=== PATIENT | male | born 1955 | race Caucasian/White ===

== ENCOUNTER 2021-10-17 10:34 | Inpatient (IN) | payer OTHER ==
[2021-10-17 10:59] LABS: Absolute Lymphocytes (CBC) 1.2 K/uL (0.7-4.9); Lymphocytes % 6.7 % (15.3-44.8); MPV 6.9 fL (7.6-11.3); RBC Red Blood Cell Count 5.43 M/uL (4.33-5.43)
[2021-10-17 11:10] LABS: Urine Blood 2+ (Negative); Urine Glucose 2+ (Negative); Urine Protein Negative (Negative)
[2021-10-17] MEDS ORDERED: NA CHLORIDE 0.9% 1,000 ML ONE ×3 (11:11→20:23)
[2021-10-17 11:15] LABS: Albumin 3.5 g/dL (3.4-5.0); Bilirubin Total 0.7 mg/dL (0.2-1.0); Protein, Total 7.4 g/dL (6.4-8.2)
--- NOTE | 2021-10-17 11:58 | RAD REPORT ---
EXAM DESCRIPTION: CTAbdomen Pelvis W Contrast - 10/17/2021 11:51 am CLINICAL HISTORY: Abdominal pain. RLQ abdominal pain COMPARISON: No comparisons TECHNIQUE: Biphasic CT imaging of the abdomen and pelvis was performed with 100 ml non-ionic IV cont rast. All CT scans are performed using dose optimization technique as appropriate and may include automated exposure control or mA/KV adjustment according to patient size. FINDINGS: The lung bases are clear.Small hiatal hernia. The liver, spleen, pancreas, and kidneys are within normal limits. Areas of nodularity are present in both adrenal glands, nonspecific but statistically most likely benign adenomas. No bowel obstruction, free air, free fluid or abscess. The appendix is dilated to 20 mm with surroun ding inflammation compatible with acute appendicitis. Mild sigmoid diverticulosis without diverticuli tis. No evidence of significant lymphadenopathy. No suspicious bony findings. IMPRESSION: Acute appendicitis.
[2021-10-17] MEDS ORDERED: NA CHLORIDE 0.9% 100 ML ONE (13:08)
[2021-10-17] MEDS ORDERED: MORPHINE 4 MG/ML SYR ONE (13:08)
[2021-10-17] MEDS ORDERED: ONDANSETRON 4 MG/2 ML VIAL ONE ×2 (13:08→16:27)
[2021-10-17] MEDS ORDERED: METRONIDAZOLE 500mg IVPB 500 MG/100 ML BAG IV ONE (13:08)
[2021-10-17] MEDS ORDERED: CEFTRIAXONE 1000 MG/VIAL ONE (13:08)
[2021-10-17 13:24] LABS: Blood Morphology Comment NOT SEEN (NOT SEEN); Platelet Estimate ADEQ
--- NOTE | 2021-10-17 15:25 | EDPHYS ---
Physician Documentation [facility] Name: Nathanael Gilbert Age: 66 yrs Sex: Male : 1955 Arrival Date: 10/17/2021 Time: 10:39 Bed 5 Private MD: ED Physician Mayank Alonzo HPI: 10/17 12:56 This 66 yrs old Male presents to ER via Ambulatory with complaints of Abdominal Pain. kb 12:56 The patient presents with abdominal pain right lower quadrant. Onset: The kb symptoms/episode began/occurred 2 day(s) ago. The symptoms do not radiate. Associated signs and symptoms: none. The symptoms are described as constant. Modifying factors: The symptoms are alleviated by nothing, the symptoms are aggravated by pressure. Severity of pain: At its worst the pain was moderate in the emergency department the pain is unchanged. The patient has not experienced similar symptoms in the past. The patient has not recently seen a physician. Pt reports RLQ pain for 2 days. Denies other symptoms. . Historical: - Allergies: 10:40 No Known Allergies; bp - Home Meds: 10:40 Crestor oral [Active]; levothyroxine oral [Active]; bp - PMHx: 10:40 Hypertensive disorder; Hypothyroidism; Hypercholesterolemia; bp - Immunization history:: Adult Immunizations up to date. - Social history:: Smoking status: Patient denies any tobacco usage or history of. ROS: 12:53 Constitutional: Negative for fever, chills, and weight loss. kb 12:53 Abdomen/GI: Positive for abdominal pain, Negative for nausea, vomiting, and diarrhea. 12:53 All other systems are negative. Exam: 12:53 Constitutional: This is a well developed, well nourished patient who is awake, alert, kb and in no acute distress. Head/Face: Normocephalic, atraumatic. ENT: Moist Mucous membranes Cardiovascular: Regular rate and rhythm with a normal S1 and S2. No gallops, murmurs, or rubs. No pulse deficits. Respiratory: Respirations even and unlabored. No increased work of breathing. Talking in full sentences Skin: Warm, dry with normal turgor. Normal color. MS/ Extremity: Pulses equal, no cyanosis. Neurovascular intact. Full, normal range of motion. Neuro: Awake and alert, GCS 15, oriented to person, place, time, and situation. Moves all extremities. Normal gait. Psych: Awake, alert, with orientation to person, place and time. Behavior, mood, and affect are within normal limits. 12:53 Abdomen/GI: Inspection: abdomen appears normal, Bowel sounds: normal, Palpation: soft, in all quadrants, moderate abdominal tenderness, in the right lower quadrant. Vital Signs: 10:40 BP 168 / 90; Pulse 77; Resp 16; Temp 97.9; Pulse Ox 98% on R/A; Weight 108.86 kg; bp Height 5 ft. 11 in. (180.34 cm); 11:27 BP 162 / 97; Pulse 71; Resp 18; Pulse Ox 96% on R/A; ph 12:20 BP 161 / 91; Pulse 75; Resp 18; Pulse Ox 98% on R/A; ph 13:05 BP 148 / 68; Pulse 69; Resp 16; Pulse Ox 98% on R/A; ph 14:30 BP 179 / 92; Pulse 74; Resp 16; Pulse Ox 99% ; bp 15:30 BP 169 / 102; Pulse 80; Resp 17; Pulse Ox 98% ; bp 10:40 Body Mass Index 33.47 (108.86 kg, 180.34 cm) bp MDM: 10:39 Patient medically screened. 12:56 Data reviewed: vital signs, nurses notes. Data interpreted: Pulse oximetry: on room air kb is 98 %. Interpretation: normal. 12:59 Counseling: I had a detailed discussion with the patient and/or guardian regarding: the kb historical points, exam findings, and any diagnostic results supporting the discharge/admit diagnosis, lab results, radiology results, the need for further work-up and treatment in the hospital. ED course: Pt requests transfer to [facility] after discussing acute appendicitis. . 13:47 ED course: Awaiting response from [facility] regarding transfer. Pt now wishes to go to [facility]. Transfer has been initiated. . 14:43 ED course: Transfer denied by [facility]. Pt wants to call his insurance company before agreeing to stay here. . 15:06 ED course: Pt's insurance company told him to try [facility] transfer center informed medical secretary receptionist that all facilities are on transfer closure at this time. Pt agrees to stay here. Dr Trujillo called for consult. . 15:24 Physician consultation: José Miguel Trujillo MD was contacted at 15:24, regarding admission, kb to the medical/surgical unit. and will see patient in OR. 10/17 10:40 Order name: CBC with Diff; Complete Time: 13:28 kb 10/17 10:40 Order name: CMP; Complete Time: 11:17 kb 10/17 10:40 Order name: Lipase; Complete Time: 11:17 kb 10/17 11:10 Order name: Urine Dipstick-Ancillary; Complete Time: 11:10 EDMS 10/17 13:23 Order name: COVID-19 SARS RT PCR (Document "Date of Onset" if Symptomatic); Complete ss Time: 15:25 10/17 13:24 Order name: Manual Differential; Complete Time: 13:28 EDMS 10/17 10:40 Order name: CT Abd/Pelvis - IV Contrast Only; Complete Time: 11:59 kb 10/17 15:24 Order name: EKG; Complete Time: 15:24 kb 10/17 10:40 Order name: IV Saline Lock; Complete Time: 11:07 kb 10/17 10:40 Order name: Labs collected and sent; Complete Time: 11:07 kb 10/17 10:40 Order name: Urine Dipstick-Ancillary (obtain specimen); Complete Time: 11:07 kb 10/17 15:24 Order name: EKG - Nurse/Tech; Complete Time: 16:28 kb Administered Medications: 11:00 Drug: NS 0.9% 1000 ml Route: IV; Rate: 1 bolus; Site: right forearm; bp 13:00 Follow up: Response: No adverse reaction; IV Status: Completed infusion; IV Intake: ph 1000ml 13:15 Drug: Rocephin (cefTRIAXone) 1 grams Route: IV; Rate: calculated rate; Site: right bp antecubital; 13:45 Follow up: Response: No adverse reaction; IV Status: Completed infusion ph 13:15 Drug: morphine 4 mg Route: IVP; Infused Over: 4 mins; Site: right antecubital; bp 14:58 Follow up: Response: No adverse reaction; Pain is decreased; RASS: Alert and Calm (0) ph 13:15 Drug: Zofran (Ondansetron) 4 mg Route: IVP; Site: right forearm; bp 14:58 Follow up: Response: No adverse reaction ph 13:15 Drug: NS 0.9% 1000 ml Route: IV; Rate: 125 ml/hr; Site: right antecubital; bp 14:58 Follow up: Response: No adverse reaction; IV Status: Infusion continued upon admission ph 13:45 Drug: Flagyl (metroNIDAZOLE) 500 mg Volume: 100 ml; Route: IVPB; Rate: 200 ml/hr; bp Infused Over: 30 mins; Site: right forearm; 14:15 Follow up: Response: No adverse reaction; IV Status: Completed infusion ph Disposition: 22:28 Co-signature as Attending Physician, Mayank ALBERT was immediately available on-site ms3 in the Emergency Department for consultation in the care of the patient. . Disposition Summary: 10/17/21 15:24 Hospitalization Ordered Hospitalization Status: Observation kb Provider: José Miguel Trujillo Location: Telemetry/MedSurg (observation) kb Condition: Stable kb Problem: new kb Symptoms: are unchanged kb Bed/Room Type: Standard Room Assignment: 203(10/17/21 17:16) ja1 Diagnosis - Unspecified acute appendicitis kb Forms: - Medication Reconciliation Form kb - SBAR form kb Signatures: Dispatcher [employer] EDMS Danna Johnston, SERVICE TEAM LEADER-C SERVICE TEAM LEADER-Ckb Jannette Valera bd Francis Lepe RN RN ja1 Sujit Kruse RN RN Mayank Castellano DO DO ms3 Barbie Lyons RN ph Corrections: (The following items were deleted from the chart) 17:06 15:24 kb bd 17:16 17:06 214 bd jaAngelo
--- NOTE | 2021-10-17 15:25 | ER ---
Nurse's Notes [facility] Name: Nathanael Gilbert Age: 66 yrs Sex: Male : 1955 Arrival Date: 10/17/2021 Time: 10:39 Bed 5 Private MD: Diagnosis: Unspecified acute appendicitis Presentation: 10/17 10:40 Chief complaint: Patient states: RLQ pain that began two days ago. Is worse today. ss Radiates towards R groin. Pt believes it may be his appendix. Coronavirus screen: Client denies travel out of the [place] in the last 14 days. Ebola Screen: Patient denies exposure to infectious person. Patient denies travel to an Ebola-affected area in the 21 days before illness onset. Initial Sepsis Screen: Does the patient meet any 2 criteria? No. Patient's initial sepsis screen is negative. Does the patient have a suspected source of infection? No. Patient's initial sepsis screen is negative. Risk Assessment: Do you want to hurt yourself or someone else? Patient reports no desire to harm self or others. Onset of symptoms was October 15, 2021. 10:40 Method Of Arrival: Ambulatory ss 10:40 Acuity: ROSEANN 3 ss 10:40 Care prior to arrival: Medication(s) given: Toradol 15 mg IVP IV initiated. 20 GA, in ss the right forearm. Triage Assessment: 10:40 General: Appears in no apparent distress. uncomfortable, Behavior is calm, cooperative, bp appropriate for age. Pain: Complains of pain in abdomen. EENT: No deficits noted. Neuro: No deficits noted. Cardiovascular: No deficits noted. Respiratory: No deficits noted. GI: Abd is soft Abdomen is tender to palpation in right lower quadrant Reports lower abdominal pain. : No signs and/or symptoms were reported regarding the genitourinary system. Derm: No deficits noted. Musculoskeletal: No deficits noted. Historical: - Allergies: 10:40 No Known Allergies; bp - Home Meds: 10:40 Crestor oral [Active]; levothyroxine oral [Active]; bp - PMHx: 10:40 Hypertensive disorder; Hypothyroidism; Hypercholesterolemia; bp - Immunization history:: Adult Immunizations up to date. - Social history:: Smoking status: Patient denies any tobacco usage or history of. Screenin:40 Abuse screen: Denies threats or abuse. Denies injuries from another. Nutritional bp screening: No deficits noted. Tuberculosis screening: No symptoms or risk factors identified. Fall Risk None identified. Assessment: 10:40 General: SEE TRIAGE NOTE. bp 13:06 Reassessment: Patient appears in no apparent distress at this time. Patient and/or ph family updated on plan of care and expected duration. Pain level reassessed. Patient is alert, oriented x 3, equal unlabored respirations, skin warm/dry/pink. 14:00 Reassessment: PT REQUESTING TRANSFER RATHER THAN ADMIT 2/2 PRE-EXISTING RELATIONSHIP. bp 15:30 Reassessment: RECEIVING FACILITY ON SATURATION. ADMIT INITIATED. GI: Bowel sounds bp present X 4 quads. Reports lower abdominal pain. 16:29 Reassessment: PT TO OR. PT TO RETURN TO ER AFTER APPY. bp Vital Signs: 10:40 BP 168 / 90; Pulse 77; Resp 16; Temp 97.9; Pulse Ox 98% on R/A; Weight 108.86 kg; bp Height 5 ft. 11 in. (180.34 cm); 11:27 BP 162 / 97; Pulse 71; Resp 18; Pulse Ox 96% on R/A; ph 12:20 BP 161 / 91; Pulse 75; Resp 18; Pulse Ox 98% on R/A; ph 13:05 BP 148 / 68; Pulse 69; Resp 16; Pulse Ox 98% on R/A; ph 14:30 BP 179 / 92; Pulse 74; Resp 16; Pulse Ox 99% ; bp 15:30 BP 169 / 102; Pulse 80; Resp 17; Pulse Ox 98% ; bp 10:40 Body Mass Index 33.47 (108.86 kg, 180.34 cm) bp ED Course: 10:39 Patient arrived in ED. kb 10:39 Danna Johnston FNP-C [facility]. kb 10:39 Mayank Alonzo DO is Attending Physician. kb 10:40 Arm band placed on. bp 10:40 Patient has correct armband on for positive identification. Bed in low position. Call bp light in reach. Side rails up X2. 10:40 Maintain EMS IV. Dressing intact. Good blood return noted. Site clean \T\ dry. Gauge \T\ bp site: 20 G R FA. 10:42 Triage completed. ss 10:42 Lyons, Barbie, RN is Primary Nurse. ph 11:53 CT Abd/Pelvis - IV Contrast Only In Process Unspecified. EDMS 13:36 initiated transfer to [facility]. bd 14:11 pt denied at [facility],per Jessica. bd 14:41 initiated transfer to [facility]. bd 14:51 pt denied at [facility] due to all [facility] being on transfer closure. bd 15:24 José Miguel Trujillo MD is Hospitalizing Provider. kb 17:33 No provider procedures requiring assistance completed. Patient admitted, IV remains in ss place. Administered Medications: 11:00 Drug: NS 0.9% 1000 ml Route: IV; Rate: 1 bolus; Site: right forearm; bp 13:00 Follow up: Response: No adverse reaction; IV Status: Completed infusion; IV Intake: ph 1000ml 13:15 Drug: Rocephin (cefTRIAXone) 1 grams Route: IV; Rate: calculated rate; Site: right bp antecubital; 13:45 Follow up: Response: No adverse reaction; IV Status: Completed infusion ph 13:15 Drug: morphine 4 mg Route: IVP; Infused Over: 4 mins; Site: right antecubital; bp 14:58 Follow up: Response: No adverse reaction; Pain is decreased; RASS: Alert and Calm (0) ph 13:15 Drug: Zofran (Ondansetron) 4 mg Route: IVP; Site: right forearm; bp 14:58 Follow up: Response: No adverse reaction ph 13:15 Drug: NS 0.9% 1000 ml Route: IV; Rate: 125 ml/hr; Site: right antecubital; bp 14:58 Follow up: Response: No adverse reaction; IV Status: Infusion continued upon admission ph 13:45 Drug: Flagyl (metroNIDAZOLE) 500 mg Volume: 100 ml; Route: IVPB; Rate: 200 ml/hr; bp Infused Over: 30 mins; Site: right forearm; 14:15 Follow up: Response: No adverse reaction; IV Status: Completed infusion ph Medication: 10:40 VIS not applicable for this client. bp Intake: 13:00 IV: 1000ml; Total: 1000ml. ph Outcome: 15:24 Decision to Hospitalize by Provider. kb 17:33 Instructed on the need for admit. ss 17:33 Patient left the ED. ss 17:33 Admitted to OR accompanied by nurse, via stretcher. ph 17:33 Condition: stable Signatures: Dispatcher [employer] EDDanna Liang, AWS CONSULTANT-C AWS CONSULTANT-Ckb Jannette Valera [place], RN RN Barbie Lyons RN RN Aixa, Sujit, JOSE RN bp Corrections: (The following items were deleted from the chart) 12:33 10:40 BP 168 / 90; Pulse 77bpm; Resp 16bpm; Pulse Ox 98% RA; bp 12:57 10:40 BP 168 / 90; Pulse 77bpm; Resp 16bpm; Pulse Ox 98% RA; 108.86 kg; Height 5 ft. 11 bp in.; BMI: 33.4; bp
[2021-10-17] MEDS ORDERED: propofoL 200 MG/20 ML VIAL IV ONE (16:22)
[2021-10-17] MEDS ORDERED: LIDOCAINE 1% MPF 5 ML VIAL ONE (16:22)
[2021-10-17] MEDS ORDERED: ROCURONIUM 50 MG/5 ML VIAL IV ONE (16:23)
[2021-10-17] MEDS ORDERED: FENTANYL CITR 100 MCG/2 ML ONE ×2 (16:23→18:28)
[2021-10-17] MEDS ORDERED: KETOROLAC 30 MG/ML INJ ONE (16:26)
[2021-10-17] MEDS ORDERED: dexAMETHasone 10 MG/ML VIAL ONE (16:27)
[2021-10-17] MEDS ORDERED: ONDANSETRON 4 MG/2 ML VIAL IV PRN (16:54)
[2021-10-17] MEDS ORDERED: MORPHINE 4 MG/ML SYR IV PRN (16:54)
--- NOTE | 2021-10-17 17:34 | P.HP ---
Date of Service: 10/17/21 PC: This 66-year-old male presented to the emergency room with severe right lower quadrant abdominal pain for diagnosis and treatment. HPC: Patient has been experiencing abdominal pain since yesterday. Pain is intensified and is now located in the right lower quadrant. Started to have some nausea and vomiting along with it, also hurts when he walks at this time. PSHx: Negative PMHx: Hypercholesterolemia, hypertension, hypothyroid Social Hx: No known allergies Sys R: No cough, wheeze, shortness of breath. No chest pain or palpitations. Denies any urinary complaints. He just emptied his bladder a few minutes ago. O/E: Awake alert uncomfortable HEENT: Nonicteric Chest: Air entry equal bilaterally Abd: Tender with guarding and rebound in the right lower quadrant [place]: Intact Data: 18,000 white count with shift, CT scan demonstrates acute appendicitis supporting clinical diagnosis. Impression: Acute abdomen with appendicitis Plan: I will taken the operating room for laparoscopic possible open appendectomy. The risks of this procedure have been discussed. The possibility of bleeding, infection, injury to bowel blood vessels and surrounding structures were outlined. The possible need for open and/or further surgeries and procedures was described. Abscess and hernia formation was outlined. He unde rstands and wants us to proceed.
[2021-10-17] MEDS ORDERED: GLYCOPYRROLATE 0.2 MG/ML SYR ONE ×2 (18:09→18:16)
[2021-10-17] MEDS ORDERED: NEOSTIGMINE 1 MG/ML -10 ML VIAL ONE (18:16)
[2021-10-17] MEDS ORDERED: LABETALOL 20 MG/4ML SYRINGE IV ONE (18:28)
[2021-10-17] MEDS ORDERED: AMPICILLIN SODIUM 2 GM in NA CHLORIDE 0.9% 100 ML IVPB ONE (19:00)
--- NOTE | 2021-10-17 19:12 | P.OP ---
Preoperative diagnosis: Acute appendicitis Postoperative diagnosis: Ruptured appendix Primary procedure: Laparoscopy Secondary procedure: Converted to laparoscopic appendectomy Anesthesia: General Estimated blood loss: Less than 10 Specimen: 1 specimen a ruptured appendix and contents Operative Technique: The patient brought the operating room and placed supine on the table. After the induction of adequate general endotracheal anesthesia, there the abdomen was prepped with a DuraPrep solution, and draped in usual aseptic manner. A subumbilical incision was made. This was brought down through the skin and subcutaneous tissue. The fascia was identified. Careful using the Veress needle and a towel clip to apply traction on the fascia upward we were able to enter the peritoneal cavity. Having done a hanging drop, the abdomen was gently insufflated. We obtained a pressure approximately 12 mmHg. A 12 mm trocar was now placed in this area to allow access to the peritoneal cavity. Under direct vision a 5 mm trocar was placed in the lower midline, and another on the right lateral side of the abdomen. With the patient's placed in Trendelenburg and rolled to the left we could visualize the right lower quadrant. We could see that there was an inflammatory process in the area of the cecum. Just superior to this along the right lateral sidewall of the abdomen there was an inflammatory process that shows rashida stool sitting just at the edge there. This was gently dissected off of the lateral wall and brought inferiorly. Her. My intention was to mobilize the cecum lifted up and to complete the case laparoscopically. It became clear however the more we dissected there was a great potential to start to spread this contamination throughout the abdomen. Hence at this point I converted to an open procedure. Having marked exactly where the appendix was, a skin incision was made. This was brought down through the skin and subcutaneous tissue. The external oblique was now opened in direction of its fibers. The internal oblique was identified. Once again it was opened in direction of its fibers to allow us access to the peritoneum itself. The peritoneum was then sharply opened and we split to allow for full access through our incision. Immediately below isolate the cecum and this inflamed ruptured appendix. We were able to gently gently dissected out, and we could trace the base of the appendix to its junction with the cecum. We could see that there was clean viable tissue in this area. This was grasped and doing the linear stapler we were able to remove the appendiceal stump with a generous margin of cecum. This area having been closed we were now able to irrigated with a copious amount of a saline solution. We converted to a regular mix of ampicillin and irrigated the area thoroughly until the effluent was clear. A 10 mm drain was now placed into the right paracolic gutter, and brought and brought out inferiorly and medially to our incision. At this point the peritoneum was grasped between hemostats. It was closed with a running suture of chromic. Interrupted sutures were then used to approximate the internal oblique. The external fascia was treated in a similar manner. The subcutaneous tissue was approximated using 2 interrupted sutures of chromic, and angelo were loosely applied to the skin. We placed iodoform gauze between the angelo and this will be removed tomorrow. At this point we were able to now reestablish our insufflation as we had not remove the trochars. Inspection of the area showed we had adequate hemostasis. There was good closure of the anterior abdominal wall in this area. Now with a 5 mm trocar in the right lateral side we were able look back at the umbilicus and closed this area with 2 absorbable sutures placed using the Endo Close. The trochars were now removed, the sutures tied, and angelo were again applied to the skin. At the end of the procedure he was in a stable condition when sent to the recovery room. Needle sponge instrument count were correct. 1, 10 mm GABRIELA drain is in the right paracolic gutter. Drain(s): GABRIELA drain
[2021-10-17] MEDS ORDERED: NALOXONE HCL 2 MG/2 ML VIAL ONE (19:16)
[2021-10-17] MEDS: HYDROMORPHONE HCL 1 MG/ML INJ ONE ×8 (19:29→20:28)
[2021-10-17] MEDS ORDERED: Levofloxacin500mg IV 100 ML IV SCH (20:00)
[2021-10-17] MEDS: MORPHINE 4 MG/ML SYR IV SCH ×2 (20:00→22:00)
[2021-10-17 20:37] VITALS: O2SAT 96
[2021-10-17 21:59] VITALS: BMI 33.5
[2021-10-17] MEDS: Levofloxacin500mg IV 500 MG/100 ML BAG IV SCH (22:14)
[2021-10-17] MEDS: NA CHLORIDE 0.9% 1,000 ML IV SCH (22:28)
[2021-10-18] MEDS: METRONIDAZOLE 500mg IVPB 500 MG/100 ML BAG IV SCH ×3 (00:41→17:25)
[2021-10-18] MEDS: HYDROCODONE/APAP 10/325 TAB PO PRN ×3 (00:46→19:50)
[2021-10-18] MEDS: MORPHINE 4 MG/ML SYR IV PRN ×5 (02:44→22:16)
--- NOTE | 2021-10-18 06:28 | EKG ---
Test Date: 2021-10-17 Test Time: 16:07:11 Surgical Garment Assembly Supervisor: JOSIAS MEASUREMENT RESULTS: Intervals: Rate: 70 HI: 172 QRSD: 150 QT: 390 QTc: 421 [place]: P: 63 HI: 172 QRS: -81 T: 59 INTERPRETIVE STATEMENTS: Normal sinus rhythm Right bundle branch block Left anterior fascicular block Bifascicular block Abnormal ECG No previous ECG available for comparison Electronically Signed On 10-18-21 06:27:37 CDT by Dashawn Huertas
[2021-10-18] MEDS: NA CHLORIDE 0.9% 1,000 ML IV SCH ×3 (06:50→11:06)
[2021-10-18] MEDS ORDERED: SODIUM CHLORIDE 0.9% 20 ML VIAL IV PRN (10:26)
[2021-10-18] MEDS ORDERED: NA CHLORIDE 0.9% 500 ML IV ONE (10:45)
[2021-10-18] MEDS: PANTOPRAZOLE 40 MG INJ IVP SCH (11:06)
[2021-10-18] MEDS: Levofloxacin500mg IV 500 MG/100 ML BAG IV SCH (19:50)
[2021-10-19] MEDS: METRONIDAZOLE 500mg IVPB 500 MG/100 ML BAG IV SCH ×3 (00:09→16:20)
[2021-10-19] MEDS: MORPHINE 4 MG/ML SYR IV PRN ×3 (02:10→19:57)
[2021-10-19] MEDS: HYDROCODONE/APAP 10/325 TAB PO PRN ×4 (03:45→23:05)
[2021-10-19] MEDS: PANTOPRAZOLE 40 MG INJ IVP SCH (08:27)
--- NOTE | 2021-10-19 14:26 | P.PN ---
Date of Service: 10/19/21 S: Patient started to feel little bit better, still does not have much of an appetite. Pain he says is a little more under control today. Voiding on his own. O: Vital signs are stable, still has some drainage from the GABRIELA drain, consistent with some irrigating fluid that is still coming out. A: Improving status post appendectomy for ruptured appendix PE: Continue current therapy, will try and discharge patient tomorrow. In the meantime advance diet as tolerated.
[2021-10-19] MEDS: NA CHLORIDE 0.9% 1,000 ML IV SCH (19:55)
[2021-10-19] MEDS ORDERED: Levofloxacin 750mg IV 750 MG/150 ML BAG IV SCH (20:00)
[2021-10-20] MEDS: MORPHINE 4 MG/ML SYR IV PRN ×2 (01:28→06:08)
[2021-10-20] MEDS: METRONIDAZOLE 500mg IVPB 500 MG/100 ML BAG IV SCH ×2 (01:29→08:18)
[2021-10-20] MEDS: HYDROCODONE/APAP 10/325 TAB PO PRN ×2 (05:08→11:27)
[2021-10-20] MEDS: PANTOPRAZOLE 40 MG INJ IVP SCH (08:18)
[2021-10-20 13:20] VITALS: BP 147/67; TEMP 98.4
== END 2021-10-20 16:30 | disposition home or self-care (01) | DRG 340 ==
LOC: ER 10:34 → ERHOLD 15:26 → 2ND 17:34 → OBSVTOIN 19:54
PROVIDERS: ADMIT Surgery; ATTEND Surgery
PROC: 0WJG4ZZ Inspection of Peritoneal Cavity, Percutaneous Endoscopic Approach (ICD-10-PCS; 2021-10-17)
PROC: 0DTJ0ZZ Resection of Appendix, Open Approach (ICD-10-PCS; principal; 2021-10-17 16:00)
DX: K35.32 Acute appendicitis with perforation, localized peritonitis, and gangrene, without abscess (principal); E78.00 Pure hypercholesterolemia, unspecified; I10 Essential (primary) hypertension; E03.9 Hypothyroidism, unspecified; Z20.822 Contact with and (suspected) exposure to COVID-19
CPT/HCPCS: 36415; 74177; 80053; 81003; 82947; 83690; 85025; 88304; 93005; 94010; 97110; 97116; 97161; 97530; 99285; C9113; G0378; J0290; J1100; J1170; J2310; J2405; J2704; J2710; J3010; J3490; J7030; Q9967; U0003

== ENCOUNTER 2021-12-10 11:49 | Inpatient (IN) | payer OTHER ==
[2021-12-10 13:00] LABS: Absolute Lymphocytes (CBC) 0.9 K/uL (0.7-4.9); Hematocrit 43.3 % (39.6-49.0); Lymphocytes % 5.8 % (15.3-44.8); MCV 88.7 fL (80-100); MPV 8.4 fL (7.6-11.3); RBC Red Blood Cell Count 4.88 M/uL (4.33-5.43)
--- NOTE | 2021-12-10 13:01 | RAD REPORT ---
EXAM DESCRIPTION: RAD - Chest Single View - 12/10/2021 12:55 pm CLINICAL HISTORY: CHEST PAIN Chest pain. COMPARISON: No comparisons FINDINGS: Portable technique limits examination quality. The lungs are grossly clear. The heart is normal in size. No displaced fractures. IMPRESSION: No acute intrathoracic process suspected.
[2021-12-10] MEDS ORDERED: NA CHLORIDE 0.9% 1,000 ML ONE ×2 (13:16→15:53)
[2021-12-10] MEDS ORDERED: MORPHINE 4 MG/ML SYR ONE (13:16)
[2021-12-10] MEDS ORDERED: ONDANSETRON 4 MG/2 ML VIAL ONE ×2 (13:16→15:45)
[2021-12-10 13:19] LABS: Potassium 3.5 mmol/L (3.5-5.1); Protein, Total 7.5 g/dL (6.4-8.2); Troponin High Sensitivity 24.5 pg/mL (<58.9)
[2021-12-10 13:21] LABS: Bilirubin Total 9.7 mg/dL (0.2-1.0)
--- NOTE | 2021-12-10 13:51 | RAD REPORT ---
EXAM DESCRIPTION: CT - Chest Abd Pelvis Wo Con - 12/10/2021 1:38 pm CLINICAL HISTORY: Chest and abdomen pain. abd pain, chest pain COMPARISON: No comparisons TECHNIQUE: A limited noncontrast study was performed. All CT scans are performed using dose optimization technique as appropriate and may include automated exposure control or mA/KV adjustment according to patient size. FINDINGS: The lungs are clear.No pleural or pericardial effusion.No intrathoracic adenopathy. The spleen, pancreas both kidneys are within normal limits. Nodular enlargement of both adrenal gland s is present, unchanged. There is a large fluid collection containing air pockets extending from the right lower quadrant cecu m/appendectomy clips along the right flank extending into the right lobe of the liver. This collectio n measures 16 x 10 x 9 cm (CC x T x AP). This is most compatible with an abscess. No bowel obstructio n or free air. No worrisome osseous finding. IMPRESSION: Large 16 cm right-sided intra-abdominal abscess extending from the right lower quadrant cecum to involve the right lobe of the liver as detailed.
[2021-12-10] MEDS ORDERED: NA CHLORIDE 0.9% 100 ML ONE (14:33)
[2021-12-10] MEDS ORDERED: PIPERACIL/TAZO 3.375 GM VIAL IV ONE (14:34)
--- NOTE | 2021-12-10 15:20 | P.HP ---
Date of Service: 12/10/21 PC: This 66-year-old male presented to the emergency room with severe abdominal pain for diagnosis and treatment. HPC: This is a patient of mine, who about 5 to 6 weeks ago underwent an open appendectomy for ruptured appendix. He tolerated the seizure well. At the time he had a Preston-Thacker drain placed postoperatively. The drain has been removed, and the patient had was discharged from the hospital. He was on antibiotics as an outpatient. He presented to my office today for staple removal, 6 weeks after his surgery. At the time he said he was feeling unwell, was having abdominal pain, and had no appetite. States he has been afebrile at home. PSHx: Previous open appendectomy PMHx: Negative Social Hx: No known allergies Sys R: No cough, wheeze, shortness of breath. No chest pain or palpitations. Has just felt occasional fever, and has been slightly out of breath recently. O/E: Awake alert looks ill vital signs are stable afebrile HEENT: Patient appears to be clinically slightly jaundiced Chest: Chest movement equal bilaterally Abd: Area of fullness on the right side of his abdomen on clinical exam [place]: Intact Data: 14,000 white count, CT scan shows significant abscess on the right side of the abdomen. Extends up to the liver. Impression: Intra-abdominal abscess status post open appendectomy for ruptured appendix Plan: I have discussed the findings with the patient. I have told him this abscess needs to be drained. I plan to take him to the operating room to do this. The risks of the procedure have been discussed. The possibility of bleeding, infection, injury to bowel and surrounding structures were outlined. The possibility of hernia formation and/or needed for for further surgeries and procedures was discussed. He understands and wants us to proceed.
[2021-12-10] MEDS ORDERED: propofoL 200 MG/20 ML VIAL IV ONE (15:43)
[2021-12-10] MEDS ORDERED: MIDAZOLAM HCL 2 MG/2 ML INJ ONE (15:43)
[2021-12-10] MEDS ORDERED: GLYCOPYRROLATE 0.2 MG/ML SYR ONE (15:43)
[2021-12-10] MEDS ORDERED: LIDOCAINE 1% MPF 5 ML VIAL ONE (15:43)
[2021-12-10] MEDS ORDERED: FENTANYL CITR 100 MCG/2 ML ONE ×2 (15:43→16:43)
[2021-12-10] MEDS ORDERED: KETOROLAC 30 MG/ML INJ ONE (15:44)
[2021-12-10] MEDS ORDERED: ROCURONIUM 50 MG/5 ML VIAL IV ONE (15:45)
[2021-12-10] MEDS ORDERED: NEOSTIGMINE 1 MG/ML -10 ML VIAL ONE (15:45)
[2021-12-10] MEDS ORDERED: dexAMETHasone 4 MG/ML VIAL ONE (15:45)
[2021-12-10] MEDS ORDERED: NA CIT/CITRIC AC 30 ML ORAL UDC ONE (15:52)
[2021-12-10] MEDS ORDERED: BUPIVACAINE 0.5% PF 10 ML VIAL ONE (15:55)
[2021-12-10] MEDS ORDERED: ONDANSETRON 4 MG/2 ML VIAL IV PRN (17:11)
--- NOTE | 2021-12-10 17:17 | P.OP ---
Preoperative diagnosis: Intra-abdominal abscess Postoperative diagnosis: Extraperitoneal abscess Primary procedure: Laparoscopic drainage of abscess Anesthesia: General Estimated blood loss: Less than 20 cc Specimen: Cultures both aerobic and anaerobic were sent Findings: 340 cc collection of old blood and abscess Operative Technique: The patient brought the operating room and placed supine on the table. After the induction of adequate general anesthesia, a Rudolph catheter was inserted. The abdomen was then painted with a Betadine solution he was draped in the usual aseptic manner. The preoperative marking that had been made both in the ER under ultrasound and the recovery room with palpation was identified. Using a 16-gauge needle, we were able to enter the skin and into the area where the suspected abscess was. Having established the angle and location, a skin incision was made around the needle. The Visiport was now used to enter this area and following along the direction of the needle we encountered a large collection of old purulent bloody material. This was aspirated from the cannula. We got approximately 340 cc of old bloody fluid. Cultures both aerob ic and anaerobic were taken of this. With the catheter in place this area was irrigated with a copious amount of a saline solution for approximately 1 L. The fluid was aspirated from From the abscess cavity. It appears that this abscess may be extraperitoneal. On using the Visiport we lost our tract from our original abscess entry and we could see that the peritoneal cavity actually was not opened during our initial evacuation of this abscess cavity. At this point we tried to place a Davol drain but were unable to do this due to some technical difficulties. At this point because the abscess cavity had been drained irrigated thoroughly the wound was left open with 1 stitch across it of chromic to approximate the skin edges loosely. At this point a sterile dressing was applied. He was in a stable condition was sent to the recovery room needle sponge instrument count were correct, specimens were sent as described. Complications: None Transferred to: Recovery Room Condition: Good
[2021-12-10] MEDS ORDERED: HYDROMORPHONE HCL 1 MG/ML INJ ONE (17:49)
[2021-12-10] MEDS ORDERED: NA CHLORIDE 0.9% 2,000 ML ONE (18:05)
[2021-12-10] MEDS: NA CHLORIDE 0.9% 1,000 ML IV SCH (18:12)
[2021-12-10 18:31] VITALS: BMI 33.5
[2021-12-10] MEDS: MORPHINE 4 MG/ML SYR IV PRN (22:19)
[2021-12-11] MEDS: NA CHLORIDE 0.9% 1,000 ML IV SCH ×3 (02:43→21:15)
[2021-12-11] MEDS: MORPHINE 4 MG/ML SYR IV PRN ×5 (02:44→21:14)
[2021-12-11 03:58] LABS: Hematocrit 40.8 % (39.6-49.0); Lymphocytes % 7.4 % (15.3-44.8); MCV 89.6 fL (80-100); MPV 8.3 fL (7.6-11.3); RBC Red Blood Cell Count 4.55 M/uL (4.33-5.43)
[2021-12-11 04:09] LABS: Albumin 2.6 g/dL (3.4-5.0); Bilirubin Direct 8.2 mg/dL (0-0.2); Potassium 4.5 mmol/L (3.5-5.1); Protein, Total 6.7 g/dL (6.4-8.2)
[2021-12-11 04:16] LABS: Bilirubin Total 9.7 mg/dL (0.2-1.0)
--- NOTE | 2021-12-11 08:52 | EKG ---
Test Date: 2021-12-10 Test Time: 12:39:50 Junior Sales Representative: CLINT MEASUREMENT RESULTS: Intervals: Rate: 91 GA: 152 QRSD: 142 QT: 360 QTc: 442 [place]: P: 78 GA: 152 QRS: -80 T: 66 INTERPRETIVE STATEMENTS: Normal sinus rhythm Right bundle branch block Left anterior fascicular block Bifascicular block Minimal voltage criteria for LVH, may be normal variant Abnormal ECG Compared to ECG 10/17/2021 16:07:11 Left ventricular hypertrophy now present Bifascicular block still present Electronically Signed On 12-11-21 08:47:18 CDT by Dashawn Huertas
[2021-12-11] MEDS: PIPER TAZO 3.375 GM in NA CHLORIDE 0.9% 100 ML IV SCH (21:13)
[2021-12-12] MEDS: MORPHINE 4 MG/ML SYR IV PRN ×4 (01:27→14:34)
[2021-12-12] MEDS: PIPER TAZO 3.375 GM in NA CHLORIDE 0.9% 100 ML IV SCH ×3 (05:38→21:37)
--- NOTE | 2021-12-12 09:30 | ER ---
Nurse's Notes [facility] Name: Nathanael Gilbert Age: 66 yrs Sex: Male : 1955 Arrival Date: 12/10/2021 Time: 11:51 Bed 17 Private MD: Diagnosis: Severe sepsis without septic shock;Intraabdominal abscess;Abnormal results of liver function studies Presentation: 12/10 11:57 Chief complaint: Patient states: pt presented to ED reporting abdominal pain, diarrhea, noriega dizziness, chest pain x 1 week. Coronavirus screen: Vaccine status: Patient reports being unvaccinated. Ebola Screen: Patient denies travel to an Ebola-affected area in the 21 days before illness onset. Initial Sepsis Screen: Does the patient meet any 2 criteria? HR > 90 bpm. Does the patient have a suspected source of infection? No. Patient's initial sepsis screen is negative. Risk Assessment: Do you want to hurt yourself or someone else? Patient reports no desire to harm self or others. Onset of symptoms was December 02, 2021. 11:57 Method Of Arrival: Ambulatory noriega 11:57 Acuity: ROSEANN 3 noriega Triage Assessment: 11:59 General: Appears in no apparent distress. General: Behavior is calm, cooperative. Pain: noriega Complains of pain in abdomen. Historical: - Allergies: 11:59 No Known Allergies; noriega - Home Meds: 11:59 Crestor Oral [Active]; levothyroxine oral [Active]; noriega - PMHx: 11:59 Hypercholesterolemia; Hypertensive disorder; Hypothyroidism; noriega - Immunization history:: Adult Immunizations up to date. - Social history:: Smoking status: Patient denies any tobacco usage or history of. Screenin:53 Abuse screen: Denies threats or abuse. Nutritional screening: No deficits noted. bm7 Tuberculosis screening: No symptoms or risk factors identified. Fall Risk None identified. Assessment: 12:11 Reassessment: GLASSBLOWER at bedside to assess. bm7 13:53 Reassessment: Patient and/or family updated on plan of care and expected duration. Pain bm7 level reassessed. Patient is alert, oriented x 3, equal unlabored respirations, skin warm/dry/pink. General: Appears in no apparent distress. comfortable. Pain: Complains of pain in abdomen Pain does not radiate. Pain currently is 3 out of 10 on a pain scale. Pain began gradually. Neuro: No deficits noted. Cardiovascular: Denies chest pain, shortness of breath, Heart tones S1 S2 present Chest pain is denied. Respiratory: No deficits noted. GI: Abdomen is distended, non-distended, Bowel sounds present X 4 quads. Reports nausea. : No deficits noted. No signs and/or symptoms were reported regarding the genitourinary system. EENT: Eyes icteric. Derm: No deficits noted. No signs and/or symptoms reported regarding the dermatologic system. Musculoskeletal: No deficits noted. No signs and/or symptoms reported regarding the musculoskeletal system. 14:43 Reassessment: surgeon at [facility] to assess. bm7 Vital Signs: 11:57 BP 118 / 78; Pulse 105; Resp 19; Temp 97.6(T); Pulse Ox 96% on R/A; Weight 108.86 kg; noriega Height 5 ft. 11 in. (180.34 cm); 12:51 BP 122 / 77 Supine; Pulse 96; bm7 12:51 BP 139 / 76 Sitting; Pulse 84; bm7 12:52 BP 146 / 80 Standing; Pulse 80; bm7 11:57 Body Mass Index 33.47 (108.86 kg, 180.34 cm) ED Course: 11:51 Patient arrived in ED. am2 11:59 Triage completed. noriega 12:06 Danna Johnston FNP-C [facility]. kb 12:06 Juancarlos Valdez MD is Attending Physician. kb 12:06 Ruthy Hayden, JOSE is Primary Nurse. bm7 12:57 Chest Single View XRAY In Process Unspecified. EDMS 13:[address] bm7 13:27 Patient has correct armband on for positive identification. Placed in gown. Bed in low bm7 position. Call light in reach. Side rails up X 1. Client placed on continuous cardiac and pulse oximetry monitoring. NIBP monitoring applied. environmental monitoring specialist on. Warm blanket given. 13:27 Initial lab(s) drawn, by me, sent to lab. EKG done, COVID swab sent to lab. Inserted bm7 saline lock: 20 gauge in right antecubital area, using aseptic technique. Blood collected. Patient maintains SpO2 saturation greater than 95% on room air. 13:39 CT Chest Abdomen Pelvis W/O Contrast In Process Unspecified. EDMS 13:53 No provider procedures requiring assistance completed. bm7 14:28 José Miguel Trujillo MD is Hospitalizing Provider. kb 14:50 Missed attempt(s): 20 gauge in left forearm. Bleeding controlled, band aid applied, ph catheter tip intact. Missed attempt(s): 22 gauge in left hand. Bleeding controlled, band aid applied, catheter tip intact. 15:40 Report given to JOSE Dillon. bm7 15:40 Patient admitted, IV remains in place. bm7 Administered Medications: 13:27 Drug: NS 0.9% 1000 ml Route: IV; Rate: 1000 ml; Site: right antecubital; bm7 15:30 Follow up: IV Status: Completed infusion; IV Intake: 1000ml bm7 13:27 Drug: Zofran (Ondansetron) 4 mg Route: IVP; Site: right antecubital; bm7 13:53 Follow up: Response: No adverse reaction bm7 13:27 Drug: morphine 4 mg Route: IVP; Infused Over: 4 mins; Site: right antecubital; bm7 13:53 Follow up: Response: No adverse reaction bm7 15:13 Drug: Zosyn (piperacillin-tazobactam) 3.375 grams Route: IVPB; Infused Over: 60 mins; bm7 Site: right antecubital; 15:30 Follow up: IV Status: Completed infusion bm7 Medication: 13:53 VIS not applicable for this client. bm7 Intake: 15:30 IV: 1000ml; Total: 1000ml. bm7 Outcome: 14:29 Decision to Hospitalize by Provider. kb 15:40 Admitted to via stretcher, Report called to JOSE Dillon bm7 15:40 Condition: good 15:40 Discharge instructions given to patient, Wilma GARCIA Instructed on the need for admit, Demonstrated understanding of Prescriptions given X 15:42 Patient left the ED. bm7 Signatures: Dispatcher [employer] EDMS Danna Johnston, [facility] ROQUEP-Barbie Hudson, RN Bell Steven ph, Brittany, RN RN bm7 Au-StagerNaima RN RN
--- NOTE | 2021-12-12 09:31 | EDPHYS ---
Physician Documentation [facility] Name: Nathanael Gilbert Age: 66 yrs Sex: Male : 1955 Arrival Date: 12/10/2021 Time: 11:51 Bed 17 Private MD: ED Physician Juancarlos Valdez HPI: 12/10 12:38 This 66 yrs old Male presents to ER via Ambulatory with complaints of Chest Pain, kb Diarrhea. 12:38 The patient presents with abdominal pain in the lower abdomen. Onset: The kb symptoms/episode began/occurred 1 week(s) ago. The symptoms do not radiate. Associated signs and symptoms: Pertinent positives: diarrhea. The symptoms are described as constant. Modifying factors: The symptoms are alleviated by nothing, the symptoms are aggravated by nothing. Severity of pain: At its worst the pain was moderate in the emergency department the pain is unchanged. The patient has not experienced similar symptoms in the past. The patient has been recently seen by a physician:. Patient reports abdominal pain, chest pain, diarrhea, malaise for 1 week. States he had a perforated appendicitis 6 weeks ago, had surgery performed by Dr. Trujillo. Followed up with Dr. Perez this morning and was told to come to the ER for CT scan to rule out abscess.. Historical: - Allergies: 11:59 No Known Allergies; noriega - Home Meds: 11:59 Crestor Oral [Active]; levothyroxine oral [Active]; noriega - PMHx: 11:59 Hypercholesterolemia; Hypertensive disorder; Hypothyroidism; noriega - Immunization history:: Adult Immunizations up to date. - Social history:: Smoking status: Patient denies any tobacco usage or history of. ROS: 12:36 Constitutional: Negative for fever, chills, and weight loss. kb 12:36 Constitutional: Positive for malaise. 12:36 Cardiovascular: Positive for chest pain, Negative for edema, orthopnea, palpitations, paroxysmal nocturnal dyspnea. 12:36 Abdomen/GI: Positive for abdominal pain, diarrhea, Negative for nausea and vomiting. 12:36 All other systems are negative. Exam: 12:36 Constitutional: This is a well developed, well nourished patient who is awake, alert, kb and in no acute distress. Head/Face: Normocephalic, atraumatic. ENT: Moist Mucous membranes Cardiovascular: Regular rate and rhythm with a normal S1 and S2. No gallops, murmurs, or rubs. No pulse deficits. Respiratory: Respirations even and unlabored. No increased work of breathing. Talking in full sentences MS/ Extremity: Pulses equal, no cyanosis. Neurovascular intact. Full, normal range of motion. Neuro: Awake and alert, GCS 15, oriented to person, place, time, and situation. Moves all extremities. Normal gait. Psych: Awake, alert, with orientation to person, place and time. Behavior, mood, and affect are within normal limits. 12:36 Abdomen/GI: Inspection: recent surgical incision noted to RLQ, with small surgical incisions to right abd and umbilical area. All healing well without signs of infection, Bowel sounds: normal, Palpation: soft, in all quadrants, moderate abdominal tenderness, in the right lower quadrant and left lower quadrant. 13:02 ECG was reviewed by the Attending Physician. kb 13:46 Eyes: Sclera: icterus, is present. kb 13:46 Skin: Appearance: normal except for affected area, Color: jaundiced. Vital Signs: 11:57 BP 118 / 78; Pulse 105; Resp 19; Temp 97.6(T); Pulse Ox 96% on R/A; Weight 108.86 kg; noriega Height 5 ft. 11 in. (180.34 cm); 12:51 BP 122 / 77 Supine; Pulse 96; bm7 12:51 BP 139 / 76 Sitting; Pulse 84; bm7 12:52 BP 146 / 80 Standing; Pulse 80; bm7 11:57 Body Mass Index 33.47 (108.86 kg, 180.34 cm) noriega MDM: 12:06 Patient medically screened. kb 12:25 Data reviewed: vital signs, nurses notes. Data interpreted: Pulse oximetry: on room air kb is 96 %. Interpretation: normal. 14:12 Physician consultation: José Miguel Trujillo MD was called at 13:59, regarding admission, to the medical/surgical unit. patient's condition, and will see patient in ED, shortly. 14:15 ED course: Severe sepsis criteria met at 1321. Source (A): intraabdominal abscess, SIRS kb criteria (B): WBC, HR; End Organ Dysfunction (C): Elevated bilirubin. Sepsis reevaluation complete.. 14:17 Physician consultation: José Miguel Trujillo MD in the emergency department to see patient at kb 14:27. 14:28 Counseling: I had a detailed discussion with the patient and/or guardian regarding: the kb historical points, exam findings, and any diagnostic results supporting the discharge/admit diagnosis, lab results, radiology results, the need for further work-up and treatment in the hospital. 12/10 12:16 Order name: CBC with Diff; Complete Time: 13:03 kb 12/10 12:16 Order name: CMP; Complete Time: 13:21 kb 12/10 12:16 Order name: Lipase; Complete Time: 13:21 kb 12/10 12:16 Order name: Troponin HS; Complete Time: 13:21 kb 12/10 13:00 Order name: COVID-19 SARS RT PCR (Document "Date of Onset" if Symptomatic); Complete kb Time: 15:07 12/10 13:56 Order name: Blood Culture Adult (2) kb 12/10 12:16 Order name: Chest Single View XRAY; Complete Time: 13:02 kb 12/10 13:23 Order name: CT Chest Abdomen Pelvis W/O Contrast; Complete Time: 13:52 kb 12/10 13:56 Order name: Lactate; Complete Time: 15:21 kb 12/10 13:56 Order name: Procalcitonin; Complete Time: 15:40 kb 12/10 12:16 Order name: IV Saline Lock; Complete Time: 12:29 kb 12/10 12:16 Order name: Labs collected and sent; Complete Time: 12:29 kb 12/10 12:16 Order name: EKG; Complete Time: 12:17 kb 12/10 12:16 Order name: EKG - Nurse/Tech; Complete Time: 12:51 kb 12/10 12:16 Order name: Orthostatics; Complete Time: 12:51 kb EC:03 Rate is 91 beats/min. Rhythm is regular. Left axis deviation noted. DE interval is kb normal at 152 msec. QRS interval is normal at 142 msec. QT interval is normal at 442 msec. Administered Medications: 13:27 Drug: NS 0.9% 1000 ml Route: IV; Rate: 1000 ml; Site: right antecubital; bm7 15:30 Follow up: IV Status: Completed infusion; IV Intake: 1000ml bm7 13:27 Drug: Zofran (Ondansetron) 4 mg Route: IVP; Site: right antecubital; bm7 13:53 Follow up: Response: No adverse reaction bm7 13:27 Drug: morphine 4 mg Route: IVP; Infused Over: 4 mins; Site: right antecubital; bm7 13:53 Follow up: Response: No adverse reaction bm7 15:13 Drug: Zosyn (piperacillin-tazobactam) 3.375 grams Route: IVPB; Infused Over: 60 mins; bm7 Site: right antecubital; 15:30 Follow up: IV Status: Completed infusion bm7 Disposition: 16:14 Co-signature as Attending Physician, Juancarlos Valdez MD. rn 16:14 I agree with the assessment and plan of care. Attestation: The patient's history, exam rn findings, diagnostics, and a summary of any interventions or procedures was reviewed in detail with Danna REA. Disposition Summary: 12/10/21 14:29 Hospitalization Ordered Hospitalization Status: Inpatient Admission kb Provider: José Miguel Trujillo [facility] kb Condition: Stable kb Problem: new kb Symptoms: are unchanged kb Bed/Room Type: Standard kb Room Assignment: kb Diagnosis - Severe sepsis without septic shock kb - Intraabdominal abscess kb - Abnormal results of liver function studies kb Forms: - Medication Reconciliation Form kb - SBAR form kb Signatures: Dispatcher [employer] Danna Becerra FNP-C FNP-Jannette Modi Roman, MD MD rn McCarthy, Brittany, JOSE GARCIA 7 Mayte-BrigetterNaima RN JOSE Corrections: (The following items were deleted from the chart) 13:03 13:02 ECG was reviewed by the Attending Physician. kb kb 13:34 12:21 Abdomen Pelvis W Con+CT.RAD.BRZ ordered. EDMS EDMS 13:35 13:00 Chest For PE Angio+CT.RAD.BRZ ordered. EDHI EDMS 13:48 12:36 Constitutional: This is a well developed, well nourished patient who is awake, kb alert, and in no acute distress. Head/Face: Normocephalic, atraumatic. ENT: Moist Mucous membranes Cardiovascular: Regular rate and rhythm with a normal S1 and S2. No gallops, murmurs, or rubs. No pulse deficits. Respiratory: Respirations even and unlabored. No increased work of breathing. Talking in full sentences Skin: Warm, dry with normal turgor. Normal color. MS/ Extremity: Pulses equal, no cyanosis. Neurovascular intact. Full, normal range of motion. Neuro: Awake and alert, GCS 15, oriented to person, place, time, and situation. Moves all extremities. Normal gait. Psych: Awake, alert, with orientation to person, place and time. Behavior, mood, and affect are within normal limits. kb 14:27 14:15 ED course: Severe sepsis 1321. kb kb 15:31 15:06 Labs - recollect needed ordered. bd bm7
--- NOTE | 2021-12-12 15:39 | P.PN ---
Date of Service: 12/12/21 S: Patient has no specific complaints. Says he feels well. Has been up ambulating. Voiding well on his own. Pain appears to be controlled. O: Surgical wound is clean, no purulent dressing seen. A: Surgically stable status post drainage of abscess. P: We will change to p.o. medication tonight. Continue to ambulate patient. En courage p.o. intake. Anticipate discharge in the a.m. He is comfortable with this decision.
[2021-12-12] MEDS: HYDROCODONE/APAP 10/325 TAB PO PRN ×2 (17:49→21:44)
[2021-12-12 21:02] VITALS: O2SAT 93
[2021-12-12] MEDS: NA CHLORIDE 0.9% 1,000 ML IV SCH (21:36)
[2021-12-12] MEDS ORDERED: NA CHLORIDE 0.9% 250 ML ONE (22:38)
[2021-12-13] MEDS: HYDROCODONE/APAP 10/325 TAB PO PRN ×4 (02:06→14:19)
[2021-12-13] MEDS: PIPER TAZO 3.375 GM in NA CHLORIDE 0.9% 100 ML IV SCH ×2 (06:02→14:19)
[2021-12-13 12:48] VITALS: BP 154/75; TEMP 97.7
== END 2021-12-13 15:42 | disposition home or self-care (01) | DRG 858 ==
LOC: ER 11:49 → ERHOLD 17:06 → 2ND 17:31
PROVIDERS: ADMIT Surgery; ATTEND Surgery
PROC: 0W9G4ZX Drainage of Peritoneal Cavity, Percutaneous Endoscopic Approach, Diagnostic (ICD-10-PCS; principal; 2021-12-10 15:00)
DX: K68.11 Postprocedural retroperitoneal abscess (principal); E78.00 Pure hypercholesterolemia, unspecified; E03.9 Hypothyroidism, unspecified; I10 Essential (primary) hypertension; Z20.822 Contact with and (suspected) exposure to COVID-19
CPT/HCPCS: 36415; 71045; 71250; 74176; 80048; 80053; 80076; 83605; 83690; 84145; 84484; 85025; 87040; 87070; 87075; 87205; 93005; 94010; 96361; 96365; 96375; 99285; J1100; J1170; J2250; J2405; J2543; J2704; J2710; J3010; J7030; J7050; U0003

== ENCOUNTER 2021-12-25 11:12 | Emergency (ER) | payer OTHER ==
--- NOTE | 2021-12-25 12:03 | RAD REPORT ---
EXAM DESCRIPTION: CT - Abdomen Pelvis Wo Contrast - 12/25/2021 11:41 am CLINICAL HISTORY: Abdominal pain, history of ruptured appendix, history of liver abscess, discharged from hospital 2 weeks earlier COMPARISON: Abdomen Pelvis W Contrast dated 10/17/2021; Chest Abd Pelvis Wo Con dated 12/10/2021 TECHNIQUE: Axial [address] imaging of the abdomen and pelvis was performed without IV contrast. No IV contrast was given because of allergy, abnormal renal function, patient refusal or physician re quest. No oral contrast administered. All CT scans are performed using dose optimization technique as appropriate and may include automated exposure control or mA/KV adjustment according to patient size. FINDINGS: No suspicious findings in the lung bases. December 10 imaging showed a large abscess in the inferior aspect right lobe of the liver extending into the right pericolic gutter. Abscess is still present in both the liver and the pericolic gutter but has shown a reduction in size. Abscess is approximately 10 x 9 x 6 cm in size compared to the prior r eport of 16 x 10 x 9 cm. No abscess elsewhere on the examination. No abnormal free fluid collections seen. The pancreas and spleen show no new or suspicious findings. Gallbladder is distended. No biliary tree dilatation. No hydronephrosis or suspicious renal mass. No new adrenal finding. Isodense renal masses and pyelon ephritis cannot be excluded in the absence of IV contrast. Urinary bladder is contracted limiting ass essment. No dilated bowel loops or bowel wall thickening. No free air, pneumatosis or abnormal free fluid. No bulky lymphadenopathy or mass. Small fat only left inguinal hernia present. No suspicious bony findings. IMPRESSION: Previously detailed abscess in the inferior aspect right lobe liver and right pericolic gutter has reduced in size as detailed. No free air, additional abscess site or other acute finding. Full assessment is limited is the absence of IV contrast.
[2021-12-25 12:37] LABS: Hematocrit 40.5 % (39.6-49.0); MCV 88.6 fL (80-100); MPV 9.2 fL (7.6-11.3); RBC Red Blood Cell Count 4.57 M/uL (4.33-5.43)
--- NOTE | 2021-12-25 12:41 | RAD REPORT ---
EXAM DESCRIPTION: [place] Single View12/25/2021 11:48 am CLINICAL HISTORY: Chest pain COMPARISON: 2020 FINDINGS: Bilateral calcified granulomas. The lungs appear clear of acute infiltrate. The heart is normal size IMPRESSION: No acute abnormalities displayed
[2021-12-25 12:45] LABS: SARS-CoV-2 Antigen Rapid Res Negative (Negative)
--- NOTE | 2021-12-25 14:24 | ER ---
Nurse's Notes [facility] Name: Nathanael Gilbert Age: 66 yrs Sex: Male : 1955 Arrival Date: 12/25/2021 Time: 11:14 Bed 6 Private MD: Diagnosis: Unspecified jaundice Presentation: 12/25 11:17 Chief complaint: Patient states: had a ruptured appendix 8 weeks ago, came back and had iw an abscess on liver a few weeks later, he was admitted for sepsis, was d/c approx 2 weeks ago, has been jaundiced since then, was seen by Dr. Clifton today and told to come to ER. Coronavirus screen: At this time, the client does not indicate any symptoms associated with coronavirus-19. Ebola Screen: Patient negative for fever greater than or equal to 101.5 degrees Fahrenheit, and additional compatible Ebola Virus Disease symptoms Patient denies exposure to infectious person. Patient denies travel to an Ebola-affected area in the 21 days before illness onset. No symptoms or risks identified at this time. Initial Sepsis Screen: Does the patient meet any 2 criteria? No. Patient's initial sepsis screen is negative. Does the patient have a suspected source of infection? No. Patient's initial sepsis screen is negative. Risk Assessment: Do you want to hurt yourself or someone else? Patient reports no desire to harm self or others. Onset of symptoms. 11:17 Method Of Arrival: Wheelchair iw 11:17 Acuity: ROSEANN 3 iw Triage Assessment: 11:41 General: Appears in no apparent distress. Behavior is calm, cooperative, appropriate jh5 for age. Pain: Denies pain. Historical: - Allergies: 11:20 No Known Allergies; iw - Home Meds: 11:20 Crestor Oral [Active]; levothyroxine oral [Active]; iw - PMHx: 11:20 Hypercholesterolemia; Hypertensive disorder; Hypothyroidism; iw - PSHx: 11:20 Appendectomy; knee; iw - Immunization history:: Adult Immunizations up to date. - Social history:: Smoking status: Patient denies any tobacco usage or history of. Screenin:40 Abuse screen: Denies threats or abuse. Denies injuries from another. Nutritional jh5 screening: No deficits noted. Tuberculosis screening: No symptoms or risk factors identified. Fall Risk None identified. 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 this was 2 weeks ago from today. Pt states the jaundice stared 4 weeks ago and has progressively gotten worse. Pt presents today with severe jaundiced. Vital Signs: 11:17 BP 108 / 87; Pulse 86; Resp 16; Temp 98.1; Pulse Ox 100% on R/A; Weight 108.86 kg; iw Height 5 ft. 11 in. (180.34 cm); Pain 0/10; 12:47 BP 110 / 78; Pulse 82; Resp 16; Pulse Ox 98% ; jh5 15:56 Pulse 90; Resp 16; Temp 98.4; Pulse Ox 100% on R/A; jh5 11:17 Body Mass Index 33.47 (108.86 kg, 180.34 cm) ED Course: 11:14 Patient arrived in ED. mr 11:14 Mayank Alonzo DO is Attending Physician. ms3 11:14 Nathanael Almeida is PHCP. jl9 11:20 Triage completed. iw 11:21 Arm band placed on. iw 11:22 Juanis Lu, RN is Primary Nurse. vg1 11:40 Patient has correct armband on for positive identification. Bed in low position. Side 5 rails up X 1. 11:40 No provider procedures requiring assistance completed. jh5 11:42 CT Abd/Pelvis - Without Contrast In Process Unspecified. EDMS 11:49 XRAY Chest (1 view) In Process Unspecified. EDMS 12:25 Inserted saline lock: 22 gauge in right wrist, using aseptic technique. ,using aseptic tp1 technique. inserted by JUNE Blood collected. 12:27 SARS-COV-2 Antigen Rapid Sent. tp1 12:27 SARS RAPID Sent. tp1 14:33 initiated transfer to [facility]. bd 14:56 pt denied at [facility], no beds at this time,per Ricky. bd 15:01 initiated transfer to [facility]. bd 16:52 pt accepted in transfer to [facility] by dr Aneudy Marquez, admin approval given by fatimah Rothman. 18:10 Crystal Vanegas, RN is Primary Nurse. jh5 Administered Medications: No medications were administered Medication: 11:42 VIS not applicable for this client. jh5 Outcome: 14:24 ER care complete, transfer ordered by MD. matos 18:37 Patient left the ED. jh5 Signatures: Dispatcher [employer] EDMS Jannette Valera Salvatore, Lisa mr YonisJennifer, RN RN iw Aly, Juanis, RN RN vg1 Mayank Alonzo, DO ms3 Crystal Vanegas RN RN [id number] Joya Hernandez RN RN tp1 Nathanael Almeida Corrections: (The following items were deleted from the chart) 11:31 11:17 BP 108 / 87; Pulse 86bpm; Resp 16bpm; Pulse Ox 100% RA; 108.86 kg; Height 5 ft. iw 11 in.; BMI: 33.4; Pain 0/10; iw
--- NOTE | 2021-12-25 14:25 | EDPHYS ---
Physician Documentation [facility] Name: Nathanael Gilbert Age: 66 yrs Sex: Male : 1955 Arrival Date: 12/25/2021 Time: 11:14 Bed 6 Private MD: ED Physician Mayank Alonzo HPI: 12/25 11:20 This 66 yrs old Male presents to ER via Wheelchair with complaints of jl9 Jaundice. Patient reports that he was seen here 2 weeks ago for complication from his appendectomy. Patient went to follow up with his surgeon today and was sent to ED. . 11:20 Onset: The symptoms/episode began/occurred 1 week(s) ago. Associated signs and jl9 symptoms: The patient has no apparent associated signs or symptoms. Historical: - Allergies: 11:20 No Known Allergies; iw - Home Meds: 11:20 Crestor Oral [Active]; levothyroxine oral [Active]; iw - PMHx: 11:20 Hypercholesterolemia; Hypertensive disorder; Hypothyroidism; iw - PSHx: 11:20 Appendectomy; knee; iw - Immunization history:: Adult Immunizations up to date. - Social history:: Smoking status: Patient denies any tobacco usage or history of. ROS: 14:08 Constitutional: Negative for fever, chills, and weight loss, Eyes: Negative for injury, jl9 pain, redness, and discharge, ENT: Negative for injury, pain, and discharge, Neck: Negative for injury, pain, and swelling, Cardiovascular: Negative for chest pain, palpitations, and edema, Respiratory: Negative for shortness of breath, cough, wheezing, and pleuritic chest pain, Abdomen/GI: Negative for abdominal pain, nausea, vomiting, diarrhea, and constipation, Back: Negative for injury and pain, : Negative for injury, bleeding, discharge, and swelling, MS/Extremity: Negative for injury and deformity. 14:08 Neuro: Negative for headache, weakness, numbness, tingling, and seizure, Psych: Negative for depression, anxiety, suicide ideation, homicidal ideation, and hallucinations, Allergy/Immunology: Negative for hives, rash, and allergies, Endocrine: Negative for neck swelling, polydipsia, polyuria, polyphagia, and marked weight changes, Hematologic/Lymphatic: Negative for swollen nodes, abnormal bleeding, and unusual bruising. 14:08 Skin: Positive for jaundice. Exam: 14:09 Constitutional: This is a well developed, well nourished patient who is awake, alert, jl9 and in no acute distress. Head/Face: Normocephalic, atraumatic. Eyes: Pupils equal round and reactive to light, extra-ocular motions intact. Lids and lashes normal. Conjunctiva and sclera are non-icteric and not injected. Cornea within normal limits. Periorbital areas with no swelling, redness, or edema. ENT: Mucous membranes moist. Neck: Trachea midline, no thyromegaly or masses palpated, and no cervical lymphadenopathy. Supple, full range of motion without nuchal rigidity, or vertebral point tenderness. No Meningismus. Chest/axilla: Normal chest wall appearance and motion. Nontender with no deformity. No lesions are appreciated. Cardiovascular: Regular rate and rhythm with a normal S1 and S2. No gallops, murmurs, or rubs. Normal PMI, no JVD. No pulse deficits. Respiratory: Lungs have equal breath sounds bilaterally, clear to auscultation and percussion. No rales, rhonchi or wheezes noted. No increased work of breathing, no retractions or nasal flaring. 14:09 Back: No spinal tenderness. No costovertebral tenderness. Full range of motion. Male : Normal genitalia with no discharge or lesions. 14:09 MS/ Extremity: Pulses equal, no cyanosis. Neurovascular intact. Full, normal range of motion. Neuro: Awake and alert, GCS 15, oriented to person, place, time, and situation. Cranial nerves II-XII grossly intact. Motor strength 5/5 in all extremities. Sensory grossly intact. Cerebellar exam normal. Normal gait. Psych: Awake, alert, with orientation to person, place and time. Behavior, mood, and affect are within normal limits. 14:09 Abdomen/GI: Inspection: distension, obese Bowel sounds: normal, Palpation: abdomen is soft and non-tender, Rectal exam: Indicators: Liver: Hernia: 14:09 Skin: Appearance: Color: jaundiced. Vital Signs: 11:17 BP 108 / 87; Pulse 86; Resp 16; Temp 98.1; Pulse Ox 100% on R/A; Weight 108.86 kg; iw Height 5 ft. 11 in. (180.34 cm); Pain 0/10; 12:47 BP 110 / 78; Pulse 82; Resp 16; Pulse Ox 98% ; jh5 15:56 Pulse 90; Resp 16; Temp 98.4; Pulse Ox 100% on R/A; jh5 11:17 Body Mass Index 33.47 (108.86 kg, 180.34 cm) iw MDM: 11:26 Patient medically screened. ms3 14:10 Data reviewed: vital signs, nurses notes. [facility] 16:28 Physician consultation: was called at 16:28, was contacted at 16:28, regarding jl9 regarding transfer, and will see patient in inpatient room, after a discussion of the case, a recommendation for transfer for higher level of care is made, Dr. Marquez at [facility] accepts patient. . 16:28 Physician consultation: José Miguel Trujillo MD was called at 14:00, was contacted at 14:30, jl9 regarding patient's condition, after a discussion of the case, a recommendation for transfer for higher level of care is made, Patient to be transferred. . 12/25 11:20 Order name: SARS RAPID [facility] 12/25 11:50 Order name: Ammonia; Complete Time: 13:30 [facility] 12/25 11:20 Order name: XRAY Chest (1 view); Complete Time: 12:42 [facility] 12/25 11:23 Order name: CT Abd/Pelvis - Without Contrast; Complete Time: 12:16 [facility] 12/25 11:27 Order name: EKG; Complete Time: 11:33 [facility] 12/25 11:50 Order name: Basic Metabolic Panel; Complete Time: 16:19 [facility] 12/25 11:50 Order name: CBC with Automated Diff; Complete Time: 15:56 [facility] 12/25 11:50 Order name: Liver (Hepatic) Function; Complete Time: 16:19 [facility] 12/25 11:50 Order name: SARS-COV-2 Antigen Rapid; Complete Time: 13:30 [facility] 12/25 15:56 Order name: Manual Differential; Complete Time: 15:56 [facility] 12/25 11:27 Order name: IV Saline Lock; Complete Time: 11:45 [facility] 12/25 13:39 Order name: Labs - recollect needed: recollect green and lavender top; Complete Time: bd 15:36 Administered Medications: No medications were administered Disposition: 11:25 Co-signature as Attending Physician, Mayank Alonzo DO Usama was immediately available on-site ms3 in the Emergency Department for consultation in the care of the patient. . 21:42 Co-signature as Attending Physician, Mayank Alonzo DO Usama was immediately available on-site ms3 in the Emergency Department for consultation in the care of the patient.. Disposition Summary: 12/25/21 14:24 Transfer Ordered Transfer Location: [facility] jl9 Reason: Higher level of care jl9 Condition: Fair jl9 Problem: new jl9 Symptoms: have worsened jl9 Accepting Physician: TAHIR(12/25/21 18:37) jh5 Diagnosis - Unspecified jaundice jl9 Forms: - Medication Reconciliation Form jl9 - SBAR form jl9 Signatures: Dispatcher [employer] EDMS Jannette Valera Irene, RN RN Mayank Oden DO DO ms3 Crystal Vanegas RN RN jh5 Nathanael Almeida jl9 Corrections: (The following items were deleted from the chart) 12:43 12:11 HEPATIC FUNCTION+C.LAB.BRZ ordered. EDMS EDMS 12:43 12:11 BASIC METABOLIC PANEL+C.LAB.BRZ ordered. EDMS EDMS 12:44 12:11 CBC+H.LAB.BRZ ordered. EDMS EDMS 12:44 12:11 AMMONIA+C.LAB.BRZ ordered. EDMS EDMS 18:37 14:24 TBGilda jl9 jh5
[2021-12-25 15:55] LABS: Blood Morphology Comment NOT SEEN (NOT SEEN); Platelet Estimate INCR
[2021-12-25 16:12] LABS: Albumin 2.4 g/dL (3.4-5.0); Bilirubin Direct 15.4 mg/dL (0-0.2); Bilirubin Total 20.9 mg/dL (0.2-1.0); Protein, Total 7.2 g/dL (6.4-8.2)
[2021-12-25 20:21] VITALS: BP 110/78
[2021-12-25 20:23] VITALS: TEMP 98.4; O2SAT 100
== END 2021-12-25 18:37 | disposition short-term general hospital (02) ==
LOC: ER 11:12 → SUPCPDRO 11:12 → ER 18:37
DX: R17 Unspecified jaundice (principal); I10 Essential (primary) hypertension; E03.9 Hypothyroidism, unspecified; E78.00 Pure hypercholesterolemia, unspecified; Z20.822 Contact with and (suspected) exposure to COVID-19
CPT/HCPCS: 36415; 71045; 74176; 80048; 80076; 82140; 85025; 87811

== ENCOUNTER 2022-07-21 17:02 | Inpatient (IN) | payer OTHER ==
--- OUTSIDE RECORDS SUMMARY | 2022-07-21 17:21 | XMS REPORT | Continuity of Care Document ---
:1955 Author Organization [facility] t Address [address] [facility] [address] [place] [address] Care Team Providers Name Role Phone Mady Mota Gilda Primary Care Physician BILLIE SMITHHBetsy Attending Clinician Unavailable SYMONE TRIVEDI Attending Clinician Unavailable ALEKSANDAR BRAGA Attending Clinician Unavailable Doctor Unassigned, [place] Attending Clinician Unavailable Bela CLAUDIO, Rohini Brewer Attending Clinician Aleksandar Braga MD Attending Clinician [facility]-Lab Attending Clinician Unavailable Lab, Ang - Db Attending Clinician Unavailable Rocael Alvarenga MD, Rp Attending Clinician ROCAEL ALVARENGA RP Attending Clinician Unavailable 3, [facility] Infusion Chair Attending Clinician Unavailable FIDELIA CONNER Attending Clinician Unavailable Fidelia Conner MD Attending Clinician 10, [facility] Infusion Chair Attending Clinician Unavailable 2, [facility] Infusion Chair Attending Clinician Unavailable Symone Trivedi MD Attending Clinician 9, [facility] Infusion Chair Attending Clinician Unavailable 4, [facility] Infusion Chair Attending Clinician Unavailable Billie Smith MD K.HBesty Attending Clinician Unknown, Attending Attending Clinician Unavailable 7, [facility] Infusion Chair Attending Clinician Unavailable Ricky Vann MD Attending Clinician Chinyere Morton MD Attending Clinician [phone] Diane Buck MD Attending Clinician DIANE BUCK Attending Clinician Unavailable Tyler CLAUDIO, Sujit Worthington Attending Clinician MORGAN HERNANDES Attending Clinician Unavailable Morgan Franklin Attending Clinician Ese CLAUDIO, Ag Hayes Attending Clinician AG MULLIGAN Attending Clinician Unavailable ROSE HAND Attending Clinician Unavailable Rose Hand MD Attending Clinician Qasim Bergman MD Attending Clinician Beryl GARCIA, Kathleen Rai Attending Clinician Unavailable Alma CLAUDIO, Aneudy Magdaleno Attending Clinician Osmin CLAUDIO, Shola Oswald Attending Clinician Amanda CLAUDIO, Kathie Attending Clinician Windy CLAUDIO, [place] Attending Clinician Lisa Lopes MD, Leonard Attending Clinician ROSE HAND Admitting Clinician Unavailable KATHIE HERNANDEZ Admitting Clinician Unavailable Kathie Hernandez MD Admitting Clinician Payers Payer Name Policy Type Policy Number Effective Date Expiration Date Jud ham [facility] AptDeco [id number] 2021 00:00:00 [place] Problems Condition Condition Condition Status Onset Resolution Last Treating Co mments Source Name Details Category Date Date Treatment Clinician Date JOHANA (acute JOHANA (acute Disease Active 0 [facility] kidney kidney 1-31 ity of injury) injury) 00:00: [address] Immunocomp Immunocomp Disease Active 2021-0 U nivers romised romised 8-24 ity of state state 00:00: [address] Pancreatic Pancreatic Disease Active 2021-0 U nivers adenocarci adenocarci 8-23 it y of noma noma 00:00: [address] Liver Liver Disease Active 2021-0 Univers abscess abscess 8-16 ity of 00:00: [address] Allergies, Adverse Reactions, Alerts Allergy Allergy Status Severity Reaction(s) Onset Inactive Treating Comm ents Source Name Type Date Date Clinician FLUOROUR DRUG Active Med Other-Cmnt 2021-05 Univ ers ACIL INGREDI 2-19 ity of 00:00: [place] 00 Medical Branch Fluorour Drug Active Other - See 2021-05 Momentary Univers acil Allergy comments 06-30 sharp ity of 00:00: pain from [place] 00 front of Medical chest to Branch back NO KNOWN Drug Active Univers ALLERGIE Class ity of S [facility] Social History Social Habit Start Date Stop Date Quantity Comments Source History of tobacco Cigarette Smoker University of use [facility] History [facility] o f Alcohol Frequency [facility] edical History [facility] o f Alcohol Std Drinks [facility] History [facility] o f Alcohol Binge [facility] al Branch Exposure to 2022-06-22 2022-07-02 Not sure University SARS-CoV-2 (event) 00:00:00 13:02:00 [facility] Alcohol intake 2022-04-18 2022-04-18 Ex-drinker University of 00:00:00 00:00:00 (finding) [facility] Cigarettes smoked 2022-01-17 2022-01-17 Univers ity of current (pack per 00:00:00 00:00:00 [facility] ) - Reported Branch Cigarette 2022-01-17 2022-01-17 University of pack-years 00:00:00 00:00:00 [facility] Tobacco use and 2022-01-17 2022-01-17 Smokeless Universit y of exposure 00:00:00 00:00:00 tobacco non-user [facility] Alcohol Comment 2021-12-25 2021-12-25 quit at age 31 Unive rsity of 00:00:00 00:00:00 [facility] Sex [birth year] Universit y of 00:00:00 00:00:00 [facility] Smoking Status Start Date Stop Date Source Ex-smoker 2022-01-17 00:00:00 2022-01-17 00:00:00 Universi ty of [facility] Medications Ordered Filled Start Stop Current Ordering Indication Dosage Frequency Signature Comments Components Source Medication Medication Date Date Medication? Clinician (SIG) Name Name iopamidol 2022- No [id number] 80mL 80 mL, U nivers (ISOVUE 07-02 Intravenou ity o f 370-500 mL) 20:30: 20:28 s, ONCE, 1 [place] injection 00 :00 dose, On Medica l 80 mL Tue Branch 07/02/22 at 1430, Routine NaCl 0.9% 2022- No [id number] 1000mL at 999 Univers (NS) bolus 206-14 [id number] mL/hr, ity of infusion 17:00: 19:52 1,000 mL, Fr[place] as 1,000 mL 00 :00 IV Medical Piggyback, Branch ONCE, 1 dose, On Fri06/14/22 at 1100, STAT heparin 2022- Yes [id number] 500U 500 Units, Univers lock flush 06-14 [id number] IV Push, it y of (HEPARIN 16:47: 16:46 PRN, [place] LOCKFLUSH(P 54 :54 Starting Medi gil ORCINE)(PF) on Fri Branch ) 100 06/14/22 at unit/mL 1047, injection Until Sat 500 Units 06/15/22 at 1046, Routine NaCl 0.9% 2022- No [id number] 1000mL at 999 Univers (NS) bolus 206-12 [id number] mL/hr, ity of infusion 17:30: 20:35 1,000 mL, [place] as 1,000 mL 00 :00 IV Medical Piggyback, Branch ONCE, 1 dose, On Fri06/12/22 at 1130, STAT Insulin Yes [id number] Use as Univ ers [place], 06-11 directed ity of Disposable, 00:00: [place] 29 gauge x 00 Medical /2" Ndle Branch lancets Yes [id number] 3Check Univ ers (TECHLITE 06-11 blood ity of LANCETS) 25 00:00: glucose 3 [place] gauge Misc 00 times(s) a Med ical day. Branch blood sugar Yes [id number] Check U nivers diagnostic 06-11 blood ity of (GLUCOCARD 00:00: glucose 3 [place] SHINE TEST 00 time(s) a Medi gil STRIPS) day. Branch strip Lancing Yes [id number] Use as Univ ers Device with 1-31 directed ity of Lancets 00:00: [place] (MULTI-LANC 00 Medical ET DEVICE Branch 2) Kit Blood-Gluco Yes [id number] Use as Univers se Meter 1-31 directed ity of (GLUCOCARD 00:00: [place] SHINE 00 Medical METER) Misc Branch lancets Yes [id number] Check Unive rs (TECHLITE 1-31 blood ity of LANCETS) 25 00:00: glucose 3 [place] gauge Misc 00 time(s) a Medi gil day. Branch lancets Yes [id number] Check Unive rs (TECHLITE 1-31 blood ity of LANCETS) 28 00:00: glucose 3 [place] gauge Misc 00 time(s) a Medi gil day. Branch blood sugar Yes [id number] Check U nivers diagnostic 1-31 blood ity of (GLUCOCARD 00:00: glucose 3 [place] SHINE TEST 00 time(s) a Medi gil STRIPS) day. Branch strip Insulin Yes [id number] Use as Univ ers [place], - directed ity of Disposable, 00:00: [place] 29 gauge x 00 Medical 1/2" Ndle Branch lancets Yes [id number] 3Check Univ ers (TECHLITE 1-31 blood ity of LANCETS) 25 00:00: glucose 3 [place] gauge Misc 00 times(s) a Med ical day. Branch blood sugar Yes [id number] Check U nivers diagnostic 1-31 blood ity of (GLUCOCARD 00:00: glucose 3 [place] SHINE TEST 00 time(s) a Medi gil STRIPS) day. Branch strip Lancing Yes [id number] Use as Univ ers Device with 1- directed ity of Lancets 00:00: [place] (MULTI-LANC 00 Medical ET DEVICE Branch 2) Kit Blood-Gluco Yes [id number] Use as Univers se Meter 1-31 directed ity of (GLUCOCARD 00:00: [place] SHINE 00 Medical METER) Misc Branch lancets Yes [id number] Check Unive rs (TECH[place]ITE 1-31 blood ity of LANCETS) 25 00:00: glucose 3 [place] gauge Misc 00 time(s) a Medi gil day. Branch lancets 0 Yes [id number] Check Unive rs (TECH[place]ITE 1-31 blood ity of LANCETS) 28 00:00: glucose 3 [place] gauge Misc 00 time(s) a Medi gil day. Branch blood sugar 0 Yes [id number] Check U nivers diagnostic 1-31 blood ity of (GLUCOCARD 00:00: glucose 3 [place] SHINE TEST 00 time(s) a Medi gil STRIPS) day. Branch strip Insulin 0 Yes [id number] Use as Univ ers [place], 1-31 directed ity of Disposable, 00:00: [place] 29 gauge x 00 Medical 1/2" Ndle Branch lancets 0 Yes [id number] 3Check Univ ers (TECHLITE 1-31 blood ity of LANCETS) 25 00:00: glucose 3 [place] gauge Misc 00 times(s) a Med ical day. Branch blood sugar Yes [id number] Check U nivers diagnostic 1-31 blood ity of (GLUCOCARD 00:00: glucose 3 [place] SHINE TEST 00 time(s) a Medi gil STRIPS) day. Branch strip Lancing Yes [id number] Use as Univ ers Device with 1-31 directed ity of Lancets 00:00: [place] (MULTI-LANC 00 Medical ET DEVICE Branch 2) Kit Blood-Gluco 0 Yes [id number] Use as Univers se Meter 1-31 directed ity of (GLUCOCARD 00:00: [place] SHINE 00 Medical METER) Misc Branch lancets 0 Yes [id number] Check Unive rs (TECH[place]ITE 1-31 blood ity of LANCETS) 25 00:00: glucose 3 [place] gauge Misc 00 time(s) a Medi gil day. Branch lancets 0 Yes [id number] Check Unive rs (TECH[place]ITE 1-31 blood ity of LANCETS) 28 00:00: glucose 3 [place] gauge Misc 00 time(s) a Medi gil day. Branch blood sugar 0 Yes [id number] Check U nivers diagnostic 1-31 blood ity of (GLUCOCARD 00:00: glucose 3 [place] SHINE TEST 00 time(s) a Medi gil STRIPS) day. Branch strip lancets 0 Yes [id number] [facility] Univ ers (TECHLITE 1-31 blood ity of LANCETS) 25 00:00: glucose 3 [place] gauge Misc 00 times(s) a Med ical day. Branch blood sugar 0 Yes [id number] Check U nivers diagnostic 1-31 blood ity of (GLUCOCARD 00:00: glucose 3 [place] SHINE TEST 00 time(s) a Medi gil STRIPS) day. Branch strip Lancing 0 Yes [id number] Use as Univ ers Device with - directed ity of Lancets 00:00: [place] (MULTI-LANC 00 Medical ET DEVICE Branch 2) Kit Blood-Gluco 0 Yes [id number] Use as Univers se Meter 06-11 directed ity of (GLUCOCARD 00:00: [place] SHINE 00 Medical METER) Misc Branch lancets 0 Yes [id number] Check Unive rs (TECHLITE 1-31 blood ity of LANCETS) 25 00:00: glucose 3 [place] gauge Misc 00 time(s) a Medi gil day. Branch lancets 0 Yes [id number] Check Unive rs (TECH[place]ITE 1-31 blood ity of LANCETS) 28 00:00: glucose 3 [place] gauge Misc 00 time(s) a Medi gil day. Branch blood sugar 0 Yes [id number] Check U nivers diagnostic 1-31 blood ity of (GLUCOCARD 00:00: glucose 3 [place] SHINE TEST 00 time(s) a Medi gil STRIPS) day. Branch strip lancets 0 Yes [id number] [facility] Univ ers (TECHLITE 1-31 blood ity of LANCETS) 25 00:00: glucose 3 [place] gauge Misc 00 times(s) a Med ical day. Branch blood sugar 0 Yes [id number] Check U nivers diagnostic 1-31 blood ity of (GLUCOCARD 00:00: glucose 3 [place] SHINE TEST 00 time(s) a Medi gil STRIPS) day. Branch strip Lancing 0 Yes [id number] Use as Univ ers Device with - directed ity of Lancets 00:00: [place] (MULTI-LANC 00 Medical ET DEVICE Branch 2) Kit Blood-Gluco 0 Yes [id number] Use as Univers se Meter 1-31 directed ity of (GLUCOCARD 00:00: [place] SHINE 00 Medical METER) Mis Branch lancets 0 Yes [id number] Check Unive rs (TECH[place]ITE 1-31 blood ity of LANCETS) 25 00:00: glucose 3 [place] gauge Misc 00 time(s) a Medi gil day. Branch lancets 2022-0 Yes [id number] Check Unive rs (TECH[place]ITE 1-31 blood ity of LANCETS) 28 00:00: glucose 3 [place] gauge Misc 00 time(s) a Medi gil day. Branch blood sugar 0 Yes [id number] Check U nivers diagnostic 1-31 blood ity of (GLUCOCARD 00:00: glucose 3 [place] SHINE TEST 00 time(s) a Medi gil STRIPS) day. Branch strip lancets 0 Yes [id number] 3Check Univ ers (TECHLITE 1-31 blood ity of LANCETS) 25 00:00: glucose 3 [place] gauge Misc 00 times(s) a Med ical day. Branch blood sugar 0 Yes [id number] Check U nivers diagnostic 1-31 blood ity of (GLUCOCARD 00:00: glucose 3 [place] SHINE TEST 00 time(s) a Medi gil STRIPS) day. Branch strip Lancing 0 Yes [id number] Use as Univ ers Device with 1-31 directed ity of Lancets 00:00: [place] (MULTI-LANC 00 Medical ET DEVICE Branch 2) Kit Blood-Gluco 0 Yes [id number] Use as Univers se Meter 1-31 directed ity of (GLUCOCARD 00:00: [place] SHINE 00 Medical METER) [facility] [place] lancets 2022-0 Yes [id number] Check Unive rs (TECHLITE 1-31 blood ity of LANCETS) 25 00:00: glucose 3 [place] gauge Misc 00 time(s) a Medi gil day. Branch lancets 2022-0 Yes [id number] Check Unive rs (TECH[place]ITE 1-31 blood ity of LANCETS) 28 00:00: glucose 3 [place] gauge Misc 00 time(s) a Medi gil day. Branch blood sugar 0 Yes [id number] Check U nivers diagnostic 1-31 blood ity of (GLUCOCARD 00:00: glucose 3 [place] SHINE TEST 00 time(s) a Medi gil STRIPS) day. Branch strip lancets 0 Yes [id number] 3Check Univ ers (TECHLITE 1-31 blood ity of LANCETS) 25 00:00: glucose 3 [place] gauge Misc 00 times(s) a Med ical day. Branch blood sugar 0 Yes [id number] Check U nivers diagnostic 1-31 blood ity of (GLUCOCARD 00:00: glucose 3 [place] SHINE TEST 00 time(s) a Medi gil STRIPS) day. Branch strip Lancing 0 Yes [id number] Use as Univ ers Device with 1- directed ity of Lancets 00:00: [place] (MULTI-LANC 00 Medical ET DEVICE Branch 2) Kit Blood-Gluco 0 Yes [id number] Use as Univers se Meter 1-31 directed ity of (GLUCOCARD 00:00: [place] SHINE 00 Medical METER) Misc Branch lancets 0 Yes [id number] Check Unive rs (TECHLITE 1-31 blood ity of LANCETS) 25 00:00: glucose 3 [place] gauge Misc 00 time(s) a Medi gil day. Branch lancets 0 Yes [id number] Check Unive rs (TECHLITE 1-31 blood ity of LANCETS) 28 00:00: glucose 3 [place] gauge Misc 00 time(s) a Medi gil day. Branch blood sugar 0 Yes [id number] Check U nivers diagnostic 1-31 blood ity of (GLUCOCARD 00:00: glucose 3 [place] SHINE TEST 00 time(s) a Medi gil STRIPS) day. Branch strip lancets 0 Yes [id number] 3[facility]ck Univ ers (TECHLITE 1-31 blood ity of LANCETS) 25 00:00: glucose 3 [place] gauge Misc 00 times(s) a Med ical day. Branch blood sugar 0 Yes [id number] Check U nivers diagnostic 1-31 blood ity of (GLUCOCARD 00:00: glucose 3 [place] SHINE TEST 00 time(s) a Medi gil STRIPS) day. Branch strip Lancing 0 Yes [id number] Use as Univ ers Device with 1-31 directed ity of Lancets 00:00: [place] (MULTI-LANC 00 Medical ET DEVICE Branch 2) Kit Blood-Gluco 2022-0 Yes [id number] Use as Univers se Meter 1-31 directed ity of (GLUCOCARD 00:00: [place] SHINE 00 Medical METER) Mis Branch lancets 2022-0 Yes [id number] Check Unive rs (TECH[place]ITE 1-31 blood ity of LANCETS) 25 00:00: glucose 3 [place] gauge Misc 00 time(s) a Medi gil day. Branch lancets 2022-0 Yes [id number] Check Unive rs (TECH[place]ITE 1-31 blood ity of LANCETS) 28 00:00: glucose 3 [place] gauge Misc 00 time(s) a Medi gil day. Branch blood sugar 2022-0 Yes [id number] Check U nivers diagnostic 1-31 blood ity of (GLUCOCARD 00:00: glucose 3 [place] SHINE TEST 00 time(s) a Medi gil STRIPS) day. Branch strip lancets 2022-0 Yes [id number] 3Check Univ ers (TECHLITE 1-31 blood ity of LANCETS) 25 00:00: glucose 3 [place] gauge Misc 00 times(s) a Med ical day. Branch blood sugar 2022-0 Yes [id number] Check U nivers diagnostic 1-31 blood ity of (GLUCOCARD 00:00: glucose 3 [place] SHINE TEST 00 time(s) a Medi gil STRIPS) day. Branch strip Lancing 2022-0 Yes [id number] Use as Univ ers Device with 1 directed ity of Lancets 00:00: [place] (MULTI-LANC 00 Medical ET DEVICE Branch 2) Kit Blood-Gluco 2022-0 Yes [id number] Use as Univers se Meter 1-31 directed ity of (GLUCOCARD 00:00: [place] SHINE 00 Medical METER) [facility] [place] lancets 2022-0 Yes [id number] Check Unive rs (TECHLITE 1-31 blood ity of LANCETS) 25 00:00: glucose 3 [place] gauge Misc 00 time(s) a Medi gil day. Branch lancets 2022-0 Yes [id number] Check Unive rs (TECHLITE 1-31 blood ity of LANCETS) 28 00:00: glucose 3 [place] gauge Misc 00 time(s) a Medi gil day. Branch blood sugar 0 Yes [id number] Check U nivers diagnostic 1-31 blood ity of (GLUCOCARD 00:00: glucose 3 [place] SHINE TEST 00 time(s) a Medi gil STRIPS) day. Branch strip lancets 0 Yes [id number] 3Check Univ ers (TECHLITE 1-31 blood ity of LANCETS) 25 00:00: glucose 3 [place] gauge Misc 00 times(s) a Med ical day. Branch blood sugar Yes [id number] Check U nivers diagnostic 1-31 blood ity of (GLUCOCARD 00:00: glucose 3 [place] SHINE TEST 00 time(s) a Medi gil STRIPS) day. Branch strip Lancing Yes [id number] Use as Univ ers Device with 1 directed ity of Lancets 00:00: [place] (MULTI-LANC 00 Medical ET DEVICE Branch 2) Kit Blood-Gluco Yes [id number] Use as Univers se Meter - directed ity of (GLUCOCARD 00:00: [place] SHINE 00 Medical METER) Misc Branch lancets 0 Yes [id number] Check Unive rs (TECH[place]ITE 1-31 blood ity of LANCETS) 25 00:00: glucose 3 [place] gauge Misc 00 time(s) a Medi gil day. Branch lancets 0 Yes [id number] Check Unive rs (TECH[place]ITE 1-31 blood ity of LANCETS) 28 00:00: glucose 3 [place] gauge Misc 00 time(s) a Medi gil day. Branch blood sugar 0 Yes [id number] Check U nivers diagnostic 1-31 blood ity of (GLUCOCARD 00:00: glucose 3 [place] SHINE TEST 00 time(s) a Medi gil STRIPS) day. Branch strip lancets 0 Yes [id number] 3Check Univ ers (TECHLITE 1-31 blood ity of LANCETS) 25 00:00: glucose 3 [place] gauge Misc 00 times(s) a Med ical day. Branch blood sugar 0 Yes [id number] Check U nivers diagnostic 1-31 blood ity of (GLUCOCARD 00:00: glucose 3 [place] SHINE TEST 00 time(s) a Medi gil STRIPS) day. Branch strip Lancing Yes [id number] Use as Univ ers Device with 1-31 directed ity of Lancets 00:00: [place] (MULTI-LANC 00 Medical ET DEVICE Branch 2) Kit Blood-Gluco 0 Yes [id number] Use as Univers se Meter 1-31 directed ity of (GLUCOCARD 00:00: [place] SHINE 00 Medical METER) Misc Branch lancets 0 Yes [id number] Check Unive rs (TECH[place]ITE 1-31 blood ity of LANCETS) 25 00:00: glucose 3 [place] gauge Misc 00 time(s) a Medi gil day. Branch lancets 0 Yes [id number] Check Unive rs (TECH[place]ITE 1-31 blood ity of LANCETS) 28 00:00: glucose 3 [place] gauge Misc 00 time(s) a Medi gil day. Branch blood sugar Yes [id number] Check U nivers diagnostic 1-31 blood ity of (GLUCOCARD 00:00: glucose 3 [place] SHINE TEST 00 time(s) a Medi gil STRIPS) day. Branch strip lancets Yes [id number] 3Check Univ ers (TECHLITE 1-31 blood ity of LANCETS) 25 00:00: glucose 3 [place] gauge Misc 00 times(s) a Med ical day. Branch blood sugar Yes [id number] Check U nivers diagnostic 1-31 blood ity of (GLUCOCARD 00:00: glucose 3 [place] SHINE TEST 00 time(s) a Medi gil STRIPS) day. Branch strip Lancing Yes [id number] Use as Univ ers Device with 1-31 directed ity of Lancets 00:00: [place] (MULTI-LANC 00 Medical ET DEVICE Branch 2) Kit Blood-Gluco 0 Yes [id number] Use as Univers se Meter 1-31 directed ity of (GLUCOCARD 00:00: [place] SHINE 00 Medical METER) Misc Branch lancets 0 Yes [id number] Check Unive rs (TECHLITE 1-31 blood ity of LANCETS) 25 00:00: glucose 3 [place] gauge Misc 00 time(s) a Medi gil day. Branch lancets 0 Yes [id number] Check Unive rs (TECHLITE 1-31 blood ity of LANCETS) 28 00:00: glucose 3 [place] gauge Misc 00 time(s) a Medi gil day. Branch blood sugar 2022-0 Yes [id number] Check U nivers diagnostic 1-31 blood ity of (GLUCOCARD 00:00: glucose 3 [place] SHINE TEST 00 time(s) a Medi gil STRIPS) day. Branch strip lancets 2022-0 Yes [id number] 3Check Univ ers (TECHLITE 1-31 blood ity of LANCETS) 25 00:00: glucose 3 [place] gauge Misc 00 times(s) a Med ical day. Branch blood sugar 2022-0 Yes [id number] Check U nivers diagnostic 1-31 blood ity of (GLUCOCARD 00:00: glucose 3 [place] SHINE TEST 00 time(s) a Medi gil STRIPS) day. Branch strip Lancing 0 Yes [id number] Use as Univ ers Device with 1- directed ity of Lancets 00:00: [place] (MULTI-LANC 00 Medical ET DEVICE Branch 2) Kit Blood-Gluco 0 Yes [id number] Use as Univers se Meter 1-31 directed ity of (GLUCOCARD 00:00: [place] SHINE 00 Medical METER) Misc Branch lancets 2022-0 Yes [id number] Check Unive rs (TECH[place]ITE 1-31 blood ity of LANCETS) 25 00:00: glucose 3 [place] gauge Misc 00 time(s) a Medi gil day. Branch lancets 2022-0 Yes [id number] Check Unive rs (TECHLITE 1-31 blood ity of LANCETS) 28 00:00: glucose 3 [place] gauge Misc 00 time(s) a Medi gil day. Branch blood sugar 0 Yes [id number] Check U nivers diagnostic 1-31 blood ity of (GLUCOCARD 00:00: glucose 3 [place] SHINE TEST 00 time(s) a Medi gil STRIPS) day. Branch strip lancets 2022-0 Yes [id number] 3Check Univ ers (TECHLITE 1-31 blood ity of LANCETS) 25 00:00: glucose 3 [place] gauge Misc 00 times(s) a Med ical day. Branch blood sugar 2022-0 Yes [id number] Check U nivers diagnostic 1-31 blood ity of (GLUCOCARD 00:00: glucose 3 [place] SHINE TEST 00 time(s) a Medi gil STRIPS) day. Branch strip Lancing 0 Yes [id number] Use as Univ ers Device with 1-31 directed ity of Lancets 00:00: [place] (MULTI-LANC 00 Medical ET DEVICE Branch 2) Kit Blood-Gluco 0 Yes [id number] Use as Univers se Meter 1-31 directed ity of (GLUCOCARD 00:00: [place] SHINE 00 Medical METER) Misc Branch lancets 0 Yes [id number] Check Unive rs (TECH[place]ITE 1-31 blood ity of LANCETS) 25 00:00: glucose 3 [place] gauge Misc 00 time(s) a Medi gil day. Branch lancets 0 Yes [id number] Check Unive rs (TECH[place]ITE 1-31 blood ity of LANCETS) 28 00:00: glucose 3 [place] gauge Misc 00 time(s) a Medi gil day. Branch blood sugar Yes [id number] Check U nivers diagnostic 1-31 blood ity of (GLUCOCARD 00:00: glucose 3 [place] SHINE TEST 00 time(s) a Medi gil STRIPS) day. Branch strip lancets Yes [id number] 3Check Univ ers (TECHLITE 1-31 blood ity of LANCETS) 25 00:00: glucose 3 [place] gauge Misc 00 times(s) a Med ical day. Branch blood sugar 0 Yes [id number] Check U nivers diagnostic 1-31 blood ity of (GLUCOCARD 00:00: glucose 3 [place] SHINE TEST 00 time(s) a Medi gil STRIPS) day. Branch strip Lancing 0 Yes [id number] Use as Univ ers Device with 1-31 directed ity of Lancets 00:00: [place] (MULTI-LANC 00 Medical ET DEVICE Branch 2) Kit Blood-Gluco 0 Yes [id number] Use as Univers se Meter 1-31 directed ity of (GLUCOCARD 00:00: [place] SHINE 00 Medical METER) Misc Branch lancets 0 Yes [id number] Check Unive rs (TECHLITE 1-31 blood ity of LANCETS) 25 00:00: glucose 3 [place] gauge Misc 00 time(s) a Medi gil day. Branch lancets 2022-0 Yes [id number] Check Unive rs (TECHLITE 1-31 blood ity of LANCETS) 28 00:00: glucose 3 [place] gauge Misc 00 time(s) a Medi gil day. Branch blood sugar 2022-0 Yes [id number] Check U nivers diagnostic 1-31 blood ity of (GLUCOCARD 00:00: glucose 3 [place] SHINE TEST 00 time(s) a Medi gil STRIPS) day. Branch strip lancets 2022-0 Yes [id number] 3Check Univ ers (TECHLITE 1-31 blood ity of LANCETS) 25 00:00: glucose 3 [place] gauge Misc 00 times(s) a Med ical day. Branch blood sugar 2022-0 Yes [id number] Check U nivers diagnostic 1-31 blood ity of (GLUCOCARD 00:00: glucose 3 [place] SHINE TEST 00 time(s) a Medi gil STRIPS) day. Branch strip Lancing 2022-0 Yes [id number] Use as Univ ers Device with 1-31 directed ity of Lancets 00:00: [place] (MULTI-LANC 00 Medical ET DEVICE Branch 2) Kit Blood-Gluco 0 Yes [id number] Use as Univers se Meter 1-31 directed ity of (GLUCOCARD 00:00: [place] SHINE 00 Medical METER) Misc Branch lancets 2022-0 Yes [id number] Check Unive rs (TECHLITE 1-31 blood ity of LANCETS) 25 00:00: glucose 3 [place] gauge Misc 00 time(s) a Medi gil day. Branch lancets 2022-0 Yes [id number] Check Unive rs (TECHLITE 1-31 blood ity of LANCETS) 28 00:00: glucose 3 [place] gauge Misc 00 time(s) a Medi gil day. Branch blood sugar 2022-0 Yes [id number] Check U nivers diagnostic 1-31 blood ity of (GLUCOCARD 00:00: glucose 3 [place] SHINE TEST 00 time(s) a Medi gil STRIPS) day. Branch strip lancets 2022-0 Yes [id number] 3Check Univ ers (TECHLITE 1-31 blood ity of LANCETS) 25 00:00: glucose 3 [place] gauge Misc 00 times(s) a Med ical day. Branch blood sugar Yes [id number] Check U nivers diagnostic 1-31 blood ity of (GLUCOCARD 00:00: glucose 3 [place] SHINE TEST 00 time(s) a Medi gil STRIPS) day. Branch strip Lancing Yes [id number] Use as Univ ers Device with 1-31 directed ity of Lancets 00:00: [place] (MULTI-LANC 00 Medical ET DEVICE Branch 2) Kit Blood-Gluco 0 Yes [id number] Use as Univers se Meter 1-31 directed ity of (GLUCOCARD 00:00: [place] SHINE 00 Medical METER) Misc Branch lancets 0 Yes [id number] Check Unive rs (TECHLITE 1-31 blood ity of LANCETS) 25 00:00: glucose 3 [place] gauge Misc 00 time(s) a Medi gil day. Branch lancets Yes [id number] Check Unive rs (TECHLITE 1-31 blood ity of LANCETS) 28 00:00: glucose 3 [place] gauge Misc 00 time(s) a Medi gil day. Branch blood sugar Yes [id number] Check U nivers diagnostic 1-31 blood ity of (GLUCOCARD 00:00: glucose 3 [place] SHINE TEST 00 time(s) a Medi gil STRIPS) day. Branch strip lancets Yes [id number] 3Check Univ ers (TECHLITE 1-31 blood ity of LANCETS) 25 00:00: glucose 3 [place] gauge Misc 00 times(s) a Med ical day. Branch blood sugar Yes [id number] Check U nivers diagnostic 1-31 blood ity of (GLUCOCARD 00:00: glucose 3 [place] SHINE TEST 00 time(s) a Medi gil STRIPS) day. Branch strip Lancing 0 Yes [id number] Use as Univ ers Device with 1-31 directed ity of Lancets 00:00: [place] (MULTI-LANC 00 Medical ET DEVICE Branch 2) Kit Blood-Gluco 0 Yes [id number] Use as Univers se Meter 1-31 directed ity of (GLUCOCARD 00:00: [place] SHINE 00 Medical METER) Misc Branch lancets 0 Yes [id number] Check Unive rs (TECHLITE 1-31 blood ity of LANCETS) 25 00:00: glucose 3 [place] gauge Misc 00 time(s) a Medi gil day. Branch lancets 0 Yes [id number] Check Unive rs (TECHLITE 1-31 blood ity of LANCETS) 28 00:00: glucose 3 [place] gauge Misc 00 time(s) a Medi gil day. Branch blood sugar Yes [id number] Check U nivers diagnostic 1-31 blood ity of (GLUCOCARD 00:00: glucose 3 [place] SHINE TEST 00 time(s) a Medi gil STRIPS) day. Branch strip lancets Yes [id number] 3Check Univ ers (TECHLITE 1-31 blood ity of LANCETS) 25 00:00: glucose 3 [place] gauge Misc 00 times(s) a Med ical day. Branch blood sugar Yes [id number] Check U nivers diagnostic 1-31 blood ity of (GLUCOCARD 00:00: glucose 3 [place] SHINE TEST 00 time(s) a Medi igl STRIPS) day. Branch strip Lancing Yes [id number] Use as Univ ers Device with 1-31 directed ity of Lancets 00:00: [place] (MULTI-LANC 00 Medical ET DEVICE Branch 2) Kit Blood-Gluco Yes [id number] Use as Univers se Meter 1-31 directed ity of (GLUCOCARD 00:00: [place] SHINE 00 Medical METER) Misc Branch lancets 0 Yes [id number] Check Unive rs (TECHLITE 1-31 blood ity of LANCETS) 25 00:00: glucose 3 [place] gauge Misc 00 time(s) a Medi gil day. Branch lancets Yes [id number] Check Unive rs (TECHLITE 1-31 blood ity of LANCETS) 28 00:00: glucose 3 [place] gauge Misc 00 time(s) a Medi gil day. Branch blood sugar Yes [id number] Check U nivers diagnostic 1-31 blood ity of (GLUCOCARD 00:00: glucose 3 [place] SHINE TEST 00 time(s) a Medi gil STRIPS) day. Branch strip insulin 2022- No [id number] 10U inject 10 Univers glargine 1-31 01-31 Units ity of 100 unit/mL 00:00: 00:00 under the [place] injection 00 :00 skin at Medical bedtime. Branch insulin 2022- No [id number] 10U inject 10 Univers glargine 06-11 Units ity of 100 unit/mL 00:00: 00:00 under the [place] injection 00 :00 skin at Medical bedtime. Branch insulin 2022- No [id number] 10U inject 10 Univers glargine 06-11 Units ity of 100 unit/mL 00:00: 00:00 under the [place] injection 00 :00 skin at Medical bedtime. Branch Insulin 2022- No [id number] Use as Uni vers [place], 06-11 directed ity of Disposable, 00:00: 00:00 [place] 29 gauge x 00 :00 Medical 1/2" Ndle Branch insulin 2022- No [id number] 10U inject 10 Univers glargine 06-11 Units ity of 100 unit/mL 00:00: 00:00 under the [place] injection 00 :00 skin at Medical bedtime. Branch Insulin 2022- No [id number] Use as Uni vers [place], 06-11 directed ity of Disposable, 00:00: 00:00 [place] 29 gauge x 00 :00 Medical 1/2" Ndle Branch insulin 2022- No [id number] 10U inject 10 Univers glargine 06-11 Units ity of 100 unit/mL 00:00: 00:00 under the [place] injection 00 :00 skin at Medical bedtime. Branch Insulin 2022- No [id number] Use as Uni vers [place], 06-11 directed ity of Disposable, 00:00: 00:00 [place] 29 gauge x 00 :00 Medical 1/2" Ndle Branch pegfilgrast 2022- No [id number] 6mg 6 mg, Univers im-bmez 05-30 Subcutaneo ity o f (ZIEXTENZO) 19:15: 19:35 us, ONCE, [place] syringe 6 00 :00 1 dose, On Medi gil mg [place] Branch 05/30/22 at 1315, Routine
state farm agent team member approving Restricted medication : [facility] heparin 2022- No [id number] 500U 500 Units, Univers lock flush 05-30 IV Push, ity of (HEPARIN 19:00: 18:59 PRN, [place] LOCKFLUSH(P 03 :03 Starting Medi gil ORCINE)(PF) on [place] Branch ) 100 05/30/22 at unit/mL 1300, injection Until Fri 500 Units 05/31/22 at 1259, Routine fluorouraci 2022- Yes [id number] 2400mg/ 5,496 mg Univers L (ADRUCIL) 05-28 m2 (2,400 ity o f 5,496 mg in 20:00: 18:00 mg/m2 [place] NaCl 0.9% 00 :00 ?2.29 m2 Medica l (NS) 241 mL Treatment [facility] infusion Plan BSA pump (for from home use) Recorded weight), Continuous IV Infusion, OVER 46 HOURS, First dose on Fri05/28/22 at 1400, For 1 dose irinotecan 2022- No [id number] 150mg/m 343.6 mg Univers (CAMPTOSAR) 05-28 2 (rounded ity of 343.6 mg in 17:30: 19:52 from 343.5 [place] D5W 250 mL 00 :00 mg = 150 Medic al IV infusion mg/m2 Branch ?2.29 m2 Treatment Plan BSA from Recorded weight), IV Infusion, ONCE, Administer over 90 Minutes, On Fri05/28/22 at 1130, For 1 dose
Ad fulfillment mail clerk concurrent with the last 90 minutes of leucovorin infusion, in separate bags, using a Y-line connection .&nbsp ; Pro tect from light.
leucovorin 2022- No [id number] 400mg/m 916 mg Univers 916 mg in 05-28 2 (400 mg/m2 ity of D5W 250 mL 17:30: 19:52 ?2.29 m2 [place] infusion 00 :00 Treatment Medica l Plan BSA Branch from Recorded weight), IV Piggyback, ONCE, 1 dose, On Fri05/28/22 at 1130, Administer over 120 Minutes, 250 mL OXALIplatin 2022- No [id number] 85mg/m2 194.65 mg Univers (ELOXATIN) 05-28 (85 mg/m2 ity of 194.65 mg 15:30: 18:08 ?2.29 m2 [place] as in D5W 250 00 :00 Treatment Medi gil mL IV Plan BSA Branch infusion from Recorded weight), IV Infusion, ONCE, Administer over 120 Minutes, On Fri05/28/22 at 0930, For 1 dose
Ad fulfillment mail clerk OXALIplati n first. Extr avasation has been reported. Ensu re adequate IV access. Flus h infusion lines with D5W prior to administra tion of any concomitan t drug.&nbsp ;Do not use needles or IV sets containing aluminum parts that may come in contact with solution due to degradatio n of [place] compounds.
palonosetro 2022- No [id number] .25mg 0.25 mg, Univers n (ALOXI) 05-28 Intravenou ity of injection 15:00: 15:24 s, ONCE, 1 [place] 0.25 mg 00 :00 dose, On Medical Tue Branch 05/28/22 at 0900, Routine
state farm agent team member approving Restricted medication : [facility] fosaprepita 2022- No [id number] 150mg 150 mg, IV Univers nt (EMEND 05-28 Piggyback, ity of (FOSAPREPIT 15:00: 15:50 ONCE, 1 [place] ANT)) 150 00 :00 dose, On Medica l mg in NaCl e Branch 0.9% (NS) 05/28/22 at 150 mL IV 0900, piggyback Administer over 30 Minutes, 150 mL
F aculty member approving Restricted medication : [facility]
Use has been approved by a hematology /oncology service line provider: Yes
Res tricted use approved by: ALEKSANDAR BRAGA, HEM/ONC FACULTY dexamethaso 2022- No [id number] 10mg 10 mg, Univers ne sod phos 05-28 Slow IV ity of PF 15:00: 15:24 Push, [place] injection 00 :00 ONCE, 1 Medical 10 mg dose, On Branch Fri05/28/22 at 0900, 1 mL atropine 2022-0 2022- No [id number] .25mg 0.25 mg, Univers injection 05-28 IV Push, ity o f 0.25 mg 14:58: 18:14 PRN, 1 [place] 44 :00 dose, Medical Starting Branch on Fri05/28/22 at 0858, Until Discontinu ed, Routine, Stomach cramping, acute flushing. amoxicillin 2022-0 Yes [id number] TAKE ONE Univers -pot 1-17 TABLET BY ity of clavulanate 00:00: MOUTH [place] 500 mg 00 THREE Medical 500-125 mg TIMES A Branch tablet DAY (MORNING, NOON AND EVENING) amoxicillin 2022-0 Yes [id number] TAKE ONE Univers -pot 1-17 TABLET BY ity of clavulanate 00:00: MOUTH [place] 500 mg 00 THREE Medical 500-125 mg TIMES A Branch tablet DAY (MORNING, NOON AND EVENING) amoxicillin 2022-0 Yes [id number] TAKE ONE Univers -pot 1-17 TABLET BY ity of clavulanate 00:00: MOUTH [place] 500 mg 00 THREE Medical 500-125 mg TIMES A Branch tablet DAY (MORNING, NOON AND EVENING) amoxicillin 2022-0 Yes [id number] TAKE ONE Univers -pot 1-17 TABLET BY ity of clavulanate 00:00: MOUTH [place] 500 mg 00 THREE Medical 500-125 mg TIMES A Branch tablet DAY (MORNING, NOON AND EVENING) amoxicillin 2022-0 Yes [id number] TAKE ONE Univers -pot 1-17 TABLET BY ity of clavulanate 00:00: MOUTH [place] 500 mg 00 THREE Medical 500-125 mg TIMES A Branch tablet DAY (MORNING, NOON AND EVENING) amoxicillin 2022-0 Yes [id number] TAKE ONE Univers -pot 1-17 TABLET BY ity of clavulanate 00:00: MOUTH [place] 500 mg 00 THREE Medical 500-125 mg TIMES A Branch tablet DAY (MORNING, NOON AND EVENING) amoxicillin 2022-0 Yes [id number] TAKE ONE Univers -pot 1-17 TABLET BY ity of clavulanate 00:00: MOUTH [place] 500 mg 00 THREE Medical 500-125 mg TIMES A Branch tablet DAY (MORNING, NOON AND EVENING) amoxicillin 2023-0 Yes [id number] TAKE ONE Univers -pot 1-17 TABLET BY ity of clavulanate 00:00: MOUTH [place] 500 mg 00 THREE Medical 500-125 mg TIMES A Branch tablet DAY (MORNING, NOON AND EVENING) amoxicillin 2023-0 Yes [id number] TAKE ONE Univers -pot 1-17 TABLET BY ity of clavulanate 00:00: MOUTH [place] 500 mg 00 THREE Medical 500-125 mg TIMES A Branch tablet DAY (MORNING, NOON AND EVENING) amoxicillin 2023-0 Yes [id number] TAKE ONE Univers -pot 1-17 TABLET BY ity of clavulanate 00:00: MOUTH [place] 500 mg 00 THREE Medical 500-125 mg TIMES A Branch tablet DAY (MORNING, NOON AND EVENING) amoxicillin 3-0 Yes [id number] TAKE ONE Univers -pot 1-17 TABLET BY ity of clavulanate 00:00: MOUTH [place] 500 mg 00 THREE Medical 500-125 mg TIMES A Branch tablet DAY (MORNING, NOON AND EVENING) amoxicillin 2023-0 Yes [id number] TAKE ONE Univers -pot 1-17 TABLET BY ity of clavulanate 00:00: MOUTH [place] 500 mg 00 THREE Medical 500-125 mg TIMES A Branch tablet DAY (MORNING, NOON AND EVENING) amoxicillin 2023-0 Yes [id number] TAKE ONE Univers -pot 1-17 TABLET BY ity of clavulanate 00:00: MOUTH [place] 500 mg 00 THREE Medical 500-125 mg TIMES A Branch tablet DAY (MORNING, NOON AND EVENING) amoxicillin 2023-0 Yes [id number] TAKE ONE Univers -pot 1-17 TABLET BY ity of clavulanate 00:00: MOUTH [place] 500 mg 00 THREE Medical 500-125 mg TIMES A Branch tablet DAY (MORNING, NOON AND EVENING) amoxicillin 2023-0 Yes [id number] TAKE ONE Univers -pot 1-17 TABLET BY ity of clavulanate 00:00: MOUTH [place] 500 mg 00 THREE Medical 500-125 mg TIMES A Branch tablet DAY (MORNING, NOON AND EVENING) amoxicillin 2023-0 Yes [id number] TAKE ONE Univers -pot 1-17 TABLET BY ity of clavulanate 00:00: MOUTH [place] 500 mg 00 THREE Medical 500-125 mg TIMES A Branch tablet DAY (MORNING, NOON AND EVENING) amoxicillin 2022-0 Yes [id number] TAKE ONE Univers -pot 1-17 TABLET BY ity of clavulanate 00:00: MOUTH [place] 500 mg 00 THREE Medical 500-125 mg TIMES A Branch tablet DAY (MORNING, NOON AND EVENING) amoxicillin 2022-0 Yes [id number] TAKE ONE Univers -pot 1-17 TABLET BY ity of clavulanate 00:00: MOUTH [place] 500 mg 00 THREE Medical 500-125 mg TIMES A Branch tablet DAY (MORNING, NOON AND EVENING) amoxicillin 2022-0 Yes [id number] TAKE ONE Univers -pot 1-17 TABLET BY ity of clavulanate 00:00: MOUTH [place] 500 mg 00 THREE Medical 500-125 mg TIMES A Branch tablet DAY (MORNING, NOON AND EVENING) amoxicillin 2022-0 Yes [id number] TAKE ONE Univers -pot 1-17 TABLET BY ity of clavulanate 00:00: MOUTH [place] 500 mg 00 THREE Medical 500-125 mg TIMES A Branch tablet DAY (MORNING, NOON AND EVENING) amoxicillin 2022-0 Yes [id number] TAKE ONE Univers -pot 1-17 TABLET BY ity of clavulanate 00:00: MOUTH [place] 500 mg 00 THREE Medical 500-125 mg TIMES A Branch tablet DAY (MORNING, NOON AND EVENING) amoxicillin 2022-0 Yes [id number] TAKE ONE Univers -pot 1-17 TABLET BY ity of clavulanate 00:00: MOUTH [place] 500 mg 00 THREE Medical 500-125 mg TIMES A Branch tablet DAY (MORNING, NOON AND EVENING) amoxicillin 2022-0 Yes [id number] TAKE ONE Univers -pot 1-17 TABLET BY ity of clavulanate 00:00: MOUTH [place] 500 mg 00 THREE Medical 500-125 mg TIMES A Branch tablet DAY (MORNING, NOON AND EVENING) pegfilgrast 2022-0 2022- No [id number] 6mg 6 mg, Univers im-bmez 05-16 Subcutaneo ity o f (ZIEXTENZO) 18:30: 18:32 us, ONCE, [place] syringe 6 00 :00 1 dose, On Medi gil mg [place] 05/16/22 Branch at 1230, Routine
state farm agent team member approving Restricted medication : [facility] pegfilgrast 2022- No [id number] 6mg 6 mg, Univers im-bmez 05-16 Subcutaneo ity o f (ZIEXTENZO) 18:30: 18:32 us, ONCE, [place] syringe 6 00 :00 1 dose, On Medi gil mg [facility] 05/16/22 Branch at 1230, Routine
state farm agent team member approving Restricted medication : [facility] heparin 2022- Yes [id number] 500U 500 Units, Univers lock flush 05-16 IV Push, ity of (HEPARIN 18:28: 18:27 PRN, [place] LOCKFLUSH(P 31 :31 Starting Medi gil ORCINE)(PF) on [facility] Branch ) 100 05/16/22 at unit/mL 1228, injection Until Fri 500 Units 05/17/22 at 1227, Routine heparin 2022- Yes [id number] 500U 500 Units, Univers lock flush 05-16 IV Push, ity of (HEPARIN 18:28: 18:27 PRN, [place] LOCKFLUSH(P 31 :31 Starting Medi gil ORCINE)(PF) on [facility] Branch ) 100 05/16/22 at unit/mL 1228, injection Until Fri 500 Units 05/17/22 at 1227, Routine fluorouraci 2022- Yes [id number] 2400mg/ 5,496 mg Univers L (ADRUCIL) 05-14 m2 (2,400 ity o f 5,496 mg in 21:00: 18:59 mg/m2 [place] NaCl 0.9% 00 :00 ?2.29 m2 Medica l (NS) 241 mL Treatment [facility] infusion Plan BSA pump (for from home use) Recorded weight), Continuous IV Infusion, OVER 46 HOURS, First dose on Fri05/14/22 at 1500, For 1 dose irinotecan 2022- No [id number] 150mg/m 343.6 mg Univers (CAMPTOSAR) 05-14 2 (rounded ity of 343.6 mg in 18:30: 20:40 from 343.5 [place] D5W 250 mL 00 :00 mg = 150 Medic al IV infusion mg/m2 Branch ?2.29 m2 Treatment Plan BSA from Recorded weight), IV Infusion, ONCE, Administer over 90 Minutes, On Fri05/14/22 at 1230, For 1 dose
Ad fulfillment mail clerk concurrent with the last 90 minutes of leucovorin infusion, in separate bags, using a Y-line connection .&nbsp ; Pro tect from light.
leucovorin 2022- No [id number] 400mg/m 916 mg Univers 916 mg in 05-14 2 (400 mg/m2 ity of D5W 250 mL 18:30: 20:40 ?2.29 m2 [place] infusion 00 :00 Treatment Medica l Plan BSA Branch from Recorded weight), IV Piggyback, ONCE, 1 dose, On Fri05/14/22 at 1230, Administer over 120 Minutes, 250 mL OXALIplatin 2022- No [id number] 85mg/m2 194.65 mg Univers (ELOXATIN) 05-14 (85 mg/m2 ity of 194.65 mg 16:30: 18:55 ?2.29 m2 [place] as in D5W 250 00 :00 Treatment Medi gil mL IV Plan BSA Branch infusion from Recorded weight), IV Infusion, ONCE, Administer over 120 Minutes, On Fri05/14/22 at 1030, For 1 dose
Ad fulfillment mail clerk OXALIplati n first. Extr avasation has been reported. Ensu re adequate IV access. Flus h infusion lines with D5W prior to administra tion of any concomitan t drug.&nbsp ;Do not use needles or IV sets containing aluminum parts that may come in contact with solution due to degradatio n of [place] compounds.
palonosetro 2022- No [id number] .25mg 0.25 mg, Univers n (ALOXI) 05-14 Intravenou ity of injection 16:00: 16:00 s, ONCE, 1 [place] 0.25 mg 00 :00 dose, On Medical Fri05/14/22 Branch at 1000, Routine
state farm agent team member approving Restricted medication : [facility] fosaprepita 2022- No [id number] 150mg 150 mg, IV Univers nt (EMEND 1-03 01-03 Piggyback, ity of (FOSAPREPIT 16:00: 16:38 ONCE, 1 [place] ANT)) 150 00 :00 dose, On Medica l mg in NaCl Fri05/14/22 [place] n[place] 0.9% (NS) at 1000, 150 mL IV Administer piggyback over 30 Minutes, 150 mL
F aculty member approving Restricted medication : [facility]
Use has been approved by a hematology /oncology service line provider: Yes
Res tricted use approved by: ALEKSANDAR BRAGA, HEM/ONC FACULTY dexamethaso 2022- No [id number] 10mg 10 mg, Univers ne sod phos 05-14 Slow IV ity of PF 16:00: 16:01 Push, [place] injection 00 :00 ONCE, 1 Medical 10 mg dose, On Branch Fri05/14/22 at 1000, 1 mL atropine 2022- No [id number] .25mg 0.25 mg, Univers injection 05-14 IV Push, ity o f 0.25 mg 15:50: 18:57 PRN, 1 [place] 20 :00 dose, Medical Starting Branch on Fri05/14/22 at 0950, Until Discontinu ed, Routine, Stomach cramping, acute flushing. rosuvastati Yes 20mg Take 20 mg Univers n 20 mg 1-02 by mouth ity of tablet 12:53: at [place] [address] bedtime. Medical Branch rosuvastati Yes 20mg Take 20 mg Univers n 20 mg 1-02 by mouth ity of tablet 12:53: at [place] [address] bedtime. Medical Branch rosuvastati Yes 20mg Take 20 mg Univers n 20 mg 1-02 by mouth ity of tablet 12:53: at [place] [address] bedtime. Medical Branch rosuvastati Yes 20mg Take 20 mg Univers n 20 mg 1-02 by mouth ity of tablet 12:53: at [place] [address] bedtime. Medical Branch rosuvastati Yes 20mg Take 20 mg Univers n 20 mg 1-02 by mouth ity of tablet 12:53: at [place] [address] bedtime. Medical Branch rosuvastati 2022-0 Yes 20mg Take 20 mg Univers n 20 mg 1-02 by mouth ity of tablet 12:53: at [place] [address] bedtime. Medical Branch rosuvastati 2022-0 Yes 20mg Take 20 mg Univers n 20 mg 1-02 by mouth ity of tablet 12:53: at [place] [address] bedtime. Medical Branch rosuvastati 2022-0 Yes 20mg Take 20 mg Univers n 20 mg 1-02 by mouth ity of tablet 12:53: at [place] [address] bedtime. Medical Branch rosuvastati 2022-0 Yes 20mg Take 20 mg Univers n 20 mg 1-02 by mouth ity of tablet 12:53: at [place] [address] bedtime. Medical Branch rosuvastati 2022-0 Yes 20mg Take 20 mg Univers n 20 mg 1-02 by mouth ity of tablet 12:53: at [place] [address] bedtime. Medical Branch rosuvastati 2022-0 Yes 20mg Take 20 mg Univers n 20 mg 1-02 by mouth ity of tablet 12:53: at [place] [address] bedtime. Medical Branch rosuvastati 2022-0 Yes 20mg Take 20 mg Univers n 20 mg 1-02 by mouth ity of tablet 12:53: at [place] [address] bedtime. Medical Branch rosuvastati 0 Yes 20mg Take 20 mg Univers n 20 mg 1-02 by mouth ity of tablet 12:53: at [place] [address] bedtime. Medical Branch rosuvastati 2022-0 Yes 20mg Take 20 mg Univers n 20 mg 1-02 by mouth ity of tablet 12:53: at [place] [address] bedtime. Medical Branch rosuvastati 2022-0 Yes 20mg Take 20 mg Univers n 20 mg 1-02 by mouth ity of tablet 12:53: at [place] [address] bedtime. Medical Branch rosuvastati 2022-0 Yes 20mg Take 20 mg Univers n 20 mg 1-02 by mouth ity of tablet 12:53: at [place] [address] bedtime. Medical Branch rosuvastati 2022-0 Yes 20mg Take 20 mg Univers n 20 mg 1-02 by mouth ity of tablet 12:53: at [place] [address] bedtime. Medical Branch rosuvastati 2022-0 Yes 20mg Take 20 mg Univers n 20 mg 1-02 by mouth ity of tablet 12:53: at [place] [address] bedtime. Medical Branch rosuvastati 2023-0 Yes 20mg Take 20 mg Univers n 20 mg 1-02 by mouth ity of tablet 12:53: at [place] [address] bedtime. Medical Branch rosuvastati 3-0 Yes 20mg Take 20 mg Univers n 20 mg 1-02 by mouth ity of tablet 12:53: at [place] [address] bedtime. Medical Branch rosuvastati 2023-0 Yes 20mg Take 20 mg Univers n 20 mg 1-02 by mouth ity of tablet 12:53: at [place] [address] bedtime. Medical Branch rosuvastati 3-0 Yes 20mg Take 20 mg Univers n 20 mg 1-02 by mouth ity of tablet 12:53: at [place] [address] bedtime. Medical Branch rosuvastati 3-0 Yes 20mg Take 20 mg Univers n 20 mg 1-02 by mouth ity of tablet 12:53: at [place] [address] bedtime. Medical Branch rosuvastati 3-0 Yes 20mg Take 20 mg Univers n 20 mg 1-02 by mouth ity of tablet 12:53: at [place] [address] bedtime. Medical Branch rosuvastati 3-0 Yes 20mg Take 20 mg Univers n 20 mg 1-02 by mouth ity of tablet 12:53: at [place] [address] bedtime. Medical Branch rosuvastati 3-0 Yes 20mg Take 20 mg Univers n 20 mg 1-02 by mouth ity of tablet 12:53: at [place] [address] bedtime. Medical Branch rosuvastati 3-0 Yes 20mg Take 20 mg Univers n 20 mg 1-02 by mouth ity of tablet 12:53: at [place] [address] bedtime. Medical Branch rosuvastati 3-0 Yes 20mg Take 20 mg Univers n 20 mg 1-02 by mouth ity of tablet 12:53: at [place] [address] bedtime. Medical Branch rosuvastati 2023-0 Yes 20mg Take 20 mg Univers n 20 mg 1-02 by mouth ity of tablet 12:53: at [place] [address] bedtime. Medical Branch rosuvastati 2023-0 Yes 20mg Take 20 mg Univers n 20 mg 1-02 by mouth ity of tablet 12:53: at [place] [address] bedtime. Medical Branch rosuvastati 2023-0 Yes 20mg Take 20 mg Univers n 20 mg 1-02 by mouth ity of tablet 12:53: at [place] [address] bedtime. Medical Branch rosuvastati 2023-0 Yes 20mg Take 20 mg Univers n 20 mg 1-02 by mouth ity of tablet 12:53: at [place] [address] bedtime. Medical Branch rosuvastati 3-0 Yes 20mg Take 20 mg Univers n 20 mg 1-02 by mouth ity of tablet 12:53: at [place] [address] bedtime. Medical Branch rosuvastati 2023-0 Yes 20mg Take 20 mg Univers n 20 mg 1-02 by mouth ity of tablet 12:53: at [place] [address] bedtime. Medical Branch rosuvastati 3-0 Yes 20mg Take 20 mg Univers n 20 mg 1-02 by mouth ity of tablet 12:53: at [place] [address] bedtime. Medical Branch rosuvastati 3-0 Yes 20mg Take 20 mg Univers n 20 mg 1-02 by mouth ity of tablet 12:53: at [place] [address] bedtime. Medical Branch rosuvastati 3-0 Yes 20mg Take 20 mg Univers n 20 mg 1-02 by mouth ity of tablet 12:53: at [place] [address] bedtime. Medical Branch rosuvastati 3-0 Yes 20mg Take 20 mg Univers n 20 mg 1-02 by mouth ity of tablet 12:53: at [place] [address] bedtime. Medical Branch rosuvastati 3-0 Yes 20mg Take 20 mg Univers n 20 mg 1-02 by mouth ity of tablet 12:53: at [place] [address] bedtime. Medical Branch isosorbide 2023-0 Yes [id number] 30mg Take 1 U nivers mononitrate 1-02 tablet by ity of 30 mg 24 hr 00:00: mouth in [place] tablet 00 the Medical morning. Branch isosorbide 2023-0 Yes [id number] 30mg Take 1 U nivers mononitrate 1-02 tablet by ity of 30 mg 24 hr 00:00: mouth in [place] tablet 00 the Medical morning. Branch isosorbide 2023-0 Yes [id number] 30mg Take 1 U nivers mononitrate 1-02 tablet by ity of 30 mg 24 hr 00:00: mouth in [place] tablet 00 the Medical morning. Branch isosorbide 2023-0 Yes [id number] 30mg Take 1 U nivers mononitrate 1-02 tablet by ity of 30 mg 24 hr 00:00: mouth in [place] tablet 00 the Medical morning. Branch ciprofloxac 2023-0 Yes [id number] 500mg Take 1 Univers in HCl 500 1-02 tablet by ity of mg tablet 00:00: mouth [place] 00 every 12 Medical (twelve) Branch hours. isosorbide 2023-0 Yes [id number] 30mg Take 1 U nivers mononitrate 1-02 tablet by ity of 30 mg 24 hr 00:00: mouth in [place] tablet 00 the Medical morning. Branch ciprofloxac 2023-0 Yes [id number] 500mg Take 1 Univers in HCl 500 1-02 tablet by ity of mg tablet 00:00: mouth [place] 00 every 12 Medical (twelve) Branch hours. isosorbide 2023-0 Yes [id number] 30mg Take 1 U nivers mononitrate 1-02 tablet by ity of 30 mg 24 hr 00:00: mouth in [place] tablet 00 the Medical morning. Branch ciprofloxac 2023-0 Yes [id number] 500mg Take 1 Univers in HCl 500 1-02 tablet by ity of mg tablet 00:00: mouth [place] 00 every 12 Medical (twelve) Branch hours. isosorbide 2023-0 Yes [id number] 30mg Take 1 U nivers mononitrate 1-02 tablet by ity of 30 mg 24 hr 00:00: mouth in [place] tablet 00 the Medical morning. Branch ciprofloxac 2023-0 Yes [id number] 500mg Take 1 Univers in HCl 500 1-02 tablet by ity of mg tablet 00:00: mouth [place] 00 every 12 Medical (twelve) Branch hours. isosorbide 2023-0 Yes [id number] 30mg Take 1 U nivers mononitrate 1-02 tablet by ity of 30 mg 24 hr 00:00: mouth in [place] tablet 00 the Medical morning. Branch ciprofloxac 2023-0 Yes [id number] 500mg Take 1 Univers in HCl 500 1-02 tablet by ity of mg tablet 00:00: mouth [place] 00 every 12 Medical (twelve) Branch hours. isosorbide 2023-0 Yes [id number] 30mg Take 1 U nivers mononitrate 1-02 tablet by ity of 30 mg 24 hr 00:00: mouth in [place] tablet 00 the Medical morning. Branch ciprofloxac 2023-0 Yes [id number] 500mg Take 1 Univers in HCl 500 1-02 tablet by ity of mg tablet 00:00: mouth [place] 00 every 12 Medical (twelve) Branch hours. isosorbide 2023-0 Yes [id number] 30mg Take 1 U nivers mononitrate 1-02 tablet by ity of 30 mg 24 hr 00:00: mouth in [place] tablet 00 the Medical morning. Branch ciprofloxac 2023-0 Yes [id number] 500mg Take 1 [facility] in HCl 500 1-02 tablet by ity of mg tablet 00:00: mouth [place] 00 every 12 Medical (twelve) Branch hours. isosorbide 2023-0 Yes [id number] 30mg Take 1 U nivers mononitrate 1-02 tablet by ity of 30 mg 24 hr 00:00: mouth in [place] tablet 00 the Medical morning. Branch ciprofloxac 2023-0 Yes [id number] 500mg Take 1 [facility] in HCl 500 1-02 tablet by ity of mg tablet 00:00: mouth [place] 00 every 12 Medical (twelve) Branch hours. isosorbide 2023-0 Yes [id number] 30mg Take 1 U nivers mononitrate 1-02 tablet by ity of 30 mg 24 hr 00:00: mouth in [place] tablet 00 the Medical morning. Branch ciprofloxac 2023-0 Yes [id number] 500mg Take 1 [facility] in HCl 500 1-02 tablet by ity of mg tablet 00:00: mouth [place] 00 every 12 Medical (twelve) Branch hours. isosorbide 2023-0 Yes [id number] 30mg Take 1 U nivers mononitrate 1-02 tablet by ity of 30 mg 24 hr 00:00: mouth in [place] tablet 00 the Medical morning. Branch ciprofloxac 2023-0 Yes [id number] 500mg Take 1 [facility] in HCl 500 1-02 tablet by ity of mg tablet 00:00: mouth [place] 00 every 12 Medical (twelve) Branch hours. isosorbide 2023-0 Yes [id number] 30mg Take 1 U nivers mononitrate 1-02 tablet by ity of 30 mg 24 hr 00:00: mouth in [place] tablet 00 the Medical morning. Branch ciprofloxac 2023-0 Yes [id number] 500mg Take 1 [facility] in HCl 500 1-02 tablet by ity of mg tablet 00:00: mouth [place] 00 every 12 Medical (twelve) Branch hours. isosorbide 2023-0 Yes [id number] 30mg Take 1 U nivers mononitrate 1-02 tablet by ity of 30 mg 24 hr 00:00: mouth in [place] tablet 00 the Medical morning. Branch ciprofloxac 2023-0 Yes [id number] 500mg Take 1 [facility] in HCl 500 1-02 tablet by ity of mg tablet 00:00: mouth [place] 00 every 12 Medical (twelve) Branch hours. isosorbide 2023-0 Yes [id number] 30mg Take 1 U nivers mononitrate 1-02 tablet by ity of 30 mg 24 hr 00:00: mouth in [place] tablet 00 the Medical morning. Branch ciprofloxac 2023-0 Yes [id number] 500mg Take 1 [facility] in HCl 500 1-02 tablet by ity of mg tablet 00:00: mouth [place] 00 every 12 Medical (twelve) Branch hours. isosorbide 2023-0 Yes [id number] 30mg Take 1 U nivers mononitrate 1-02 tablet by ity of 30 mg 24 hr 00:00: mouth in [place] tablet 00 the Medical morning. Branch ciprofloxac 2023-0 Yes [id number] 500mg Take 1 [facility] in HCl 500 1-02 tablet by ity of mg tablet 00:00: mouth [place] 00 every 12 Medical (twelve) Branch hours. isosorbide 2023-0 Yes [id number] 30mg Take 1 U nivers mononitrate 1-02 tablet by ity of 30 mg 24 hr 00:00: mouth in [place] tablet 00 the Medical morning. Branch ciprofloxac 2023-0 Yes [id number] 500mg Take 1 [facility] in HCl 500 1-02 tablet by ity of mg tablet 00:00: mouth [place] 00 every 12 Medical (twelve) Branch hours. isosorbide 2023-0 Yes [id number] 30mg Take 1 U nivers mononitrate 1-02 tablet by ity of 30 mg 24 hr 00:00: mouth in [place] tablet 00 the Medical morning. Branch ciprofloxac 2023-0 Yes [id number] 500mg Take 1 [facility] in HCl 500 1-02 tablet by ity of mg tablet 00:00: mouth [place] 00 every 12 Medical (twelve) Branch hours. isosorbide 2023-0 Yes [id number] 30mg Take 1 U nivers mononitrate 1-02 tablet by ity of 30 mg 24 hr 00:00: mouth in [place] tablet 00 the Medical morning. Branch isosorbide 2023-0 Yes [id number] 30mg Take 1 U nivers mononitrate 1-02 tablet by ity of 30 mg 24 hr 00:00: mouth in [place] tablet 00 the Medical morning. Branch isosorbide 2023-0 Yes [id number] 30mg Take 1 U nivers mononitrate 1-02 tablet by ity of 30 mg 24 hr 00:00: mouth in [place] tablet 00 the Medical morning. Branch isosorbide 2023-0 Yes [id number] 30mg Take 1 U nivers mononitrate 1-02 tablet by ity of 30 mg 24 hr 00:00: mouth in [place] tablet 00 the Medical morning. Branch isosorbide 2023-0 Yes [id number] 30mg Take 1 U nivers mononitrate 1-02 tablet by ity of 30 mg 24 hr 00:00: mouth in [place] tablet 00 the Medical morning. Branch isosorbide 2023-0 Yes [id number] 30mg Take 1 U nivers mononitrate 1-02 tablet by ity of 30 mg 24 hr 00:00: mouth in [place] tablet 00 the Medical morning. Branch isosorbide 2023-0 Yes [id number] 30mg Take 1 U nivers mononitrate 1-02 tablet by ity of 30 mg 24 hr 00:00: mouth in [place] tablet 00 the Medical morning. Branch isosorbide 2023-0 Yes [id number] 30mg Take 1 U nivers mononitrate 1-02 tablet by ity of 30 mg 24 hr 00:00: mouth in [place] tablet 00 the Medical morning. Branch isosorbide 2023-0 Yes [id number] 30mg Take 1 U nivers mononitrate 1-02 tablet by ity of 30 mg 24 hr 00:00: mouth in [place] tablet 00 the Medical morning. Branch isosorbide 2023-0 Yes [id number] 30mg Take 1 U nivers mononitrate 1-02 tablet by ity of 30 mg 24 hr 00:00: mouth in [place] tablet 00 the Medical morning. Branch isosorbide 2023-0 Yes [id number] 30mg Take 1 U nivers mononitrate 1-02 tablet by ity of 30 mg 24 hr 00:00: mouth in [place] tablet 00 the Medical morning. Branch isosorbide 2023-0 Yes [id number] 30mg Take 1 U nivers mononitrate 1-02 tablet by ity of 30 mg 24 hr 00:00: mouth in [place] tablet 00 the Medical morning. Branch isosorbide 2023-0 Yes [id number] 30mg Take 1 U nivers mononitrate 1-02 tablet by ity of 30 mg 24 hr 00:00: mouth in [place] tablet 00 the Medical morning. Branch isosorbide 2023-0 Yes [id number] 30mg Take 1 U nivers mononitrate 1-02 tablet by ity of 30 mg 24 hr 00:00: mouth in [place] tablet 00 the Medical morning. Branch isosorbide 2023-0 Yes [id number] 30mg Take 1 U nivers mononitrate 1-02 tablet by ity of 30 mg 24 hr 00:00: mouth in [place] tablet 00 the Medical morning. Branch isosorbide 2023-0 Yes [id number] 30mg Take 1 U nivers mononitrate 1-02 tablet by ity of 30 mg 24 hr 00:00: mouth in [place] tablet 00 the Medical morning. Branch isosorbide 2023-0 Yes [id number] 30mg Take 1 U nivers mononitrate 1-02 tablet by ity of 30 mg 24 hr 00:00: mouth in [place] tablet 00 the Medical morning. Branch isosorbide 2023-0 Yes [id number] 30mg Take 1 U nivers mononitrate 1-02 tablet by ity of 30 mg 24 hr 00:00: mouth in [place] tablet 00 the Medical morning. Branch isosorbide 2023-0 Yes [id number] 30mg Take 1 U nivers mononitrate 1-02 tablet by ity of 30 mg 24 hr 00:00: mouth in [place] tablet 00 the Medical morning. Branch isosorbide 2023-0 Yes [id number] 30mg Take 1 U nivers mononitrate 1-02 tablet by ity of 30 mg 24 hr 00:00: mouth in [place] tablet 00 the Medical morning. Branch ciprofloxac 2022- No [id number] 500mg Take 1 [facility] in HCl 500 05-13 tablet by ity of mg tablet 00:00: 00:00 mouth [place] 00 :00 every 12 Medical (twelve) Branch hours. ciprofloxac 2022- No [id number] 500mg Take 1 [facility] in HCl 500 05-13 tablet by ity of mg tablet 00:00: 00:00 mouth [place] 00 :00 every 12 Medical (twelve) Branch hours. ciprofloxac 2022- No [id number] 500mg Take 1 [facility] in HCl 500 05-13 tablet by ity of mg tablet 00:00: 00:00 mouth [place] 00 :00 every 12 Medical (twelve) Branch hours. ciprofloxac 2022- No [id number] 500mg Take 1 [facility] in HCl 500 05-13 tablet by ity of mg tablet 00:00: 00:00 mouth [place] 00 :00 every 12 Medical (twelve) Branch hours. ciprofloxac 2022- No [id number] 500mg Take 1 [facility] in HCl 500 05-13 tablet by ity of mg tablet 00:00: 00:00 mouth [place] 00 :00 every 12 Medical (twelve) Branch hours. loperamide 2021-05 Yes [id number] Take 4 mg [facility] 2 mg 2-27 after 1st ity of capsule 00:00: loose [place] 00 stool, Medical then 2 mg Branch by mouth every 2 hr until 12 hr have passed with no loose stool. If diarrhea cont. after 12 hours, call loperamide 2021-05 Yes [id number] Take 4 mg [facility] 2 mg 2-27 after 1st ity of capsule 00:00: loose [place] 00 stool, Medical then 2 mg Branch by mouth every 2 hr until 12 hr have passed with no loose stool. If diarrhea cont. after 12 hours, call loperamide 2021-05 Yes [id number] Take 4 mg [facility] 2 mg 2-27 after 1st ity of capsule 00:00: loose [place] 00 stool, Medical then 2 mg Branch by mouth every 2 hr until 12 hr have passed with no loose stool. If diarrhea cont. after 12 hours, call MD. marshall 2021-05 Yes [id number] Take 4 mg [facility] 2 mg 2-27 after 1st ity of capsule 00:00: loose 00 stool, Medical then 2 mg Branch by mouth every 2 hr until 12 hr have passed with no loose stool. If diarrhea cont. after 12 hours, call MD. marshall 2021-05 Yes [id number] Take 4 mg [facility] 2 mg 2-27 after 1st ity of capsule 00:00: loose 00 stool, Medical then 2 mg Branch by mouth every 2 hr until 12 hr have passed with no loose stool. If diarrhea cont. after 12 hours, call MD. marshall 2021-05 Yes [id number] Take 4 mg [facility] 2 mg 2-27 after 1st ity of capsule 00:00: loose 00 stool, Medical then 2 mg Branch by mouth every 2 hr until 12 hr have passed with no loose stool. If diarrhea cont. after 12 hours, call MD. marshall 2021-05 Yes [id number] Take 4 mg [facility] 2 mg 2-27 after 1st ity of capsule 00:00: loose 00 stool, Medical then 2 mg Branch by mouth every 2 hr until 12 hr have passed with no loose stool. If diarrhea cont. after 12 hours, call MD. marshall 2021-05 Yes [id number] Take 4 mg [facility] 2 mg 2-27 after 1st ity of capsule 00:00: loose 00 stool, Medical then 2 mg Branch by mouth every 2 hr until 12 hr have passed with no loose stool. If diarrhea cont. after 12 hours, call MD. marshall 2021-05 Yes [id number] Take 4 mg [facility] 2 mg 2-27 after 1st ity of capsule 00:00: loose 00 stool, Medical then 2 mg Branch by mouth every 2 hr until 12 hr have passed with no loose stool. If diarrhea cont. after 12 hours, call MD. marshall 2021-05 Yes [id number] Take 4 mg [facility] 2 mg 2-27 after 1st ity of capsule 00:00: loose 00 stool, Medical then 2 mg Branch by mouth every 2 hr until 12 hr have passed with no loose stool. If diarrhea cont. after 12 hours, call loperamyeni 2021- Yes [id number] Take 4 mg [facility] 2 mg 2-27 after 1st ity of capsule 00:00: loose stool, Medical then 2 mg Branch by mouth every 2 hr until 12 hr have passed with no loose stool. If diarrhea cont. after 12 hours, call loperamide 2021- Yes [id number] Take 4 mg [facility] 2 mg 2-27 after 1st ity of capsule 00:00: loose stool, Medical then 2 mg Branch by mouth every 2 hr until 12 hr have passed with no loose stool. If diarrhea cont. after 12 hours, call loperamyeni 2021- Yes [id number] Take 4 mg [facility] 2 mg 2-27 after 1st ity of capsule 00:00: loose stool, Medical then 2 mg Branch by mouth every 2 hr until 12 hr have passed with no loose stool. If diarrhea cont. after 12 hours, call loperamyeni 2021- Yes [id number] Take 4 mg [facility] 2 mg 2-27 after 1st ity of capsule 00:00: loose stool, Medical then 2 mg Branch by mouth every 2 hr until 12 hr have passed with no loose stool. If diarrhea cont. after 12 hours, call MD. marshall 2021-05 Yes [id number] Take 4 mg [facility] 2 mg 2-27 after 1st ity of capsule 00:00: loose stool, Medical then 2 mg Branch by mouth every 2 hr until 12 hr have passed with no loose stool. If diarrhea cont. after 12 hours, call lopecale 2021- Yes [id number] Take 4 mg [facility] 2 mg 2-27 after 1st ity of capsule 00:00: loose stool, Medical then 2 mg Branch by mouth every 2 hr until 12 hr have passed with no loose stool. If diarrhea cont. after 12 hours, call loperamyeni 2021- Yes [id number] Take 4 mg [facility] 2 mg 2-27 after 1st ity of capsule 00:00: loose stool, Medical then 2 mg Branch by mouth every 2 hr until 12 hr have passed with no loose stool. If diarrhea cont. after 12 hours, call loperamyeni 2021- Yes [id number] Take 4 mg [facility] 2 mg 2-27 after 1st ity of capsule 00:00: loose [place] 00 stool, Medical then 2 mg Branch by mouth every 2 hr until 12 hr have passed with no loose stool. If diarrhea cont. after 12 hours, call loperamyeni 2021-05 Yes [id number] Take 4 mg [facility] 2 mg 2-27 after 1st ity of capsule 00:00: loose [place] 00 stool, Medical then 2 mg Branch by mouth every 2 hr until 12 hr have passed with no loose stool. If diarrhea cont. after 12 hours, call loperamyeni 2021-05 Yes [id number] Take 4 mg [facility] 2 mg 2-27 after 1st ity of capsule 00:00: loose [place] 00 stool, Medical then 2 mg Branch by mouth every 2 hr until 12 hr have passed with no loose stool. If diarrhea cont. after 12 hours, call MD. marshall 2021-05 Yes [id number] Take 4 mg [facility] 2 mg 2-27 after 1st ity of capsule 00:00: loose 00 stool, Medical then 2 mg Branch by mouth every 2 hr until 12 hr have passed with no loose stool. If diarrhea cont. after 12 hours, call MD. marshall 2021-05 Yes [id number] Take 4 mg [facility] 2 mg 2-27 after 1st ity of capsule 00:00: loose 00 stool, Medical then 2 mg Branch by mouth every 2 hr until 12 hr have passed with no loose stool. If diarrhea cont. after 12 hours, call lopecale 2021-05 Yes [id number] Take 4 mg [facility] 2 mg 2-27 after 1st ity of capsule 00:00: loose 00 stool, Medical then 2 mg Branch by mouth every 2 hr until 12 hr have passed with no loose stool. If diarrhea cont. after 12 hours, call loperamyeni 2021-05 Yes [id number] Take 4 mg [facility] 2 mg 2-27 after 1st ity of capsule 00:00: loose [place] 00 stool, Medical then 2 mg Branch by mouth every 2 hr until 12 hr have passed with no loose stool. If diarrhea cont. after 12 hours, call loperamyeni 2021-05 Yes [id number] Take 4 mg [facility] 2 mg 2-27 after 1st ity of capsule 00:00: loose [place] 00 stool, Medical then 2 mg Branch by mouth every 2 hr until 12 hr have passed with no loose stool. If diarrhea cont. after 12 hours, call loperamide 2021-05 Yes [id number] Take 4 mg [facility] 2 mg 2-27 after 1st ity of capsule 00:00: loose 00 stool, Medical then 2 mg Branch by mouth every 2 hr until 12 hr have passed with no loose stool. If diarrhea cont. after 12 hours, call loperamyeni 2021-05 Yes [id number] Take 4 mg [facility] 2 mg 2-27 after 1st ity of capsule 00:00: loose 00 stool, Medical then 2 mg Branch by mouth every 2 hr until 12 hr have passed with no loose stool. If diarrhea cont. after 12 hours, call loperamyeni 2021-05 Yes [id number] Take 4 mg [facility] 2 mg 2-27 after 1st ity of capsule 00:00: loose 00 stool, Medical then 2 mg Branch by mouth every 2 hr until 12 hr have passed with no loose stool. If diarrhea cont. after 12 hours, call MD. marshall 2021-05 Yes [id number] Take 4 mg [facility] 2 mg 2-27 after 1st ity of capsule 00:00: loose stool, Medical then 2 mg Branch by mouth every 2 hr until 12 hr have passed with no loose stool. If diarrhea cont. after 12 hours, call MD. marshall 2021-05 Yes [id number] Take 4 mg [facility] 2 mg 2-27 after 1st ity of capsule 00:00: loose stool, Medical then 2 mg Branch by mouth every 2 hr until 12 hr have passed with no loose stool. If diarrhea cont. after 12 hours, call MD. marshall 2021-05 Yes [id number] Take 4 mg [facility] 2 mg 2-27 after 1st ity of capsule 00:00: loose stool, Medical then 2 mg Branch by mouth every 2 hr until 12 hr have passed with no loose stool. If diarrhea cont. after 12 hours, call MD. marshall 2021-05 Yes [id number] Take 4 mg [facility] 2 mg 2-27 after 1st ity of capsule 00:00: loose stool, Medical then 2 mg Branch by mouth every 2 hr until 12 hr have passed with no loose stool. If diarrhea cont. after 12 hours, call MD. marshall 2021-05 Yes [id number] Take 4 mg [facility] 2 mg 2-27 after 1st ity of capsule 00:00: loose 00 stool, Medical then 2 mg Branch by mouth every 2 hr until 12 hr have passed with no loose stool. If diarrhea cont. after 12 hours, call loperamyeni 2021-05 Yes [id number] Take 4 mg [facility] 2 mg 2-27 after 1st ity of capsule 00:00: loose 00 stool, Medical then 2 mg Branch by mouth every 2 hr until 12 hr have passed with no loose stool. If diarrhea cont. after 12 hours, call lopecale 2021-05 Yes [id number] Take 4 mg [facility] 2 mg 2-27 after 1st ity of capsule 00:00: loose 00 stool, Medical then 2 mg Branch by mouth every 2 hr until 12 hr have passed with no loose stool. If diarrhea cont. after 12 hours, call lopecale 2021-05 Yes [id number] Take 4 mg [facility] 2 mg 2-27 after 1st ity of capsule 00:00: loose 00 stool, Medical then 2 mg Branch by mouth every 2 hr until 12 hr have passed with no loose stool. If diarrhea cont. after 12 hours, call lopecale 2021-05 Yes [id number] Take 4 mg [facility] 2 mg 2-27 after 1st ity of capsule 00:00: loose 00 stool, Medical then 2 mg Branch by mouth every 2 hr until 12 hr have passed with no loose stool. If diarrhea cont. after 12 hours, call loperamyeni 2021-05 Yes [id number] Take 4 mg [facility] 2 mg 2-27 after 1st ity of capsule 00:00: loose stool, Medical then 2 mg Branch by mouth every 2 hr until 12 hr have passed with no loose stool. If diarrhea cont. after 12 hours, call loperamyeni 2021-05 Yes [id number] Take 4 mg [facility] 2 mg 2-27 after 1st ity of capsule 00:00: loose 00 stool, Medical then 2 mg Branch by mouth every 2 hr until 12 hr have passed with no loose stool. If diarrhea cont. after 12 hours, call loperamyeni 2021-05 Yes [id number] Take 4 mg [facility] 2 mg 2-27 after 1st ity of capsule 00:00: loose 00 stool, Medical then 2 mg Branch by mouth every 2 hr until 12 hr have passed with no loose stool. If diarrhea cont. after 12 hours, call loperamide 2021-05 Yes [id number] Take 4 mg [facility] 2 mg 2-27 after 1st ity of capsule 00:00: loose [place] 00 stool, Medical then 2 mg Branch by mouth every 2 hr until 12 hr have passed with no loose stool. If diarrhea cont. after 12 hours, call loperamyeni 2021-05 Yes [id number] Take 4 mg [facility] 2 mg 2-27 after 1st ity of capsule 00:00: loose [place] 00 stool, Medical then 2 mg Branch by mouth every 2 hr until 12 hr have passed with no loose stool. If diarrhea cont. after 12 hours, call loperamyeni 2021-05 Yes [id number] Take 4 mg [facility] 2 mg 2-27 after 1st ity of capsule 00:00: loose 00 stool, Medical then 2 mg Branch by mouth every 2 hr until 12 hr have passed with no loose stool. If diarrhea cont. after 12 hours, call loperamyeni 2021-05 Yes [id number] Take 4 mg [facility] 2 mg 2-27 after 1st ity of capsule 00:00: loose 00 stool, Medical then 2 mg Branch by mouth every 2 hr until 12 hr have passed with no loose stool. If diarrhea cont. after 12 hours, call MD. marshall 2021-05 Yes [id number] Take 4 mg [facility] 2 mg 2-27 after 1st ity of capsule 00:00: loose 00 stool, Medical then 2 mg Branch by mouth every 2 hr until 12 hr have passed with no loose stool. If diarrhea cont. after 12 hours, call loperamyeni 2021-05 Yes [id number] Take 4 mg [facility] 2 mg 2-27 after 1st ity of capsule 00:00: loose [place] 00 stool, Medical then 2 mg Branch by mouth every 2 hr until 12 hr have passed with no loose stool. If diarrhea cont. after 12 hours, call loperamyeni 2021-05 Yes [id number] Take 4 mg [facility] 2 mg 2-27 after 1st ity of capsule 00:00: loose [place] 00 stool, Medical then 2 mg Branch by mouth every 2 hr until 12 hr have passed with no loose stool. If diarrhea cont. after 12 hours, call MD. morrow 2021-05 No [id number] 44.2mCi 44.2 Unive rs 99m-tetrofo 07-03 millicurie i ty of smin 17:45: 17:36 , [place] ([facility]) 00 :00 Intravenou Medi gil injection s, ONCE, 1 Bran ch 44.2 dose, On [facility] 05/02/22 at 1145, Routine regadenoson 2021-05- No [id number] .4mg 0.4 mg, IV Univers (LEXISCAN) 07-03 Push, ity of injection 17:45: 17:45 ONCE, 1 [place] 0.4 mg 00 :00 dose, On [facility] 05/02/22 at 1145, Routine
state farm agent team member approving Restricted medication : ANDREAS BLUNT tc 2021-05- No [id number] 16.4mCi 16.4 Unive rs 99m-tetrofo 07-03 millicurie i ty of smin 17:15: 17:06 , [place] ([facility]) 00 :00 Intravenou Medi gil injection s, ONCE, 1 Bran ch 16.4 dose, On [facility] 05/02/22 at 1115, Routine irinotecan 2021-05- No [id number] 180mg/m 412.2 mg [facility] (CAMPTOSAR) 06-30 2 (180 mg/m2 i ty of 412.2 mg in 17:45: 20:42 ?2.29 m2 [place] D5W 250 mL 00 :00 Treatment Medi gil IV infusion Plan BSA Bran ch from Recorded weight), IV Infusion, ONCE, Administer over 90 Minutes, On [facility] 04/29/22 at 1145, For 1 dose
Ad fulfillment mail clerk concurrent with the last 90 minutes of leucovorin infusion, in separate bags, using a Y-line connection . &nb sp;Protect from light.
leucovorin 2021-05- No [id number] 400mg/m 916 mg [facility] 916 mg in 06-30 2 (400 mg/m2 ity of D5W 250 mL 17:45: 20:42 ?2.29 m2 [place] infusion 00 :00 Treatment Medica l Plan BSA Branch from Recorded weight), IV Piggyback, ONCE, 1 dose, On Fri04/29/22 at 1145, Administer over 120 Minutes, 250 mL irinotecan 2021-05 No [id number] 180mg/m 412.2 mg Univers (CAMPTOSAR) 06-30 2 (180 mg/m2 i ty of 412.2 mg in 17:45: 20:42 ?2.29 m2 [place] D5W 250 mL 00 :00 Treatment [facility] IV infusion Plan BSA Bran ch from Recorded weight), IV Infusion, ONCE, Administer over 90 Minutes, On Fri04/29/22 at 1145, For 1 dose
Ad fulfillment mail clerk concurrent with the last 90 minutes of leucovorin infusion, in separate bags, using a Y-line connection . &nb sp;Protect from light.
leucovorin 2021-05- No [id number] 400mg/m 916 mg [facility] 916 mg in 06-30 2 (400 mg/m2 ity of D5W 250 mL 17:45: 20:42 ?2.29 m2 [place] infusion 00 :00 Treatment Medica l Plan BSA Branch from Recorded weight), IV Piggyback, ONCE, 1 dose, On Fri04/29/22 at 1145, Administer over 120 Minutes, 250 mL irinotecan 2021-05 No [id number] 180mg/m 412.2 mg [facility] (CAMPTOSAR) 06-30 2 (180 mg/m2 i ty of 412.2 mg in 17:45: 20:42 ?2.29 m2 [place] D5W 250 mL 00 :00 Treatment [facility] IV infusion Plan BSA Bran ch from Recorded weight), IV Infusion, ONCE, Administer over 90 Minutes, On Fri04/29/22 at 1145, For 1 dose
Ad fulfillment mail clerk concurrent with the last 90 minutes of leucovorin infusion, in separate bags, using a Y-line connection . &nb sp;Protect from light.
leucovorin 2021-05- No [id number] 400mg/m 916 mg [facility] 916 mg in 06-30 2 (400 mg/m2 ity of D5W 250 mL 17:45: 20:42 ?2.29 m2 [place] infusion 00 :00 Treatment Medica l Plan BSA Branch from Recorded weight), IV Piggyback, ONCE, 1 dose, On Fri04/29/22 at 1145, Administer over 120 Minutes, 250 mL OXALIplatin 2021-05- No [id number] 85mg/m2 194.65 mg [facility] (ELOXATIN) 06-30 (85 mg/m2 ity of 194.65 mg 15:45: 18:48 ?2.29 m2 [place] in D5W 250 00 :00 Treatment Medi gil mL IV Plan BSA Branch infusion from Recorded weight), IV Infusion, ONCE, Administer over 120 Minutes, On Fri04/29/22 at 0945, For 1 dose
Ad fulfillment mail clerk OXALIplati n first. Extr avasation has been reported. Ensu re adequate IV access. Flus h infusion lines with D5W prior to administra tion of any concomitan t drug.&nbsp ;Do not use needles or IV sets containing aluminum parts that may come in contact with solution due to degradatio n of buckland compounds.
OXALIplatin 2021-05- No [id number] 85mg/m2 194.65 mg [facility] (ELOXATIN) 06-30 (85 mg/m2 ity of 194.65 mg 15:45: 18:48 ?2.29 m2 [place] in D5W 250 00 :00 Treatment Medi gil mL IV Plan BSA Branch infusion from Recorded weight), IV Infusion, ONCE, Administer over 120 Minutes, On Fri04/29/22 at 0945, For 1 dose
Ad fulfillment mail clerk OXALIplati n first. Extr avasation has been reported. Ensu re adequate IV access. Flus h infusion lines with D5W prior to administra tion of any concomitan t drug.&nbsp ;Do not use needles or IV sets containing aluminum parts that may come in contact with solution due to degradatio n of buck[place] compounds.
OXALIplatin 2021-05- No [id number] 85mg/m2 194.65 mg [facility] (ELOXATIN) 06-30 (85 mg/m2 ity of 194.65 mg 15:45: 18:48 ?2.29 m2 [place] in D5W 250 00 :00 Treatment Medi gil mL IV Plan BSA Branch infusion from Recorded weight), IV Infusion, ONCE, Administer over 120 Minutes, On Fri04/29/22 at 0945, For 1 dose
Ad fulfillment mail clerk OXALIplati n first. Extr avasation has been reported. Ensu re adequate IV access. Flus h infusion lines with D5W prior to administra tion of any concomitan t drug.&nbsp ;Do not use needles or IV sets containing aluminum parts that may come in contact with solution due to degradatio n of buck[place] compounds.
palonosetro 2021-05- No [id number] .25mg 0.25 mg, Univers n (ALOXI) 06-30 Intravenou ity of injection 15:15: 15:32 s, ONCE, 1 [place] 0.25 mg 00 :00 dose, On Medical Mon Branch 04/29/22 at 0915, Routine
state farm agent team member approving Restricted medication : [facility] fosaprepita 2021-05- No [id number] 150mg 150 mg, IV Univers nt (EMEND 06-30 Piggyback, ity of (FOSAPREPIT 15:15: 16:18 ONCE, 1 [place] 150 00 :00 dose, On Medica l mg in NaCl [facility] 0.9% (NS) 04/29/22 150 mL IV at 0915, piggyback Administer over 30 Minutes, 150 mL
Facu lty member approving Restricted medication : [facility]
Use has been approved by a hematology /oncology service line provider: Yes
Res tricted use approved by: ALEKSANDAR BRAGA, HEM/ONC FACULTY dexamethaso 2021-05- No [id number] 10mg 10 mg, Univers ne sod phos 06-30 Slow IV ity of PF 15:15: 15:33 Push, [place] injection 00 :00 ONCE, 1 Medical 10 mg dose, On Branch 04/29/22 at 0915, 1 mL palonosetro 2021-05- No [id number] .25mg 0.25 mg, Univers n (ALOXI) 06-30 Intravenou ity of injection 15:15: 15:32 s, ONCE, 1 [place] 0.25 mg 00 :00 dose, On [facility] 04/29/22 at 0915, Routine
state farm agent team member approving Restricted medication : [facility] fosaprepita 2021-05- No [id number] 150mg 150 mg, IV Univers nt (EMEND 06-30 Piggyback, ity of (FOSAPREPIT 15:15: 16:18 ONCE, 1 [place] ANT[place] 150 00 :00 dose, On Medica l mg in NaCl [facility] 0.9% (NS) 04/29/22 150 mL IV at 0915, piggyback Administer over 30 Minutes, 150 mL
Facu lty member approving Restricted medication : [facility]
Use has been approved by a hematology /oncology service line provider: Yes
Res tricted use approved by: ALEKSANDAR BRAGA, HEM/ONC FACULTY dexamethaso 2021-05- No [id number] 10mg 10 mg, Univers ne sod phos 06-30 Slow IV ity of PF 15:15: 15:33 Push, [place] injection 00 :00 ONCE, 1 Medical 10 mg dose, On Branch [facility] 04/29/22 at 0915, 1 mL palonosetro 2021-05- No [id number] .25mg 0.25 mg, Univers n (ALOXI) 06-30 Intravenou ity of injection 15:15: 15:32 s, ONCE, 1 [place] 0.25 mg 00 :00 dose, On [facility] 04/29/22 at 0915, Routine
state farm agent team member approving Restricted medication : [facility] fosaprepita 2021-05- No [id number] 150mg 150 mg, IV Univers nt (EMEND 06-30 Piggyback, ity of (FOSAPREPIT 15:15: 16:18 ONCE, 1 [place] ANT)) 150 00 :00 dose, On Medica l mg in NaCl [facility] 0.9% (NS) 04/29/22 150 mL IV at 0915, piggyback Administer over 30 Minutes, 150 mL
Facu lty member approving Restricted medication : [facility]
Use has been approved by a hematology /oncology service line provider: Yes
Res tricted use approved by: ALEKSANDAR BRAGA, HEM/ONC FACULTY dexamethaso 2021-05- No [id number] 10mg 10 mg, Univers ne sod phos 06-30 Slow IV ity of PF 15:15: 15:33 Push, [place] injection 00 :00 ONCE, 1 Medical 10 mg dose, On Branch Fri04/29/22 at 0915, 1 mL atropine 2021-05- No [id number] .25mg 0.25 mg, Univers injection 06-30 IV Push, ity o f 0.25 mg 15:11: 18:50 PRN, 1 [place] 15 :00 dose, Medical Starting Branch on Fri04/29/22 at 0911, Until Discontinu ed, Routine, Stomach cramping, acute flushing. atropine 2021-05- No [id number] .25mg 0.25 mg, Univers injection 06-30 IV Push, ity o f 0.25 mg 15:11: 18:50 PRN, 1 [place] 15 :00 dose, Medical Starting Branch on Fri04/29/22 at 0911, Until Discontinu ed, Routine, Stomach cramping, acute flushing. atropine 2021-05- No [id number] .25mg 0.25 mg, Univers injection 06-30 IV Push, ity o f 0.25 mg 15:11: 18:50 PRN, 1 [place] 15 :00 dose, Medical Starting Branch on Fri04/29/22 at 0911, Until Discontinu ed, Routine, Stomach cramping, acute flushing. heparin 2021-05- Yes [id number] 500U 500 Units, Univers lock flush 06-30 IV Push, ity of (HEPARIN 15:11: 15:10 PRN, [place] LOCKFLUSH(P 14 :14 Starting Medi gil ORCINE)(PF) on Mon Branch ) 100 04/29/22 unit/mL at 0911, injection Until Tue 500 Units 04/30/22 at 0910, Routine heparin 2021-05- Yes [id number] 500U 500 Units, Univers lock flush 06-30 IV Push, ity of (HEPARIN 15:11: 15:10 PRN, [place] LOCKFLUSH(P 14 :14 Starting Medi gil ORCINE)(PF) on Mon Branch ) 100 //22 unit/mL at 0911, injection Until Tue 500 Units 04/30/22 at 0910, Routine heparin 2021-05- No [id number] 500U 500 Units, Univers lock flush 06-30 IV Push, ity of (HEPARIN 15:11: 22:56 PRN, [place] LOCKFLUSH(P 14 :22 Starting Medi gil ORCINE)(PF) on Mon Branch ) 100 22 unit/mL at 0911, injection Until Mon 500 Units 04/29/22 at 1656, Routine rosuvastati 2021-05 Yes 20mg Take 20 mg Univers n 20 mg 2-08 by mouth ity of tablet 15:21: at [place] 20 bedtime. Medical Branch rosuvastati 2021-05 Yes 20mg Take 20 mg Univers n 20 mg 2-08 by mouth ity of tablet 15:21: at [place] 20 bedtime. Medical Branch rosuvastati 2021-05 Yes 20mg Take 20 mg Univers n 20 mg 2-08 by mouth ity of tablet 15:21: at [place] 20 bedtime. Medical Branch rosuvastati 2021-05 Yes 20mg Take 20 mg Univers n 20 mg 2-08 by mouth ity of tablet 15:21: at [place] 20 bedtime. Medical Branch rosuvastati 2021-05 Yes 20mg Take 20 mg Univers n 20 mg 2-08 by mouth ity of tablet 15:21: at [place] 20 bedtime. Medical Branch rosuvastati 2021-05 Yes 20mg Take 20 mg Univers n 20 mg 2-08 by mouth ity of tablet 15:21: at [place] 20 bedtime. Medical Branch rosuvastati 2021-05 Yes 20mg Take 20 mg Univers n 20 mg 2-08 by mouth ity of tablet 15:21: at [place] 20 bedtime. Medical Branch rosuvastati 2021-05 Yes 20mg Take 20 mg Univers n 20 mg 2-08 by mouth ity of tablet 15:21: at [place] 20 bedtime. Medical Branch rosuvastati 2021- Yes 20mg Take 20 mg Univers n 20 mg 2-08 by mouth ity of tablet 15:21: at [place] 20 bedtime. Medical Branch rosuvastati 2021- Yes 20mg Take 20 mg Univers n 20 mg 2-08 by mouth ity of tablet 15:21: at [place] 20 bedtime. Medical Branch rosuvastati 2021- Yes 20mg Take 20 mg Univers n 20 mg 2-08 by mouth ity of tablet 15:21: at [place] 20 bedtime. Medical Branch rosuvastati 2021- Yes 20mg Take 20 mg Univers n 20 mg 2-08 by mouth ity of tablet 15:21: at [place] 20 bedtime. Medical Branch rosuvastati 2021- Yes 20mg Take 20 mg Univers n 20 mg 2-08 by mouth ity of tablet 15:21: at [place] 20 bedtime. Medical Branch rosuvastati 2021- Yes 20mg Take 20 mg Univers n 20 mg 2-08 by mouth ity of tablet 15:21: at [place] 20 bedtime. Medical Branch rosuvastati 2021- Yes 20mg Take 20 mg Univers n 20 mg 2-08 by mouth ity of tablet 15:21: at [place] 20 bedtime. Medical Branch rosuvastati 2021- Yes 20mg Take 20 mg Univers n 20 mg 2-08 by mouth ity of tablet 15:21: at [place] 20 bedtime. Medical Branch rosuvastati 2021- Yes 20mg Take 20 mg Univers n 20 mg 2-08 by mouth ity of tablet 15:21: at [place] 20 bedtime. Medical Branch rosuvastati 2021- Yes 20mg Take 20 mg Univers n 20 mg 2-08 by mouth ity of tablet 15:21: at [place] 20 bedtime. Medical Branch rosuvastati 2021- Yes 20mg Take 20 mg Univers n 20 mg 2-08 by mouth ity of tablet 15:21: at [place] 20 bedtime. Medical Branch rosuvastati 2021- Yes 20mg Take 20 mg Univers n 20 mg 2-08 by mouth ity of tablet 15:21: at [place] 20 bedtime. Medical Branch rosuvastati 2021- Yes 20mg Take 20 mg Univers n 20 mg 2-08 by mouth ity of tablet 15:21: at [place] 20 bedtime. Medical Branch rosuvastati 2021- Yes 20mg Take 20 mg Univers n 20 mg 2-08 by mouth ity of tablet 15:21: at [place] 20 bedtime. Medical Branch rosuvastati 2021- Yes 20mg Take 20 mg Univers n 20 mg 2-08 by mouth ity of tablet 15:21: at [place] 20 bedtime. Medical Branch rosuvastati 2021- Yes 20mg Take 20 mg Univers n 20 mg 2-08 by mouth ity of tablet 15:21: at [place] 20 bedtime. Medical Branch rosuvastati 2021- Yes 20mg Take 20 mg Univers n 20 mg 2-08 by mouth ity of tablet 15:21: at [place] 20 bedtime. Medical Branch isosorbide 2021- Yes [id number] 30mg Take 1 U nivers mononitrate 2-08 tablet by ity of 30 mg 24 hr 00:00: mouth in [place] tablet 00 the Medical morning. Branch isosorbide 2021- Yes [id number] 30mg Take 1 U nivers mononitrate 2-08 tablet by ity of 30 mg 24 hr 00:00: mouth in [place] tablet 00 the Medical morning. Branch isosorbide 2021- Yes [id number] 30mg Take 1 U nivers mononitrate 2-08 tablet by ity of 30 mg 24 hr 00:00: mouth in [place] tablet 00 the Medical morning. Branch isosorbide 2021- Yes [id number] 30mg Take 1 U nivers mononitrate 2-08 tablet by ity of 30 mg 24 hr 00:00: mouth in [place] tablet 00 the Medical morning. Branch isosorbide 2021-1 Yes [id number] 30mg Take 1 U nivers mononitrate 2-08 tablet by ity of 30 mg 24 hr 00:00: mouth in [place] tablet 00 the Medical morning. Branch isosorbide 2021-1 Yes [id number] 30mg Take 1 U nivers mononitrate 2-08 tablet by ity of 30 mg 24 hr 00:00: mouth in [place] tablet 00 the Medical morning. Branch isosorbide 2021-1 Yes [id number] 30mg Take 1 U nivers mononitrate 2-08 tablet by ity of 30 mg 24 hr 00:00: mouth in [place] tablet 00 the Medical morning. Branch isosorbide 2-1 Yes [id number] 30mg Take 1 U nivers mononitrate 2-08 tablet by ity of 30 mg 24 hr 00:00: mouth in [place] tablet 00 the Medical morning. Branch isosorbide 2022-1 Yes [id number] 30mg Take 1 U nivers mononitrate 2-08 tablet by ity of 30 mg 24 hr 00:00: mouth in [place] tablet 00 the Medical morning. Branch isosorbide 2-1 Yes [id number] 30mg Take 1 U nivers mononitrate 2-08 tablet by ity of 30 mg 24 hr 00:00: mouth in [place] tablet 00 the Medical morning. Branch isosorbide 2-1 Yes [id number] 30mg Take 1 U nivers mononitrate 2-08 tablet by ity of 30 mg 24 hr 00:00: mouth in [place] tablet 00 the Medical morning. Branch isosorbide 2-1 Yes [id number] 30mg Take 1 U nivers mononitrate 2-08 tablet by ity of 30 mg 24 hr 00:00: mouth in [place] tablet 00 the Medical morning. Branch isosorbide 2-1 Yes [id number] 30mg Take 1 U nivers mononitrate 2-08 tablet by ity of 30 mg 24 hr 00:00: mouth in [place] tablet 00 the Medical morning. Branch isosorbide 2-1 Yes [id number] 30mg Take 1 U nivers mononitrate 2-08 tablet by ity of 30 mg 24 hr 00:00: mouth in [place] tablet 00 the Medical morning. Branch isosorbide 2-1 Yes [id number] 30mg Take 1 U nivers mononitrate 2-08 tablet by ity of 30 mg 24 hr 00:00: mouth in [place] tablet 00 the Medical morning. Branch isosorbide 2022-1 Yes [id number] 30mg Take 1 U nivers mononitrate 2-08 tablet by ity of 30 mg 24 hr 00:00: mouth in [place] tablet 00 the Medical morning. Branch isosorbide 2022-1 Yes [id number] 30mg Take 1 U nivers mononitrate 2-08 tablet by ity of 30 mg 24 hr 00:00: mouth in [place] tablet 00 the Medical morning. [place] isosorbide 2021-05 Yes [id number] 30mg Take 1 U nivers mononitrate 2-08 tablet by ity of 30 mg 24 hr 00:00: mouth in [place] tablet 00 the Medical morning. [place] isosorbide 2021-05 Yes [id number] 30mg Take 1 U nivers mononitrate 2-08 tablet by ity of 30 mg 24 hr 00:00: mouth in [place] tablet 00 the Medical morning. [place] isosorbide 2021-05 Yes [id number] 30mg Take 1 U nivers mononitrate 2-08 tablet by ity of 30 mg 24 hr 00:00: mouth in [place] tablet 00 the Medical morning. [place] isosorbide 2021-05- No [id number] 30mg Take 1 Univers mononitrate 2-08 - tablet by it y of 30 mg 24 hr 00:00: 00:00 mouth in [place] tablet 00 :00 the Medical morning. [place] isosorbide 2021-05- No [id number] 30mg Take 1 Univers mononitrate 2-05-13 tablet by it y of 30 mg 24 hr 00:00: 00:00 mouth in [place] tablet 00 :00 the Medical morning. [place] isosorbide 2021-05- No [id number] 30mg Take 1 Univers mononitrate 2-05-13 tablet by it y of 30 mg 24 hr 00:00: 00:00 mouth in [place] tablet 00 :00 the Medical morning. Branch fluorouraci 2021-05- No [id number] 400mg/m 916 mg Univers L (ADRUCIL) 06-16 2 (400 mg/m2 i ty of 916 mg in 20:00: 21:15 ?2.29 m2 [place] D5W 250 mL 00 :00 Treatment Medi gil infusion Plan BSA Branch from Recorded weight), IV Infusion, ONCE, Administer over 15 Minutes, On Fri04/15/22 at 1400, For 1 dose
Do not refrigerat e.
fluorouraci 2021-05- No [id number] 400mg/m 916 mg Univers L (ADRUCIL) 06-16 2 (400 mg/m2 i ty of 916 mg in 20:00: 21:15 ?2.29 m2 [place] D5W 250 mL 00 :00 Treatment [facility] infusion Plan BSA Branch from Recorded weight), IV Infusion, ONCE, Administer over 15 Minutes, On Fri04/15/22 at 1400, For 1 dose
Do not refrigerat e.
fluorouraci 2021-05- No [id number] 400mg/m 916 mg Univers L (ADRUCIL) 06-16 2 (400 mg/m2 i ty of 916 mg in 20:00: 21:15 ?2.29 m2 [place] D5W 250 mL 00 :00 Treatment [facility] infusion Plan BSA Branch from Recorded weight), IV Infusion, ONCE, Administer over 15 Minutes, On Fri04/15/22 at 1400, For 1 dose
Do not refrigerat e.
fluorouraci 2021-05- No [id number] 400mg/m 916 mg Univers L (ADRUCIL) 06-16 2 (400 mg/m2 i ty of 916 mg in 20:00: 21:15 ?2.29 m2 [place] D5W 250 mL 00 :00 Treatment [facility] infusion Plan BSA Branch from Recorded weight), IV Infusion, ONCE, Administer over 15 Minutes, On Fri04/15/22 at 1400, For 1 dose
Do not refrigerat e.
fluorouraci 2021-05- No [id number] 400mg/m 916 mg Univers L (ADRUCIL) 06-16 2 (400 mg/m2 i ty of 916 mg in 20:00: 21:15 ?2.29 m2 [place] D5W 250 mL 00 :00 Treatment [facility] infusion Plan BSA Branch from Recorded weight), IV Infusion, ONCE, Administer over 15 Minutes, On Fri04/15/22 at 1400, For 1 dose
Do not refrigerat e.
irinotecan 2021-05- No [id number] 180mg/m 412.2 mg Univers (CAMPTOSAR) 06-16 2 (180 mg/m2 i ty of 412.2 mg in 18:00: 20:38 ?2.29 m2 [place] D5W 250 mL 00 :00 Treatment [facility] IV infusion Plan BSA Bran ch from Recorded weight), IV Infusion, ONCE, Administer over 90 Minutes, On Fri04/15/22 at 1200, For 1 dose
Ad fulfillment mail clerk concurrent with the last 90 minutes of leucovorin infusion, in separate bags, using a Y-line connection . &nb sp;Protect from light.
leucovorin 2021-05 No [id number] 400mg/m 916 mg Univers 916 mg in 06-16 2 (400 mg/m2 ity of D5W 250 mL 18:00: 18:35 ?2.29 m2 [place] infusion 00 :00 Treatment Medica l Plan [facility] Branch from Recorded weight), IV Piggyback, ONCE, 1 dose, On Fri04/15/22 at 1200, Administer over 120 Minutes, 250 mL irinotecan 2021-05 No [id number] 180mg/m 412.2 mg Univers (CAMPTOSAR) 06-16 2 (180 mg/m2 i ty of 412.2 mg in 18:00: 20:38 ?2.29 m2 [place] D5W 250 mL 00 :00 Treatment [facility] gil IV infusion Plan BSA Bran ch from Recorded weight), IV Infusion, ONCE, Administer over 90 Minutes, On Fri04/15/22 at 1200, For 1 dose
Ad fulfillment mail clerk concurrent with the last 90 minutes of leucovorin infusion, in separate bags, using a Y-line connection . &nb sp;Protect from light.
leucovorin 2021-05 No [id number] 400mg/m 916 mg Univers 916 mg in 06-16 2 (400 mg/m2 ity of D5W 250 mL 18:00: 18:35 ?2.29 m2 [place] infusion 00 :00 Treatment Medica l Plan [facility] Branch from Recorded weight), IV Piggyback, ONCE, 1 dose, On Fri04/15/22 at 1200, Administer over 120 Minutes, 250 mL irinotecan 2021-05 No [id number] 180mg/m 412.2 mg Univers (CAMPTOSAR) 06-16 2 (180 mg/m2 i ty of 412.2 mg in 18:00: 20:38 ?2.29 m2 [place] D5W 250 mL 00 :00 Treatment [facility] IV infusion Plan BSA Bran ch from Recorded weight), IV Infusion, ONCE, Administer over 90 Minutes, On Fri04/15/22 at 1200, For 1 dose
Ad fulfillment mail clerk concurrent with the last 90 minutes of leucovorin infusion, in separate bags, using a Y-line connection . &nb sp;Protect from light.
leucovorin 2021-05- No [id number] 400mg/m 916 mg Univers 916 mg in 06-16 2 (400 mg/m2 ity of D5W 250 mL 18:00: 18:35 ?2.29 m2 [place] infusion 00 :00 Treatment Medica l Plan BSA Branch from Recorded weight), IV Piggyback, ONCE, 1 dose, On Fri04/15/22 at 1200, Administer over 120 Minutes, 250 mL irinotecan 2021-05- No [id number] 180mg/m 412.2 mg Univers (CAMPTOSAR) 06-16 2 (180 mg/m2 i ty of 412.2 mg in 18:00: 20:38 ?2.29 m2 [place] D5W 250 mL 00 :00 Treatment [facility] IV infusion Plan BSA Bran ch from Recorded weight), IV Infusion, ONCE, Administer over 90 Minutes, On Fri04/15/22 at 1200, For 1 dose
Ad fulfillment mail clerk concurrent with the last 90 minutes of leucovorin infusion, in separate bags, using a Y-line connection . &nb sp;Protect from light.
leucovorin 2021-05- No [id number] 400mg/m 916 mg Univers 916 mg in 06-16 2 (400 mg/m2 ity of D5W 250 mL 18:00: 18:35 ?2.29 m2 [place] infusion 00 :00 Treatment Medica l Plan [facility] Branch from Recorded weight), IV Piggyback, ONCE, 1 dose, On Fri04/15/22 at 1200, Administer over 120 Minutes, 250 mL irinotecan 2021-05- No [id number] 180mg/m 412.2 mg Univers (CAMPTOSAR) 06-16 2 (180 mg/m2 i ty of 412.2 mg in 18:00: 20:38 ?2.29 m2 [place] D5W 250 mL 00 :00 Treatment Medi gil IV infusion Plan [facility] Bran ch from Recorded weight), IV Infusion, ONCE, Administer over 90 Minutes, On Fri04/15/22 at 1200, For 1 dose
Ad fulfillment mail clerk concurrent with the last 90 minutes of leucovorin infusion, in separate bags, using a Y-line connection . &nb sp;Protect from light.
leucovorin 2021-05 No [id number] 400mg/m 916 mg Univers 916 mg in 06-16 2 (400 mg/m2 ity of D5W 250 mL 18:00: 18:35 ?2.29 m2 [place] infusion 00 :00 Treatment Medica l Plan [facility] Branch from Recorded weight), IV Piggyback, ONCE, 1 dose, On Fri04/15/22 at 1200, Administer over 120 Minutes, 250 mL OXALIplatin 2021-05- No [id number] 85mg/m2 194.65 mg Univers (ELOXATIN) 06-16 (85 mg/m2 ity of 194.65 mg 16:00: 18:35 ?2.29 m2 [place] in D5W 250 00 :00 Treatment Medi gil mL IV Plan [facility] Branch infusion from Recorded weight), IV Infusion, ONCE, Administer over 120 Minutes, On Fri04/15/22 at 1000, For 1 dose
Ad fulfillment mail clerk OXALIplati n first. Extr avasation has been reported. Ensu re adequate IV access. Flus h infusion lines with D5W prior to administra tion of any concomitan t drug.&nbsp ;Do not use needles or IV sets containing aluminum parts that may come in contact with solution due to degradatio n of buck[place] compounds.
OXALIplatin 2021-05- No [id number] 85mg/m2 194.65 mg Univers (ELOXATIN) 06-16 (85 mg/m2 ity of 194.65 mg 16:00: 18:35 ?2.29 m2 [place] in D5W 250 00 :00 Treatment Medi gil mL IV Plan [facility] Branch infusion from Recorded weight), IV Infusion, ONCE, Administer over 120 Minutes, On Fri04/15/22 at 1000, For 1 dose
Ad fulfillment mail clerk OXALIplati n first. Extr avasation has been reported. Ensu re adequate IV access. Flus h infusion lines with D5W prior to administra tion of any concomitan t drug.&nbsp ;Do not use needles or IV sets containing aluminum parts that may come in contact with solution due to degradatio n of buck[place] compounds.
OXALIplatin 2021-05- No [id number] 85mg/m2 194.65 mg Univers (ELOXATIN) 06-16 (85 mg/m2 ity of 194.65 mg 16:00: 18:35 ?2.29 m2 [place] in D5W 250 00 :00 Treatment Medi gil mL IV Plan [facility] Branch infusion from Recorded weight), IV Infusion, ONCE, Administer over 120 Minutes, On Fri04/15/22 at 1000, For 1 dose
Ad fulfillment mail clerk OXALIplati n first. Extr avasation has been reported. Ensu re adequate IV access. Flus h infusion lines with D5W prior to administra tion of any concomitan t drug.&nbsp ;Do not use needles or IV sets containing aluminum parts that may come in contact with solution due to degradatio n of buck[place] compounds.
OXALIplatin 2021-05- No [id number] 85mg/m2 194.65 mg Univers (ELOXATIN) 06-16 (85 mg/m2 ity of 194.65 mg 16:00: 18:35 ?2.29 m2 [place] in D5W 250 00 :00 Treatment Medi gil mL IV Plan [facility] Branch infusion from Recorded weight), IV Infusion, ONCE, Administer over 120 Minutes, On Fri04/15/22 at 1000, For 1 dose
Ad fulfillment mail clerk OXALIplati n first. Extr avasation has been reported. Ensu re adequate IV access. Flus h infusion lines with D5W prior to administra tion of any concomitan t drug.&nbsp ;Do not use needles or IV sets containing aluminum parts that may come in contact with solution due to degradatio n of buck[place] compounds.
OXALIplatin 2021-05- No [id number] 85mg/m2 194.65 mg Univers (ELOXATIN) 06-16 (85 mg/m2 ity of 194.65 mg 16:00: 18:35 ?2.29 m2 [place] in D5W 250 00 :00 Treatment Medi gil mL IV Plan [facility] Branch infusion from Recorded weight), IV Infusion, ONCE, Administer over 120 Minutes, On 04/15/22 at 1000, For 1 dose
Ad fulfillment mail clerk OXALIplati n first. Extr avasation has been reported. Ensu re adequate IV access. Flus h infusion lines with D5W prior to administra tion of any concomitan t drug.&nbsp ;Do not use needles or IV sets containing aluminum parts that may come in contact with solution due to degradatio n of buck[place] compounds.
palonosetro 2021-05- No [id number] .25mg 0.25 mg, Univers n (ALOXI) 06-16 Intravenou ity of injection 15:30: 15:56 s, ONCE, 1 [place] 0.25 mg 00 :00 dose, On Medical Mon Branch 04/15/22 at 0930, Routine
state farm agent team member approving Restricted medication : [facility] fosaprepita 2021-05- No [id number] 150mg 150 mg, IV Univers nt (EMEND 06-16 Piggyback, ity of (FOSAPREPIT 15:30: 16:20 ONCE, 1 [place] ANT)) 150 00 :00 dose, On Medica l mg in NaCl Mon Branch 0.9% (NS) 04/15/22 at 150 mL IV 0930, piggyback Administer over 30 Minutes, 150 mL
F aculty member approving Restricted medication : [facility]
Use has been approved by a hematology /oncology service line provider: Yes
Res tricted use approved by: ALEKSANDAR BRAGA, HEM/ONC FACULTY dexamethaso 2021-05- No [id number] 10mg 10 mg, Univers ne sod phos 06-16 Slow IV ity of PF 15:30: 15:54 Push, [place] injection 00 :00 ONCE, 1 Medical 10 mg dose, On Branch [facility] 04/15/22 at 0930, 1 mL palonosetro 2021-05 No [id number] .25mg 0.25 mg, Univers n (ALOXI) 06-16 Intravenou ity of injection 15:30: 15:56 s, ONCE, 1 [place] 0.25 mg 00 :00 dose, On [facility] Branch 04/15/22 at 0930, Routine
state farm agent team member approving Restricted medication : [facility] fosaprepita 2021-05- No [id number] 150mg 150 mg, IV Univers nt (EMEND 06-16 Piggyback, ity of (FOSAPREPIT 15:30: 16:20 ONCE, 1 [place] ANT)) 150 00 :00 dose, On Medica l mg in NaCl [facility] 0.9% (NS) 04/15/22 at 150 mL IV 0930, piggyback Administer over 30 Minutes, 150 mL
F aculty member approving Restricted medication : [facility]
Use has been approved by a hematology /oncology service line provider: Yes
Res tricted use approved by: ALEKSANDAR BRAGA, HEM/ONC FACULTY dexamethaso 2021-05 No [id number] 10mg 10 mg, Univers ne sod phos 06-16 Slow IV ity of PF 15:30: 15:54 Push, [place] injection 00 :00 ONCE, 1 Medical 10 mg dose, On Branch [facility] 04/15/22 at 0930, 1 mL palonosetro 2021-05 No [id number] .25mg 0.25 mg, Univers n (ALOXI) 06-16 Intravenou ity of injection 15:30: 15:56 s, ONCE, 1 [place] 0.25 mg 00 :00 dose, On [facility] Branch 04/15/22 at 0930, Routine
state farm agent team member approving Restricted medication : [facility] fosaprepita 2021-05- No [id number] 150mg 150 mg, IV Univers nt (EMEND 06-16 Piggyback, ity of (FOSAPREPIT 15:30: 16:20 ONCE, 1 [place] ANT)) 150 00 :00 dose, On Medica l mg in NaCl Mon Branch 0.9% (NS) 04/15/22 at 150 mL IV 0930, piggyback Administer over 30 Minutes, 150 mL
F aculty member approving Restricted medication : [facility]
Use has been approved by a hematology /oncology service line provider: Yes
Res tricted use approved by: ALEKSANDAR BRAGA, HEM/ONC FACULTY dexamethaso 2021-05- No [id number] 10mg 10 mg, Univers ne sod phos 06-16 Slow IV ity of PF 15:30: 15:54 Push, [place] injection 00 :00 ONCE, 1 Medical 10 mg dose, On Branch [facility] 04/15/22 at 0930, 1 mL palonosetro 2021-05- No [id number] .25mg 0.25 mg, Univers n (ALOXI) 06-16 Intravenou ity of injection 15:30: 15:56 s, ONCE, 1 [place] 0.25 mg 00 :00 dose, On Medical Mon Branch 04/15/22 at 0930, Routine
state farm agent team member approving Restricted medication : [facility] fosaprepita 2021-05- No [id number] 150mg 150 mg, IV Univers nt (EMEND 06-16 Piggyback, ity of (FOSAPREPIT 15:30: 16:20 ONCE, 1 [place] ANT)) 150 00 :00 dose, On Medica l mg in NaCl [facility] 0.9% (NS) 04/15/22 at 150 mL IV 0930, piggyback Administer over 30 Minutes, 150 mL
F aculty member approving Restricted medication : [facility]
Use has been approved by a hematology /oncology service line provider: Yes
Res tricted use approved by: ALEKSANDAR BRAGA, HEM/ONC FACULTY dexamethaso 2021-05- No [id number] 10mg 10 mg, Univers ne sod phos 06-16 Slow IV ity of PF 15:30: 15:54 Push, [place] injection 00 :00 ONCE, 1 Medical 10 mg dose, On Branch 04/15/22 at 0930, 1 mL palonosetro 2021-05 No [id number] .25mg 0.25 mg, Univers n (ALOXI) 06-16 Intravenou ity of injection 15:30: 15:56 s, ONCE, 1 [place] 0.25 mg 00 :00 dose, On Medical Mon Branch 04/15/22 at 0930, Routine
state farm agent team member approving Restricted medication : [facility] fosaprepita 2021-05- No [id number] 150mg 150 mg, IV Univers nt (EMEND 06-16 Piggyback, ity of (FOSAPREPIT 15:30: 16:20 [place]CE, 1 [place] 150 00 :00 dose, On Medica l mg in NaCl [facility] 0.9% (NS) 04/15/22 at 150 mL IV 0930, piggyback Administer over 30 Minutes, 150 mL
F aculty member approving Restricted medication : [facility]
Use has been approved by a hematology /oncology service line provider: Yes
Res tricted use approved by: ALEKSANDAR BRAGA, HEM/ONC FACULTY dexamethaso 2021-05 No [id number] 10mg 10 mg, [facility] ne sod phos 06-16 Slow IV ity of PF 15:30: 15:54 Push, [place] injection 00 :00 ONCE, 1 Medical 10 mg dose, On Branch 04/15/22 at 0930, 1 mL diphenoxyla 2021-05 No [id number] 1{tbl} 1 tablet, Univers te-atropine 06-16 Oral, ity of (LOMOTIL) 15:27: 15:26 Q6HPRN, [place] 2.5-0.025 28 :28 Starting Medica l mg tablet 1 on Mon Branch tablet 04/15/22 at 0927, Until 04/16/22 at 0926, Routine, Diarrhea heparin 2021-05- No [id number] 500U 500 Units, Univers lock flush 06-16 IV Push, ity of (HEPARIN 15:27: 15:26 PRN, [place] LOCKFLUSH(P 28 :28 Starting Medi gil ORCINE)(PF) on Fri Branch ) 100 04/15/22 at unit/mL 0927, injection Until Tue 500 Units 04/16/22 at 0926, Routine atropine 2021-05- No [id number] .25mg 0.25 mg, [facility] injection 2- 12-05 IV Push, ity o f 0.25 mg 15:27: 19:10 PRN, 1 [place] 28 :00 dose, Medical Starting Branch on Fri04/15/22 at 0927, Until Discontinu ed, Routine, Stomach cramping, acute flushing. atropine 2021-05- No [id number] .25mg 0.25 mg, [facility] injection 2- 12-05 IV Push, ity o f 0.25 mg 15:27: 19:10 PRN, 1 [place] 28 :00 dose, Medical Starting Branch on Fri04/15/22 at 0927, Until Discontinu ed, Routine, Stomach cramping, acute flushing. atropine 2021-05- No [id number] .25mg 0.25 mg, [facility] injection 2-09 20-05 IV Push, ity o f 0.25 mg 15:27: 19:10 PRN, 1 [place] 28 :00 dose, Medical Starting Branch on Fri04/15/22 at 0927, Until Discontinu ed, Routine, Stomach cramping, acute flushing. atropine 2021-05- No [id number] .25mg 0.25 mg, [facility] injection 2-09 20-05 IV Push, ity o f 0.25 mg 15:27: 19:10 PRN, 1 [place] 28 :00 dose, Medical Starting Branch on Fri04/15/22 at 0927, Until Discontinu ed, Routine, Stomach cramping, acute flushing. atropine 2021-05- No [id number] .25mg 0.25 mg, [facility] injection 2- 12-05 IV Push, ity o f 0.25 mg 15:27: 19:10 PRN, 1 [place] 28 :00 dose, Medical Starting Branch on Fri04/15/22 at 0927, Until Discontinu ed, Routine, Stomach cramping, acute flushing. loperamide 2021-05 Yes [id number] Take 4 mg [facility] 2 mg 2-02 after 1st ity of capsule 00:00: loose [place] 00 stool, Medical then 2 mg Branch by mouth every 2 hr until 12 hr have passed with no loose stool. If diarrhea cont. after 12 hours, call MD. Vasquez 2021-05 Yes [id number] 10mg Take 1 [facility] azine 10 mg 2-02 tablet by ity of tablet 00:00: mouth [place] 00 every 6 Medical (six) Branch hours as needed for Nausea and Vomiting (N/V). ondansetron 2021-05 Yes [id number] 4mg Take 1 [facility] 4 mg 2-02 tablet by ity of disintegrat 00:00: mouth [place] ing tablet 00 every 8 Medica l (eight) Branch hours as needed for Nausea and Vomiting (N/V). loperamide 2021-05 Yes [id number] Take 4 mg [facility] 2 mg 2-02 after 1st ity of capsule 00:00: loose [place] 00 stool, Medical then 2 mg Branch by mouth every 2 hr until 12 hr have passed with no loose stool. If diarrhea cont. after 12 hours, call MD. Vasquez 2021-05 Yes [id number] 10mg Take 1 [facility] azine 10 mg 2-02 tablet by ity of tablet 00:00: mouth [place] 00 every 6 Medical (six) Branch hours as needed for Nausea and Vomiting (N/V). ondansetron 2021-05 Yes [id number] 4mg Take 1 [facility] 4 mg 2-02 tablet by ity of disintegrat 00:00: mouth [place] ing tablet 00 every 8 Medica l (eight) Branch hours as needed for Nausea and Vomiting (N/V). loperamide 2021-05 Yes [id number] Take 4 mg [facility] 2 mg 2-02 after 1st ity of capsule 00:00: loose [place] 00 stool, Medical then 2 mg Branch by mouth every 2 hr until 12 hr have passed with no loose stool. If diarrhea cont. after 12 hours, call MD. Vasquez 2021-05 Yes [id number] 10mg Take 1 [facility] azine 10 mg 2-02 tablet by ity of tablet 00:00: mouth [place] 00 every 6 Medical (six) Branch hours as needed for Nausea and Vomiting (N/V). ondansetron 2021-05 Yes [id number] 4mg Take 1 [facility] 4 mg 2-02 tablet by ity of disintegrat 00:00: mouth [place] ing tablet 00 every 8 Medica l (eight) Branch hours as needed for Nausea and Vomiting (N/V). loperamide 2021-05 Yes [id number] Take 4 mg [facility] 2 mg 2-02 after 1st ity of capsule 00:00: loose [place] 00 stool, Medical then 2 mg Branch by mouth every 2 hr until 12 hr have passed with no loose stool. If diarrhea cont. after 12 hours, call MD. Vasquez 2021-05 Yes [id number] 10mg Take 1 [facility] azine 10 mg 2-02 tablet by ity of tablet 00:00: mouth [place] 00 every 6 Medical (six) Branch hours as needed for Nausea and Vomiting (N/V). ondansetron 2021-05 Yes [id number] 4mg Take 1 [facility] 4 mg 2-02 tablet by ity of disintegrat 00:00: mouth [place] ing tablet 00 every 8 Medica l (eight) Branch hours as needed for Nausea and Vomiting (N/V). loperamide 2021-05 Yes [id number] Take 4 mg [facility] 2 mg 2-02 after 1st ity of capsule 00:00: loose [place] 00 stool, Medical then 2 mg Branch by mouth every 2 hr until 12 hr have passed with no loose stool. If diarrhea cont. after 12 hours, call MD. Vasquez 2021-05 Yes [id number] 10mg Take 1 [facility] azine 10 mg 2-02 tablet by ity of tablet 00:00: mouth [place] 00 every 6 Medical (six) Branch hours as needed for Nausea and Vomiting (N/V). ondansetron 2021-05 Yes [id number] 4mg Take 1 [facility] 4 mg 2-02 tablet by ity of disintegrat 00:00: mouth [place] ing tablet 00 every 8 Medica l (eight) Branch hours as needed for Nausea and Vomiting (N/V). loperamide 2021-05 Yes [id number] Take 4 mg [facility] 2 mg 2-02 after 1st ity of capsule 00:00: loose [place] 00 stool, Medical then 2 mg Branch by mouth every 2 hr until 12 hr have passed with no loose stool. If diarrhea cont. after 12 hours, call MD. Vasquez 2021-05 Yes [id number] 10mg Take 1 [facility] azine 10 mg 2-02 tablet by ity of tablet 00:00: mouth [place] 00 every 6 Medical (six) Branch hours as needed for Nausea and Vomiting (N/V). ondansetron 2021-05 Yes [id number] 4mg Take 1 [facility] 4 mg 2-02 tablet by ity of disintegrat 00:00: mouth [place] ing tablet 00 every 8 Medica l (eight) Branch hours as needed for Nausea and Vomiting (N/V). loperamide 2021-05 Yes [id number] Take 4 mg [facility] 2 mg 2-02 after 1st ity of capsule 00:00: loose [place] 00 stool, Medical then 2 mg Branch by mouth every 2 hr until 12 hr have passed with no loose stool. If diarrhea cont. after 12 hours, call MD. Vasquez 2021-05 Yes [id number] 10mg Take 1 [facility] azine 10 mg 2-02 tablet by ity of tablet 00:00: mouth [place] 00 every 6 Medical (six) Branch hours as needed for Nausea and Vomiting (N/V). ondansetron 2021-05 Yes [id number] 4mg Take 1 [facility] 4 mg 2-02 tablet by ity of disintegrat 00:00: mouth [place] ing tablet 00 every 8 Medica l (eight) Branch hours as needed for Nausea and Vomiting (N/V). loperamide 2021-05 Yes [id number] Take 4 mg [facility] 2 mg 2-02 after 1st ity of capsule 00:00: loose [place] 00 stool, Medical then 2 mg Branch by mouth every 2 hr until 12 hr have passed with no loose stool. If diarrhea cont. after 12 hours, call MD. Vasquez 2021-05 Yes [id number] 10mg Take 1 [facility] azine 10 mg 2-02 tablet by ity of tablet 00:00: mouth [place] 00 every 6 Medical (six) Branch hours as needed for Nausea and Vomiting (N/V). ondansetron 2021-05 Yes [id number] 4mg Take 1 [facility] 4 mg 2-02 tablet by ity of disintegrat 00:00: mouth [place] ing tablet 00 every 8 Medica l (eight) Branch hours as needed for Nausea and Vomiting (N/V). loperamide 2021-05 Yes [id number] Take 4 mg [facility] 2 mg 2-02 after 1st ity of capsule 00:00: loose [place] 00 stool, Medical then 2 mg Branch by mouth every 2 hr until 12 hr have passed with no loose stool. If diarrhea cont. after 12 hours, call MD. Vasquez 2021-05 Yes [id number] 10mg Take 1 [facility] azine 10 mg 2-02 tablet by ity of tablet 00:00: mouth [place] 00 every 6 Medical (six) Branch hours as needed for Nausea and Vomiting (N/V). ondansetron 2021-05 Yes [id number] 4mg Take 1 [facility] 4 mg 2-02 tablet by ity of disintegrat 00:00: mouth [place] ing tablet 00 every 8 Medica l (eight) Branch hours as needed for Nausea and Vomiting (N/V). loperamide 2021-05 Yes [id number] Take 4 mg [facility] 2 mg 2-02 after 1st ity of capsule 00:00: loose [place] 00 stool, Medical then 2 mg Branch by mouth every 2 hr until 12 hr have passed with no loose stool. If diarrhea cont. after 12 hours, call MD. Vasquez 2021-05 Yes [id number] 10mg Take 1 [facility] azine 10 mg 2-02 tablet by ity of tablet 00:00: mouth [place] 00 every 6 Medical (six) Branch hours as needed for Nausea and Vomiting (N/V). ondansetron 2021-05 Yes [id number] 4mg Take 1 [facility] 4 mg 2-02 tablet by ity of disintegrat 00:00: mouth [place] ing tablet 00 every 8 Medica l (eight) Branch hours as needed for Nausea and Vomiting (N/V). loperamide 2021-05 Yes [id number] Take 4 mg [facility] 2 mg 2-02 after 1st ity of capsule 00:00: loose [place] 00 stool, Medical then 2 mg Branch by mouth every 2 hr until 12 hr have passed with no loose stool. If diarrhea cont. after 12 hours, call MD. Vasquez 2021-05 Yes [id number] 10mg Take 1 [facility] azine 10 mg 2-02 tablet by ity of tablet 00:00: mouth [place] 00 every 6 Medical (six) Branch hours as needed for Nausea and Vomiting (N/V). ondansetron 2021-05 Yes [id number] 4mg Take 1 [facility] 4 mg 2-02 tablet by ity of disintegrat 00:00: mouth [place] ing tablet 00 every 8 Medica l (eight) Branch hours as needed for Nausea and Vomiting (N/V). loperamide 2021-05 Yes [id number] Take 4 mg [facility] 2 mg 2-02 after 1st ity of capsule 00:00: loose [place] 00 stool, Medical then 2 mg Branch by mouth every 2 hr until 12 hr have passed with no loose stool. If diarrhea cont. after 12 hours, call MD. Vasquez 2021-05 Yes [id number] 10mg Take 1 [facility] azine 10 mg 2-02 tablet by ity of tablet 00:00: mouth [place] 00 every 6 Medical (six) Branch hours as needed for Nausea and Vomiting (N/V). ondansetron 2021-05 Yes [id number] 4mg Take 1 [facility] 4 mg 2-02 tablet by ity of disintegrat 00:00: mouth [place] ing tablet 00 every 8 Medica l (eight) Branch hours as needed for Nausea and Vomiting (N/V). loperamide 2021-05 Yes [id number] Take 4 mg [facility] 2 mg 2-02 after 1st ity of capsule 00:00: loose [place] 00 stool, Medical then 2 mg Branch by mouth every 2 hr until 12 hr have passed with no loose stool. If diarrhea cont. after 12 hours, call MD. Vasquez 2021-05 Yes [id number] 10mg Take 1 [facility] azine 10 mg 2-02 tablet by ity of tablet 00:00: mouth [place] 00 every 6 Medical (six) Branch hours as needed for Nausea and Vomiting (N/V). ondansetron 2021-05 Yes [id number] 4mg Take 1 [facility] 4 mg 2-02 tablet by ity of disintegrat 00:00: mouth [place] ing tablet 00 every 8 Medica l (eight) Branch hours as needed for Nausea and Vomiting (N/V). loperamide 2021-05 Yes [id number] Take 4 mg [facility] 2 mg 2-02 after 1st ity of capsule 00:00: loose [place] 00 stool, Medical then 2 mg Branch by mouth every 2 hr until 12 hr have passed with no loose stool. If diarrhea cont. after 12 hours, call MD. Vasquez 2021-05 Yes [id number] 10mg Take 1 [facility] azine 10 mg 2-02 tablet by ity of tablet 00:00: mouth [place] 00 every 6 Medical (six) Branch hours as needed for Nausea and Vomiting (N/V). ondansetron 2021-05 Yes [id number] 4mg Take 1 [facility] 4 mg 2-02 tablet by ity of disintegrat 00:00: mouth [place] ing tablet 00 every 8 Medica l (eight) Branch hours as needed for Nausea and Vomiting (N/V). loperamide 2021-05 Yes [id number] Take 4 mg [facility] 2 mg 2-02 after 1st ity of capsule 00:00: loose [place] 00 stool, Medical then 2 mg Branch by mouth every 2 hr until 12 hr have passed with no loose stool. If diarrhea cont. after 12 hours, call MD. Vasquez 2021-05 Yes [id number] 10mg Take 1 [facility] azine 10 mg 2-02 tablet by ity of tablet 00:00: mouth [place] 00 every 6 Medical (six) Branch hours as needed for Nausea and Vomiting (N/V). ondansetron 2021-05 Yes [id number] 4mg Take 1 [facility] 4 mg 2-02 tablet by ity of disintegrat 00:00: mouth [place] ing tablet 00 every 8 Medica l (eight) Branch hours as needed for Nausea and Vomiting (N/V). loperamide 2021-05 Yes [id number] Take 4 mg [facility] 2 mg 2-02 after 1st ity of capsule 00:00: loose [place] 00 stool, Medical then 2 mg Branch by mouth every 2 hr until 12 hr have passed with no loose stool. If diarrhea cont. after 12 hours, call MD. Vasquez 2021-05 Yes [id number] 10mg Take 1 [facility] azine 10 mg 2-02 tablet by ity of tablet 00:00: mouth [place] 00 every 6 Medical (six) Branch hours as needed for Nausea and Vomiting (N/V). ondansetron 2021-05 Yes [id number] 4mg Take 1 [facility] 4 mg 2-02 tablet by ity of disintegrat 00:00: mouth [place] ing tablet 00 every 8 Medica l (eight) Branch hours as needed for Nausea and Vomiting (N/V). loperamide 2021-05 Yes [id number] Take 4 mg [facility] 2 mg 2-02 after 1st ity of capsule 00:00: loose [place] 00 stool, Medical then 2 mg Branch by mouth every 2 hr until 12 hr have passed with no loose stool. If diarrhea cont. after 12 hours, call MD. Vasquez 2021-05 Yes [id number] 10mg Take 1 [facility] azine 10 mg 2-02 tablet by ity of tablet 00:00: mouth [place] 00 every 6 Medical (six) Branch hours as needed for Nausea and Vomiting (N/V). ondansetron 2021-05 Yes [id number] 4mg Take 1 [facility] 4 mg 2-02 tablet by ity of disintegrat 00:00: mouth [place] ing tablet 00 every 8 Medica l (eight) Branch hours as needed for Nausea and Vomiting (N/V). loperamide 2021-05 Yes [id number] Take 4 mg [facility] 2 mg 2-02 after 1st ity of capsule 00:00: loose [place] 00 stool, Medical then 2 mg Branch by mouth every 2 hr until 12 hr have passed with no loose stool. If diarrhea cont. after 12 hours, call MD. Vasquez 2021-05 Yes [id number] 10mg Take 1 [facility] azine 10 mg 2-02 tablet by ity of tablet 00:00: mouth [place] 00 every 6 Medical (six) Branch hours as needed for Nausea and Vomiting (N/V). ondansetron 2021-05 Yes [id number] 4mg Take 1 [facility] 4 mg 2-02 tablet by ity of disintegrat 00:00: mouth [place] ing tablet 00 every 8 Medica l (eight) Branch hours as needed for Nausea and Vomiting (N/V). loperamide 2021-05 Yes [id number] Take 4 mg [facility] 2 mg 2-02 after 1st ity of capsule 00:00: loose [place] 00 stool, Medical then 2 mg Branch by mouth every 2 hr until 12 hr have passed with no loose stool. If diarrhea cont. after 12 hours, call MD. Vasquez 2021-05 Yes [id number] 10mg Take 1 [facility] azine 10 mg 2-02 tablet by ity of tablet 00:00: mouth [place] 00 every 6 Medical (six) Branch hours as needed for Nausea and Vomiting (N/V). ondansetron 2021-05 Yes [id number] 4mg Take 1 [facility] 4 mg 2-02 tablet by ity of disintegrat 00:00: mouth [place] ing tablet 00 every 8 Medica l (eight) Branch hours as needed for Nausea and Vomiting (N/V). loperamide 2021-05 Yes [id number] Take 4 mg [facility] 2 mg 2-02 after 1st ity of capsule 00:00: loose [place] 00 stool, Medical then 2 mg Branch by mouth every 2 hr until 12 hr have passed with no loose stool. If diarrhea cont. after 12 hours, call MD. Vasquez 2021-05 Yes [id number] 10mg Take 1 [facility] azine 10 mg 2-02 tablet by ity of tablet 00:00: mouth [place] 00 every 6 Medical (six) Branch hours as needed for Nausea and Vomiting (N/V). ondansetron 2021-05 Yes [id number] 4mg Take 1 [facility] 4 mg 2-02 tablet by ity of disintegrat 00:00: mouth [place] ing tablet 00 every 8 Medica l (eight) Branch hours as needed for Nausea and Vomiting (N/V). loperamide 2021-05 Yes [id number] Take 4 mg [facility] 2 mg 2-02 after 1st ity of capsule 00:00: loose [place] 00 stool, Medical then 2 mg Branch by mouth every 2 hr until 12 hr have passed with no loose stool. If diarrhea cont. after 12 hours, call MD. Vasquez 2021-05 Yes [id number] 10mg Take 1 [facility] azine 10 mg 2-02 tablet by ity of tablet 00:00: mouth [place] 00 every 6 Medical (six) Branch hours as needed for Nausea and Vomiting (N/V). ondansetron 2021-05 Yes [id number] 4mg Take 1 [facility] 4 mg 2-02 tablet by ity of disintegrat 00:00: mouth [place] ing tablet 00 every 8 Medica l (eight) Branch hours as needed for Nausea and Vomiting (N/V). loperamide 2021-05 Yes [id number] Take 4 mg [facility] 2 mg 2-02 after 1st ity of capsule 00:00: loose [place] 00 stool, Medical then 2 mg Branch by mouth every 2 hr until 12 hr have passed with no loose stool. If diarrhea cont. after 12 hours, call MD. Vasquez 2021-05 Yes [id number] 10mg Take 1 [facility] azine 10 mg 2-02 tablet by ity of tablet 00:00: mouth [place] 00 every 6 Medical (six) Branch hours as needed for Nausea and Vomiting (N/V). ondansetron 2021-05 Yes [id number] 4mg Take 1 [facility] 4 mg 2-02 tablet by ity of disintegrat 00:00: mouth [place] ing tablet 00 every 8 Medica l (eight) Branch hours as needed for Nausea and Vomiting (N/V). loperamide 2021-05 Yes [id number] Take 4 mg [facility] 2 mg 2-02 after 1st ity of capsule 00:00: loose [place] 00 stool, Medical then 2 mg Branch by mouth every 2 hr until 12 hr have passed with no loose stool. If diarrhea cont. after 12 hours, call MD. Vasquez 2021-05 Yes [id number] 10mg Take 1 [facility] azine 10 mg 2-02 tablet by ity of tablet 00:00: mouth [place] 00 every 6 Medical (six) Branch hours as needed for Nausea and Vomiting (N/V). ondansetron 2021-05 Yes [id number] 4mg Take 1 [facility] 4 mg 2-02 tablet by ity of disintegrat 00:00: mouth [place] ing tablet 00 every 8 Medica l (eight) Branch hours as needed for Nausea and Vomiting (N/V). loperamide 2021-05 Yes [id number] Take 4 mg [facility] 2 mg 2-02 after 1st ity of capsule 00:00: loose [place] 00 stool, Medical then 2 mg Branch by mouth every 2 hr until 12 hr have passed with no loose stool. If diarrhea cont. after 12 hours, call MD. Vasquez 2021-05 Yes [id number] 10mg Take 1 [facility] azine 10 mg 2-02 tablet by ity of tablet 00:00: mouth [place] 00 every 6 Medical (six) Branch hours as needed for Nausea and Vomiting (N/V). ondansetron 2021-05 Yes [id number] 4mg Take 1 [facility] 4 mg 2-02 tablet by ity of disintegrat 00:00: mouth [place] ing tablet 00 every 8 Medica l (eight) Branch hours as needed for Nausea and Vomiting (N/V). loperamide 2021-05 Yes [id number] Take 4 mg [facility] 2 mg 2-02 after 1st ity of capsule 00:00: loose [place] 00 stool, Medical then 2 mg Branch by mouth every 2 hr until 12 hr have passed with no loose stool. If diarrhea cont. after 12 hours, call MD. AlcantaraORpbronson 2021-05 Yes [id number] 10mg Take 1 [facility] azine 10 mg 2-02 tablet by ity of tablet 00:00: mouth [place] 00 every 6 Medical (six) Branch hours as needed for Nausea and Vomiting (N/V). ondansetron 2021-05 Yes [id number] 4mg Take 1 [facility] 4 mg 2-02 tablet by ity of disintegrat 00:00: mouth [place] ing tablet 00 every 8 Medica l (eight) Branch hours as needed for Nausea and Vomiting (N/V). loperamide 2021-05 Yes [id number] Take 4 mg [facility] 2 mg 2-02 after 1st ity of capsule 00:00: loose [place] 00 stool, Medical then 2 mg Branch by mouth every 2 hr until 12 hr have passed with no loose stool. If diarrhea cont. after 12 hours, call MD. AlcantaraORpbronson 2021-05 Yes [id number] 10mg Take 1 [facility] azine 10 mg 2-02 tablet by ity of tablet 00:00: mouth [place] 00 every 6 Medical (six) Branch hours as needed for Nausea and Vomiting (N/V). ondansetron 2021-05 Yes [id number] 4mg Take 1 [facility] 4 mg 2-02 tablet by ity of disintegrat 00:00: mouth [place] ing tablet 00 every 8 Medica l (eight) Branch hours as needed for Nausea and Vomiting (N/V). proCHLORper 2021-05 Yes [id number] 10mg Take 1 [facility] azine 10 mg 2-02 tablet by ity of tablet 00:00: mouth [place] 00 every 6 Medical (six) Branch hours as needed for Nausea and Vomiting (N/V). ondansetron 2021-05 Yes [id number] 4mg Take 1 [facility] 4 mg 2-02 tablet by ity of disintegrat 00:00: mouth [place] ing tablet 00 every 8 Medica l (eight) Branch hours as needed for Nausea and Vomiting (N/V). proCHLORper 2021-05 Yes [id number] 10mg Take 1 [facility] azine 10 mg 2-02 tablet by ity of tablet 00:00: mouth [place] 00 every 6 Medical (six) Branch hours as needed for Nausea and Vomiting (N/V). ondansetron 2021-05 Yes [id number] 4mg Take 1 [facility] 4 mg 2-02 tablet by ity of disintegrat 00:00: mouth [place] ing tablet 00 every 8 Medica l (eight) Branch hours as needed for Nausea and Vomiting (N/V). proCHLORper 2021-05 Yes [id number] 10mg Take 1 [facility] azine 10 mg 2-02 tablet by ity of tablet 00:00: mouth [place] 00 every 6 Medical (six) Branch hours as needed for Nausea and Vomiting (N/V). ondansetron 2021-05 Yes [id number] 4mg Take 1 [facility] 4 mg 2-02 tablet by ity of disintegrat 00:00: mouth [place] ing tablet 00 every 8 Medica l (eight) Branch hours as needed for Nausea and Vomiting (N/V). proCHLORper 2021-05 Yes [id number] 10mg Take 1 [facility] azine 10 mg 2-02 tablet by ity of tablet 00:00: mouth [place] 00 every 6 Medical (six) Branch hours as needed for Nausea and Vomiting (N/V). ondansetron 2021-05 Yes [id number] 4mg Take 1 [facility] 4 mg 2-02 tablet by ity of disintegrat 00:00: mouth [place] ing tablet 00 every 8 Medica l (eight) Branch hours as needed for Nausea and Vomiting (N/V). proCHLORper 2021-05 Yes [id number] 10mg Take 1 [facility] azine 10 mg 2-02 tablet by ity of tablet 00:00: mouth [place] 00 every 6 Medical (six) Branch hours as needed for Nausea and Vomiting (N/V). ondansetron 2021-05 Yes [id number] 4mg Take 1 [facility] 4 mg 2-02 tablet by ity of disintegrat 00:00: mouth [place] ing tablet 00 every 8 Medica l (eight) Branch hours as needed for Nausea and Vomiting (N/V). proCHLORper 2021-05 Yes [id number] 10mg Take 1 [facility] azine 10 mg 2-02 tablet by ity of tablet 00:00: mouth [place] 00 every 6 Medical (six) Branch hours as needed for Nausea and Vomiting (N/V). ondansetron 2021-05 Yes [id number] 4mg Take 1 [facility] 4 mg 2-02 tablet by ity of disintegrat 00:00: mouth [place] ing tablet 00 every 8 Medica l (eight) Branch hours as needed for Nausea and Vomiting (N/V). proCHLORper 2021-05 Yes [id number] 10mg Take 1 [facility] azine 10 mg 2-02 tablet by ity of tablet 00:00: mouth [place] 00 every 6 Medical (six) Branch hours as needed for Nausea and Vomiting (N/V). ondansetron 2021-05 Yes [id number] 4mg Take 1 [facility] 4 mg 2-02 tablet by ity of disintegrat 00:00: mouth [place] ing tablet 00 every 8 Medica l (eight) Branch hours as needed for Nausea and Vomiting (N/V). proCHLORper 2021-05 Yes [id number] 10mg Take 1 [facility] azine 10 mg 2-02 tablet by ity of tablet 00:00: mouth [place] 00 every 6 Medical (six) Branch hours as needed for Nausea and Vomiting (N/V). ondansetron 2021-05 Yes [id number] 4mg Take 1 [facility] 4 mg 2-02 tablet by ity of disintegrat 00:00: mouth [place] ing tablet 00 every 8 Medica l (eight) Branch hours as needed for Nausea and Vomiting (N/V). proCHLORper 2021-05 Yes [id number] 10mg Take 1 [facility] azine 10 mg 2-02 tablet by ity of tablet 00:00: mouth [place] 00 every 6 Medical (six) Branch hours as needed for Nausea and Vomiting (N/V). ondansetron 2021-05 Yes [id number] 4mg Take 1 [facility] 4 mg 2-02 tablet by ity of disintegrat 00:00: mouth [place] ing tablet 00 every 8 Medica l (eight) Branch hours as needed for Nausea and Vomiting (N/V). proCHLORper 2021-05 Yes [id number] 10mg Take 1 [facility] azine 10 mg 2-02 tablet by ity of tablet 00:00: mouth [place] 00 every 6 Medical (six) Branch hours as needed for Nausea and Vomiting (N/V). ondansetron 2021-05 Yes [id number] 4mg Take 1 [facility] 4 mg 2-02 tablet by ity of disintegrat 00:00: mouth [place] ing tablet 00 every 8 Medica l (eight) Branch hours as needed for Nausea and Vomiting (N/V). proCHLORper 2021-05 Yes [id number] 10mg Take 1 [facility] azine 10 mg 2-02 tablet by ity of tablet 00:00: mouth [place] 00 every 6 Medical (six) Branch hours as needed for Nausea and Vomiting (N/V). ondansetron 2021-05 Yes [id number] 4mg Take 1 [facility] 4 mg 2-02 tablet by ity of disintegrat 00:00: mouth [place] ing tablet 00 every 8 Medica l (eight) Branch hours as needed for Nausea and Vomiting (N/V). proCHLORper 2021-05 Yes [id number] 10mg Take 1 [facility] azine 10 mg 2-02 tablet by [facility] tablet 00:00: mouth [place] 00 every 6 Medical (six) Branch hours as needed for Nausea and Vomiting (N/V). ondansetron 2021-05 Yes [id number] 4mg Take 1 [facility] 4 mg 2-02 tablet by [facility] of disintegrat 00:00: mouth [place] ing tablet 00 every 8 Medica l (eight) Branch hours as needed for Nausea and Vomiting (N/V). proCHLORper 2021-05 Yes [id number] 10mg Take 1 [facility] azine 10 mg 2-02 tablet by [facility] of tablet 00:00: mouth [place] 00 every 6 Medical (six) Branch hours as needed for Nausea and Vomiting (N/V). ondansetron 2021-05 Yes [id number] 4mg Take 1 [facility] 4 mg 2-02 tablet by [facility] of disintegrat 00:00: mouth [place] ing tablet 00 every 8 Medica l (eight) Branch hours as needed for Nausea and Vomiting (N/V). proCHLORper 2021-05 Yes [id number] 10mg Take 1 [facility] azine 10 mg 2-02 tablet by [facility] of tablet 00:00: mouth [place] 00 every 6 Medical (six) Branch hours as needed for Nausea and Vomiting (N/V). ondansetron 2021-05 Yes [id number] 4mg Take 1 [facility] 4 mg 2-02 tablet by [facility] of disintegrat 00:00: mouth [place] ing tablet 00 every 8 Medica l (eight) Branch hours as needed for Nausea and Vomiting (N/V). proCHLORper 2021-05 Yes [id number] 10mg Take 1 [facility] azine 10 mg 2-02 tablet by [facility] of tablet 00:00: mouth [place] 00 every 6 Medical (six) Branch hours as needed for Nausea and Vomiting (N/V). ondansetron 2021-05 Yes [id number] 4mg Take 1 [facility] 4 mg 2-02 tablet by [facility] of disintegrat 00:00: mouth [place] ing tablet 00 every 8 Medica l (eight) Branch hours as needed for Nausea and Vomiting (N/V). proCHLORper 2021-05 Yes [id number] 10mg Take 1 [facility] azine 10 mg 2-02 tablet by [facility] of tablet 00:00: mouth [place] 00 every 6 Medical (six) Branch hours as needed for Nausea and Vomiting (N/V). ondansetron 2021-05 Yes [id number] 4mg Take 1 [facility] 4 mg 2-02 tablet by [facility] of disintegrat 00:00: mouth [place] ing tablet 00 every 8 Medica l (eight) Branch hours as needed for Nausea and Vomiting (N/V). proCHLORper 2021-05 Yes [id number] 10mg Take 1 [facility] azine 10 mg 2-02 tablet by [facility] of tablet 00:00: mouth [place] 00 every 6 Medical (six) Branch hours as needed for Nausea and Vomiting (N/V). ondansetron 2021-05 Yes [id number] 4mg Take 1 [facility] 4 mg 2-02 tablet by [facility] of disintegrat 00:00: mouth [place] ing tablet 00 every 8 Medica l (eight) Branch hours as needed for Nausea and Vomiting (N/V). proCHLORper 2021-05 Yes [id number] 10mg Take 1 [facility] azine 10 mg 2-02 tablet by [facility] of tablet 00:00: mouth [place] 00 every 6 Medical (six) Branch hours as needed for Nausea and Vomiting (N/V). ondansetron 2021-05 Yes [id number] 4mg Take 1 [facility] 4 mg 2-02 tablet by [facility] of disintegrat 00:00: mouth [place] ing tablet 00 every 8 Medica l (eight) Branch hours as needed for Nausea and Vomiting (N/V). proCHLORper 2021-05 Yes [id number] 10mg Take 1 [facility] azine 10 mg 2-02 tablet by [facility] of tablet 00:00: mouth [place] 00 every 6 Medical (six) Branch hours as needed for Nausea and Vomiting (N/V). ondansetron 2021-05 Yes [id number] 4mg Take 1 [facility] 4 mg 2-02 tablet by [facility] of disintegrat 00:00: mouth [place] ing tablet 00 every 8 Medica l (eight) Branch hours as needed for Nausea and Vomiting (N/V). proCHLORper 2021-05 Yes [id number] 10mg Take 1 [facility] azine 10 mg 2-02 tablet by [facility] of tablet 00:00: mouth [place] 00 every 6 Medical (six) Branch hours as needed for Nausea and Vomiting (N/V). ondansetron 2021-05 Yes [id number] 4mg Take 1 [facility] 4 mg 2-02 tablet by [facility] of disintegrat 00:00: mouth [place] ing tablet 00 every 8 Medica l (eight) Branch hours as needed for Nausea and Vomiting (N/V). proCHLORper 2021-05 Yes [id number] 10mg Take 1 [facility] azine 10 mg 2-02 tablet by [facility] of tablet 00:00: mouth [place] 00 every 6 Medical (six) Branch hours as needed for Nausea and Vomiting (N/V). ondansetron 2021-05 Yes [id number] 4mg Take 1 [facility] 4 mg 2-02 tablet by [facility] of disintegrat 00:00: mouth [place] ing tablet 00 every 8 Medica l (eight) Branch hours as needed for Nausea and Vomiting (N/V). proCHLORper 2021-05 Yes [id number] 10mg Take 1 [facility] azine 10 mg 2-02 tablet by [facility] of tablet 00:00: mouth [place] 00 every 6 Medical (six) Branch hours as needed for Nausea and Vomiting (N/V). ondansetron 2021-05 Yes [id number] 4mg Take 1 [facility] 4 mg 2-02 tablet by [facility] of disintegrat 00:00: mouth [place] ing tablet 00 every 8 Medica l (eight) Branch hours as needed for Nausea and Vomiting (N/V). proCHLORper 2021-05 Yes [id number] 10mg Take 1 [facility] azine 10 mg 2-02 tablet by [facility] of tablet 00:00: mouth [place] 00 every 6 Medical (six) Branch hours as needed for Nausea and Vomiting (N/V). ondansetron 2021-05 Yes [id number] 4mg Take 1 [facility] 4 mg 2-02 tablet by [facility] of disintegrat 00:00: mouth [place] ing tablet 00 every 8 Medica l (eight) Branch hours as needed for Nausea and Vomiting (N/V). proCHLORper 2021-05 Yes [id number] 10mg Take 1 [facility] azine 10 mg 2-02 tablet by [facility] of tablet 00:00: mouth [place] 00 every 6 Medical (six) Branch hours as needed for Nausea and Vomiting (N/V). ondansetron 2021-05 Yes [id number] 4mg Take 1 [facility] 4 mg 2-02 tablet by [facility] of disintegrat 00:00: mouth [place] ing tablet 00 every 8 Medica l (eight) Branch hours as needed for Nausea and Vomiting (N/V). proCHLORper 2021-05 Yes [id number] 10mg Take 1 [facility] azine 10 mg 2-02 tablet by [facility] tablet 00:00: mouth [place] 00 every 6 Medical (six) Branch hours as needed for Nausea and Vomiting (N/V). ondansetron 2021-05 Yes [id number] 4mg Take 1 [facility] 4 mg 2-02 tablet by [facility] of disintegrat 00:00: mouth [place] ing tablet 00 every 8 Medica l (eight) Branch hours as needed for Nausea and Vomiting (N/V). proCHLORper 2021-05 Yes [id number] 10mg Take 1 [facility] azine 10 mg 2-02 tablet by [facility] of tablet 00:00: mouth [place] 00 every 6 Medical (six) Branch hours as needed for Nausea and Vomiting (N/V). ondansetron 2021-05 Yes [id number] 4mg Take 1 [facility] 4 mg 2-02 tablet by [facility] of disintegrat 00:00: mouth [place] ing tablet 00 every 8 Medica l (eight) Branch hours as needed for Nausea and Vomiting (N/V). proCHLORper 2021-05 Yes [id number] 10mg Take 1 [facility] azine 10 mg 2-02 tablet by [facility] of tablet 00:00: mouth [place] 00 every 6 Medical (six) Branch hours as needed for Nausea and Vomiting (N/V). ondansetron 2021-05 Yes [id number] 4mg Take 1 [facility] 4 mg 2-02 tablet by [facility] of disintegrat 00:00: mouth [place] ing tablet 00 every 8 Medica l (eight) Branch hours as needed for Nausea and Vomiting (N/V). proCHLORper 2021-05 Yes [id number] 10mg Take 1 [facility] azine 10 mg 2-02 tablet by [facility] of tablet 00:00: mouth [place] 00 every 6 Medical (six) Branch hours as needed for Nausea and Vomiting (N/V). ondansetron 2021-05 Yes [id number] 4mg Take 1 [facility] 4 mg 2-02 tablet by [facility] of disintegrat 00:00: mouth [place] ing tablet 00 every 8 Medica l (eight) Branch hours as needed for Nausea and Vomiting (N/V). proCHLORper 2021-05 Yes [id number] 10mg Take 1 [facility] azine 10 mg 2-02 tablet by [facility] of tablet 00:00: mouth [place] 00 every 6 Medical (six) Branch hours as needed for Nausea and Vomiting (N/V). ondansetron 2021-05 Yes [id number] 4mg Take 1 [facility] 4 mg 2-02 tablet by [facility] of disintegrat 00:00: mouth [place] ing tablet 00 every 8 Medica l (eight) Branch hours as needed for Nausea and Vomiting (N/V). proCHLORper 2021-05 Yes [id number] 10mg Take 1 [facility] azine 10 mg 2-02 tablet by [facility] of tablet 00:00: mouth [place] 00 every 6 Medical (six) Branch hours as needed for Nausea and Vomiting (N/V). ondansetron 2021-05 Yes [id number] 4mg Take 1 [facility] 4 mg 2-02 tablet by [facility] of disintegrat 00:00: mouth [place] ing tablet 00 every 8 Medica l (eight) Branch hours as needed for Nausea and Vomiting (N/V). proCHLORper 2021-05 Yes [id number] 10mg Take 1 [facility] azine 10 mg 2-02 tablet by [facility] of tablet 00:00: mouth [place] 00 every 6 Medical (six) Branch hours as needed for Nausea and Vomiting (N/V). ondansetron 2021-05 Yes [id number] 4mg Take 1 [facility] 4 mg 2-02 tablet by [facility] of disintegrat 00:00: mouth [place] ing tablet 00 every 8 Medica l (eight) Branch hours as needed for Nausea and Vomiting (N/V). proCHLORper 2021-05 Yes [id number] 10mg Take 1 [facility] azine 10 mg 2-02 tablet by [facility] of tablet 00:00: mouth [place] 00 every 6 Medical (six) Branch hours as needed for Nausea and Vomiting (N/V). ondansetron 2021-05 Yes [id number] 4mg Take 1 [facility] 4 mg 2-02 tablet by [facility] of disintegrat 00:00: mouth [place] ing tablet 00 every 8 Medica l (eight) Branch hours as needed for Nausea and Vomiting (N/V). proCHLORper 2021-05 Yes [id number] 10mg Take 1 [facility] azine 10 mg 2-02 tablet by [facility] of tablet 00:00: mouth [place] 00 every 6 Medical (six) Branch hours as needed for Nausea and Vomiting (N/V). ondansetron 2021-05 Yes [id number] 4mg Take 1 [facility] 4 mg 2-02 tablet by [facility] of disintegrat 00:00: mouth [place] ing tablet 00 every 8 Medica l (eight) Branch hours as needed for Nausea and Vomiting (N/V). proCHLORper 2021-05 Yes [id number] 10mg Take 1 [facility] azine 10 mg 2-02 tablet by [facility] of tablet 00:00: mouth [place] 00 every 6 Medical (six) Branch hours as needed for Nausea and Vomiting (N/V). ondansetron 2021-05 Yes [id number] 4mg Take 1 [facility] 4 mg 2-02 tablet by [facility] of disintegrat 00:00: mouth [place] ing tablet 00 every 8 Medica l (eight) Branch hours as needed for Nausea and Vomiting (N/V). proCHLORper 2021-05 Yes [id number] 10mg Take 1 [facility] azine 10 mg 2-02 tablet by [facility] of tablet 00:00: mouth [place] 00 every 6 Medical (six) Branch hours as needed for Nausea and Vomiting (N/V). ondansetron 2021-05 Yes [id number] 4mg Take 1 [facility] 4 mg 2-02 tablet by [facility] of disintegrat 00:00: mouth [place] ing tablet 00 every 8 Medica l (eight) Branch hours as needed for Nausea and Vomiting (N/V). proCHLORper 2021-05 Yes [id number] 10mg Take 1 [facility] azine 10 mg 2-02 tablet by [facility] of tablet 00:00: mouth [place] 00 every 6 Medical (six) Branch hours as needed for Nausea and Vomiting (N/V). ondansetron 2021-05 Yes [id number] 4mg Take 1 [facility] 4 mg 2-02 tablet by [facility] of disintegrat 00:00: mouth [place] ing tablet 00 every 8 Medica l (eight) Branch hours as needed for Nausea and Vomiting (N/V). proCHLORper 2021-05 Yes [id number] 10mg Take 1 [facility] azine 10 mg 2-02 tablet by [facility] of tablet 00:00: mouth [place] 00 every 6 Medical (six) Branch hours as needed for Nausea and Vomiting (N/V). ondansetron 2021-05 Yes [id number] 4mg Take 1 [facility] 4 mg 2-02 tablet by [facility] of disintegrat 00:00: mouth [place] ing tablet 00 every 8 Medica l (eight) Branch hours as needed for Nausea and Vomiting (N/V). proCHLORper 2021-05 Yes [id number] 10mg Take 1 [facility] azine 10 mg 2-02 tablet by [facility] of tablet 00:00: mouth [place] 00 every 6 Medical (six) Branch hours as needed for Nausea and Vomiting (N/V). ondansetron 2021-05 Yes [id number] 4mg Take 1 [facility] 4 mg 2-02 tablet by [facility] of disintegrat 00:00: mouth [place] ing tablet 00 every 8 Medica l (eight) Branch hours as needed for Nausea and Vomiting (N/V). proCHLORper 2021-05 Yes [id number] 10mg Take 1 [facility] azine 10 mg 2-02 tablet by [facility] of tablet 00:00: mouth [place] 00 every 6 Medical (six) Branch hours as needed for Nausea and Vomiting (N/V). ondansetron 2021-05 Yes [id number] 4mg Take 1 [facility] 4 mg 2-02 tablet by [facility] of disintegrat 00:00: mouth [place] ing tablet 00 every 8 Medica l (eight) Branch hours as needed for Nausea and Vomiting (N/V). proCHLORper 2021-05 Yes [id number] 10mg Take 1 [facility] azine 10 mg 2-02 tablet by [facility] of tablet 00:00: mouth [place] 00 every 6 Medical (six) Branch hours as needed for Nausea and Vomiting (N/V). ondansetron 2021-05 Yes [id number] 4mg Take 1 [facility] 4 mg 2-02 tablet by ity of disintegrat 00:00: mouth [place] ing tablet 00 every 8 Medica l (eight) Branch hours as needed for Nausea and Vomiting (N/V). proCHLORper 2021-05 Yes [id number] 10mg Take 1 [facility] azine 10 mg 2-02 tablet by [facility] of tablet 00:00: mouth [place] 00 every 6 Medical (six) Branch hours as needed for Nausea and Vomiting (N/V). ondansetron 2021-05 Yes [id number] 4mg Take 1 [facility] 4 mg 2-02 tablet by [facility] of disintegrat 00:00: mouth [place] ing tablet 00 every 8 Medica l (eight) Branch hours as needed for Nausea and Vomiting (N/V). proCHLORper 2021-05 Yes [id number] 10mg Take 1 [facility] azine 10 mg 2-02 tablet by [facility] of tablet 00:00: mouth [place] 00 every 6 Medical (six) Branch hours as needed for Nausea and Vomiting (N/V). ondansetron 2021-05 Yes [id number] 4mg Take 1 [facility] 4 mg 2-02 tablet by [facility] of disintegrat 00:00: mouth [place] ing tablet 00 every 8 Medica l (eight) Branch hours as needed for Nausea and Vomiting (N/V). proCHLORper 2021-05 Yes [id number] 10mg Take 1 [facility] azine 10 mg 2-02 tablet by [facility] of tablet 00:00: mouth [place] 00 every 6 Medical (six) Branch hours as needed for Nausea and Vomiting (N/V). ondansetron 2021-05 Yes [id number] 4mg Take 1 [facility] 4 mg 2-02 tablet by [facility] of disintegrat 00:00: mouth [place] ing tablet 00 every 8 Medica l (eight) Branch hours as needed for Nausea and Vomiting (N/V). proCHLORper 2021-05 Yes [id number] 10mg Take 1 [facility] azine 10 mg 2-02 tablet by [facility] of tablet 00:00: mouth [place] 00 every 6 Medical (six) Branch hours as needed for Nausea and Vomiting (N/V). ondansetron 2021-05 Yes [id number] 4mg Take 1 [facility] 4 mg 2-02 tablet by it[facility] of disintegrat 00:00: mouth [place] ing tablet 00 every 8 Medica l (eight) Branch hours as needed for Nausea and Vomiting (N/V). proCHLORper 2021-05 Yes [id number] 10mg Take 1 [facility] azine 10 mg 2-02 tablet by [facility] of tablet 00:00: mouth [place] 00 every 6 Medical (six) Branch hours as needed for Nausea and Vomiting (N/V). ondansetron 2021-05 Yes [id number] 4mg Take 1 [facility] 4 mg 2-02 tablet by [facility] of disintegrat 00:00: mouth [place] ing tablet 00 every 8 Medica l (eight) Branch hours as needed for Nausea and Vomiting (N/V). proCHLORper 2021-05 Yes [id number] 10mg Take 1 [facility] azine 10 mg 2-02 tablet by [facility] of tablet 00:00: mouth [place] 00 every 6 Medical (six) Branch hours as needed for Nausea and Vomiting (N/V). ondansetron 2021-05 Yes [id number] 4mg Take 1 [facility] 4 mg 2-02 tablet by it[facility] of disintegrat 00:00: mouth [place] ing tablet 00 every 8 Medica l (eight) Branch hours as needed for Nausea and Vomiting (N/V). proCHLORper 2021-05 Yes [id number] 10mg Take 1 [facility] azine 10 mg 2-02 tablet by ity of tablet 00:00: mouth [place] 00 every 6 Medical (six) Branch hours as needed for Nausea and Vomiting (N/V). ondansetron 2021-05 Yes [id number] 4mg Take 1 [facility] 4 mg 2-02 tablet by ity of disintegrat 00:00: mouth [place] ing tablet 00 every 8 Medica l (eight) Branch hours as needed for Nausea and Vomiting (N/V). loperamide 2021-05 Yes [id number] Take 4 mg [facility] 2 mg 2-02 after 1st ity of capsule 00:00: loose [place] 00 stool, Medical then 2 mg Branch by mouth every 2 hr until 12 hr have passed with no loose stool. If diarrhea cont. after 12 hours, call . proCHLORper 2021-05 Yes [id number] 10mg Take 1 [facility] azine 10 mg 2-02 tablet by it[facility] of tablet 00:00: mouth [place] 00 every 6 Medical (six) Branch hours as needed for Nausea and Vomiting (N/V). ondansetron 2021-05 Yes [id number] 4mg Take 1 [facility] 4 mg 2-02 tablet by ity of disintegrat 00:00: mouth [place] ing tablet 00 every 8 Medica l (eight) Branch hours as needed for Nausea and Vomiting (N/V). loperamide 2021-05 Yes [id number] Take 4 mg [facility] 2 mg 2-02 after 1st ity of capsule 00:00: loose [place] 00 stool, Medical then 2 mg Branch by mouth every 2 hr until 12 hr have passed with no loose stool. If diarrhea cont. after 12 hours, call MD. Vasquez 2021-05 Yes [id number] 10mg Take 1 [facility] azine 10 mg 2-02 tablet by ity of tablet 00:00: mouth [place] 00 every 6 Medical (six) Branch hours as needed for Nausea and Vomiting (N/V). ondansetron 2021-05 Yes [id number] 4mg Take 1 [facility] 4 mg 2-02 tablet by ity of disintegrat 00:00: mouth [place] ing tablet 00 every 8 Medica l (eight) Branch hours as needed for Nausea and Vomiting (N/V). loperamide 2021-05- No [id number] Take 4 mg [facility] 2 mg 2-02 12-27 after 1st ity of capsule 00:00: 00:00 loose [place] 00 :00 stool, Medical then 2 mg Branch by mouth every 2 hr until 12 hr have passed with no loose stool. If diarrhea cont. after 12 hours, call loperamide 2021-05- No [id number] Take 4 mg [facility] 2 mg 2-02 12-27 after 1st ity of capsule 00:00: 00:00 loose [place] 00 :00 stool, Medical then 2 mg Branch by mouth every 2 hr until 12 hr have passed with no loose stool. If diarrhea cont. after 12 hours, call loperamide 2021-05- No [id number] Take 4 mg [facility] 2 mg 2-02 12-27 after 1st ity of capsule 00:00: 00:00 loose [place] 00 :00 stool, Medical then 2 mg Branch by mouth every 2 hr until 12 hr have passed with no loose stool. If diarrhea cont. after 12 hours, call loperamide 2021-05- No [id number] Take 4 mg [facility] 2 mg 06-13 after 1st ity of capsule 00:00: 00:00 loose [place] 00 :00 stool, Medical then 2 mg Branch by mouth every 2 hr until 12 hr have passed with no loose stool. If diarrhea cont. after 12 hours, call valsartan-h 2021-05 Yes 1{tbl} Take 1 [facility] ydrochlorot 1-21 tablet by ity of hiazide 00:00: mouth in [place] 320-12.5 mg 00 the Medical per tablet morning. [facility] valsartan-h 2021-05 Yes 1{tbl} Take 1 [facility] [place] ydrochlorot 1-21 tablet by ity of hiazide 00:00: mouth in [place] 320-12.5 mg 00 the Medical per tablet morning. [facility] valsartan-h 2021-05 Yes 1{tbl} Take 1 [facility] [place] ydrochlorot 1-21 tablet by ity of hiazide 00:00: mouth in [place] 320-12.5 mg 00 the Medical per tablet morning. [facility] valsartan-h 2021-05 Yes 1{tbl} Take 1 [facility] [place] ydrochlorot 1-21 tablet by ity of hiazide 00:00: mouth in [place] 320-12.5 mg 00 the Medical per tablet morning. [facility] valsartan-h 2021-05 Yes 1{tbl} Take 1 [facility] [place] ydrochlorot 1-21 tablet by ity of hiazide 00:00: mouth in [place] 320-12.5 mg 00 the Medical per tablet morning. [facility] valsartan-h 2021-05 Yes 1{tbl} Take 1 [facility] [place] ydrochlorot 1-21 tablet by ity of hiazide 00:00: mouth in [place] 320-12.5 mg 00 the Medical per tablet morning. [facility] valsartan-h 2021-05 Yes 1{tbl} Take 1 [facility] [place] ydrochlorot 1-21 tablet by ity of hiazide 00:00: mouth in [place] 320-12.5 mg 00 the Medical per tablet morning. [facility] valsartan-h 2021-05 Yes 1{tbl} Take 1 [facility] [place] ydrochlorot 1-21 tablet by ity of hiazide 00:00: mouth in [place] 320-12.5 mg 00 the Medical per tablet morning. [facility] valsartan-h 2021-05 Yes 1{tbl} Take 1 [facility] [place] ydrochlorot 1-21 tablet by ity of hiazide 00:00: mouth in [place] 320-12.5 mg 00 the Medical per tablet morning. [facility] valsartan-h 2021-05 Yes 1{tbl} Take 1 [facility] [place] ydrochlorot 1-21 tablet by ity of hiazide 00:00: mouth in [place] 320-12.5 mg 00 the Medical per tablet morning. [facility] h valsartan-h 2021-05 Yes 1{tbl} Take 1 Un [place] ydrochlorot 1-21 tablet by ity of hiazide 00:00: mouth in [place] 320-12.5 mg 00 the Medical per tablet morning. [facility] h valsartan-h 2021-05 Yes 1{tbl} Take 1 [facility] [place] ydrochlorot 1-21 tablet by ity of hiazide 00:00: mouth in [place] 320-12.5 mg 00 the Medical per tablet morning. [facility] h valsartan-h 2021-05 Yes 1{tbl} Take 1 [facility] [place] ydrochlorot 1-21 tablet by ity of hiazide 00:00: mouth in [place] 320-12.5 mg 00 the Medical per tablet morning. [facility] h valsartan-h 2021-05 Yes 1{tbl} Take 1 [facility] [place] ydrochlorot 1-21 tablet by ity of hiazide 00:00: mouth in [place] 320-12.5 mg 00 the Medical per tablet morning. [facility] valsartan-h 2021-05 Yes 1{tbl} Take 1 [facility] [place] ydrochlorot 1-21 tablet by ity of hiazide 00:00: mouth in [place] 320-12.5 mg 00 the Medical per tablet morning. [facility] valsartan-h 2021-05 Yes 1{tbl} Take 1 [facility] [place] ydrochlorot 1-21 tablet by ity of hiazide 00:00: mouth in [place] 320-12.5 mg 00 the Medical per tablet morning. [facility] valsartan-h 2021-05 Yes 1{tbl} Take 1 [facility] [place] ydrochlorot 1-21 tablet by ity of hiazide 00:00: mouth in [place] 320-12.5 mg 00 the Medical per tablet morning. [facility] valsartan-h 2021-05 Yes 1{tbl} Take 1 [facility] [place] ydrochlorot 1-21 tablet by ity of hiazide 00:00: mouth in [place] 320-12.5 mg 00 the Medical per tablet morning. [facility] valsartan-h 2021-05 Yes 1{tbl} Take 1 [facility] [place] ydrochlorot 1-21 tablet by ity of hiazide 00:00: mouth in [place] 320-12.5 mg 00 the Medical per tablet morning. [facility] valsartan-h 2021-05 Yes 1{tbl} Take 1 [facility] [place] ydrochlorot 1-21 tablet by ity of hiazide 00:00: mouth in [place] 320-12.5 mg 00 the Medical per tablet morning. [facility] valsartan-h 2021-05 Yes 1{tbl} Take 1 [facility] [place] ydrochlorot 1-21 tablet by ity of hiazide 00:00: mouth in [place] 320-12.5 mg 00 the Medical per tablet morning. [facility] valsartan-h 2021-05 Yes 1{tbl} Take 1 [facility] [place] ydrochlorot 1-21 tablet by ity of hiazide 00:00: mouth in [place] 320-12.5 mg 00 the Medical per tablet morning. [facility] valsartan-h 2021-05 Yes 1{tbl} Take 1 [facility] [place] ydrochlorot 1-21 tablet by ity of hiazide 00:00: mouth in [place] 320-12.5 mg 00 the Medical per tablet morning. [facility] valsartan-h 2021-05 Yes 1{tbl} Take 1 Un [place] ydrochlorot 1-21 tablet by ity of hiazide 00:00: mouth in [place] 320-12.5 mg 00 the Medical per tablet morning. [facility] valsartan-h 2021-05 Yes 1{tbl} Take 1 Un [place] ydrochlorot 1-21 tablet by ity of hiazide 00:00: mouth in [place] 320-12.5 mg 00 the Medical per tablet morning. [facility] valsartan-h 2021-05 Yes 1{tbl} Take 1 [facility] [place] ydrochlorot 1-21 tablet by ity of hiazide 00:00: mouth in [place] 320-12.5 mg 00 the Medical per tablet morning. [facility] valsartan-h 2021-05 Yes 1{tbl} Take 1 Un [place] ydrochlorot 1-21 tablet by ity of hiazide 00:00: mouth in [place] 320-12.5 mg 00 the Medical per tablet morning. [facility] valsartan-h 2021-05 Yes 1{tbl} Take 1 Un [place] ydrochlorot 1-21 tablet by ity of hiazide 00:00: mouth in [place] 320-12.5 mg 00 the Medical per tablet morning. [facility] valsartan-h 2021-05 Yes 1{tbl} Take 1 Un [place] ydrochlorot 1-21 tablet by ity of hiazide 00:00: mouth in [place] 320-12.5 mg 00 the Medical per tablet morning. [facility] valsartan-h 2021-05 Yes 1{tbl} Take 1 Un [place] ydrochlorot 1-21 tablet by ity of hiazide 00:00: mouth in [place] 320-12.5 mg 00 the Medical per tablet morning. [facility] valsartan-h 2021-05 Yes 1{tbl} Take 1 Un [place] ydrochlorot 1-21 tablet by ity of hiazide 00:00: mouth in [place] 320-12.5 mg 00 the Medical per tablet morning. [facility] h valsartan-h 2021-05 Yes 1{tbl} Take 1 Un [place] ydrochlorot 1-21 tablet by ity of hiazide 00:00: mouth in [place] 320-12.5 mg 00 the Medical per tablet morning. [facility] h valsartan-h 2021-05 Yes 1{tbl} Take 1 [facility] [place] ydrochlorot 1-21 tablet by ity of hiazide 00:00: mouth in [place] 320-12.5 mg 00 the Medical per tablet morning. [facility] valsartan-h 2021-05 Yes 1{tbl} Take 1 [facility] [place] ydrochlorot 1-21 tablet by ity of hiazide 00:00: mouth in [place] 320-12.5 mg 00 the Medical per tablet morning. [facility] valsartan-h 2021-05 Yes 1{tbl} Take 1 [facility] [place] ydrochlorot 1-21 tablet by ity of hiazide 00:00: mouth in [place] 320-12.5 mg 00 the Medical per tablet morning. [facility] valsartan-h 2021-05 Yes 1{tbl} Take 1 [facility] [place] ydrochlorot 1-21 tablet by ity of hiazide 00:00: mouth in [place] 320-12.5 mg 00 the Medical per tablet morning. [facility] valsartan-h 2021-05 Yes 1{tbl} Take 1 [facility] [place] ydrochlorot 1-21 tablet by ity of hiazide 00:00: mouth in [place] 320-12.5 mg 00 the Medical per tablet morning. [facility] valsartan-h 2021-05 Yes 1{tbl} Take 1 [facility] [place] ydrochlorot 1-21 tablet by ity of hiazide 00:00: mouth in [place] 320-12.5 mg 00 the Medical per tablet morning. [facility] valsartan-h 2021-05 Yes 1{tbl} Take 1 [facility] [place] ydrochlorot 1-21 tablet by ity of hiazide 00:00: mouth in [place] 320-12.5 mg 00 the Medical per tablet morning. [facility] valsartan-h 2021-05 Yes 1{tbl} Take 1 [facility] [place] ydrochlorot 1-21 tablet by ity of hiazide 00:00: mouth in [place] 320-12.5 mg 00 the Medical per tablet morning. [facility] valsartan-h 2021-05 Yes 1{tbl} Take 1 [facility] [place] ydrochlorot 1-21 tablet by ity of hiazide 00:00: mouth in [place] 320-12.5 mg 00 the Medical per tablet morning. [facility] valsartan-h 2021-05 Yes 1{tbl} Take 1 [facility] [place] ydrochlorot 1-21 tablet by ity of hiazide 00:00: mouth in [place] 320-12.5 mg 00 the Medical per tablet morning. Bran h valsartan-h 2021-05 Yes 1{tbl} Take 1 Un [place] ydrochlorot 1-21 tablet by ity of hiazide 00:00: mouth in [place] 320-12.5 mg 00 the Medical per tablet morning. Bran h valsartan-h 2021-05 Yes 1{tbl} Take 1 Un [place] ydrochlorot 1-21 tablet by ity of hiazide 00:00: mouth in [place] 320-12.5 mg 00 the Medical per tablet morning. Bran h valsartan-h 2021-05 Yes 1{tbl} Take 1 Un [place] ydrochlorot 1-21 tablet by ity of hiazide 00:00: mouth in [place] 320-12.5 mg 00 the Medical per tablet morning. Bran h valsartan-h 2021-05 Yes 1{tbl} Take 1 Un [place] ydrochlorot 1-21 tablet by ity of hiazide 00:00: mouth in [place] 320-12.5 mg 00 the Medical per tablet morning. Bran h valsartan-h 2021-05 Yes 1{tbl} Take 1 Un [place] ydrochlorot 1-21 tablet by ity of hiazide 00:00: mouth in [place] 320-12.5 mg 00 the Medical per tablet morning. Bran h valsartan-h 2021-05 Yes 1{tbl} Take 1 Un [place] ydrochlorot 1-21 tablet by ity of hiazide 00:00: mouth in [place] 320-12.5 mg 00 the Medical per tablet morning. Bran h valsartan-h 2021-05 Yes 1{tbl} Take 1 Un [place] ydrochlorot 1-21 tablet by ity of hiazide 00:00: mouth in [place] 320-12.5 mg 00 the Medical per tablet morning. Bran h valsartan-h 2021-05 Yes 1{tbl} Take 1 Un [place] ydrochlorot 1-21 tablet by ity of hiazide 00:00: mouth in [place] 320-12.5 mg 00 the Medical per tablet morning. Bran h valsartan-h 2021-05 Yes 1{tbl} Take 1 Un [place] ydrochlorot 1-21 tablet by ity of hiazide 00:00: mouth in [place] 320-12.5 mg 00 the Medical per tablet morning. Bran h valsartan-h 2021-05 Yes 1{tbl} Take 1 Un [place] ydrochlorot 1-21 tablet by ity of hiazide 00:00: mouth in [place] 320-12.5 mg 00 the Medical per tablet morning. [facility] h valsartan-h 2021-05 Yes 1{tbl} Take 1 Un [place] ydrochlorot 1-21 tablet by ity of hiazide 00:00: mouth in [place] 320-12.5 mg 00 the Medical per tablet morning. [facility] h valsartan-h 2021-05 Yes 1{tbl} Take 1 Un [place] ydrochlorot 1-21 tablet by ity of hiazide 00:00: mouth in [place] 320-12.5 mg 00 the Medical per tablet morning. [facility] h valsartan-h 2021-05 Yes 1{tbl} Take 1 Un [place] ydrochlorot 1-21 tablet by ity of hiazide 00:00: mouth in [place] 320-12.5 mg 00 the Medical per tablet morning. [facility] h valsartan-h 2021-05 Yes 1{tbl} Take 1 Un [place] ydrochlorot 1-21 tablet by ity of hiazide 00:00: mouth in [place] 320-12.5 mg 00 the Medical per tablet morning. [facility] h valsartan-h 2021-05 Yes 1{tbl} Take 1 Un [place] ydrochlorot 1-21 tablet by ity of hiazide 00:00: mouth in [place] 320-12.5 mg 00 the Medical per tablet morning. Bran h valsartan-h 2021-05 Yes 1{tbl} Take 1 Un [place] ydrochlorot 1-21 tablet by ity of hiazide 00:00: mouth in [place] 320-12.5 mg 00 the Medical per tablet morning. [facility] h valsartan-h 2021-05 Yes 1{tbl} Take 1 Un [place] ydrochlorot 1-21 tablet by ity of hiazide 00:00: mouth in [place] 320-12.5 mg 00 the Medical per tablet morning. Branc h FENTanyl PF 2021-05 Yes Slow IV Uni vers (SUBLIMAZE 17 Push, PRN, ity of (PF)) 16:15: Starting [place] injection 13 on [facility] 03/28/22 Branch at 1015, Until Discontinu ed, Routine FENTanyl PF 2021-05- No Slow IV Un [place] (SUBLIMAZE 05-28 Push, PRN, it y of (PF)) 16:15: 10:10 Starting [place] injection 13 :36 on [facility] 03/28/22 Branch at 1015, Until Fri03/29/22 at 0410, Routine midazolam 2021-05 Yes IV Push, Univ ers (VERSED) 05-28 PRN, ity of injection 16:15: [place] 02 [place] [facility] 03/28/22 Branch at 1015, Until Discontinu ed, Routine midazolam 2021-05- No IV Push, Uni vers (VERSED) 05-28 PRN, ity of injection 16:15: 10:10 Starting [place] 02 :36 on [facility] 03/28/22 Branch at 1015, Until Fri03/29/22 at 0410, Routine ceFAZolin 2021-05 Yes Slow IV Unive rs (ANCEF) 17 Push, PRN, ity of injection 15:42: [place] [facility] 03/28/22 Branch at 0942, Until Discontinu ed, ALISON ceFAZolin 2021-05- No Slow IV Univ ers (ANCEF) 05-28 Push, PRN, ity o f injection 15:42: 10:10 Starting [place] 54 :36 on [facility] 03/28/22 Branch at 0942, Until Fri03/29/22 at 0410, ALISON iopamidol 2021-05- No [id number] 100mL 100 mL, Univers (ISOVUE 05-28 Intravenou ity o f 300-500 mL) 15:24: 15:24 s, TITRATE [place] injection 01 :00 - FOR Medical 100 mL PROCEDURE Branch USE, 1 dose, Starting on [facility] 03/28/22 at 0924, Until [place] 03/28/22 at 0924, Routine, Surgery/Pr ocedure iopamidol 2021-05- No [id number] 100mL 100 mL, Univers (ISOVUE 1-03-28 Intravenou ity o f 300-500 mL) 15:24: 15:24 s, TITRATE [place] injection 01 :00 - FOR Medical 100 mL PROCEDURE Branch USE, 1 dose, Starting on [facility] 03/28/22 at 0924, Until [place] 03/28/22 at 0924, Routine, Surgery/Pr ocedure FENTanyl PF 2021-05 Yes Slow IV Uni vers (SUBLIMAZE 17 Push, PRN, ity of (PF)) 15:16: Starting [place] injection 07 on [facility] 03/28/22 Branch at 0916, Until Discontinu ed, Routine FENTanyl PF 2021-05- No Slow IV Un [place] (SUBLIMAZE 05-28 Push, PRN, it y of (PF)) 15:16: 10:15 Starting [place] injection 07 :36 on [facility] 03/28/22 Branch at 0916, Until Fri03/29/22 at 0415, Routine midazolam 2021-05 Yes IV Push, Univ ers (VERSED) 1-17 PRN, ity of injection 15:15: [place] [facility] 03/28/22 Branch at 0915, Until Discontinu ed, Routine midazolam 2021-05- No IV Push, Uni vers (VERSED) 05-28 11 PRN, ity of injection 15:15: 10:15 Starting [place] 50 :36 on [facility] 03/28/22 Branch at 0915, Until Fri03/29/22 at 0415, Routine iopamidol 2021-05- No [id number] 50mL 50 mL, Univers (ISOVUE 0-21 - Intravenou ity o f 300-100 mL) 19:26: 19:27 s, TITRATE [place] injection 43 :00 - FOR Medical 50 mL PROCEDURE Branch USE, 1 dose, Starting on Fri03/01/22 at 1426, Until Fri03/01/22 at 1427, Routine, Surgery/Pr ocedure iopamidol 2021-05- No [id number] 50mL 50 mL, Univers (ISOVUE 0- 10- Intravenou ity o f 300-100 mL) 19:26: 19:27 s, TITRATE [place] injection 43 :00 - FOR Medical 50 mL PROCEDURE Branch USE, 1 dose, Starting on Fri03/01/22 at 1426, Until Fri03/01/22 at 1427, Routine, Surgery/Pr ocedure FENTanyl PF 2021-05- No Slow IV Un [place] (SUBLIMAZE 0-01 03- Push, PRN, it y of (PF)) 18:33: 18:44 Starting [place] injection 56 :40 on Fri [facility] 03/01/22 Branch at 1333, Until Discontinu ed, Routine FENTanyl PF 2021-05- No Slow IV Un [place] (SUBLIMAZE 0- 10- Push, PRN, it y of (PF)) 18:33: 18:44 Starting [place] injection 56 :40 on [facility] 03/01/22 Branch at 1333, Until Discontinu ed, Routine midazolam 2021-05- No IV Push, Uni vers (VERSED) 0-01 03- PRN, ity of injection 18:33: 18:44 Starting [place] 46 :36 on [facility] 03/01/22 Branch at 1333, Until Discontinu ed, Routine midazolam 2021-05- No IV Push, Uni vers (VERSED) 0-01 03- PRN, ity of injection 18:33: 18:44 Starting [place] 46 :36 on [facility] 03/01/22 Branch at 1333, Until Discontinu ed, Routine gadoteridol 2021-05- No [id number] .2mL/kg 20.96 mL Univers (PROHANCE-1 0-17 10-17 (0.2 mL/kg i ty of 5 mL) 16:00: 15:54 ?104.8 [place] injection 00 :00 kg), Medical 20.96 mL Intravenou Branc h s, ONCE, 1 dose, On Fri02/25/22 at 1100, Routine gadoteridoL 2021-05- No [id number] .2mL/kg 20.96 mL Univers (PROHANCE-5 0-17 10-17 (0.2 mL/kg i ty of mL) 16:00: 15:56 ?104.8 [place] injection 00 :00 kg), Medical 20.96 mL Intravenou Branc h s, ONCE, 1 dose, On Fri02/25/22 at 1100, Routine rosuvastati 2021-05 Yes 20mg Take 20 mg Univers n 20 mg 0-13 by mouth ity of tablet 09:53: at [place] 24 bedtime. Medical Branch levothyroxi 2021-05 Yes 25ug Take 25 Uni vers ne 25 mcg 0-13 mcg by ity of tablet 09:53: mouth [place] 24 every Medical morning. Branch rosuvastati 2021-05 Yes 20mg Take 20 mg Univers n 20 mg 0-13 by mouth ity of tablet 09:53: at [place] 24 bedtime. Medical Branch levothyroxi 2021-05 Yes 25ug Take 25 Uni vers ne 25 mcg 0-13 mcg by ity of tablet 09:53: mouth [place] 24 every Medical morning. Branch rosuvastati 2021-05 Yes 20mg Take 20 mg Univers n 20 mg 0-13 by mouth ity of tablet 09:53: at [place] 24 bedtime. Medical Branch levothyroxi 2021-05 Yes 25ug Take 25 Uni vers ne 25 mcg 0-13 mcg by ity of tablet 09:53: mouth [place] 24 every Medical morning. Branch rosuvastati 2021-05 Yes 20mg Take 20 mg Univers n 20 mg 0-13 by mouth ity of tablet 09:53: at [place] 24 bedtime. Medical Branch levothyroxi 2021-05 Yes 25ug Take 25 Uni vers ne 25 mcg 0-13 mcg by ity of tablet 09:53: mouth [place] 24 every Medical morning. Branch rosuvastati 2021-05 Yes 20mg Take 20 mg Univers n 20 mg 0-13 by mouth ity of tablet 09:53: at [place] 24 bedtime. Medical Branch levothyroxi 2021-05 Yes 25ug Take 25 Uni vers ne 25 mcg 0-13 mcg by ity of tablet 09:53: mouth [place] 24 every Medical morning. Branch rosuvastati 2021-05 Yes 20mg Take 20 mg Univers n 20 mg 0-13 by mouth ity of tablet 09:53: at [place] 24 bedtime. Medical Branch levothyroxi 2021-05 Yes 25ug Take 25 Uni vers ne 25 mcg 0-13 mcg by ity of tablet 09:53: mouth [place] 24 every Medical morning. Branch rosuvastati 2021-05 Yes 20mg Take 20 mg Univers n 20 mg 0-13 by mouth ity of tablet 09:53: at [place] 24 bedtime. Medical Branch levothyroxi 2021-05 Yes 25ug Take 25 Uni vers ne 25 mcg 0-13 mcg by ity of tablet 09:53: mouth [place] 24 every Medical morning. Branch rosuvastati 2021-05 Yes 20mg Take 20 mg Univers n 20 mg 0-13 by mouth ity of tablet 09:53: at [place] 24 bedtime. Medical Branch levothyroxi 2021-05 Yes 25ug Take 25 Uni vers ne 25 mcg 0-13 mcg by ity of tablet 09:53: mouth [place] 24 every Medical morning. Branch rosuvastati 2021-05 Yes 20mg Take 20 mg Univers n 20 mg 0-13 by mouth ity of tablet 09:53: at [place] 24 bedtime. Medical Branch levothyroxi 2021-05 Yes 25ug Take 25 Uni vers ne 25 mcg 0-13 mcg by ity of tablet 09:53: mouth [place] 24 every Medical morning. Branch rosuvastati 2021-05 Yes 20mg Take 20 mg Univers n 20 mg 0-13 by mouth ity of tablet 09:53: at [place] 24 bedtime. Medical Branch levothyroxi 2021-05 Yes 25ug Take 25 Uni vers ne 25 mcg 0-13 mcg by ity of tablet 09:53: mouth [place] 24 every Medical morning. Branch rosuvastati 2021-05 Yes 20mg Take 20 mg Univers n 20 mg 0-13 by mouth ity of tablet 09:53: at [place] 24 bedtime. Medical Branch levothyroxi 2021-05 Yes 25ug Take 25 Uni vers ne 25 mcg 0-13 mcg by ity of tablet 09:53: mouth [place] 24 every Medical morning. Branch rosuvastati 2021-05 Yes 20mg Take 20 mg Univers n 20 mg 0-13 by mouth ity of tablet 09:53: at [place] 24 bedtime. Medical Branch levothyroxi 2021-05 Yes 25ug Take 25 Uni vers ne 25 mcg 0-13 mcg by ity of tablet 09:53: mouth [place] 24 every Medical morning. Branch rosuvastati 2021-05 Yes 20mg Take 20 mg Univers n 20 mg 0-13 by mouth ity of tablet 09:53: at [place] 24 bedtime. Medical Branch levothyroxi 2021-05 Yes 25ug Take 25 Uni vers ne 25 mcg 0-13 mcg by ity of tablet 09:53: mouth [place] 24 every Medical morning. Branch rosuvastati 2021-05 Yes 20mg Take 20 mg Univers n 20 mg 0-13 by mouth ity of tablet 09:53: at [place] 24 bedtime. Medical Branch levothyroxi 2021-05 Yes 25ug Take 25 Uni vers ne 25 mcg 0-13 mcg by ity of tablet 09:53: mouth [place] 24 every Medical morning. Branch rosuvastati 2021-05 Yes 20mg Take 20 mg Univers n 20 mg 0-13 by mouth ity of tablet 09:53: at [place] 24 bedtime. Medical Branch levothyroxi 2021-05 Yes 25ug Take 25 Uni vers ne 25 mcg 0-13 mcg by ity of tablet 09:53: mouth [place] 24 every Medical morning. Branch rosuvastati 2021-05 Yes 20mg Take 20 mg Univers n 20 mg 0-13 by mouth ity of tablet 09:53: at [place] 24 bedtime. Medical Branch levothyroxi 2021-05 Yes 25ug Take 25 Uni vers ne 25 mcg 0-13 mcg by ity of tablet 09:53: mouth [place] 24 every Medical morning. Branch rosuvastati 2021-05 Yes 20mg Take 20 mg Univers n 20 mg 0-13 by mouth ity of tablet 09:53: at [place] 24 bedtime. Medical Branch levothyroxi 2021-05 Yes 25ug Take 25 Uni vers ne 25 mcg 0-13 mcg by ity of tablet 09:53: mouth [place] 24 every Medical morning. Branch rosuvastati 2021-05 Yes 20mg Take 20 mg Univers n 20 mg 0-13 by mouth ity of tablet 09:53: at [place] 24 bedtime. Medical Branch levothyroxi 2021-05 Yes 25ug Take 25 Uni vers ne 25 mcg 0-13 mcg by ity of tablet 09:53: mouth [place] 24 every Medical morning. Branch rosuvastati 2021-05 Yes 20mg Take 20 mg Univers n 20 mg 0-13 by mouth ity of tablet 09:53: at [place] 24 bedtime. Medical Branch levothyroxi 2021-05 Yes 25ug Take 25 Uni vers ne 25 mcg 0-13 mcg by ity of tablet 09:53: mouth [place] 24 every Medical morning. Branch rosuvastati 2021-05 Yes 20mg Take 20 mg Univers n 20 mg 0-13 by mouth ity of tablet 09:53: at [place] 24 bedtime. Medical Branch levothyroxi 2021-05 Yes 25ug Take 25 Uni vers ne 25 mcg 0-13 mcg by ity of tablet 09:53: mouth [place] 24 every Medical morning. Branch rosuvastati 2021-05 Yes 20mg Take 20 mg Univers n 20 mg 0-13 by mouth ity of tablet 09:53: at [place] 24 bedtime. Medical Branch levothyroxi 2021-05 Yes 25ug Take 25 Uni vers ne 25 mcg 0-13 mcg by ity of tablet 09:53: mouth [place] 24 every Medical morning. Branch rosuvastati 2021-05 Yes 20mg Take 20 mg Univers n 20 mg 0-13 by mouth ity of tablet 09:53: at [place] 24 bedtime. Medical Branch levothyroxi 2021-05 Yes 25ug Take 25 Uni vers ne 25 mcg 0-13 mcg by ity of tablet 09:53: mouth [place] 24 every Medical morning. Branch rosuvastati 2021-05 Yes 20mg Take 20 mg Univers n 20 mg 0-13 by mouth ity of tablet 09:53: at [place] 24 bedtime. Medical Branch levothyroxi 2021-05 Yes 25ug Take 25 Uni vers ne 25 mcg 0-13 mcg by ity of tablet 09:53: mouth [place] 24 every Medical morning. Branch levothyroxi 2021-05 Yes 25ug Take 25 Uni vers ne 25 mcg 0-13 mcg by ity of tablet 09:53: mouth [place] 24 every Medical morning. Branch levothyroxi 2021-05 Yes 25ug Take 25 Uni vers ne 25 mcg 0-13 mcg by ity of tablet 09:53: mouth [place] 24 every Medical morning. Branch levothyroxi 2021-05 Yes 25ug Take 25 Uni vers ne 25 mcg 0-13 mcg by ity of tablet 09:53: mouth [place] 24 every Medical morning. Branch levothyroxi 2021-05 Yes 25ug Take 25 Uni vers ne 25 mcg 0-13 mcg by ity of tablet 09:53: mouth [place] 24 every Medical morning. Branch levothyroxi 2021-05 Yes 25ug Take 25 Uni vers ne 25 mcg 0-13 mcg by ity of tablet 09:53: mouth [place] 24 every Medical morning. Branch levothyroxi 2021-05 Yes 25ug Take 25 Uni vers ne 25 mcg 0-13 mcg by ity of tablet 09:53: mouth [place] 24 every Medical morning. Branch levothyroxi 2021-05 Yes 25ug Take 25 Uni vers ne 25 mcg 0-13 mcg by ity of tablet 09:53: mouth [place] 24 every Medical morning. Branch levothyroxi 2021-05 Yes 25ug Take 25 Uni vers ne 25 mcg 0-13 mcg by ity of tablet 09:53: mouth [place] 24 every Medical morning. Branch levothyroxi 2021-05 Yes 25ug Take 25 Uni vers ne 25 mcg 0-13 mcg by ity of tablet 09:53: mouth [place] 24 every Medical morning. Branch levothyroxi 2021-05 Yes 25ug Take 25 Uni vers ne 25 mcg 0-13 mcg by ity of tablet 09:53: mouth [place] 24 every Medical morning. Branch levothyroxi 2021-05 Yes 25ug Take 25 Uni vers ne 25 mcg 0-13 mcg by ity of tablet 09:53: mouth [place] 24 every Medical morning. Branch levothyroxi 2021-05 Yes 25ug Take 25 Uni vers ne 25 mcg 0-13 mcg by ity of tablet 09:53: mouth [place] 24 every Medical morning. Branch levothyroxi 2021-05 Yes 25ug Take 25 Uni vers ne 25 mcg 0-13 mcg by ity of tablet 09:53: mouth [place] 24 every Medical morning. Branch levothyroxi 2021-05 Yes 25ug Take 25 Uni vers ne 25 mcg 0-13 mcg by ity of tablet 09:53: mouth [place] 24 every Medical morning. Branch levothyroxi 2021-05 Yes 25ug Take 25 Uni vers ne 25 mcg 0-13 mcg by ity of tablet 09:53: mouth [place] 24 every Medical morning. Branch levothyroxi 2021-05 Yes 25ug Take 25 Uni vers ne 25 mcg 0-13 mcg by ity of tablet 09:53: mouth [place] 24 every Medical morning. Branch levothyroxi 2021-05 Yes 25ug Take 25 Uni vers ne 25 mcg 0-13 mcg by ity of tablet 09:53: mouth [place] 24 every Medical morning. Branch levothyroxi 2021-05 Yes 25ug Take 25 Uni vers ne 25 mcg 0-13 mcg by ity of tablet 09:53: mouth [place] 24 every Medical morning. Branch levothyroxi 2021-05 Yes 25ug Take 25 Uni vers ne 25 mcg 0-13 mcg by ity of tablet 09:53: mouth [place] 24 every Medical morning. Branch levothyroxi 2021-05 Yes 25ug Take 25 Uni vers ne 25 mcg 0-13 mcg by ity of tablet 09:53: mouth [place] 24 every Medical morning. Branch levothyroxi 2021-05 Yes 25ug Take 25 Uni vers ne 25 mcg 0-13 mcg by ity of tablet 09:53: mouth [place] 24 every Medical morning. Branch levothyroxi 2021-05 Yes 25ug Take 25 Uni vers ne 25 mcg 0-13 mcg by ity of tablet 09:53: mouth [place] 24 every Medical morning. Branch levothyroxi 2021-05 Yes 25ug Take 25 Uni vers ne 25 mcg 0-13 mcg by ity of tablet 09:53: mouth [place] 24 every Medical morning. Branch levothyroxi 2021-05 Yes 25ug Take 25 Uni vers ne 25 mcg 0-13 mcg by ity of tablet 09:53: mouth [place] 24 every Medical morning. Branch levothyroxi 2021-05 Yes 25ug Take 25 Uni vers ne 25 mcg 0-13 mcg by ity of tablet 09:53: mouth [place] 24 every Medical morning. Branch levothyroxi 2021-05 Yes 25ug Take 25 Uni vers ne 25 mcg 0-13 mcg by ity of tablet 09:53: mouth [place] 24 every Medical morning. Branch levothyroxi 2021-05 Yes 25ug Take 25 Uni vers ne 25 mcg 0-13 mcg by ity of tablet 09:53: mouth [place] 24 every Medical morning. Branch levothyroxi 2021-05 Yes 25ug Take 25 Uni vers ne 25 mcg 0-13 mcg by ity of tablet 09:53: mouth [place] 24 every Medical morning. Branch levothyroxi 2021-05 Yes 25ug Take 25 Uni vers ne 25 mcg 0-13 mcg by ity of tablet 09:53: mouth [place] 24 every Medical morning. Branch levothyroxi 2021-05 Yes 25ug Take 25 Uni vers ne 25 mcg 0-13 mcg by ity of tablet 09:53: mouth [place] 24 every Medical morning. Branch levothyroxi 2021-05 Yes 25ug Take 25 Uni vers ne 25 mcg 0-13 mcg by ity of tablet 09:53: mouth [place] 24 every Medical morning. Branch levothyroxi 2021-05 Yes 25ug Take 25 Uni vers ne 25 mcg 0-13 mcg by ity of tablet 09:53: mouth [place] 24 every Medical morning. Branch levothyroxi 2021- Yes 25ug Take 25 Uni vers ne 25 mcg 0-13 mcg by ity of tablet 09:53: mouth [place] 24 every Medical morning. Branch levothyroxi 2021-05 Yes 25ug Take 25 Uni vers ne 25 mcg 0-13 mcg by ity of tablet 09:53: mouth [place] 24 every Medical morning. Branch levothyroxi 2021-05 Yes 25ug Take 25 Uni vers ne 25 mcg 0-13 mcg by ity of tablet 09:53: mouth [place] 24 every Medical morning. Branch levothyroxi 2021-05 Yes 25ug Take 25 Uni vers ne 25 mcg 0-13 mcg by ity of tablet 09:53: mouth [place] 24 every Medical morning. Branch levothyroxi 2021-05 Yes 25ug Take 25 Uni vers ne 25 mcg 0-13 mcg by ity of tablet 09:53: mouth [place] 24 every Medical morning. Branch levothyroxi 2021-05 Yes 25ug Take 25 Uni vers ne 25 mcg 0-13 mcg by ity of tablet 09:53: mouth [place] 24 every Medical morning. Branch levothyroxi 2021-05 Yes 25ug Take 25 Uni vers ne 25 mcg 0-13 mcg by ity of tablet 09:53: mouth [place] 24 every Medical morning. Branch levothyroxi 2021-05 Yes 25ug Take 25 Uni vers ne 25 mcg 0-13 mcg by ity of tablet 09:53: mouth [place] 24 every Medical morning. Branch levothyroxi 2021-05 Yes 25ug Take 25 Uni vers ne 25 mcg 0-13 mcg by ity of tablet 09:53: mouth [place] 24 every Medical morning. Branch levothyroxi 2021-05 Yes 25ug Take 25 Uni vers ne 25 mcg 0-13 mcg by ity of tablet 09:53: mouth [place] 24 every Medical morning. Branch levothyroxi 2021-05 Yes 25ug Take 25 Uni vers ne 25 mcg 0-13 mcg by ity of tablet 09:53: mouth [place] 24 every Medical morning. Branch levothyroxi 2021-05 Yes 25ug Take 25 Uni vers ne 25 mcg 0-13 mcg by ity of tablet 09:53: mouth [place] 24 every Medical morning. Branch levothyroxi 2021-05 Yes 25ug Take 25 Uni vers ne 25 mcg 0-13 mcg by ity of tablet 09:53: mouth [place] 24 every Medical morning. Branch levothyroxi 2021-05 Yes 25ug Take 25 Uni vers ne 25 mcg 0-13 mcg by ity of tablet 09:53: mouth [place] 24 every Medical morning. Branch levothyroxi 2021-05 Yes 25ug Take 25 Uni vers ne 25 mcg 0-13 mcg by ity of tablet 09:53: mouth [place] 24 every Medical morning. Branch levothyroxi 2021-05 Yes 25ug Take 25 Uni vers ne 25 mcg 0-13 mcg by ity of tablet 09:53: mouth [place] 24 every Medical morning. Branch levothyroxi 2021-05 Yes 25ug Take 25 Uni vers ne 25 mcg 0-13 mcg by ity of tablet 09:53: mouth [place] 24 every Medical morning. Branch levothyroxi 2021-05 Yes 25ug Take 25 Uni vers ne 25 mcg 0-13 mcg by ity of tablet 09:53: mouth [place] 24 every Medical morning. Branch levothyroxi 2021-05 Yes 25ug Take 25 Uni vers ne 25 mcg 0-13 mcg by ity of tablet 09:53: mouth [place] 24 every Medical morning. Branch levothyroxi 2021-05 Yes 25ug Take 25 Uni vers ne 25 mcg 0-13 mcg by ity of tablet 09:53: mouth [place] 24 every Medical morning. Branch levothyroxi 2021-05 Yes 25ug Take 25 Uni vers ne 25 mcg 0-13 mcg by ity of tablet 09:53: mouth [place] 24 every Medical morning. Branch levothyroxi 2021-05 Yes 25ug Take 25 Uni vers ne 25 mcg 0-13 mcg by ity of tablet 09:53: mouth [place] 24 every Medical morning. Branch levothyroxi 2021-05 Yes 25ug Take 25 Uni vers ne 25 mcg 0-13 mcg by ity of tablet 09:53: mouth [place] 24 every Medical morning. Branch levothyroxi 2021-05 Yes 25ug Take 25 Uni vers ne 25 mcg 0-13 mcg by ity of tablet 09:53: mouth [place] 24 every Medical morning. Branch levothyroxi 2021-05 Yes 25ug Take 25 Uni vers ne 25 mcg 0-13 mcg by ity of tablet 09:53: mouth [place] 24 every Medical morning. Branch levothyroxi 2021-05 Yes 25ug Take 25 Uni vers ne 25 mcg 0-13 mcg by ity of tablet 09:53: mouth [place] 24 every Medical morning. Branch levothyroxi 2021-05 Yes 25ug Take 25 Uni vers ne 25 mcg 0-13 mcg by ity of tablet 09:53: mouth [place] 24 every Medical morning. Branch levothyroxi 2021-05 Yes 25ug Take 25 Uni vers ne 25 mcg 0-13 mcg by ity of tablet 09:53: mouth [place] 24 every Medical morning. Branch levothyroxi 2021-05 Yes 25ug Take 25 Uni vers ne 25 mcg 0-13 mcg by ity of tablet 09:53: mouth [place] 24 every Medical morning. Branch levothyroxi 2021-05 Yes 25ug Take 25 Uni vers ne 25 mcg 0-13 mcg by ity of tablet 09:53: mouth [place] 24 every Medical morning. Branch levothyroxi 2021-05 Yes 25ug Take 25 Uni vers ne 25 mcg 0-13 mcg by ity of tablet 09:53: mouth [place] 24 every Medical morning. Branch levothyroxi 2021-05 Yes 25ug Take 25 Uni vers ne 25 mcg 0-13 mcg by ity of tablet 09:53: mouth [place] 24 every Medical morning. Branch rosuvastati 2021- Yes 20mg Take 20 mg Univers n 20 mg 0-13 by mouth ity of tablet 09:53: at [place] 24 bedtime. Medical Branch levothyroxi 2021-05 Yes 25ug Take 25 Uni vers ne 25 mcg 0-13 mcg by ity of tablet 09:53: mouth [place] 24 every Medical morning. Branch rosuvastati 2021-05 Yes 20mg Take 20 mg Univers n 20 mg 0-13 by mouth ity of tablet 09:53: at [place] 24 bedtime. Medical Branch levothyroxi 2021-05 Yes 25ug Take 25 Uni vers ne 25 mcg 0-13 mcg by ity of tablet 09:53: mouth [place] 24 every Medical morning. Branch rosuvastati 2021-05 Yes 20mg Take 20 mg Univers n 20 mg 0-13 by mouth ity of tablet 09:53: at [place] 24 bedtime. Medical Branch levothyroxi 2021-05 Yes 25ug Take 25 Uni vers ne 25 mcg 0-13 mcg by ity of tablet 09:53: mouth [place] 24 every Medical morning. Branch rosuvastati 2021-05 Yes 20mg Take 20 mg Univers n 20 mg 0-13 by mouth ity of tablet 09:53: at [place] 24 bedtime. Medical Branch levothyroxi 2021-05 Yes 25ug Take 25 Uni vers ne 25 mcg 0-13 mcg by ity of tablet 09:53: mouth [place] 24 every Medical morning. Branch rosuvastati 2021-05 Yes 20mg Take 20 mg Univers n 20 mg 0-13 by mouth ity of tablet 09:53: at [place] 24 bedtime. Medical Branch levothyroxi 2021-05 Yes 25ug Take 25 Uni vers ne 25 mcg 0-13 mcg by ity of tablet 09:53: mouth [place] 24 every Medical morning. Branch rosuvastati 2021-05 Yes 20mg Take 20 mg Univers n 20 mg 0-13 by mouth ity of tablet 09:53: at [place] 24 bedtime. Medical Branch levothyroxi 2021-05 Yes 25ug Take 25 Uni vers ne 25 mcg 0-13 mcg by ity of tablet 09:53: mouth [place] 24 every Medical morning. Branch rosuvastati 2021-05 Yes 20mg Take 20 mg [facility] 20 mg 0-13 by mouth [facility] of tablet 09:53: at [place] 24 bedtime. [facility] levothyroxi 2021-05 Yes 25ug Take 25 [facility] vers ne 25 mcg 0-13 mcg by [facility] of tablet 09:53: mouth [place] 24 every Medical morning. Branch rosuvastati 2021-05 Yes 20mg Take 20 mg [facility] n 20 mg 0-13 by mouth [facility] of tablet 09:53: at [place] 24 bedtime. [facility] levothyroxi 2021-05 Yes 25ug Take 25 [facility] vers ne 25 mcg 0-13 mcg by [facility] of tablet 09:53: mouth [place] 24 every Medical morning. Branch rosuvastati 2021-05 Yes 20mg Take 20 mg [facility] n 20 mg 0-13 by mouth [facility] of tablet 09:53: at [place] 24 bedtime. [facility] levothyroxi 2021-05 Yes 25ug Take 25 [facility] vers ne 25 mcg 0-13 mcg by [facility] of tablet 09:53: mouth [place] 24 every Medical morning. Branch rosuvastati 2021-05 Yes 20mg Take 20 mg [facility] n 20 mg 0-13 by mouth [facility] of tablet 09:53: at [place] 24 bedtime. [facility] levothyroxi 2021-05 Yes 25ug Take 25 [facility] vers ne 25 mcg 0-13 mcg by [facility] of tablet 09:53: mouth [place] 24 every Medical morning. Branch rosuvastati 2021-05 Yes 20mg Take 20 mg [facility] n 20 mg 0-13 by mouth [facility] of tablet 09:53: at [place] 24 bedtime. [facility] levothyroxi 2021-05 Yes 25ug Take 25 [facility] vers ne 25 mcg 0-13 mcg by [facility]y of tablet 09:53: mouth [place] 24 every Medical morning. Branch rosuvastati 2021-05 Yes 20mg Take 20 mg [facility] n 20 mg 0-13 by mouth [facility]y of tablet 09:53: at [place] 24 bedtime. [facility] levothyroxi 2021-05 Yes 25ug Take 25 [facility] vers ne 25 mcg 0-13 mcg by [facility] of tablet 09:53: mouth [place] 24 every Medical morning. Branch rosuvastati 2021-05 Yes 20mg Take 20 mg [facility] n 20 mg 0-13 by mouth it[facility] of tablet 09:53: at [place] 24 bedtime. [facility] levothyroxi 2021-05 Yes 25ug Take 25 [facility] vers ne 25 mcg 0-13 mcg by [facility] of tablet 09:53: mouth [place] 24 every Medical morning. Branch rosuvastati 2021-05 Yes 20mg Take 20 mg [facility] n 20 mg 0-13 by mouth it[facility] of tablet 09:53: at [place] 24 bedtime. [facility] levothyroxi 2021-05 Yes 25ug Take 25 [facility] vers ne 25 mcg 0-13 mcg by [facility] of tablet 09:53: mouth [place] 24 every Medical morning. Branch rosuvastati 2021-05 Yes 20mg Take 20 mg [facility] n 20 mg 0-13 by mouth [facility] of tablet 09:53: at [place] 24 bedtime. [facility] levothyroxi 2021-05 Yes 25ug Take 25 [facility] vers ne 25 mcg 0-13 mcg by [facility] of tablet 09:53: mouth [place] 24 every Medical morning. Branch rosuvastati 2021-05 Yes 20mg Take 20 mg [facility] n 20 mg 0-13 by mouth it[facility] of tablet 09:53: at [place] 24 bedtime. [facility] levothyroxi 2021-05 Yes 25ug Take 25 [facility] vers ne 25 mcg 0-13 mcg by [facility] of tablet 09:53: mouth [place] 24 every Medical morning. Branch rosuvastati 2021-05 Yes 20mg Take 20 mg [facility] n 20 mg 0-13 by mouth [facility] of tablet 09:53: at [place] 24 bedtime. [facility] levothyroxi 2021-05 Yes 25ug Take 25 [facility] vers ne 25 mcg 0-13 mcg by [facility] of tablet 09:53: mouth [place] 24 every Medical morning. Branch rosuvastati 2021-05 Yes 20mg Take 20 mg [facility] n 20 mg 0-13 by mouth [facility] of tablet 09:53: at [place] 24 bedtime. [facility] levothyroxi 2021-05 Yes 25ug Take 25 [facility] vers ne 25 mcg 0-13 mcg by [facility] of tablet 09:53: mouth [place] 24 every Medical morning. Branch rosuvastati 2021-05 Yes 20mg Take 20 mg [facility] n 20 mg 0-13 by mouth it[facility] of tablet 09:53: at [place] 24 bedtime. [facility] Branch levothyroxi 2021-05 Yes 25ug Take 25 [facility] vers ne 25 mcg 0-13 mcg by [facility] of tablet 09:53: mouth [place] 24 every Medical morning. Branch amoxicillin 2021-05 Yes [id number] 500mg Take 1 [facility] -pot 0-13 tablet by [facility] of clavulanate 00:00: mouth in [place] 500 mg 00 the Medical (AUGMENTIN) morning Br[facility] h 500-125 mg and 1 tablet tablet at noon and 1 tablet in the evening. amoxicillin 2021-05 Yes [id number] 500mg Take 1 [facility] -pot 0-13 tablet by [facility] of clavulanate 00:00: mouth in [place] 500 mg 00 the Medical (AUGMENTIN) morning [facility] 500-125 mg and 1 tablet tablet at noon and 1 tablet in the evening. amoxicillin 2021-05 Yes [id number] 500mg Take 1 [facility] -pot 0-13 tablet by [facility] of clavulanate 00:00: mouth in [place] 500 mg 00 the Medical (AUGMENTIN) morning [facility] 500-125 mg and 1 tablet tablet at noon and 1 tablet in the evening. amoxicillin 2021-05 Yes [id number] 500mg Take 1 [facility] -pot 0-13 tablet by [facility]y of clavulanate 00:00: mouth in [place] 500 mg 00 the Medical (AUGMENTIN) morning [facility] 500-125 mg and 1 tablet tablet at noon and 1 tablet in the evening. amoxicillin 2021-05 Yes [id number] 500mg Take 1 [facility] -pot 0-13 tablet by [facility] of clavulanate 00:00: mouth in [place] 500 mg 00 the Medical (AUGMENTIN) morning [facility] 500-125 mg and 1 tablet tablet at noon and 1 tablet in the evening. amoxicillin 2021-05 Yes [id number] 500mg Take 1 [facility] -pot 0-13 tablet by [facility] of clavulanate 00:00: mouth in [place] 500 mg 00 the Medical (AUGMENTIN) morning [facility] 500-125 mg and 1 tablet tablet at noon and 1 tablet in the evening. amoxicillin 2021-05 Yes [id number] 500mg Take 1 [facility] -pot 0-13 tablet by [facility] of clavulanate 00:00: mouth in [place] 500 mg 00 the Medical (AUGMENTIN) morning Br[facility] 500-125 mg and 1 tablet tablet at noon and 1 tablet in the evening. amoxicillin 2021-05 Yes [id number] 500mg Take 1 [facility] -pot 0-13 tablet by [facility] of clavulanate 00:00: mouth in [place] 500 mg 00 the Medical (AUGMENTIN) morning Br[facility] 500-125 mg and 1 tablet tablet at noon and 1 tablet in the evening. amoxicillin 2021-05 Yes [id number] 500mg Take 1 [facility] -pot 0-13 tablet by [facility] of clavulanate 00:00: mouth in [place] 500 mg 00 the Medical (AUGMENTIN) morning [facility] 500-125 mg and 1 tablet tablet at noon and 1 tablet in the evening. amoxicillin 2021-05 Yes [id number] 500mg Take 1 [facility] -pot 0-13 tablet by [facility] of clavulanate 00:00: mouth in [place] 500 mg 00 the Medical (AUGMENTIN) morning [facility] 500-125 mg and 1 tablet tablet at noon and 1 tablet in the evening. amoxicillin 2021-05 Yes [id number] 500mg Take 1 [facility] -pot 0-13 tablet by [facility] of clavulanate 00:00: mouth in [place] 500 mg 00 the Medical (AUGMENTIN) morning [facility] 500-125 mg and 1 tablet tablet at noon and 1 tablet in the evening. amoxicillin 2021-05 Yes [id number] 500mg Take 1 [facility] -pot 0-13 tablet by [facility] of clavulanate 00:00: mouth in [place] 500 mg 00 the Medical (AUGMENTIN) morning [facility] 500-125 mg and 1 tablet tablet at noon and 1 tablet in the evening. amoxicillin 2021-05 Yes [id number] 500mg Take 1 [facility] -pot 0-13 tablet by [facility] of clavulanate 00:00: mouth in [place] 500 mg 00 the Medical (AUGMENTIN) morning Br[facility] 500-125 mg and 1 tablet tablet at noon and 1 tablet in the evening. amoxicillin 2021-05 Yes [id number] 500mg Take 1 [facility] -pot 0-13 tablet by [facility] of clavulanate 00:00: mouth in [place] 500 mg 00 the Medical (AUGMENTIN) morning [facility] 500-125 mg and 1 tablet tablet at noon and 1 tablet in the evening. amoxicillin 2021-05 Yes [id number] 500mg Take 1 [facility] -pot 0-13 tablet by [facility] of clavulanate 00:00: mouth in [place] 500 mg 00 the Medical (AUGMENTIN) morning [facility] 500-125 mg and 1 tablet tablet at noon and 1 tablet in the evening. amoxicillin 2021-05 Yes [id number] 500mg Take 1 [facility] -pot 0-13 tablet by [facility] of clavulanate 00:00: mouth in [place] 500 mg 00 the Medical (AUGMENTIN) morning [facility] 500-125 mg and 1 tablet tablet at noon and 1 tablet in the evening. amoxicillin 2021-05 Yes [id number] 500mg Take 1 [facility] -pot 0-13 tablet by [facility] of clavulanate 00:00: mouth in [place] 500 mg 00 the Medical (AUGMENTIN) morning [facility] 500-125 mg and 1 tablet tablet at noon and 1 tablet in the evening. amoxicillin 2021-05 Yes [id number] 500mg Take 1 [facility] -pot 0-13 tablet by [facility] of clavulanate 00:00: mouth in [place] 500 mg 00 the Medical (AUGMENTIN) morning [facility] 500-125 mg and 1 tablet tablet at noon and 1 tablet in the evening. amoxicillin 2021-05 Yes [id number] 500mg Take 1 [facility] -pot 0-13 tablet by [facility] of clavulanate 00:00: mouth in [place] 500 mg 00 the Medical (AUGMENTIN) morning [facility] 500-125 mg and 1 tablet tablet at noon and 1 tablet in the evening. amoxicillin 2021-05 Yes [id number] 500mg Take 1 [facility] -pot 0-13 tablet by [facility] of clavulanate 00:00: mouth in [place] 500 mg 00 the Medical (AUGMENTIN) morning [facility] 500-125 mg and 1 tablet tablet at noon and 1 tablet in the evening. amoxicillin 2021-05 Yes [id number] 500mg Take 1 [facility] -pot 0-13 tablet by [facility] of clavulanate 00:00: mouth in [place] 500 mg 00 the Medical (AUGMENTIN) morning [facility] 500-125 mg and 1 tablet tablet at noon and 1 tablet in the evening. amoxicillin 2021-05 Yes [id number] 500mg Take 1 [facility] -pot 0-13 tablet by [facility] of clavulanate 00:00: mouth in [place] 500 mg 00 the Medical (AUGMENTIN) morning [facility] 500-125 mg and 1 tablet tablet at noon and 1 tablet in the evening. amoxicillin 2021-05 Yes [id number] 500mg Take 1 [facility] -pot 0-13 tablet by [facility] of clavulanate 00:00: mouth in [place] 500 mg 00 the Medical (AUGMENTIN) morning [facility] 500-125 mg and 1 tablet tablet at noon and 1 tablet in the evening. amoxicillin 2021-05 Yes [id number] 500mg Take 1 [facility] -pot 0-13 tablet by [facility] of clavulanate 00:00: mouth in [place] 500 mg 00 the Medical (AUGMENTIN) morning [facility] 500-125 mg and 1 tablet tablet at noon and 1 tablet in the evening. amoxicillin 2021-05 Yes [id number] 500mg Take 1 [facility] -pot 0-13 tablet by [facility] of clavulanate 00:00: mouth in [place] 500 mg 00 the Medical (AUGMENTIN) morning Br[facility] 500-125 mg and 1 tablet tablet at noon and 1 tablet in the evening. amoxicillin 2021-05 Yes [id number] 500mg Take 1 [facility] -pot 0-13 tablet by [facility] of clavulanate 00:00: mouth in [place] 500 mg 00 the Medical (AUGMENTIN) morning [facility] 500-125 mg and 1 tablet tablet at noon and 1 tablet in the evening. amoxicillin 2021-05 Yes [id number] 500mg Take 1 [facility] -pot 0-13 tablet by [facility] of clavulanate 00:00: mouth in [place] 500 mg 00 the Medical (AUGMENTIN) morning [facility] 500-125 mg and 1 tablet tablet at noon and 1 tablet in the evening. amoxicillin 2021-05 Yes [id number] 500mg Take 1 [facility] -pot 0-13 tablet by [facility] of clavulanate 00:00: mouth in [place] 500 mg 00 the Medical (AUGMENTIN) morning [facility] 500-125 mg and 1 tablet tablet at noon and 1 tablet in the evening. amoxicillin 2021-05 Yes [id number] 500mg Take 1 [facility] -pot 0-13 tablet by [facility] of clavulanate 00:00: mouth in [place] 500 mg 00 the Medical (AUGMENTIN) morning Br[facility] 500-125 mg and 1 tablet tablet at noon and 1 tablet in the evening. amoxicillin 2021-05 Yes [id number] 500mg Take 1 [facility] -pot 0-13 tablet by [facility] of clavulanate 00:00: mouth in [place] 500 mg 00 the Medical (AUGMENTIN) morning [facility] 500-125 mg and 1 tablet tablet at noon and 1 tablet in the evening. amoxicillin 2021-05 Yes [id number] 500mg Take 1 [facility] -pot 0-13 tablet by [facility] of clavulanate 00:00: mouth in [place] 500 mg 00 the Medical (AUGMENTIN) morning [facility] 500-125 mg and 1 tablet tablet at noon and 1 tablet in the evening. amoxicillin 2021-05 Yes [id number] 500mg Take 1 [facility] -pot 0-13 tablet by it[facility] of clavulanate 00:00: mouth in [place] 500 mg 00 the Medical (AUGMENTIN) morning [facility] 500-125 mg and 1 tablet tablet at noon and 1 tablet in the evening. amoxicillin 2021-05 Yes [id number] 500mg Take 1 [facility] -pot 0-13 tablet by [facility] of clavulanate 00:00: mouth in [place] 500 mg 00 the Medical (AUGMENTIN) morning [facility] 500-125 mg and 1 tablet tablet at noon and 1 tablet in the evening. amoxicillin 2021-05 Yes [id number] 500mg Take 1 [facility] -pot 0-13 tablet by ity of clavulanate 00:00: mouth in [place] 500 mg 00 the Medical (AUGMENTIN) morning [facility] 500-125 mg and 1 tablet tablet at noon and 1 tablet in the evening. amoxicillin 2021-05 Yes [id number] 500mg Take 1 [facility] -pot 0-13 tablet by it[facility] of clavulanate 00:00: mouth in [place] 500 mg 00 the Medical (AUGMENTIN) morning [facility] 500-125 mg and 1 tablet tablet at noon and 1 tablet in the evening. amoxicillin 2021-05 Yes [id number] 500mg Take 1 [facility] -pot 0-13 tablet by [facility] of clavulanate 00:00: mouth in [place] 500 mg 00 the Medical (AUGMENTIN) morning Br[facility] 500-125 mg and 1 tablet tablet at noon and 1 tablet in the evening. amoxicillin 2021-05 Yes [id number] 500mg Take 1 [facility] -pot 0-13 tablet by it[facility] of clavulanate 00:00: mouth in [place] 500 mg 00 the Medical (AUGMENTIN) morning [facility] 500-125 mg and 1 tablet tablet at noon and 1 tablet in the evening. amoxicillin 2021-05 Yes [id number] 500mg Take 1 [facility] -pot 0-13 tablet by it[facility] of clavulanate 00:00: mouth in [place] 500 mg 00 the Medical (AUGMENTIN) morning [facility] 500-125 mg and 1 tablet tablet at noon and 1 tablet in the evening. amoxicillin 2021-05 Yes [id number] 500mg Take 1 [facility] -pot 0-13 tablet by it[facility] of clavulanate 00:00: mouth in [place] 500 mg 00 the Medical (AUGMENTIN) morning Br[facility] 500-125 mg and 1 tablet tablet at noon and 1 tablet in the evening. amoxicillin 2021-05 Yes [id number] 500mg Take 1 [facility] -pot 0-13 tablet by it[facility] of clavulanate 00:00: mouth in [place] 500 mg 00 the Medical (AUGMENTIN) morning Br[facility] 500-125 mg and 1 tablet tablet at noon and 1 tablet in the evening. amoxicillin 2021-05 Yes [id number] 500mg Take 1 [facility] -pot 0-13 tablet by it[facility] of clavulanate 00:00: mouth in [place] 500 mg 00 the Medical (AUGMENTIN) morning [facility] 500-125 mg and 1 tablet tablet at noon and 1 tablet in the evening. amoxicillin 2021-05 Yes [id number] 500mg Take 1 [facility] -pot 0-13 tablet by [facility] of clavulanate 00:00: mouth in [place] 500 mg 00 the Medical (AUGMENTIN) morning [facility] 500-125 mg and 1 tablet tablet at noon and 1 tablet in the evening. amoxicillin 2021-05 Yes [id number] 500mg Take 1 [facility] -pot 0-13 tablet by it[facility] of clavulanate 00:00: mouth in [place] 500 mg 00 the Medical (AUGMENTIN) morning [facility] 500-125 mg and 1 tablet tablet at noon and 1 tablet in the evening. amoxicillin 2021-05 Yes [id number] 500mg Take 1 [facility] -pot 0-13 tablet by [facility] of clavulanate 00:00: mouth in [place] 500 mg 00 the Medical (AUGMENTIN) morning [facility] 500-125 mg and 1 tablet tablet at noon and 1 tablet in the evening. amoxicillin 2021-05 Yes [id number] 500mg Take 1 [facility] -pot 0-13 tablet by it[facility] of clavulanate 00:00: mouth in [place] 500 mg 00 the Medical (AUGMENTIN) morning Br[facility] 500-125 mg and 1 tablet tablet at noon and 1 tablet in the evening. amoxicillin 2021-05 Yes [id number] 500mg Take 1 [facility] -pot 0-13 tablet by [facility] of clavulanate 00:00: mouth in [place] 500 mg 00 the Medical (AUGMENTIN) morning Br[facility] 500-125 mg and 1 tablet tablet at noon and 1 tablet in the evening. amoxicillin 2021-05 Yes [id number] 500mg Take 1 [facility] -pot 0-13 tablet by [facility] of clavulanate 00:00: mouth in [place] 500 mg 00 the Medical (AUGMENTIN) morning [facility] 500-125 mg and 1 tablet tablet at noon and 1 tablet in the evening. amoxicillin 2021-05 Yes [id number] 500mg Take 1 [facility] -pot 0-13 tablet by ity of clavulanate 00:00: mouth in [place] 500 mg 00 the Medical (AUGMENTIN) morning [facility] 500-125 mg and 1 tablet tablet at noon and 1 tablet in the evening. amoxicillin 2021-05 Yes [id number] 500mg Take 1 [facility] -pot 0-13 tablet by [facility] of clavulanate 00:00: mouth in [place] 500 mg 00 the Medical (AUGMENTIN) morning Br[facility] 500-125 mg and 1 tablet tablet at noon and 1 tablet in the evening. amoxicillin 2021-05 Yes [id number] 500mg Take 1 [facility] -pot 0-13 tablet by ity of clavulanate 00:00: mouth in [place] 500 mg 00 the Medical (AUGMENTIN) morning Br[facility] 500-125 mg and 1 tablet tablet at noon and 1 tablet in the evening. amoxicillin 2021-05 Yes [id number] 500mg Take 1 [facility] -pot 0-13 tablet by [facility] of clavulanate 00:00: mouth in [place] 500 mg 00 the Medical (AUGMENTIN) morning Br[facility] 500-125 mg and 1 tablet tablet at noon and 1 tablet in the evening. amoxicillin 2021-05 Yes [id number] 500mg Take 1 [facility] -pot 0-13 tablet by it[facility] of clavulanate 00:00: mouth in [place] 500 mg 00 the Medical (AUGMENTIN) morning Br[facility] 500-125 mg and 1 tablet tablet at noon and 1 tablet in the evening. amoxicillin 2021-05 Yes [id number] 500mg Take 1 [facility] -pot 0-13 tablet by [facility] of clavulanate 00:00: mouth in [place] 500 mg 00 the Medical (AUGMENTIN) morning [facility] 500-125 mg and 1 tablet tablet at noon and 1 tablet in the evening. amoxicillin 2021-05 Yes [id number] 500mg Take 1 [facility] -pot 0-13 tablet by [facility] of clavulanate 00:00: mouth in [place] 500 mg 00 the Medical (AUGMENTIN) morning [facility] 500-125 mg and 1 tablet tablet at noon and 1 tablet in the evening. amoxicillin 2021-05 Yes [id number] 500mg Take 1 [facility] -pot 0-13 tablet by ity of clavulanate 00:00: mouth in [place] 500 mg 00 the Medical (AUGMENTIN) morning [facility] 500-125 mg and 1 tablet tablet at noon and 1 tablet in the evening. amoxicillin 2021-05 Yes [id number] 500mg Take 1 [facility] -pot 0-13 tablet by [facility] of clavulanate 00:00: mouth in [place] 500 mg 00 the Medical (AUGMENTIN) morning Br[facility] 500-125 mg and 1 tablet tablet at noon and 1 tablet in the evening. amoxicillin 2021-05 Yes [id number] 500mg Take 1 [facility] -pot 0-13 tablet by [facility]y of clavulanate 00:00: mouth in [place] 500 mg 00 the Medical (AUGMENTIN) morning Br[facility] 500-125 mg and 1 tablet tablet at noon and 1 tablet in the evening. amoxicillin 2021-05 Yes [id number] 500mg Take 1 [facility] -pot 0-13 tablet by [facility]y of clavulanate 00:00: mouth in [place] 500 mg 00 the Medical (AUGMENTIN) morning Br[facility] 500-125 mg and 1 tablet tablet at noon and 1 tablet in the evening. amoxicillin 2021-05 Yes [id number] 500mg Take 1 [facility] -pot 0-13 tablet by [facility] of clavulanate 00:00: mouth in [place] 500 mg 00 the Medical (AUGMENTIN) morning [facility] 500-125 mg and 1 tablet tablet at noon and 1 tablet in the evening. amoxicillin 2021-05 Yes [id number] 500mg Take 1 [facility] -pot 0-13 tablet by [facility] of clavulanate 00:00: mouth in [place] 500 mg 00 the Medical (AUGMENTIN) morning Br[facility] 500-125 mg and 1 tablet tablet at noon and 1 tablet in the evening. amoxicillin 2021-05 Yes [id number] 500mg Take 1 [facility] -pot 0-13 tablet by [facility] of clavulanate 00:00: mouth in [place] 500 mg 00 the Medical (AUGMENTIN) morning Br[facility] 500-125 mg and 1 tablet tablet at noon and 1 tablet in the evening. amoxicillin 2021-05 Yes [id number] 500mg Take 1 [facility] -pot 0-13 tablet by [facility] of clavulanate 00:00: mouth in [place] 500 mg 00 the Medical (AUGMENTIN) morning Br[facility] 500-125 mg and 1 tablet tablet at noon and 1 tablet in the evening. amoxicillin 2021-05 Yes [id number] 500mg Take 1 [facility] -pot 0-13 tablet by [facility] of clavulanate 00:00: mouth in [place] 500 mg 00 the Medical (AUGMENTIN) morning Br[facility] 500-125 mg and 1 tablet tablet at noon and 1 tablet in the evening. amoxicillin 2021-05 Yes [id number] 500mg Take 1 [facility] -pot 0-13 tablet by [facility] of clavulanate 00:00: mouth in [place] 500 mg 00 the Medical (AUGMENTIN) morning [facility] 500-125 mg and 1 tablet tablet at noon and 1 tablet in the evening. amoxicillin 2021-05 Yes [id number] 500mg Take 1 [facility] -pot 0-13 tablet by [facility] of clavulanate 00:00: mouth in [place] 500 mg 00 the Medical (AUGMENTIN) morning Br[facility] 500-125 mg and 1 tablet tablet at noon and 1 tablet in the evening. amoxicillin 2021-05 Yes [id number] 500mg Take 1 [facility] -pot 0-13 tablet by [facility] of clavulanate 00:00: mouth in [place] 500 mg 00 the Medical (AUGMENTIN) morning [facility] 500-125 mg and 1 tablet tablet at noon and 1 tablet in the evening. amoxicillin 2021-05 Yes [id number] 500mg Take 1 [facility] -pot 0-13 tablet by [facility] of clavulanate 00:00: mouth in [place] 500 mg 00 the Medical (AUGMENTIN) morning [facility] 500-125 mg and 1 tablet tablet at noon and 1 tablet in the evening. amoxicillin 2021-05 Yes [id number] 500mg Take 1 [facility] -pot 0-13 tablet by [facility] of clavulanate 00:00: mouth in [place] 500 mg 00 the Medical (AUGMENTIN) morning [facility] 500-125 mg and 1 tablet tablet at noon and 1 tablet in the evening. amoxicillin 2021-05 Yes [id number] 500mg Take 1 [facility] -pot 0-13 tablet by [facility] of clavulanate 00:00: mouth in [place] 500 mg 00 the Medical (AUGMENTIN) morning Br[facility] 500-125 mg and 1 tablet tablet at noon and 1 tablet in the evening. amoxicillin 2021-05 Yes [id number] 500mg Take 1 [facility] -pot 0-13 tablet by [facility] of clavulanate 00:00: mouth in [place] 500 mg 00 the Medical (AUGMENTIN) morning Br[facility] 500-125 mg and 1 tablet tablet at noon and 1 tablet in the evening. amoxicillin 2021-05 Yes [id number] 500mg Take 1 [facility] -pot 0-13 tablet by [facility] of clavulanate 00:00: mouth in [place] 500 mg 00 the Medical (AUGMENTIN) morning Br[facility] 500-125 mg and 1 tablet tablet at noon and 1 tablet in the evening. amoxicillin 2021-05 Yes [id number] 500mg Take 1 [facility] -pot 0-13 tablet by [facility] of clavulanate 00:00: mouth in [place] 500 mg 00 the Medical (AUGMENTIN) morning Br[facility] 500-125 mg and 1 tablet tablet at noon and 1 tablet in the evening. amoxicillin 2021-05 Yes [id number] 500mg Take 1 [facility] -pot 0-13 tablet by [facility] of clavulanate 00:00: mouth in [place] 500 mg 00 the Medical (AUGMENTIN) morning Br[facility] 500-125 mg and 1 tablet tablet at noon and 1 tablet in the evening. amoxicillin 2021-05 Yes [id number] 500mg Take 1 [facility] -pot 0-13 tablet by [facility] of clavulanate 00:00: mouth in [place] 500 mg 00 the Medical (AUGMENTIN) morning Br[facility] 500-125 mg and 1 tablet tablet at noon and 1 tablet in the evening. amoxicillin 2021-05 Yes [id number] 500mg Take 1 [facility] -pot 0-13 tablet by [facility] of clavulanate 00:00: mouth in [place] 500 mg 00 the Medical (AUGMENTIN) morning Br[facility] 500-125 mg and 1 tablet tablet at noon and 1 tablet in the evening. amoxicillin 2021-05 Yes [id number] 500mg Take 1 [facility] -pot 0-13 tablet by [facility] of clavulanate 00:00: mouth in [place] 500 mg 00 the Medical (AUGMENTIN) morning Br[facility] h 500-125 mg and 1 tablet tablet at noon and 1 tablet in the evening. amoxicillin 2021-05 Yes [id number] 500mg Take 1 [facility] -pot 0-13 tablet by [facility] of clavulanate 00:00: mouth in [place] 500 mg 00 the Medical (AUGMENTIN) morning Br[facility] 500-125 mg and 1 tablet tablet at noon and 1 tablet in the evening. amoxicillin 2021-05 Yes [id number] 500mg Take 1 [facility] -pot 0-13 tablet by [facility] of clavulanate 00:00: mouth in [place] 500 mg 00 the Medical (AUGMENTIN) morning Br[facility] h 500-125 mg and 1 tablet tablet at noon and 1 tablet in the evening. amoxicillin 2021-05- No [id number] 500mg Take 1 [facility] -pot 0-13 01-17 tablet by [facility] of clavulanate 00:00: 00:00 mouth in [place] 500 mg 00 :00 the Medical (AUGMENTIN) morning Branc h 500-125 mg and 1 tablet tablet at noon and 1 tablet in the evening. amoxicillin 2021-05- No [id number] 500mg Take 1 [facility] -pot 0-13 01-17 tablet by [facility] of clavulanate 00:00: 00:00 mouth in [place] 500 mg 00 :00 the Medical (AUGMENTIN) morning Br[facility] 500-125 mg and 1 tablet tablet at noon and 1 tablet in the evening. Blood-Gluco 2021-05 Yes [id number] Use BID [facility] se Meter 0-06 [facility] of (BLOOD 00:00: [place] GLUCOSE 00 Medical MONITORING) Branch Kit Blood-Gluco 2021-05 Yes [id number] Use BID [facility] se Meter 0-06 ity of (BLOOD 00:00: [place] GLUCOSE 00 Medical MONITORING) Branch Kit Blood-Gluco 2021-05 Yes [id number] Use BID [facility] se Meter 0-06 ity of (BLOOD 00:00: [place] GLUCOSE 00 Medical MONITORING) Branch Kit Blood-Gluco 2021-05 Yes [id number] Use BID [facility] se Meter 0-06 ity of (BLOOD 00:00: [place] GLUCOSE 00 Medical MONITORING) Branch Kit Blood-Gluco 2021-05 Yes [id number] Use BID [facility] se Meter 0-06 ity of (BLOOD 00:00: [place] GLUCOSE 00 Medical MONITORING) Branch Kit Blood-Gluco 2021-05 Yes [id number] Use BID [facility] se Meter 0-06 ity of (BLOOD 00:00: [place] GLUCOSE 00 Medical MONITORING) Branch Kit Blood-Gluco 2021-05 Yes [id number] Use BID [facility] se Meter 0-06 ity of (BLOOD 00:00: [place] GLUCOSE 00 Medical MONITORING) Branch Kit Blood-Gluco 2021-05 Yes [id number] Use BID [facility] se Meter 0-06 ity of (BLOOD 00:00: [place] GLUCOSE 00 Medical MONITORING) Branch Kit Blood-Gluco 2021-05 Yes [id number] Use BID [facility] se Meter 0-06 ity of (BLOOD 00:00: [place] GLUCOSE 00 Medical MONITORING) Branch Kit Blood-Gluco 2021-05 Yes [id number] Use BID [facility] se Meter 0-06 ity of (BLOOD 00:00: [place] GLUCOSE 00 Medical MONITORING) Branch Kit Blood-Gluco 2021-05 Yes [id number] Use BID [facility] se Meter 0-06 ity of (BLOOD 00:00: [place] GLUCOSE 00 Medical MONITORING) Branch Kit Blood-Gluco 2021-05 Yes [id number] Use BID [facility] se Meter 0-06 ity of (BLOOD 00:00: [place] GLUCOSE 00 Medical MONITORING) Branch Kit Blood-Gluco 2021-05 Yes [id number] Use BID [facility] se Meter 0-06 ity of (BLOOD 00:00: [place] GLUCOSE 00 Medical MONITORING) Branch Kit Blood-Gluco 2021-05 Yes [id number] Use BID [facility] se Meter 0-06 ity of (BLOOD 00:00: [place] GLUCOSE 00 Medical MONITORING) Branch Kit Blood-Gluco 2021-05 Yes [id number] [facility] (BLOOD 00:00: [place] [facility] 00 [facility] MONITORING) [facility] Kit Blood-Gluco 2021-05 Yes [id number] [facility] (BLOOD 00:00: [place] [facility] 00 Medical MONITORING) [facility] Blood-Gluco 2021-05 Yes [id number] Use [facility] (BLOOD 00:00: [place] [facility] 00 Medical MONITORING) [facility] Kit Blood-Gluco 2021-05 Yes [id number] Use [facility] of (BLOOD 00:00: [place] [facility] 00 Medical MONITORING) [facility] Kit Blood-Gluco 2021-05 Yes [id number] Use [facility] of (BLOOD 00:00: [place] [facility] 00 Medical MONITORING) [facility] Kit Blood-Gluco 2021-05 Yes [id number] Use [facility] of (BLOOD 00:00: [place] [facility] 00 Medical MONITORING) [facility] Kit Blood-Gluco 2021-05 Yes [id number] Use [facility] (BLOOD 00:00: [place] [facility] 00 Medical MONITORING) [facility] Kit Blood-Gluco 2021-05 Yes [id number] Use [facility] of (BLOOD 00:00: [place] [facility] 00 Medical MONITORING) [facility] Kit Blood-Gluco 2021-05 Yes [id number] Use [facility] of (BLOOD 00:00: [place] [facility] 00 Medical MONITORING) [facility] Kit Blood-Gluco 2021-05 Yes [id number] Use [facility] of (BLOOD 00:00: [place] [facility] 00 Medical MONITORING) [facility] Kit Blood-Gluco 2021-05 Yes [id number] Use [facility] of (BLOOD 00:00: [place] [facility] 00 Medical MONITORING) [facility] Kit Blood-Gluco 2021-05 Yes [id number] Use [facility] of (BLOOD 00:00: [place] [facility] 00 Medical MONITORING) [facility] Kit Blood-Gluco 2021-05 Yes [id number] Use [facility] of (BLOOD 00:00: [place] [facility] 00 Medical MONITORING) [facility] Kit Blood-Gluco 2021-05 Yes [id number] Use [facility] of (BLOOD 00:00: [place] [facility] 00 Medical MONITORING) [facility] Kit Blood-Gluco 2021-05 Yes [id number] Use [facility] of (BLOOD 00:00: [place] [facility] 00 Medical MONITORING) [facility] Kit Blood-Gluco 2021- Yes [id number] Use [facility] of (BLOOD 00:00: [place] [facility] 00 Medical MONITORING) [facility] Kit Blood-Gluco 2021- Yes [id number] Use [facility] of (BLOOD 00:00: [place] [facility] 00 Medical MONITORING) [facility] Kit Blood-Gluco 2021-05 Yes [id number] Use [facility] of (BLOOD 00:00: [place] [facility]UCO[facility] 00 Medical MONITORING) [facility] Kit Blood-Gluco 2021-05 Yes [id number] Use [facility] of (BLOOD 00:00: [place] [facility]UCOSE 00 Medical MONITORING) [facility] Kit Blood-Gluco 2021-05 Yes [id number] Use [facility] of (BLOOD 00:00: [place] [facility]UCOSE 00 Medical MONITORING) [facility] Kit Blood-Gluco 2021-05 Yes [id number] Use [facility] of (BLOOD 00:00: [place] [facility]UCOSE 00 Medical MONITORING) [facility] Kit Blood-Gluco 2021-05 Yes [id number] Use [facility] of (BLOOD 00:00: [place] [facility]UCOSE 00 Medical MONITORING) [facility] Kit Blood-Gluco 2021-05 Yes [id number] Use [facility] of (BLOOD 00:00: [place] [facility]UCO[facility] 00 Medical MONITORING) [facility] Kit Blood-Gluco 2021-05 Yes [id number] Use [facility] of (BLOOD 00:00: [place] [facility]UCO[facility] 00 Medical MONITORING) [facility] Kit Blood-Gluco 2021-05 Yes [id number] Use [facility] of (BLOOD 00:00: [place] [facility]UCO[facility] 00 Medical MONITORING) [facility] Kit Blood-Gluco 2021-05 Yes [id number] Use [facility] of (BLOOD 00:00: [place] [facility]UCO[facility] 00 Medical MONITORING) [facility] Kit Blood-Gluco 2021-05 Yes [id number] Use [facility] of (BLOOD 00:00: [place] [facility]UCOSE 00 Medical MONITORING) [facility] Kit Blood-Gluco 2021-05 Yes [id number] Use [facility] of (BLOOD 00:00: [place] [facility]UCO[facility] 00 Medical MONITORING) [facility] Kit Blood-Gluco 2021-05 Yes [id number] Use [facility] of (BLOOD 00:00: [place] [facility]UCO[facility] 00 Medical MONITORING) [facility] Kit Blood-Gluco 2021-05 Yes [id number] Use [facility] of (BLOOD 00:00: [place] [facility]UCO[facility] 00 Medical MONITORING) [facility] Kit Blood-Gluco 2021-05 Yes [id number] Use [facility] of (BLOOD 00:00: [place] [facility]UCOSE 00 Medical MONITORING) [facility] Kit Blood-Gluco 2021-05 Yes [id number] Use [facility] of (BLOOD 00:00: [place] [facility]UCOSE 00 Medical MONITORING) [facility] Kit Blood-Gluco 2021-05 Yes [id number] Use [facility] of (BLOOD 00:00: [place] [facility]UCO[facility] 00 Medical MONITORING) [facility] Kit Blood-Gluco 2021-05 Yes [id number] Use [facility] of (BLOOD 00:00: [place] [facility] 00 Medical MONITORING) [facility] Kit Blood-Gluco 2021-05 Yes [id number] Use [facility] of (BLOOD 00:00: [place] [facility] 00 Medical MONITORING) [facility] Kit Blood-Gluco 2021-05 Yes [id number] Use [facility] of (BLOOD 00:00: [place] [facility] 00 Medical MONITORING) [facility] Kit Blood-Gluco 2021-05 Yes [id number] Use [facility] of (BLOOD 00:00: [place] [facility]UCO[facility] 00 Medical MONITORING) [facility] Kit Blood-Gluco 2021-05 Yes [id number] Use [facility] of (BLOOD 00:00: [place] [facility]UCO[facility] 00 Medical MONITORING) [facility] Kit Blood-Gluco 2021-05 Yes [id number] Use [facility] of (BLOOD 00:00: [place] [facility]UCO[facility] 00 Medical MONITORING) [facility] Kit Blood-Gluco 2021-05 Yes [id number] Use [facility] of (BLOOD 00:00: [place] [facility] 00 Medical MONITORING) [facility] Kit Blood-Gluco 2021-05 Yes [id number] Use [facility] of (BLOOD 00:00: [place] [facility] 00 Medical MONITORING) [facility] Kit Blood-Gluco 2021-05 Yes [id number] Use [facility] of (BLOOD 00:00: [place] [facility]UCO[facility] 00 Medical MONITORING) [facility] Kit Blood-Gluco 2021-05 Yes [id number] Use [facility] of (BLOOD 00:00: [place] [facility]UCO[facility] 00 Medical MONITORING) [facility] Kit Blood-Gluco 2021-05 Yes [id number] Use [facility] of (BLOOD 00:00: [place] [facility]UCO[facility] 00 Medical MONITORING) [facility] Kit Blood-Gluco 2021-05 Yes [id number] Use [facility] of (BLOOD 00:00: [place] [facility]UCO[facility] 00 Medical MONITORING) [facility] Kit Blood-Gluco 2021-05 Yes [id number] Use [facility] of (BLOOD 00:00: [place] [facility]UCO[facility] 00 Medical MONITORING) [facility] Kit Blood-Gluco 2021-05 Yes [id number] Use [facility] of (BLOOD 00:00: [place] [facility] 00 Medical MONITORING) [facility] Kit Blood-Gluco 2021-05 Yes [id number] Use [facility] of (BLOOD 00:00: [place] [facility]UCO[facility] 00 Medical MONITORING) [facility] Kit Blood-Gluco 2021-05 Yes [id number] Use [facility] of (BLOOD 00:00: [place] [facility]UCO[facility] 00 Medical MONITORING) [facility] Kit Blood-Gluco 2021-05 Yes [id number] Use [facility] of (BLOOD 00:00: [place] [facility]UCO[facility] 00 Medical MONITORING) [facility] Kit Blood-Gluco 2021-05 Yes [id number] Use [facility] of (BLOOD 00:00: [place] [facility] 00 Medical MONITORING) [facility] Kit Blood-Gluco 2021-05 Yes [id number] Use [facility] of (BLOOD 00:00: [place] [facility] 00 Medical MONITORING) [facility] Kit Blood-Gluco 2021-05 Yes [id number] Use [facility] of (BLOOD 00:00: [place] [facility]UCO[facility] 00 Medical MONITORING) [facility] Kit Blood-Gluco 2021-05 Yes [id number] Use [facility] of (BLOOD 00:00: [place] [facility]UCO[facility] 00 Medical MONITORING) [facility] Kit Blood-Gluco 2021-05 Yes [id number] Use [facility] of (BLOOD 00:00: [place] [facility]UCO[facility] 00 Medical MONITORING) [facility] Kit Blood-Gluco 2021-05 Yes [id number] Use [facility] of (BLOOD 00:00: [place] [facility] 00 Medical MONITORING) [facility] Kit Blood-Gluco 2021-05 Yes [id number] Use [facility] of (BLOOD 00:00: [place] [facility] 00 Medical MONITORING) [facility] Kit Blood-Gluco 2021-05 Yes [id number] Use [facility] of (BLOOD 00:00: [place] [facility]UCO[facility] 00 Medical MONITORING) [facility] Kit Blood-Gluco 2021-05 Yes [id number] Use [facility] of (BLOOD 00:00: [place] [facility]UCO[facility] 00 Medical MONITORING) [facility] Kit Blood-Gluco 2021-05 Yes [id number] Use [facility] of (BLOOD 00:00: [place] [facility]UCOSE 00 Medical MONITORING) [facility] Kit Blood-Gluco 2021-05 Yes [id number] Use [facility] of (BLOOD 00:00: [place] [facility]UCOSE 00 Medical MONITORING) [facility] Kit Blood-Gluco 2021-05 Yes [id number] Use [facility] of (BLOOD 00:00: [place] GLUCOSE 00 Medical MONITORING) [facility] Kit Blood-Gluco 2021-05 Yes [id number] Use [facility] of (BLOOD 00:00: [place] [facility]UCOSE 00 Medical MONITORING) [facility] Kit Blood-Gluco 2021-05 Yes [id number] Use [facility] of (BLOOD 00:00: [place] GLUCOSE 00 Medical MONITORING) [facility] Kit Blood-Gluco 2021-05 Yes [id number] Use [facility] of (BLOOD 00:00: [place] GLUCOSE 00 Medical MONITORING) [facility] Kit Blood-Gluco 2021-05 Yes [id number] Use [facility] of (BLOOD 00:00: [place] GLUCOSE 00 Medical MONITORING) [facility] Kit Blood-Gluco 2021-05 Yes [id number] Use [facility]06 [facility] of (BLOOD 00:00: [place] GLUCOSE 00 Medical MONITORING) [facility] Kit Blood-Gluco 2021-05 Yes [id number] Use [facility] 0[facility]06 [facility] of (BLOOD 00:00: [place] GLUCOSE 00 Medical MONITORING) [facility] Kit Blood-Gluco 2021-05 Yes [id number] Use [facility] of (BLOOD 00:00: [place] GLUCOSE 00 Medical MONITORING) [facility] Kit Blood-Gluco 2021-05 Yes [id number] Use [facility] 0[facility]06 [facility] of (BLOOD 00:00: [place] GLUCOSE 00 Medical MONITORING) [facility] Kit Blood-Gluco 2021-05 Yes [id number] Use [facility] 0[facility]06 [facility] of (BLOOD 00:00: [place] GLUCOSE 00 Medical MONITORING) [facility] Kit Blood-Gluco 2021-05 Yes [id number] Use [facility] 0[facility]06 [facility] of (BLOOD 00:00: [place] GLUCOSE 00 Medical MONITORING) [facility] Kit Blood-Gluco 2021-05 Yes [id number] Use [facility]06 [facility] of (BLOOD 00:00: [place] GLUCOSE 00 Medical MONITORING) [facility] Kit Blood-Gluco 2021-05 Yes [id number] Use [facility] 0[facility]06 [facility] of (BLOOD 00:00: [place] [facility]UCOSE 00 Medical MONITORING) [facility] Kit Blood-Gluco 2021-05 Yes [id number] Use [facility] 0[facility]06 [facility] of (BLOOD 00:00: [place] [facility]UCOSE 00 Medical MONITORING) [facility] Kit Blood-Gluco 2021-05 Yes [id number] Use [facility]06 [facility] of (BLOOD 00:00: [place] GLUCOSE 00 Medical MONITORING) [facility] Kit Blood-Gluco 2021-05 Yes [id number] Use [facility] 0[facility]06 [facility] of (BLOOD 00:00: [place] GLUCOSE 00 Medical MONITORING) [facility] Kit Blood-Gluco 2021-05 Yes [id number] Use [facility] 0[facility]06 [facility] of (BLOOD 00:00: [place] GLUCOSE 00 Medical MONITORING) [facility] Kit Blood-Gluco 2021-05 Yes [id number] Use [facility] of (BLOOD 00:00: [place] GLUCOSE 00 Medical MONITORING) [facility] Kit Blood-Gluco 2021-05 Yes [id number] Use [facility]06 [facility] of (BLOOD 00:00: [place] GLUCOSE 00 Medical MONITORING) [facility] Kit Blood-Gluco 2021-05 Yes [id number] Use [facility] of (BLOOD 00:00: [place] GLUCOSE 00 Medical MONITORING) [facility] Kit Blood-Gluco 2021-05 Yes [id number] Use [facility]06 [facility] of (BLOOD 00:00: [place] GLUCOSE 00 Medical MONITORING) [facility] Kit Blood-Gluco 2021-05 Yes [id number] Use [facility] 0[facility]06 [facility] of (BLOOD 00:00: [place] GLUCOSE 00 Medical MONITORING) [facility] Kit Blood-Gluco 2021-05 Yes [id number] Use B[facility] 0[facility]06 [facility] of (BLOOD 00:00: [place] GLUCOSE 00 Medical MONITORING) [facility] Kit Blood-Gluco 2021-05 Yes [id number] Use B[facility] 0[facility]06 [facility] of (BLOOD 00:00: [place] GLUCOSE 00 Medical MONITORING) [facility] Kit Blood-Gluco 2021-05 Yes [id number] Use B[facility] 0[facility]06 [facility] of (BLOOD 00:00: [place] GLUCOSE 00 Medical MONITORING) [facility] Kit Blood-Gluco 2021-05 Yes [id number] Use B[facility] 0[facility]06 [facility] of (BLOOD 00:00: [place] GLUCOSE 00 Medical MONITORING) [facility] Kit Blood-Gluco 2021-05 Yes [id number] Use [facility]06 [facility] of (BLOOD 00:00: [place] GLUCOSE 00 Medical MONITORING) [facility] Kit Blood-Gluco 2021-05 Yes [id number] Use BID [facility] 0[facility]06 [facility] of (BLOOD 00:00: [place] GLUCOSE 00 Medical MONITORING) [facility] Kit Blood-Gluco 2021-05 Yes [id number] Use B[facility] 0[facility]06 [facility] of (BLOOD 00:00: [place] GLUCOSE 00 Medical MONITORING) [facility] Kit Blood-Gluco 2021-05 Yes [id number] Use BID [facility] 0[facility]06 [facility] of (BLOOD 00:00: [place] GLUCOSE 00 Medical MONITORING) Branch Kit Blood-Gluco 2021-05 Yes [id number] Use [facility] 0[facility]06 [facility] of (BLOOD 00:00: [place] GLUCOSE 00 Medical MONITORING) [facility] Kit Blood-Gluco 2021-05 Yes [id number] Use B[facility] 0[facility]06 [facility] of (BLOOD 00:00: [place] GLUCOSE 00 Medical MONITORING) [facility] Kit Blood-Gluco 2021-05 Yes [id number] Use BID [facility] 0[facility]06 [facility]y of (BLOOD 00:00: [place] GLUCOSE 00 Medical MONITORING) [facility] Kit Blood-Gluco 2021-05 Yes [id number] Use BID [facility] 0[facility]06 [facility] of (BLOOD 00:00: [place] GLUCOSE 00 Medical MONITORING) [facility] Kit Blood-Gluco 2021-05 Yes [id number] Use B[facility] of (BLOOD 00:00: [place] GLUCOSE 00 Medical MONITORING) Branch Kit metformin 2021-05 Yes [id number] 500mg Take 1 U nivers ER 500 mg 0-03 tablet by ity o f 24 hr 00:00: mouth [place] tablet 00 daily with Medical breakfast. Branch metformin 2021-05 Yes [id number] 500mg Take 1 U nivers ER 500 mg 0-03 tablet by ity o f 24 hr 00:00: mouth [place] tablet 00 daily with Medical breakfast. Branch metformin 2021-05 Yes [id number] 500mg Take 1 U nivers ER 500 mg 0-03 tablet by ity o f 24 hr 00:00: mouth [place] tablet 00 daily with Medical breakfast. Branch metformin 2021-05 Yes [id number] 500mg Take 1 U nivers ER 500 mg 0-03 tablet by ity o f 24 hr 00:00: mouth [place] tablet 00 daily with Medical breakfast. Branch metformin 2021-05 Yes [id number] 500mg Take 1 U nivers ER 500 mg 0-03 tablet by ity o f 24 hr 00:00: mouth [place] tablet 00 daily with Medical breakfast. Branch metformin 2021-05 Yes [id number] 500mg Take 1 U nivers ER 500 mg 0-03 tablet by ity o f 24 hr 00:00: mouth [place] tablet 00 daily with Medical breakfast. Branch metformin 2021-05 Yes [id number] 500mg Take 1 U nivers ER 500 mg 0-03 tablet by ity o f 24 hr 00:00: mouth [place] tablet 00 daily with Medical breakfast. Branch metformin 2021-05 Yes [id number] 500mg Take 1 U nivers ER 500 mg 0-03 tablet by ity o f 24 hr 00:00: mouth [place] tablet 00 daily with Medical breakfast. Branch metformin 2021-05 Yes [id number] 500mg Take 1 U nivers ER 500 mg 0-03 tablet by ity o f 24 hr 00:00: mouth [place] tablet 00 daily with Medical breakfast. Branch metformin 2021-05 Yes [id number] 500mg Take 1 U nivers ER 500 mg 0-03 tablet by ity o f 24 hr 00:00: mouth [place] tablet 00 daily with Medical breakfast. Branch metformin 2021-05 Yes [id number] 500mg Take 1 U nivers ER 500 mg 0-03 tablet by ity o f 24 hr 00:00: mouth [place] tablet 00 daily with Medical breakfast. Branch metformin 2021-05 Yes [id number] 500mg Take 1 U nivers ER 500 mg 0-03 tablet by ity o f 24 hr 00:00: mouth [place] tablet 00 daily with Medical breakfast. Branch metformin 2021-05 Yes [id number] 500mg Take 1 U nivers ER 500 mg 0-03 tablet by ity o f 24 hr 00:00: mouth [place] tablet 00 daily with Medical breakfast. Branch metformin 2021-05 Yes [id number] 500mg Take 1 [facility] nivers ER 500 mg 0-03 tablet by ity o f 24 hr 00:00: mouth [place] tablet 00 daily with Medical breakfast. Branch metformin 2021-05 Yes [id number] 500mg Take 1 U nivers ER 500 mg 0-03 tablet by ity o f 24 hr 00:00: mouth [place] tablet 00 daily with Medical breakfast. Branch metformin 2021-05 Yes [id number] 500mg Take 1 [facility] nivers ER 500 mg 0-03 tablet by ity o f 24 hr 00:00: mouth [place] tablet 00 daily with Medical breakfast. Branch metformin 2021-05 Yes [id number] 500mg Take 1 [facility] n[facility] ER 500 mg 0-03 tablet by ity o f 24 hr 00:00: mouth [place] tablet 00 daily with Medical breakfast. Branch metformin 2021-05 Yes [id number] 500mg Take 1 U nivers ER 500 mg 0-03 tablet by ity o f 24 hr 00:00: mouth [place] tablet 00 daily with Medical breakfast. Branch metformin 2021-05 Yes [id number] 500mg Take 1 [facility] nivers ER 500 mg 0-03 tablet by ity o f 24 hr 00:00: mouth [place] tablet 00 daily with Medical breakfast. Branch metformin 2021-05 Yes [id number] 500mg Take 1 [facility] n[facility] ER 500 mg 0-03 tablet by ity o f 24 hr 00:00: mouth [place] tablet 00 daily with Medical breakfast. [place] metformin 2021-05 Yes [id number] 500mg Take 1 U nivers ER 500 mg 0-03 tablet by ity o f 24 hr 00:00: mouth [place] tablet 00 daily with Medical breakfast. Branch metformin 2021-05 Yes [id number] 500mg Take 1 [facility] n[facility] ER 500 mg 0-03 tablet by ity o f 24 hr 00:00: mouth [place] tablet 00 daily with Medical breakfast. Branch metformin 2021-05 Yes [id number] 500mg Take 1 [facility] n[facility] ER 500 mg 0-03 tablet by ity o f 24 hr 00:00: mouth [place] tablet 00 daily with Medical breakfast. Branch metformin 2021-05 Yes [id number] 500mg Take 1 [facility] n[facility] ER 500 mg 0-03 tablet by ity o f 24 hr 00:00: mouth [place] tablet 00 daily with Medical breakfast. [place] metformin 2021-05 Yes [id number] 500mg Take 1 U nivers ER 500 mg 0-03 tablet by ity o f 24 hr 00:00: mouth [place] tablet 00 daily with Medical breakfast. Branch metformin 2021-05 Yes [id number] 500mg Take 1 [facility] n[facility] ER 500 mg 0-03 tablet by ity o f 24 hr 00:00: mouth [place] tablet 00 daily with Medical breakfast. Branch metformin 2021-05 Yes [id number] 500mg Take 1 [facility] n[facility] ER 500 mg 0-03 tablet by ity o f 24 hr 00:00: mouth [place] tablet 00 daily with Medical breakfast. Branch metformin 2021-05 Yes [id number] 500mg Take 1 [facility] n[facility] ER 500 mg 0-03 tablet by ity o f 24 hr 00:00: mouth [place] tablet 00 daily with Medical breakfast. Branch metformin 2021-05 Yes [id number] 500mg Take 1 [facility] n[facility] ER 500 mg 0-03 tablet by ity o f 24 hr 00:00: mouth [place] tablet 00 daily with Medical breakfast. Branch metformin 2021-05 Yes [id number] 500mg Take 1 [facility] n[facility] ER 500 mg 0-03 tablet by ity o f 24 hr 00:00: mouth [place] tablet 00 daily with Medical breakfast. Branch metformin 2021-05 Yes [id number] 500mg Take 1 [facility] n[facility] ER 500 mg 0-03 tablet by ity o f 24 hr 00:00: mouth [place] tablet 00 daily with Medical breakfast. Branch metformin 2021-05 Yes [id number] 500mg Take 1 [facility] n[facility] ER 500 mg 0-03 tablet by ity o f 24 hr 00:00: mouth [place] tablet 00 daily with Medical breakfast. Branch metformin 2021-05 Yes [id number] 500mg Take 1 [facility] n[facility] ER 500 mg 0-03 tablet by ity o f 24 hr 00:00: mouth [place] tablet 00 daily with Medical breakfast. Branch metformin 2021-05 Yes [id number] 500mg Take 1 [facility] n[facility] ER 500 mg 0-03 tablet by ity o f 24 hr 00:00: mouth [place] tablet 00 daily with Medical breakfast. Branch metformin 2021-05 Yes [id number] 500mg Take 1 [facility] n[facility] ER 500 mg 0-03 tablet by ity o f 24 hr 00:00: mouth [place] tablet 00 daily with Medical breakfast. Branch metformin 2021-05 Yes [id number] 500mg Take 1 [facility] n[facility] ER 500 mg 0-03 tablet by ity o f 24 hr 00:00: mouth [place] tablet 00 daily with Medical breakfast. Branch metformin 2021-05 Yes [id number] 500mg Take 1 [facility] n[facility] ER 500 mg 0-03 tablet by ity o f 24 hr 00:00: mouth [place] tablet 00 daily with Medical breakfast. Branch metformin 2021-05 Yes [id number] 500mg Take 1 [facility] n[facility] ER 500 mg 0-03 tablet by ity o f 24 hr 00:00: mouth [place] tablet 00 daily with Medical breakfast. Branch metformin 2021-05 Yes [id number] 500mg Take 1 [facility] n[facility] ER 500 mg 0-03 tablet by ity o f 24 hr 00:00: mouth [place] tablet 00 daily with Medical breakfast. Branch metformin 2021-05 Yes [id number] 500mg Take 1 [facility] n[facility] ER 500 mg 0-03 tablet by ity o f 24 hr 00:00: mouth [place] tablet 00 daily with Medical breakfast. Branch metformin 2021-05 Yes [id number] 500mg Take 1 [facility] n[facility] ER 500 mg 0-03 tablet by ity o f 24 hr 00:00: mouth [place] tablet 00 daily with Medical breakfast. Branch metformin 2021-05 Yes [id number] 500mg Take 1 [facility] n[facility] ER 500 mg 0-03 tablet by ity o f 24 hr 00:00: mouth [place] tablet 00 daily with Medical breakfast. Branch metformin 2021-05 Yes [id number] 500mg Take 1 [facility] n[facility] ER 500 mg 0-03 tablet by ity o f 24 hr 00:00: mouth [place] tablet 00 daily with Medical breakfast. Branch metformin 2021-05 Yes [id number] 500mg Take 1 [facility] n[facility] ER 500 mg 0-03 tablet by ity o f 24 hr 00:00: mouth [place] tablet 00 daily with Medical breakfast. Branch metformin 2021-05 Yes [id number] 500mg Take 1 [facility] n[facility] ER 500 mg 0-03 tablet by ity o f 24 hr 00:00: mouth [place] tablet 00 daily with Medical breakfast. Branch metformin 2021-05 Yes [id number] 500mg Take 1 [facility] n[facility] ER 500 mg 0-03 tablet by ity o f 24 hr 00:00: mouth [place] tablet 00 daily with Medical breakfast. Branch metformin 2021-05 Yes [id number] 500mg Take 1 [facility] n[facility] ER 500 mg 0-03 tablet by ity o f 24 hr 00:00: mouth [place] tablet 00 daily with Medical breakfast. Branch metformin 2021-05 Yes [id number] 500mg Take 1 [facility] n[facility] ER 500 mg 0-03 tablet by ity o f 24 hr 00:00: mouth [place] tablet 00 daily with Medical breakfast. Branch metformin 2021-05 Yes [id number] 500mg Take 1 [facility] n[facility] ER 500 mg 0-03 tablet by ity o f 24 hr 00:00: mouth [place] tablet 00 daily with Medical breakfast. Branch metformin 2021-05 Yes [id number] 500mg Take 1 [facility] n[facility] ER 500 mg 0-03 tablet by ity o f 24 hr 00:00: mouth [place] tablet 00 daily with Medical breakfast. Branch metformin 2021-05 Yes [id number] 500mg Take 1 [facility] n[facility] ER 500 mg 0-03 tablet by ity o f 24 hr 00:00: mouth [place] tablet 00 daily with Medical breakfast. Branch metformin 2021-05 Yes [id number] 500mg Take 1 [facility] nivers ER 500 mg 0-03 tablet by ity o f 24 hr 00:00: mouth [place] tablet 00 daily with Medical breakfast. Branch metformin 2021-05 Yes [id number] 500mg Take 1 [facility] nivers ER 500 mg 0-03 tablet by ity o f 24 hr 00:00: mouth [place] tablet 00 daily with Medical breakfast. Branch metformin 2021-05 Yes [id number] 500mg Take 1 [facility] nivers ER 500 mg 0-03 tablet by ity o f 24 hr 00:00: mouth [place] tablet 00 daily with Medical breakfast. Branch metformin 2021-05 Yes [id number] 500mg Take 1 [facility] nivers ER 500 mg 0-03 tablet by ity o f 24 hr 00:00: mouth [place] tablet 00 daily with Medical breakfast. Branch metformin 2021-05 Yes [id number] 500mg Take 1 [facility] nivers ER 500 mg 0-03 tablet by ity o f 24 hr 00:00: mouth [place] tablet 00 daily with Medical breakfast. Branch metformin 2021-05 Yes [id number] 500mg Take 1 [facility] nivers ER 500 mg 0-03 tablet by ity o f 24 hr 00:00: mouth [place] tablet 00 daily with Medical breakfast. Branch metformin 2021-05 Yes [id number] 500mg Take 1 [facility] n[facility] ER 500 mg 0-03 tablet by ity o f 24 hr 00:00: mouth [place] tablet 00 daily with Medical breakfast. Branch metformin 2021-05 Yes [id number] 500mg Take 1 [facility] n[facility] ER 500 mg 0-03 tablet by ity o f 24 hr 00:00: mouth [place] tablet 00 daily with Medical breakfast. Branch metformin 2021-05 Yes [id number] 500mg Take 1 [facility] n[facility] ER 500 mg 0-03 tablet by ity o f 24 hr 00:00: mouth [place] tablet 00 daily with Medical breakfast. Branch metformin 2021-05 Yes [id number] 500mg Take 1 [facility] nivers ER 500 mg 0-03 tablet by ity o f 24 hr 00:00: mouth [place] tablet 00 daily with Medical breakfast. Branch metformin 2021-05 Yes [id number] 500mg Take 1 [facility] n[facility] ER 500 mg 0-03 tablet by ity o f 24 hr 00:00: mouth [place] tablet 00 daily with Medical breakfast. Branch metformin 2021-05 Yes [id number] 500mg Take 1 [facility] n[facility] ER 500 mg 0-03 tablet by ity o f 24 hr 00:00: mouth [place] tablet 00 daily with Medical breakfast. Branch metformin 2021-05 Yes [id number] 500mg Take 1 [facility] nivers ER 500 mg 0-03 tablet by ity o f 24 hr 00:00: mouth [place] tablet 00 daily with Medical breakfast. Branch metformin 2021-05 Yes [id number] 500mg Take 1 [facility] n[facility] ER 500 mg 0-03 tablet by ity o f 24 hr 00:00: mouth [place] tablet 00 daily with Medical breakfast. Branch metformin 2021-05 Yes [id number] 500mg Take 1 [facility] n[facility] ER 500 mg 0-03 tablet by ity o f 24 hr 00:00: mouth [place] tablet 00 daily with Medical breakfast. [place] metformin 2021-05 Yes [id number] 500mg Take 1 U nivers ER 500 mg 0-03 tablet by ity o f 24 hr 00:00: mouth [place] tablet 00 daily with Medical breakfast. [place] metformin 2021-05 Yes [id number] 500mg Take 1 U nivers ER 500 mg 0-03 tablet by ity o f 24 hr 00:00: mouth [place] tablet 00 daily with Medical breakfast. Branch metformin 2021-05 Yes [id number] 500mg Take 1 [facility] n[facility] ER 500 mg 0-03 tablet by ity o f 24 hr 00:00: mouth [place] tablet 00 daily with Medical breakfast. [place] metformin 2021-05 Yes [id number] 500mg Take 1 U nivers ER 500 mg 0-03 tablet by ity o f 24 hr 00:00: mouth [place] tablet 00 daily with Medical breakfast. Branch metformin 2021-05 Yes [id number] 500mg Take 1 [facility] n[facility] ER 500 mg 0-03 tablet by ity o f 24 hr 00:00: mouth [place] tablet 00 daily with Medical breakfast. Branch metformin 2021-05 Yes [id number] 500mg Take 1 U nivers ER 500 mg 0-03 tablet by ity o f 24 hr 00:00: mouth [place] tablet 00 daily with Medical breakfast. Branch metformin 2021-05 Yes [id number] 500mg Take 1 [facility] 500 mg 0-03 tablet by ity o f 24 hr 00:00: mouth [place] tablet 00 daily with Medical breakfast. Branch metformin 2021-05 Yes [id number] 500mg Take 1 [facility] 500 mg 0-03 tablet by ity o f 24 hr 00:00: mouth [place] tablet 00 daily with Medical breakfast. Branch metformin 2021-05 Yes [id number] 500mg Take 1 [facility] 500 mg 0-03 tablet by ity o f 24 hr 00:00: mouth [place] tablet 00 daily with Medical breakfast. Branch metformin 2021-05 Yes [id number] 500mg Take 1 [facility] 500 mg 0-03 tablet by ity o f 24 hr 00:00: mouth [place] tablet 00 daily with Medical breakfast. Branch metformin 2021-05 Yes [id number] 500mg Take 1 [facility] 500 mg 0-03 tablet by ity o f 24 hr 00:00: mouth [place] tablet 00 daily with Medical breakfast. Branch metformin 2021-05 Yes [id number] 500mg Take 1 [facility] 500 mg 0-03 tablet by ity o f 24 hr 00:00: mouth [place] tablet 00 daily with Medical breakfast. Branch metformin 2021-05 Yes [id number] 500mg Take 1 [facility] 500 mg 0-03 tablet by ity o f 24 hr 00:00: mouth [place] tablet 00 daily with Medical breakfast. Branch metformin 2021-05 Yes [id number] 500mg Take 1 [facility] 500 mg 0-03 tablet by ity o f 24 hr 00:00: mouth [place] tablet 00 daily with Medical breakfast. Branch metformin 2021-05 Yes [id number] 500mg Take 1 [facility] 500 mg 0-03 tablet by ity o f 24 hr 00:00: mouth [place] tablet 00 daily with Medical breakfast. Branch metformin 2022-1 Yes [id number] 500mg Take 1 [facility] 500 mg 0-03 tablet by ity o f 24 hr 00:00: mouth [place] tablet 00 daily with Medical breakfast. [place] metformin 2021-05 Yes [id number] 500mg Take 1 [facility] ER 500 mg 0-03 tablet by ity o f 24 hr 00:00: mouth [place] tablet 00 daily with Medical breakfast. [place] metformin 2021-05 Yes [id number] 500mg Take 1 [facility] 500 mg 0-03 tablet by ity o f 24 hr 00:00: mouth [place] tablet 00 daily with Medical breakfast. [place] metformin 2021-05 Yes [id number] 500mg Take 1 [facility] 500 mg 0-03 tablet by ity o f 24 hr 00:00: mouth [place] tablet 00 daily with Medical breakfast. [place] metformin 2021-05 Yes [id number] 500mg Take 1 [facility] ER 500 mg 0-03 tablet by ity o f 24 hr 00:00: mouth [place] tablet 00 daily with Medical breakfast. [place] metformin 2021-05 Yes [id number] 500mg Take 1 [facility] ER 500 mg 0-03 tablet by ity o f 24 hr 00:00: mouth [place] tablet 00 daily with Medical breakfast. [place] Blood-Gluco 2021-05 Yes [id number] Use as [facility] se Meter 0-03 directed ity of (BLOOD 00:00: [place] GLUCOSE 00 Medical MONITORING) [facility] Kit metformin 2021-05 Yes [id number] 500mg Take 1 U n[facility] ER 500 mg 0-03 tablet by ity o f 24 hr 00:00: mouth [place] tablet 00 daily with Medical breakfast. [place] Blood-Gluco 2021-05 Yes [id number] Use as [facility] se Meter 0-03 directed ity of (BLOOD 00:00: [place] GLUCOSE 00 Medical MONITORING) [facility] Kit metformin 2021-05 Yes [id number] 500mg Take 1 U n[facility] ER 500 mg 0-03 tablet by ity o f 24 hr 00:00: mouth [place] tablet 00 daily with Medical breakfast. [place] metformin 2021-05 Yes [id number] 500mg Take 1 [facility] ER 500 mg 0-03 tablet by ity o f 24 hr 00:00: mouth [place] tablet 00 daily with Medical breakfast. [place] metformin 2021-05 Yes [id number] 500mg Take 1 [facility] n[facility] ER 500 mg 0-03 tablet by ity o f 24 hr 00:00: mouth [place] tablet 00 daily with Medical breakfast. Branch metformin 2021-05 Yes [id number] 500mg Take 1 [facility] ER 500 mg 0-03 tablet by ity o f 24 hr 00:00: mouth [place] tablet 00 daily with Medical breakfast. Branch metformin 2021-05 Yes [id number] 500mg Take 1 [facility] 500 mg 0-03 tablet by ity o f 24 hr 00:00: mouth [place] tablet 00 daily with Medical breakfast. Branch metformin 2021-05 Yes [id number] 500mg Take 1 [facility] ER 500 mg 0-03 tablet by ity o f 24 hr 00:00: mouth [place] tablet 00 daily with Medical breakfast. Branch metformin 2021-05 Yes [id number] 500mg Take 1 [facility] ER 500 mg 0-03 tablet by ity o f 24 hr 00:00: mouth [place] tablet 00 daily with Medical breakfast. Branch metformin 2021-05 Yes [id number] 500mg Take 1 [facility] ER 500 mg 0-03 tablet by ity o f 24 hr 00:00: mouth [place] tablet 00 daily with Medical breakfast. Branch metformin 2021-05 Yes [id number] 500mg Take 1 [facility] ER 500 mg 0-03 tablet by ity o f 24 hr 00:00: mouth [place] tablet 00 daily with Medical breakfast. Branch metformin 2021-05 Yes [id number] 500mg Take 1 [facility] ER 500 mg 0-03 tablet by ity o f 24 hr 00:00: mouth [place] tablet 00 daily with Medical breakfast. Branch metformin 2021-05 Yes [id number] 500mg Take 1 [facility] ER 500 mg 0-03 tablet by ity o f 24 hr 00:00: mouth [place] tablet 00 daily with Medical breakfast. Branch metformin 2021-05 Yes [id number] 500mg Take 1 [facility] ER 500 mg 0-03 tablet by ity o f 24 hr 00:00: mouth [place] tablet 00 daily with Medical breakfast. Branch metformin 2021-05 Yes [id number] 500mg Take 1 [facility] ER 500 mg 0-03 tablet by ity o f 24 hr 00:00: mouth [place] tablet 00 daily with Medical breakfast. Branch metformin 2021-05 Yes [id number] 500mg Take 1 [facility] ER 500 mg 0-03 tablet by ity o f 24 hr 00:00: mouth [place] tablet 00 daily with Medical breakfast. Branch metformin 2022-1 Yes [id number] 500mg Take 1 [facility] ER 500 mg 0-03 tablet by ity o f 24 hr 00:00: mouth [place] tablet 00 daily with Medical breakfast. Branch metformin 2021-05 Yes [id number] 500mg Take 1 [facility] ER 500 mg 0-03 tablet by ity o f 24 hr 00:00: mouth [place] tablet 00 daily with Medical breakfast. Branch metformin 2021-05 Yes [id number] 500mg Take 1 [facility] ER 500 mg 0-03 tablet by ity o f 24 hr 00:00: mouth [place] tablet 00 daily with Medical breakfast. Branch metformin 2021-05 Yes [id number] 500mg Take 1 [facility] ER 500 mg 0-03 tablet by ity o f 24 hr 00:00: mouth [place] tablet 00 daily with Medical breakfast. Branch metformin 2021-05 Yes [id number] 500mg Take 1 [facility] n[facility] ER 500 mg 0-03 tablet by ity o f 24 hr 00:00: mouth [place] tablet 00 daily with Medical breakfast. [place] metformin 2021-05 Yes [id number] 500mg Take 1 U n[facility] ER 500 mg 0-03 tablet by ity o f 24 hr 00:00: mouth [place] tablet 00 daily with Medical breakfast. [place] metformin 2021-05 Yes [id number] 500mg Take 1 [facility] ER 500 mg 0-03 tablet by ity o f 24 hr 00:00: mouth [place] tablet 00 daily with Medical breakfast. [place] metformin 2021-05 Yes [id number] 500mg Take 1 U n[facility] ER 500 mg 0-03 tablet by ity o f 24 hr 00:00: mouth [place] tablet 00 daily with Medical breakfast. [place] metformin 2021-05 Yes [id number] 500mg Take 1 U n[facility] ER 500 mg 0-03 tablet by ity o f 24 hr 00:00: mouth [place] tablet 00 daily with Medical breakfast. [place] metformin 2021-05 Yes [id number] 500mg Take 1 U n[facility] ER 500 mg 0-03 tablet by ity o f 24 hr 00:00: mouth [place] tablet 00 daily with Medical breakfast. [place] Blood-Gluco 2021-05- No [id number] Use as [facility] se Meter 0-02-14 directed ity of (BLOOD 00:00: 00:00 [place] GLUCOSE 00 :00 Medical MONITORING) [facility] Kit Insulin 2021-05- No [id number] 10U inject 10 [facility] Glargine 0-03 10-03 Units ity of (LANTUS 00:00: 00:00 under the [place] [facility] SOLOSTAR 00 :00 skin at [facility] U-100 bedtime. Branch INSULIN) 100 unit/mL (3 mL) injection Insulin 2021-05- No [id number] Use as Uni vers [place], 0- 10-03 directed ity of Disposable, 00:00: 00:00 [place] 31 gauge x 00 :00 [facility] /16[facility] Branch Insulin 2021-05- No [id number] 10U inject 10 [facility] Glargine 0- 10-03 Units ity of (LANTUS 00:00: 00:00 under the [place] 00 :00 skin at [facility] U-100 bedtime. Branch INSULIN) 100 unit/mL (3 mL) injection Insulin 2021-05 No [id number] Use as Uni vers [place], 0-07 19- directed ity of Disposable, 00:00: 00:00 [place] 31 gauge x 00 :00 [facility] 16"[facility] iopamidol 2021- No [id number] 80mL 80 mL, Univers (ISOVUE 02-07 Intravenou ity o f 370-500 mL) 19:08: 19:08 s, ONCE, 1 [place] injection 00 :00 dose, On Medica l 80 mL [facility] 02/07/22 at 1415, Routine iopamidol 2021- No [id number] 100mL 100 mL, Univers (ISOVUE 01-24 Intravenou ity o f 300-500 mL) 17:45: 16:56 s, ONCE, 1 [place] injection 00 :00 dose, On Medica l 100 mL [facility] 01/24/22 at 1245, Routine FENTanyl PF 2021- No Slow IV [facility] [place] (SUBLIMAZE 01-24 Push, PRN, it y of (PF)) 16:41: 09:11 Starting [place] injection 00 :25 on [facility] 01/24/22 at Branch 1141, Until 01/25/22 at 0411, Routine midazolam 2021- No IV Push, Uni vers (VERSED) 01-24 PRN, ity of injection 16:41: 09:11 Starting [place] as 00 :25 on [facility] Medical 01/24/22 at Branch 1141, Until 01/25/22 at 0411, Routine lidocaine 2021- No PRN, Univers 1% (PF) 01-24 Starting ity of (XYLOCAINE) 16:33: 09:11 on [facility] [place] injection 41 :25 01/24/22 at [facility] 1133, Branch Until Fri01/25/22 at 0411, Routine rosuvastati Yes 20mg Take 20 mg Univers n 20 mg 9-08 by mouth ity of tablet 10:55: at [place] 14 bedtime. Medical Branch levothyroxi Yes 25ug Take 25 Uni vers ne 25 mcg 9-08 mcg by ity of tablet 10:55: mouth [place] 14 every Medical morning. Branch rosuvastati Yes 20mg Take 20 mg Univers n 20 mg 9-08 by mouth ity of tablet 10:55: at [place] 14 bedtime. Medical Branch levothyroxi Yes 25ug Take 25 Uni vers ne 25 mcg 9-08 mcg by ity of tablet 10:55: mouth [place] 14 every Medical morning. Branch rosuvastati 0 Yes 20mg Take 20 mg [facility] n 20 mg 9-08 by mouth ity of tablet 10:55: at [place] 14 bedtime. Medical Branch levothyroxi Yes 25ug Take 25 Uni vers ne 25 mcg 9-08 mcg by ity of tablet 10:55: mouth [place] 14 every Medical morning. Branch rosuvastati Yes 20mg Take 20 mg Univers n 20 mg 9-08 by mouth ity of tablet 10:55: at [place] 14 bedtime. Medical Branch levothyroxi 0 Yes 25ug Take 25 Uni vers ne 25 mcg 9-08 mcg by ity of tablet 10:55: mouth [place] 14 every Medical morning. Branch rosuvastati Yes 20mg Take 20 mg Univers n 20 mg 9-08 by mouth ity of tablet 10:55: at [place] 14 bedtime. Medical Branch levothyroxi Yes 25ug Take 25 Uni vers ne 25 mcg 9-08 mcg by ity of tablet 10:55: mouth [place] 14 every Medical morning. Branch rosuvastati 2021-0 Yes 20mg Take 20 mg Univers n 20 mg 9-08 by mouth ity of tablet 10:55: at [place] 14 bedtime. Medical Branch levothyroxi 2021-0 Yes 25ug Take 25 Uni vers ne 25 mcg 9-08 mcg by ity of tablet 10:55: mouth [place] 14 every Medical morning. Branch rosuvastati 2021-0 Yes 20mg Take 20 mg Univers n 20 mg 9-08 by mouth ity of tablet 10:55: at [place] 14 bedtime. Medical Branch levothyroxi 2021-0 Yes 25ug Take 25 Uni vers ne 25 mcg 9-08 mcg by ity of tablet 10:55: mouth [place] 14 every Medical morning. Branch rosuvastati 2021-0 Yes 20mg Take 20 mg Univers n 20 mg 9-08 by mouth ity of tablet 10:55: at [place] 14 bedtime. Medical Branch levothyroxi 2021-0 Yes 25ug Take 25 Uni vers ne 25 mcg 9-08 mcg by ity of tablet 10:55: mouth [place] 14 every Medical morning. Branch rosuvastati 2021-0 Yes 20mg Take 20 mg Univers n 20 mg 9-08 by mouth ity of tablet 10:55: at [place] 14 bedtime. Medical Branch levothyroxi 2021-0 Yes 25ug Take 25 Uni vers ne 25 mcg 9-08 mcg by ity of tablet 10:55: mouth [place] 14 every Medical morning. Branch rosuvastati 2021-0 Yes 20mg Take 20 mg Univers n 20 mg 9-08 by mouth ity of tablet 10:55: at [place] 14 bedtime. Medical Branch levothyroxi 2021-0 Yes 25ug Take 25 Uni vers ne 25 mcg 9-08 mcg by ity of tablet 10:55: mouth [place] 14 every Medical morning. Branch rosuvastati 2021-0 Yes 20mg Take 20 mg Univers n 20 mg 9-08 by mouth ity of tablet 10:55: at [place] 14 bedtime. Medical Branch levothyroxi 2021-0 Yes 25ug Take 25 Uni vers ne 25 mcg 9-08 mcg by ity of tablet 10:55: mouth [place] 14 every Medical morning. Branch rosuvastati 2021-0 Yes 20mg Take 20 mg Univers n 20 mg 9-08 by mouth ity of tablet 10:55: at [place] 14 bedtime. Medical Branch levothyroxi Yes 25ug Take 25 Uni vers ne 25 mcg 9-08 mcg by ity of tablet 10:55: mouth [place] 14 every Medical morning. Branch zolpidem 10 Yes 1{tbl} Take 1 [facility] [place] mg tablet 8-29 tablet by ity o f 00:00: mouth at [place] 00 bedtime. Medical Branch zolpidem 10 Yes 1{tbl} Take 1 [facility] [place] mg tablet 8-29 tablet by ity o f 00:00: mouth at [place] 00 bedtime. Medical Branch zolpidem 10 Yes 1{tbl} Take 1 [facility] [place] mg tablet 8-29 tablet by ity o f 00:00: mouth at [place] 00 bedtime. Medical Branch zolpidem 10 Yes 1{tbl} Take 1 [facility] [place] mg tablet 8-29 tablet by ity o f 00:00: mouth at [place] 00 bedtime. Medical Branch zolpidem 10 Yes 1{tbl} Take 1 [facility] [place] mg tablet 8-29 tablet by ity o f 00:00: mouth at [place] 00 bedtime. Medical Branch zolpidem 10 Yes 1{tbl} Take 1 [facility] [place] mg tablet 8-29 tablet by ity o f 00:00: mouth at [place] 00 bedtime. Medical Branch zolpidem 10 Yes 1{tbl} Take 1 [facility] [place] mg tablet 8-29 tablet by ity o f 00:00: mouth at [place] 00 bedtime. Medical Branch zolpidem 10 Yes 1{tbl} Take 1 [facility] [place] mg tablet 8-29 tablet by ity o f 00:00: mouth at [place] 00 bedtime. Medical Branch zolpidem 10 Yes 1{tbl} Take 1 [facility] [place] mg tablet 8-29 tablet by ity o f 00:00: mouth at [place] 00 bedtime. Medical Branch zolpidem 10 Yes 1{tbl} Take 1 [facility] [place] mg tablet 8-29 tablet by ity o f 00:00: mouth at [place] 00 bedtime. Medical Branch zolpidem 10 2022-0 Yes 1{tbl} Take 1 [place] mg tablet 8-29 tablet by ity o f 00:00: mouth at [place] bedtime. Medical Branch zolpidem 10 Yes 1{tbl} Take 1 [place] mg tablet 8-29 tablet by ity o f 00:00: mouth at [place] bedtime. Medical Branch zolpidem 10 Yes 1{tbl} Take 1 [facility] [place] mg tablet 8-29 tablet by ity o f 00:00: mouth at [place] bedtime. Medical Branch zolpidem 10 Yes 1{tbl} Take 1 [facility] [place] mg tablet 8-29 tablet by ity o f 00:00: mouth at [place] bedtime. Medical Branch zolpidem 10 Yes 1{tbl} Take 1 [facility] [place] mg tablet 8-29 tablet by ity o f 00:00: mouth at [place] bedtime. Medical Branch zolpidem 10 Yes 1{tbl} Take 1 [facility] [place] mg tablet 8-29 tablet by ity o f 00:00: mouth at [place] bedtime. Medical Branch zolpidem 10 Yes 1{tbl} Take 1 [facility] [place] mg tablet 8-29 tablet by ity o f 00:00: mouth at [place] bedtime. Medical Branch zolpidem 10 Yes 1{tbl} Take 1 [facility] [place] mg tablet 8-29 tablet by ity o f 00:00: mouth at [place] bedtime. Medical Branch zolpidem 10 Yes 1{tbl} Take 1 [facility] [place] mg tablet 8-29 tablet by ity o f 00:00: mouth at [place] bedtime. Medical Branch zolpidem 10 Yes 1{tbl} Take 1 [place] mg tablet 8-29 tablet by ity o f 00:00: mouth at [place] bedtime. Medical Branch zolpidem 10 Yes 1{tbl} Take 1 [place] mg tablet 8-29 tablet by ity o f 00:00: mouth at [place] bedtime. Medical Branch zolpidem 10 Yes 1{tbl} Take 1 [place] mg tablet 8-29 tablet by ity o f 00:00: mouth at [place] bedtime. Medical Branch zolpidem 10 Yes 1{tbl} Take 1 [place] mg tablet 8-29 tablet by ity o f 00:00: mouth at [place] bedtime. Medical Branch zolpidem 10 Yes 1{tbl} Take 1 [place] mg tablet 8-29 tablet by ity o f 00:00: mouth at [place] bedtime. Medical Branch zolpidem 10 Yes 1{tbl} Take 1 [place] mg tablet 8-29 tablet by ity o f 00:00: mouth at [place] bedtime. Medical Branch zolpidem 10 Yes 1{tbl} Take 1 [place] mg tablet 8-29 tablet by ity o f 00:00: mouth at [place] bedtime. Medical Branch zolpidem 10 Yes 1{tbl} Take 1 [place] mg tablet 8-29 tablet by ity o f 00:00: mouth at [place] bedtime. Medical Branch zolpidem 10 Yes 1{tbl} Take 1 [facility] [place] mg tablet 8-29 tablet by ity o f 00:00: mouth at [place] bedtime. Medical Branch zolpidem 10 Yes 1{tbl} Take 1 [facility] [place] mg tablet 8-29 tablet by ity o f 00:00: mouth at [place] bedtime. Medical Branch zolpidem 10 Yes 1{tbl} Take 1 [facility] [place] mg tablet 8-29 tablet by ity o f 00:00: mouth at [place] bedtime. Medical Branch zolpidem 10 Yes 1{tbl} Take 1 [place] mg tablet 8-29 tablet by ity o f 00:00: mouth at [place] bedtime. Medical Branch zolpidem 10 Yes 1{tbl} Take 1 [facility] [place] mg tablet 8-29 tablet by ity o f 00:00: mouth at [place] bedtime. Medical Branch zolpidem 10 Yes 1{tbl} Take 1 [facility] [place] mg tablet 8-29 tablet by ity o f 00:00: mouth at [place] bedtime. Medical Branch zolpidem 10 Yes 1{tbl} Take 1 [place] mg tablet 8-29 tablet by ity o f 00:00: mouth at [place] bedtime. Medical Branch zolpidem 10 Yes 1{tbl} Take 1 [place] mg tablet 8-29 tablet by ity o f 00:00: mouth at [place] bedtime. Medical Branch zolpidem 10 Yes 1{tbl} Take 1 [place] mg tablet 8-29 tablet by ity o f 00:00: mouth at [place] bedtime. Medical Branch zolpidem 10 Yes 1{tbl} Take 1 [place] mg tablet 8-29 tablet by ity o f 00:00: mouth at [place] bedtime. Medical Branch zolpidem 10 Yes 1{tbl} Take 1 [place] mg tablet 8-29 tablet by ity o f 00:00: mouth at [place] bedtime. Medical Branch zolpidem 10 Yes 1{tbl} Take 1 [place] mg tablet 8-29 tablet by ity o f 00:00: mouth at [place] bedtime. Medical Branch zolpidem 10 Yes 1{tbl} Take 1 [place] mg tablet 8-29 tablet by ity o f 00:00: mouth at [place] bedtime. Medical Branch zolpidem 10 Yes 1{tbl} Take 1 [place] mg tablet 8-29 tablet by ity o f 00:00: mouth at [place] bedtime. Medical Branch zolpidem 10 Yes 1{tbl} Take 1 [place] mg tablet 8-29 tablet by ity o f 00:00: mouth at [place] bedtime. Medical Branch zolpidem 10 Yes 1{tbl} Take 1 [place] mg tablet 8-29 tablet by ity o f 00:00: mouth at [place] bedtime. Medical Branch zolpidem 10 Yes 1{tbl} Take 1 [place] mg tablet 8-29 tablet by ity o f 00:00: mouth at [place] 00 bedtime. Medical Branch zolpidem 10 Yes 1{tbl} Take 1 [place] mg tablet 8-29 tablet by ity o f 00:00: mouth at [place] 00 bedtime. Medical Branch zolpidem 10 Yes 1{tbl} Take 1 [facility] [place] mg tablet 8-29 tablet by ity o f 00:00: mouth at [place] bedtime. Medical Branch zolpidem 10 Yes 1{tbl} Take 1 [place] mg tablet 8-29 tablet by ity o f 00:00: mouth at [place] bedtime. Medical Branch zolpidem 10 Yes 1{tbl} Take 1 [place] mg tablet 8-29 tablet by ity o f 00:00: mouth at [place] bedtime. Medical Branch zolpidem 10 Yes 1{tbl} Take 1 [place] mg tablet 8-29 tablet by ity o f 00:00: mouth at [place] bedtime. Medical Branch zolpidem 10 Yes 1{tbl} Take 1 [place] mg tablet 8-29 tablet by ity o f 00:00: mouth at [place] bedtime. Medical Branch zolpidem 10 Yes 1{tbl} Take 1 [place] mg tablet 8-29 tablet by ity o f 00:00: mouth at [place] bedtime. Medical Branch zolpidem 10 Yes 1{tbl} Take 1 [place] mg tablet 8-29 tablet by ity o f 00:00: mouth at [place] bedtime. Medical Branch zolpidem 10 Yes 1{tbl} Take 1 [place] mg tablet 8-29 tablet by ity o f 00:00: mouth at [place] bedtime. Medical Branch zolpidem 10 Yes 1{tbl} Take 1 [place] mg tablet 8-29 tablet by ity o f 00:00: mouth at [place] 00 bedtime. Medical Branch zolpidem 10 Yes 1{tbl} Take 1 [place] mg tablet 8-29 tablet by ity o f 00:00: mouth at [place] 00 bedtime. Medical Branch zolpidem 10 Yes 1{tbl} Take 1 [place] mg tablet 8-29 tablet by ity o f 00:00: mouth at [place] bedtime. Medical Branch zolpidem 10 Yes 1{tbl} Take 1 [place] mg tablet 8-29 tablet by ity o f 00:00: mouth at [place] bedtime. Medical Branch zolpidem 10 Yes 1{tbl} Take 1 [place] mg tablet 8-29 tablet by ity o f 00:00: mouth at [place] bedtime. Medical Branch zolpidem 10 Yes 1{tbl} Take 1 [place] mg tablet 8-29 tablet by ity o f 00:00: mouth at [place] 00 bedtime. Medical Branch zolpidem 10 Yes 1{tbl} Take 1 [place] mg tablet 8-29 tablet by ity o f 00:00: mouth at [place] bedtime. Medical Branch zolpidem 10 Yes 1{tbl} Take 1 [place] mg tablet 8-29 tablet by ity o f 00:00: mouth at [place] bedtime. Medical Branch zolpidem 10 Yes 1{tbl} Take 1 [place] mg tablet 8-29 tablet by ity o f 00:00: mouth at [place] bedtime. Medical Branch zolpidem 10 Yes 1{tbl} Take 1 [place] mg tablet 8-29 tablet by ity o f 00:00: mouth at [place] bedtime. Medical Branch zolpidem 10 Yes 1{tbl} Take 1 [place] mg tablet 8-29 tablet by ity o f 00:00: mouth at [place] bedtime. Medical Branch zolpidem 10 Yes 1{tbl} Take 1 [place] mg tablet 8-29 tablet by ity o f 00:00: mouth at [place] 00 bedtime. Medical Branch zolpidem 10 Yes 1{tbl} Take 1 [place] mg tablet 8-29 tablet by ity o f 00:00: mouth at [place] 00 bedtime. Medical Branch zolpidem 10 Yes 1{tbl} Take 1 [place] mg tablet 8-29 tablet by ity o f 00:00: mouth at [place] 00 bedtime. Medical Branch zolpidem 10 Yes 1{tbl} Take 1 [place] mg tablet 8-29 tablet by ity o f 00:00: mouth at [place] bedtime. Medical Branch zolpidem 10 Yes 1{tbl} Take 1 [place] mg tablet 8-29 tablet by ity o f 00:00: mouth at [place] bedtime. Medical Branch zolpidem 10 Yes 1{tbl} Take 1 [place] mg tablet 8-29 tablet by ity o f 00:00: mouth at [place] bedtime. Medical Branch zolpidem 10 Yes 1{tbl} Take 1 [place] mg tablet 8-29 tablet by ity o f 00:00: mouth at [place] bedtime. Medical Branch zolpidem 10 Yes 1{tbl} Take 1 [place] mg tablet 8-29 tablet by ity o f 00:00: mouth at [place] bedtime. Medical Branch zolpidem 10 Yes 1{tbl} Take 1 [place] mg tablet 8-29 tablet by ity o f 00:00: mouth at [place] bedtime. Medical Branch zolpidem 10 Yes 1{tbl} Take 1 [place] mg tablet 8-29 tablet by ity o f 00:00: mouth at [place] bedtime. Medical Branch zolpidem 10 Yes 1{tbl} Take 1 [place] mg tablet 8-29 tablet by ity o f 00:00: mouth at [place] bedtime. Medical Branch zolpidem 10 Yes 1{tbl} Take 1 [place] mg tablet 8-29 tablet by ity o f 00:00: mouth at [place] bedtime. Medical Branch zolpidem 10 Yes 1{tbl} Take 1 [place] mg tablet 8-29 tablet by ity o f 00:00: mouth at [place] bedtime. Medical Branch zolpidem 10 Yes 1{tbl} Take 1 [place] mg tablet 8-29 tablet by ity o f 00:00: mouth at [place] bedtime. Medical Branch zolpidem 10 Yes 1{tbl} Take 1 [place] mg tablet 8-29 tablet by ity o f 00:00: mouth at [place] bedtime. Medical Branch zolpidem 10 Yes 1{tbl} Take 1 [place] mg tablet 8-29 tablet by ity o f 00:00: mouth at [place] bedtime. Medical Branch zolpidem 10 Yes 1{tbl} Take 1 [place] mg tablet 8-29 tablet by ity o f 00:00: mouth at [place] bedtime. Medical Branch zolpidem 10 Yes 1{tbl} Take 1 [place] mg tablet 8-29 tablet by ity o f 00:00: mouth at [place] bedtime. Medical Branch zolpidem 10 Yes 1{tbl} Take 1 [place] mg tablet 8-29 tablet by ity o f 00:00: mouth at [place] bedtime. Medical Branch zolpidem 10 Yes 1{tbl} Take 1 [place] mg tablet 8-29 tablet by ity o f 00:00: mouth at [place] bedtime. Medical Branch zolpidem 10 Yes 1{tbl} Take 1 [place] mg tablet 8-29 tablet by ity o f 00:00: mouth at [place] bedtime. Medical Branch zolpidem 10 Yes 1{tbl} Take 1 [place] mg tablet 8-29 tablet by ity o f 00:00: mouth at [place] bedtime. Medical Branch zolpidem 10 Yes 1{tbl} Take 1 [place] mg tablet 8-29 tablet by ity o f 00:00: mouth at [place] bedtime. Medical Branch zolpidem 10 Yes 1{tbl} Take 1 [place] mg tablet 8-29 tablet by ity o f 00:00: mouth at [place] bedtime. Medical Branch zolpidem 10 Yes 1{tbl} Take 1 [place] mg tablet 8-29 tablet by ity o f 00:00: mouth at [place] bedtime. Medical Branch zolpidem 10 Yes 1{tbl} Take 1 [place] mg tablet 8-29 tablet by ity o f 00:00: mouth at [place] bedtime. Medical Branch zolpidem 10 Yes 1{tbl} Take 1 [place] mg tablet 8-29 tablet by ity o f 00:00: mouth at [place] bedtime. Medical Branch zolpidem 10 Yes 1{tbl} Take 1 [place] mg tablet 8-29 tablet by ity o f 00:00: mouth at [place] bedtime. Medical Branch zolpidem 10 Yes 1{tbl} Take 1 [place] mg tablet 8-29 tablet by ity o f 00:00: mouth at [place] bedtime. Medical Branch zolpidem 10 Yes 1{tbl} Take 1 [place] mg tablet 8-29 tablet by ity o f 00:00: mouth at [place] bedtime. Medical Branch zolpidem 10 Yes 1{tbl} Take 1 [place] mg tablet 8-29 tablet by ity o f 00:00: mouth at [place] bedtime. Medical Branch zolpidem 10 Yes 1{tbl} Take 1 [place] mg tablet 8-29 tablet by ity o f 00:00: mouth at [place] bedtime. Medical Branch zolpidem 10 Yes 1{tbl} Take 1 [place] mg tablet 8-29 tablet by ity o f 00:00: mouth at [place] bedtime. Medical Branch zolpidem 10 Yes 1{tbl} Take 1 Un tianna mg tablet 8-29 tablet by ity o f 00:00: mouth at [place] bedtime. Medical Branch zolpidem 10 Yes 1{tbl} Take 1 Un [facility] mg tablet 8-29 tablet by ity o f 00:00: mouth at [place] bedtime. [facility] Branch zolpidem 10 Yes 1{tbl} Take 1 Un [place] mg tablet 8-29 tablet by ity o f 00:00: mouth at [place] bedtime. [facility] Branch zolpidem 10 Yes 1{tbl} Take 1 Un [place] mg tablet 8-29 tablet by ity o f 00:00: mouth at [place] bedtime. [facility] Branch zolpidem 10 Yes 1{tbl} Take 1 Un [place] mg tablet 8-29 tablet by ity o f 00:00: mouth at [place] 00 bedtime. Medical Branch zolpidem 10 Yes 1{tbl} Take 1 Un [place] mg tablet 8-29 tablet by ity o f 00:00: mouth at [place] bedtime. [facility] Branch zolpidem 10 Yes 1{tbl} Take 1 Un [place] mg tablet 8-29 tablet by ity o f 00:00: mouth at [place] bedtime. [facility] Branch zolpidem 10 Yes 1{tbl} Take 1 Un [place] mg tablet 8-29 tablet by ity o f 00:00: mouth at [place] 00 bedtime. Medical Branch zolpidem 10 Yes 1{tbl} Take 1 Un [place] mg tablet 8-29 tablet by ity o f 00:00: mouth at [place] bedtime. Medical Branch zolpidem 10 Yes 1{tbl} Take 1 Un [place] mg tablet 8-29 tablet by ity o f 00:00: mouth at [place] bedtime. [facility] Branch zolpidem 10 Yes 1{tbl} Take 1 Un [place] mg tablet 8-29 tablet by ity o f 00:00: mouth at [place] bedtime. Medical Branch zolpidem 10 Yes 1{tbl} Take 1 Un [place] mg tablet 8-29 tablet by ity o f 00:00: mouth at [place] bedtime. Medical Branch zolpidem 10 Yes 1{tbl} Take 1 Un [place] mg tablet 8-29 tablet by ity o f 00:00: mouth at [place] 00 bedtime. Medical Branch zolpidem 10 Yes 1{tbl} Take 1 Un [place] mg tablet 8-29 tablet by ity o f 00:00: mouth at [place] 00 bedtime. Medical Branch zolpidem 10 Yes 1{tbl} Take 1 Un [place] mg tablet 8-29 tablet by ity o f 00:00: mouth at [place] 00 bedtime. Medical Branch zolpidem 10 Yes 1{tbl} Take 1 Un [place] mg tablet 8-29 tablet by ity o f 00:00: mouth at [place] [address] bedtime. Medical Branch zolpidem 10 0 Yes 1{tbl} Take 1 Un [place] mg tablet 8-29 tablet by ity o f 00:00: mouth at [place] 00 bedtime. Medical Branch zolpidem 10 0 Yes 1{tbl} Take 1 Un [place] mg tablet 8-29 tablet by ity o f 00:00: mouth at [place] 00 bedtime. Medical Branch zolpidem 10 2021-0 Yes 1{tbl} Take 1 Un [place] mg tablet 8-29 tablet by ity o f 00:00: mouth at [place] 00 bedtime. Medical Branch zolpidem 10 0 Yes 1{tbl} Take 1 Un [facility] mg tablet 8-29 tablet by ity o f 00:00: mouth at [place] [address] bedtime. Medical Branch zolpidem 10 0 Yes 1{tbl} Take 1 Un [place] mg tablet 8-29 tablet by ity o f 00:00: mouth at [place] [address] bedtime. Medical Branch metFORMIN 2021-0 Yes [id number] 500mg Take 1 [facility] 500 mg 8-25 tablet by ity of tablet 00:00: mouth in [place] [address] the [facility] morning [place] and 1 tablet in the evening. Take with meals. metFORMIN 2021-0 Yes [id number] 500mg Take 1 [facility] 500 mg 8-25 tablet by ity of tablet 00:00: mouth in [place] [address] the [facility] morning [place] and 1 tablet in the evening. Take with meals. metFORMIN 2021-0 Yes [id number] 500mg Take 1 [facility] 500 mg 8-25 tablet by ity of tablet 00:00: mouth in [place] [address] the [facility] morning [place] and 1 tablet in the evening. Take with meals. metFORMIN 2021-0 Yes [id number] 500mg Take 1 [facility] 500 mg 8-25 tablet by ity of tablet 00:00: mouth in [place] [address] the [facility] morning [place] and 1 tablet in the evening. Take with meals. metFORMIN 2021-0 Yes [id number] 500mg Take 1 [facility] 500 mg 8-25 tablet by ity of tablet 00:00: mouth in [place] [address] the [facility] morning [place] and 1 tablet in the evening. Take with meals. metFORMIN 2021-0 2022- No [id number] 500mg Take 1 [facility] 500 mg 8-25 10-03 tablet by ity of tablet 00:00: 00:00 mouth in [place] 00 :00 the Medical morning Branch and 1 tablet in the evening. Take with meals. metFORMIN 2021- No [id number] 500mg Take 1 [facility] 500 mg 8-25 10-03 tablet by ity of tablet 00:00: 00:00 mouth in [place] 00 :00 the Medical morning Branch and 1 tablet in the evening. Take with meals. amoxicillin No [id number] 1{tbl} Take 1 Univers -clavulanat 01-03 tablet by it y of e 875-125 00:00: 04:59 mouth in [place] as mg per 00 :00 the Medical tablet morning Branch and 1 tablet in the evening. Do all this for 28 days. HYDROcodone 2021- No [id number] 1{tbl} Take 1 U nivers -acetaminop 01-03 tablet by it y of hen 5-325 00:00: 04:59 mouth [place] mg tablet 00 :00 every 6 Medical (six) Branch hours as needed for Pain (scale 1-3) or Pain (scale 4-6) for up to 21 days. Indication s: chronic pain Vital Signs Vital Name Observation Time Observation Value Comments Source Systolic blood 2022-07-09 131 mm[Hg] [facility] pressure 19:33:00 [facility] Diastolic blood 2022-07-09 74 mm[Hg] [place] o f pressure 19:33:00 [facility] Heart rate 2022-07-09 76 /min [facility] ::00 [facility] Body temperature 2022-07-09 35.72 Cathy University of 19::00 [facility] Respiratory rate 2022-07-09 18 /min [facility] ::00 [facility] Body height 2022-07-09 177.8 cm [facility] ::00 [facility] Body weight 2022-07-09 100.653 kg [facility] ::00 [facility] BMI 2022-07-09 31.84 kg/m2 [facility] 19::00 [facility] Oxygen saturation 2022-07-09 96 /min [facility] in Arterial blood 19:26:00 [facility] by Pulse oximetry Branch Systolic blood 2022-06-14 125 mm[Hg] University of pressure 16:32:00 [facility] Diastolic blood 2022-06-14 73 mm[Hg] University o f pressure 16:32:00 [facility] Heart rate 2022-06-14 67 /min University of 16:31:00 [facility] Body temperature 2022-06-14 36.44 Cathy University of 16:31:00 [facility] Respiratory rate 2022-06-14 18 /min University of 16:31:00 [facility] Body weight 2022-06-14 102.8 kg University of 16:31:00 [facility] BMI 2022-06-14 32.52 kg/m2 University of 16:31:00 [facility] Oxygen saturation 2022-06-14 98 /min University of in Arterial blood 16:31:00 [facility] gil by Pulse oximetry Branch Systolic blood 2022-06-12 124 mm[Hg] University of pressure 17:23:00 [facility] Diastolic blood 2022-06-12 66 mm[Hg] University o f pressure 17:23:00 [facility] Heart rate 2022-06-12 64 /min University of 17:23:00 [facility] Body temperature 2022-06-12 36.28 Cathy University of 17:23:00 [facility] Respiratory rate 2022-06-12 16 /min University of 17:23:00 [facility] Body weight 2022-06-12 101.3 kg University of 17:23:00 [facility] BMI 2022-06-12 32.04 kg/m2 University of 17:23:00 [facility] Oxygen saturation 2022-06-12 96 /min University of in Arterial blood 17:23:00 [facility] gil by Pulse oximetry Branch Systolic blood 2022-06-11 129 mm[Hg] University of pressure 19:15:00 [facility] Diastolic blood 2022-06-11 67 mm[Hg] University o f pressure 19:15:00 [facility] Heart rate 2022-06-11 67 /min University of 19:15:00 [facility] Body temperature 2022-06-11 36.11 Cathy University of 19:15:00 [facility] Respiratory rate 2022-06-11 18 /min University of 19:15:00 [facility] Body height 2022-06-11 177.8 cm University of 19:15:00 [facility] Body weight 2022-06-11 97.977 kg University of 19:15:00 [facility] BMI 2022-06-11 30.99 kg/m2 University of 19:15:00 [facility] Oxygen saturation 2022-06-11 98 /min University of in Arterial blood 19:15:00 [place] [facility] by Pulse oximetry Branch Systolic blood 2022-05-30 125 mm[Hg] University of pressure 19:59:00 [facility] Diastolic blood 2022-05-30 76 mm[Hg] University o f pressure 19:59:00 [facility] Heart rate 2022-05-30 80 /min University of 19:59:00 [facility] Body temperature 2022-05-30 36.06 Cathy University of 19:59:00 [facility] Respiratory rate 2022-05-30 16 /min University of 19:59:00 [facility] Body weight 2022-05-30 101.2 kg University of 19:59:00 [facility] BMI 2022-05-30 32.01 kg/m2 University of 19:59:00 [facility] Oxygen saturation 2022-05-30 97 /min University of in Arterial blood 19:59:00 [facility] gil by Pulse oximetry Branch Systolic blood 2022-05-28 120 mm[Hg] University of pressure 14:57:00 [facility] Diastolic blood 2022-05-28 84 mm[Hg] University o f pressure 14:57:00 [facility] Heart rate 2022-05-28 81 /min University of 14:55:00 [facility] Body temperature 2022-05-28 36.06 Cathy University of 14:55:00 [facility] Respiratory rate 2022-05-28 18 /min University of 14:55:00 [facility] Body weight 2022-05-28 101.9 kg University of 14:55:00 [facility] BMI 2022-05-28 32.23 kg/m2 University of 14:55:00 [facility] Oxygen saturation 2022-05-28 96 /min University of in Arterial blood 14:55:00 [place] Medi gil by Pulse oximetry Branch Systolic blood 2022-05-16 106 mm[Hg] University of pressure 18:33:00 [facility] Diastolic blood 2022-05-16 65 mm[Hg] University o f pressure 18:33:00 [facility] Heart rate 2022-05-16 74 /min University of 18:33:00 [facility] Body temperature 2022-05-16 35.94 Cathy University of 18:33:00 [facility] Respiratory rate 2022-05-16 18 /min University of 18:33:00 [facility] Body weight 2022-05-16 103.5 kg University of 18:33:00 [facility] BMI 2022-05-16 32.74 kg/m2 University of 18:33:00 [facility] Oxygen saturation 2022-05-16 97 /min University of in Arterial blood 18:33:00 [facility] by Pulse oximetry Branch Systolic blood 2022-05-14 149 mm[Hg] University of pressure 15:26:00 [facility] Diastolic blood 2022-05-14 65 mm[Hg] University o f pressure 15:26:00 [facility] Heart rate 2022-05-14 76 /min University of 15:26:00 [facility] Body temperature 2022-05-14 35.83 Cathy University of 15:26:00 [facility] Respiratory rate 2022-05-14 20 /min University of 15:26:00 [facility] Body weight 2022-05-14 102.1 kg University of 15:26:00 [facility] BMI 2022-05-14 32.30 kg/m2 University of 15:26:00 [facility] Oxygen saturation 2022-05-14 98 /min University of in Arterial blood 15:26:00 [facility] by Pulse oximetry Branch Systolic blood 2022-05-13 98 mm[Hg] University of pressure 18:56:00 [facility] Diastolic blood 2022-05-13 63 mm[Hg] University o f pressure 18:56:00 [facility] Heart rate 2022-05-13 75 /min University of 18:56:00 [facility] Body temperature 2022-05-13 36.44 Cathy University of 18:56:00 [facility] Respiratory rate 2022-05-13 17 /min University of 18:56:00 [facility] Body height 2022-05-13 177.8 cm University of 18:56:00 [facility] Body weight 2022-05-13 102.74 kg University of 18:56:00 [facility] BMI 2022-05-13 32.50 kg/m2 University of 18:56:00 [place] [facility] Oxygen saturation 2022-05-13 96 /min University of in Arterial blood 18:56:00 [place] [facility] by Pulse oximetry Branch Systolic blood 2022-05-07 106 mm[Hg] University of pressure 19:22:00 [place] [facility] Diastolic blood 2022-05-07 62 mm[Hg] University o f pressure 19:22:00 [facility] Heart rate 2022-05-07 79 /min University of 19:22:00 [facility] Body temperature 2022-05-07 35.94 Cathy University of 19:22:00 [place] [facility] Respiratory rate 2022-05-07 18 /min University of 19:22:00 [facility] Body weight 2022-05-07 100.2 kg University of 19:22:00 [facility] BMI 2022-05-07 31.70 kg/m2 University of 19:22:00 [facility] Oxygen saturation 2022-05-07 97 /min University of in Arterial blood 19:22:00 [place] Medi [facility]il by Pulse oximetry Branch Systolic blood 2022-04-29 118 mm[Hg] University of pressure 15:07:00 [facility] Diastolic blood 2022-04-29 65 mm[Hg] University o f pressure 15:07:00 [facility] Heart rate 2022-04-29 74 /min University of 15:07:00 [facility] Body temperature 2022-04-29 35.72 Cathy University of 15:07:00 [facility] Respiratory rate 2022-04-29 14 /min University of 15:07:00 [facility] Body weight 2022-04-29 100.8 kg University of 15:07:00 [facility] BMI 2022-04-29 31.89 kg/m2 University of 15:07:00 [facility] Oxygen saturation 2022-04-29 97 /min University of in Arterial blood 15:07:00 [place] [facility] by Pulse oximetry Branch Systolic blood 2022-04-18 123 mm[Hg] University of pressure 21:08:00 [place] [facility] Diastolic blood 2022-04-18 72 mm[Hg] University o f pressure 21:08:00 [place] [facility] Heart rate 2022-04-18 85 /min University of 21:08:00 [place] [facility] Respiratory rate 2022-04-18 20 /min University of 21:08:00 [facility] Body height 2022-04-18 177.8 cm University of 21:08:00 [facility] Body weight 2022-04-18 102.377 kg University of 21:08:00 [facility] BMI 2022-04-18 32.38 kg/m2 University of 21:08:00 [facility] Oxygen saturation 2022-04-18 98 /min University of in Arterial blood 21:08:00 [place] Medi [facility] by Pulse oximetry Branch Systolic blood 2022-04-18 136 mm[Hg] University of pressure 16:10:00 [facility] Diastolic blood 2022-04-18 81 mm[Hg] University o f pressure 16:10:00 [facility] Heart rate 2022-04-18 70 /min University of 16:10:00 [facility] Body temperature 2022-04-18 36.67 Cathy University of 16:07:00 [facility] Respiratory rate 2022-04-18 18 /min University of 16:07:00 [facility] Body height 2022-04-18 177.8 cm University of 16:07:00 [facility] Body weight 2022-04-18 102.059 kg University of 16:07:00 [facility] BMI 2022-04-18 32.28 kg/m2 University of 16:07:00 [facility] Oxygen saturation 2022-04-18 97 /min University of in Arterial blood 16:07:00 [facility] by Pulse oximetry Branch Systolic blood 2022-04-16 129 mm[Hg] University of pressure 20:02:00 [facility] Diastolic blood 2022-04-16 75 mm[Hg] University o f pressure 20:02:00 [facility] Heart rate 2022-04-16 89 /min University of 20:02:00 [facility] Body temperature 2022-04-16 36.06 Cathy University of 20:02:00 [facility] Respiratory rate 2022-04-16 16 /min University of 20:02:00 [facility] Body height 2022-04-16 177 cm University of 20:02:00 [facility] Body weight 2022-04-16 100.699 kg University of 20:02:00 [facility] BMI 2022-04-16 32.14 kg/m2 University of 20:02:00 [facility] Oxygen saturation 2022-04-16 96 /min University of in Arterial blood 20:02:00 [facility] by Pulse oximetry Branch Systolic blood 2022-04-15 127 mm[Hg] University of pressure 15:01:00 [facility] Diastolic blood 2022-04-15 77 mm[Hg] University o f pressure 15:01:00 [facility] Heart rate 2022-04-15 79 /min University of 15:01:00 [facility] Body temperature 2022-04-15 35.89 Cathy University of 15:01:00 [facility] Respiratory rate 2022-04-15 18 /min University of 15:01:00 [facility] Body height 2022-04-15 176.6 cm Verified with University of 15:01:00 Elizabeth YU / marianna/ [facility] RN Body weight 2022-04-15 100.8 kg Verified with University of 15::00 Elizabeth YU / [facility] RN BMI 2022-04-15 32.32 kg/m2 University of 15:01:00 [facility] Oxygen saturation 2022-04-15 96 /min University of in Arterial blood 15:01:00 [facility] by Pulse oximetry Branch Systolic blood 2022-03-28 131 mm[Hg] University of pressure 15:30:00 [facility] Diastolic blood 2022-03-28 93 mm[Hg] University o f pressure 15:30:00 [facility] Heart rate 2022-03-28 64 /min University of 15:30:00 [facility] Respiratory rate 2022-03-28 17 /min University of 15:30:00 [facility] Oxygen saturation 2022-03-28 99 /min University of in Arterial blood 15:30:00 [facility] by Pulse oximetry Branch Body temperature 2022-03-28 36.61 Cathy University of 14:14:00 [facility] Systolic blood 2022-03-19 125 mm[Hg] University of pressure 21:33:00 [place] [facility] Diastolic blood 2022-03-19 74 mm[Hg] University o f pressure 21:33:00 [facility] Heart rate 2022-03-19 73 /min University of 21:33:00 [facility] Body temperature 2022-03-19 35.72 Cathy University of 21:33:00 [facility] Respiratory rate 2022-03-19 16 /min University of 21:33:00 [facility] Body height 2022-03-19 177.8 cm University of 21:33:00 [facility] Body weight 2022-03-19 105.779 kg University of 21:33:00 [facility] BMI 2022-03-19 33.46 kg/m2 University of 21:33:00 [facility] Oxygen saturation 2022-03-19 98 /min University of in Arterial blood 21:33:00 [facility] gil by Pulse oximetry Branch Systolic blood 2022-03-01 114 mm[Hg] University of pressure 16:55:00 [facility] Diastolic blood 2022-03-01 66 mm[Hg] University o f pressure 16:55:00 [facility] Heart rate 2022-03-01 84 /min University of 16:55:00 [facility] Body temperature 2022-03-01 36.33 Cathy University of 16:55:00 [facility] Respiratory rate 2022-03-01 18 /min University of 16:55:00 [facility] Oxygen saturation 2022-03-01 98 /min University of in Arterial blood 16:55:00 [facility] by Pulse oximetry Branch Systolic blood 2022-02-25 174 mm[Hg] University of pressure 17:15:00 [facility] Diastolic blood 2022-02-25 98 mm[Hg] University o f pressure 17:15:00 [facility] Heart rate 2022-02-25 84 /min University of 17:15:00 [facility] Respiratory rate 2022-02-25 20 /min University of 17:15:00 [facility] Oxygen saturation 2022-02-25 96 /min University of in Arterial blood 17:15:00 [facility] by Pulse oximetry Branch Body temperature 2022-02-25 36.33 Cathy University of 16:06:00 [facility] Systolic blood 2022-02-21 124 mm[Hg] University of pressure 14:51:00 [place] [facility] Diastolic blood 2022-02-21 76 mm[Hg] University o f pressure 14:51:00 [place] [facility] Branch Heart rate 2022-02-21 67 /min University of 14:51:00 [facility] Body temperature 2022-02-21 36.39 Cathy University of 14:51:00 [facility] Respiratory rate 2022-02-21 18 /min University of 14:51:00 [facility] Body height 2022-02-21 180.3 cm University of 14:51:00 [facility] Body weight 2022-02-21 104.781 kg University of 14:51:00 [facility] BMI 2022-02-21 32.22 kg/m2 University of 14:51:00 [facility] Oxygen saturation 2022-02-21 97 /min University of in Arterial blood 14:51:00 [facility] by Pulse oximetry Branch Systolic blood 2022-02-19 123 mm[Hg] University of pressure 18:50:00 [facility] Diastolic blood 2022-02-19 63 mm[Hg] University o f pressure 18:50:00 [facility] Heart rate 2022-02-19 95 /min University of 18:50:00 [facility] Body temperature 2022-02-19 35.83 Cathy University of 18:34:00 [facility] Respiratory rate 2022-02-19 16 /min University of 18:34:00 [facility] Body height 2022-02-19 176.4 cm verified ht & University of 18:34:00 wt with [facility] Body weight 2022-02-19 103.329 kg verified ht & University of 18:34:00 wt with [facility] BMI 2022-02-19 33.21 kg/m2 University of 18:34:00 [facility] Oxygen saturation 2022-02-19 96 /min University of in Arterial blood 18:34:00 [facility] by Pulse oximetry Branch Systolic blood 2022-02-11 106 mm[Hg] University of pressure 13:36:00 [facility] Diastolic blood 2022-02-11 72 mm[Hg] University o f pressure 13:36:00 [facility] Heart rate 2022-02-11 69 /min University of 13:36:00 [facility] Body temperature 2022-02-11 35.72 Cathy University of 13:36:00 [facility] Respiratory rate 2022-02-11 18 /min University of 13:36:00 [facility] Body height 2022-02-11 180.3 cm University of 13:36:00 [facility] Body weight 2022-02-11 102.059 kg University of 13:36:00 [facility] BMI 2022-02-11 31.38 kg/m2 University of 13:36:00 [facility] Oxygen saturation 2022-02-11 98 /min room air [facility] in Arterial blood 13:36:00 [facility] by Pulse oximetry Branch Systolic blood 2022-01-24 168 mm[Hg] [facility] pressure 17:10:00 [facility] Diastolic blood 2022-01-24 73 mm[Hg] [facility] pressure 17:10:00 [facility] Heart rate 2022-01-24 48 /min [facility] 17:10:00 [facility] Respiratory rate 2022-01-24 16 /min [facility] 17:10:00 [facility] Oxygen saturation 2022-01-24 100 /min [facility] Arterial blood 17:10:00 [facility] by Pulse oximetry Branch Body weight 2022-01-24 103.874 kg [facility] 16:33:00 [facility] BMI 2022-01-24 31.94 kg/m2 [facility] 16:33:00 [facility] Body temperature 2022-01-24 36.83 Cathy [facility] 15:22:00 [facility] Procedures Procedure Date / Time Performing Clinician Source Performed EXTERNAL PROVIDER 2022-07-10 06:01:00 [facility] CT ABDOMEN PELVIS W 2022-07-02 21:02:16 Rohini Cramer [facility] CONTRAST [facility] Branch MAGNESIUM 2022-06-14 16:50:00 Rohini Cramer [facility] BASIC METABOLIC PANEL 2022-06-14 16:50:00 Rohini Cramer [facility] (NA, K, CL, CO2, Medical Branch GLUCOSE, BUN, CREATININE, CA) CBC WITH DIFF 2022-06-14 16:50:00 Rohini Cramer [facility] AUTHORIZATION FOR 2022-05-13 06:01:00 Doctor Unassigned, No Univ [facility] RELEASE OF PHI Name [facility] [place] MYOCARDIUM PERFUSION 2022-05-02 18:30:00 Billie Smith [place] [employer] Resource SSD STRESS AND REST [facility] [place] NM MYOCARDIUM PERFUSION 2022-05-02 18:30:00 Billie Smith [place] [employer] STRESS AND REST [facility] NM MYOCARDIUM PERFUSION 2022-05-02 18:30:00 Billie Smith [place] [employer] [facility] STRESS AND REST [facility] [place] NM MYOCARDIUM PERFUSION 2022-05-02 18:30:00 Billie Smith [place] [employer] STRESS AND REST [facility] TRANSTHORACIC ECHO (TTE) 2022-04-18 13:53:53 Rohini Cramer [facility] COMPLETE Medical Branch REFERRAL- 2022-04-18 06:01:00 Doctor Unassigned, No [facility] REQUEST/RESPONSE Name [facility] HB ECG ROUTINE & RHYTHM 2022-04-15 22:07:57 Rohini Cramer [facility] STRIP [facility] TROPONIN I 2022-04-15 21:47:00 Rohini Cramer Brule o [facility] DISCLOSURE AND CONSENT, 2022-04-15 06:01:00 Doctor Unassigned, N o [place] [facility] [employer] [facility] MEDICAL AND SURGICAL Name Medical [facility] PROCEDURES IR CENTRALLY INSERTED 2022-03-28 16:42:18 [facility] DEVICE TUNNELED CATHETER [facility] WITH PORT 5 OR OLDER IR CHANGE OF ABSCESS 2022-03-28 15:23:34 [facility] Purnima [facility] COMP. METABOLIC PANEL 2022-03-19 20:58:00 Rohini Cramer [facility] ([id number]) [facility] CBC WITH DIFF 2022-03-19 20:58:00 Rohini Cramer [facility] EXTERNAL PROVIDER 2022 05:01:00 Doctor Unassigned, No [facility] MR ABDOMEN W WO CONTRAST 2022-02-25 15:57:37 Symone Trivedi [facility] Medical Branch AUTHORIZATION TO RELEASE 2022-02-19 05:01:00 Doctor Unassigned, No [place] [facility] [employer] [facility] PHI TO [facility] Name [facility] Branch POCT HEMOGLOBIN A1C TEST 2022-02-11 00:00:00 [facility] 2022-01-25 05:01:00 Doctor Unassigned, No [facility] RECORDS Name Medical Branch IR CHANGE OF ABSCESS 2022-01-24 16:55:17 José Miguel Gonzales [facility] DRAIN Medical Branch Encounters Start End Encounter Admission Attending Care Care Encounter Source Date/Time Date/Time Type Type Clinicians Facility Department ID 2022-11-15 2022-11-15 Outpatient R LUIS, [facility] [id number] Univers 14:30:00 14:30:00 SENDIL pola [facility] 2022-07-30 2022-07-30 Outpatient Florencio BRAGA [facility] [id number] Univers 14:30:00 14:30:00 ALEKSANDAR [facility] 2022-07-18 2022-07-18 Outpatient R DALIA, [facility] [id number] Univers 11:00:00 11:00:00 SYMONE [facility] 2022-07-10 2022-07-10 Orders Doctor JONES 1.2.840.114 [id number] Univers 00:00:00 00:00:00 Only Unassigned, FADUMO 350.1.13.10 ity of [facility] 4.2.7.2.686 [place] as [id number] [address] 2022-07-09 2022-07-09 [facility] [id number] Univers 13:30:00 16:33:56 [facility] 2022-07-09 2022-07-09 Office Rohini Cramer 1.2.840. 114 [id number] Univers 13:30:00 16:33:56 Visit Aleksandar Braga 350.1.13.10 ity of BUILDING 4.2.7.2.686 [place] [id number] [address] 2022-07-09 2022-07-09 Case SHANNA Braga 1.2.840.114 1 [id number] Univers 00:00:00 00:00:00 Management Aleksandar Liang H 350.1.13.10 ity of BUILDING 4.2.7.2.686 [place] [id number] [address] 2022-07-08 2022-07-08 E Merchant [facility] UNIVERSIT 1.2.840.114 1 [id number] Univers 10:15:00 10:30:00 Visit Aleksandar Braga HEALTH 350.1.13.10 ity of [place] [id number] [facility] [address] 2022-07-08 2022-07-08 Outpatient Florencio BRAGA [facility] 1044 [id number] Univers 10:15:00 10:15:00 ALEKSANDAR ity [facility] 2022-07-08 2022-07-08 Case SHANNA Cramer 1.2.840.114 [id number] Univers 00:00:00 00:00:00 Management Rohini Rausch 350.1.13.10 ity of BUILDING 4.2.7.2.686 [place] [id number] [facility] [address] 2022-07-02 2022-07-02 [facility] Maria Luz[facility] 1.2.840.114 [id number] Univers 13:06:01 23:59:00 Encounter Aleksandar Patient Home Monitoring 350.1.13.10 ity of CLINICS 4[place] [id number] [facility] [address] 2022-07-02 2022-07-02 Outpatient Florencio BRAGA [facility] 1044 [id number] Univers 13:04:04 13:05:00 ALEKSANDAR ity [facility] 2022-07-02 2022-07-02 [facility] 1.2.840.114 [id number] Univers 13:04:04 13:05:00 Encounter Aleksandar Patient Home Monitoring 350.1.13.10 ity of CL[place] [id number] [facility] [address] 2022-06-27 2022-06-27 Outpatient Florencio BRAGA [facility] 1043 [id number] Univers 12:30:00 12:30:00 ALEKSANDAR ity [facility] 2022-06-25 2022-06-25 Outpatient Florencio BRAGA [facility] 1044 [id number] Univers 08:00:00 08:00:00 ALEKSANDAR ity [facility] 2022-06-21 2022-06-21 E Merchant Lab, Ang - Db [facility] 1.2.840.1 14 [id number] Univers 09:00:00 09:15:00 Visit Rocael Alvarenga HEALTH 350.1.13.10 ity of [place] 4.2.7.2.686 Frandy as KAEL?BLEA [id number] [address] MEDICAL OFFICE BUILDING 2022-06-21 2022-06-21 Outpatient R ROCAEL ALVARENGA [facility] 1043 [id number] Univers 09:00:00 09:00:00 ity [facility] 2022-06-14 2022-06-14 [facility] 1043 [id number] Univers 13:30:00 13:53:04 ALEKSANDAR ity [facility] 2022-06-14 2022-06-14 Nurse 3, [facility] Infusion Chair UNIVERSIT 1. 2.840.114 [id number] Univers 13:30:00 13:53:04 Visit Aleksandar Braga HEALTH 350.1.13.10 ity of [facility] 4.2.7.2.[place] [id number] [address] 2022-06-14 2022-06-14 Outpatient R MARIA LUZ [facility] 1043 [id number] Univers 13:30:00 13:30:00 ALEKSANDAR ity [facility] 2022-06-12 2022-06-12 [facility] 1043 [id number] Univers 09:00:00 14:50:33 [facility]22-[facility] 2022-06-12 Nurse 3, [facility] Infusion Chair UNIVERSIT 1. 2.840.114 [id number] Univers 09:00:00 14:50:33 Visit Aleksandar Braga Y HEALTH 350.1.13.10 ity of [place] [id number] [address] 2022-06-11 2022-06-11 [facility] 1043 [id number] Univers 13:00:00 14:40:53 [facility] 2022-06-11 2022-06-11 Office Rohini Cramer 1.2.840. 114 [id number] Univers 13:00:00 14:40:53 Visit Aleksandar Braga 350.1.13.10 ity of BUILDING 4.2.7.2.686 [place] [id number] [address] 2022-06-11 2022-06-11 Telephone SHANNA Cramer 1.2.840.114 1 [id number] Univers 00:00:00 00:00:00 Rohini Rausch 350.1.13.10 it y of [facility] 4.2.7.2.686 [place] as [id number] [address] 2022-06-10 2022-06-10 Outpatient R DALILA [facility] 1043 [id number] Univers 09:00:00 09:02:44 [facility] 2022-06-10 2022-06-10 E Merchant Lab, Ang - Db [facility] 1.2.840.1 14 [id number] Univers 09:00:00 09:02:[address] [facility] 350.1.13.10 ity [facility] 4.2.7.2.686 [place] as KAEL?BLEA [phone] [address] MEDICAL OFFICE BUILDING 2022-05-30 2022-05-30 Nurse 10, [facility] Infusion Chair UNIVERSIT 1 .2.840.114 [id number] Univers 13:00:00 13:30:00 Visit Rocael Alvarenga [facility] HEALTH 350.1.13.10 ity of [place] [id number] [address] 2022-05-30 2022-05-30 Outpatient R ROCAEL ALVARENGA [facility] 1043 [id number] Univers 13:00:00 13:00:00 ity of [facility] 2022-05-28 2022-05-28 Outpatient R [facility] 1043 [id number] Univers 08:30:00 14:29:45 ity of [facility] 2022-05-28 2022-05-28 Nurse 2, [facility] Infusion Chair UNIVERSIT 1. 2.840.114 [id number] Univers 08:30:00 14:00:00 Visit Rocael Alvarenga Rp HEALTH 350.1.13.10 ity of [place] 4[place] [id number] [address] 2022-05-272022-05-27 Case JONES Cramer 1.2.840.114 [id number] Univers 00:00:00 00:00:00 Management Rohini THORNE 350.1.13.10 ity of [facility] 4.2.7.2.686 [place] as [id number] [facility] [address] [place] 2022-05-27 2022-05-27 Case SHANNA Braga 1.2.840.114 9 [id number] Univers 00:00:00 00:00:00 Management Aleksandar Rausch 350.1.13.10 ity of [facility] 4.2.7.2.686 [place] as [id number] [facility] [address] [place] 2022-05-27 2022-05-27 RUBI Contreras 1.2.840.114 [id number] Univers 00:00:00 00:00:00 [facility] 350.1.13.10 i ty of CL[place]ICS [place] [id number] [facility] [address] [place] 2022-05-24 2022-05-24 [facility] [id number] Univers 08:30:00 10:20:02 ity [facility] 2022-05-24 2022-05-24 E Merchant Lab, Rell - [facility] 1.2.840.1 14 [id number] Univers 08:30:00 08:45:00 Visit Rocael Alvarenga [facility] 350.1.13.10 ity of [place] 4.2.7.2.686 Frandy as KAEL?BLEA [id number] [address] MEDICAL OFFICE BUILDING 2022-05-16 2022-05-16 Nurse 9, [facility] Infusion Chair UNIVERSIT 1. 2.840.114 [id number] Univers 13:00:00 13:30:00 Visit Rocael Alvarenga [facility] HEALTH 350.1.13.10 ity of [place] 4[place] [id number] [facility] [address] [place] 2022-05-16 2022-05-16 Outpatient R LIS [facility] 1043 [id number] Univers 13:00:00 13:07:15 ity of [facility] 2022-05-14 2022-05-14 Outpatient R ROCAEL ALVARENGA [facility] 1043 [id number] Univers 08:30:00 15:13:57 ity of [facility] 2022-05-14 2022-05-14 Nurse 4, [facility] Infusion Chair UNIVERSIT 1. 2.840.114 [id number] Univers 08:30:00 15:13:57 Visit Rocael Alvarenga Rp Y HEALTH 350.1.13.10 ity of [facility] 4.2.7.2.[place] [id number] [facility] [address] [place] 2022-05-14 2022-05-14 Case JONES Cramer 1.2.840.114 [id number] Univers 00:00:00 00:00:00 Management Rohini THORNE 350.1.13.10 ity of [facility] 4.2.7.2.686 [place] as [id number] [facility] [address] [place] 2022-05-14 2022-05-14 Case JONES Braga 1.2.840.114 [id number] Univers 00:00:00 00:00:00 Management Aleksandar THORNE 350.1.13.10 ity of [facility] 4.2.7.2.686 [place] as [id number] [facility] [address] [place] 2022-05-13 2022-05-13 Office Luis [facility] 1.2.840.114 [id number] Univers 13:00:00 13:33:03 Visit Billie COLEMAN 350.1.13.10 ity of [place].2.[place] [phone] Ga dical NAL [address] BUILDING 2022-05-13 2022-05-13 E Merchant Lab, Ang - Db [facility] 1.2.840.1 14 [id number] Univers 08:30:00 08:45:00 Visit Unknown, Attending [facility] 350.1.13.10 ity of [place] 4.2.7.2.686 Fr[place] as KAEL?BLEA [id number] Ga dical KNEY [address] [place] MEDICAL OFFICE BUILDING 2022-05-13 2022-05-13 Outpatient R LUIS [facility] [id number] Univers 08:30:00 08:30:47 SENDIL ity of [facility] 2022-05-13 2022-05-13 Case JONES Cramer 1.2.840.114 [id number] Univers 00:00:00 00:00:00 Management Coreyisreal Osman THORNE 350.1.13.10 ity of HOSPITAL 4.2.7.2.686 [place] as [id number] [facility] [address] [place] 2022-05-13 2022-05-13 Orders Doctor JONES 1.2.840.114 [id number] Univers 00:00:00 00:00:00 Only Unassigned, FADUMO 350.1.13.10 ity of [facility] 4.2.7.2.686 Frandy as [id number] [facility] [address] 2022-05-09 2022-05-09 Case JONES Braga 1.2.840.114 [id number] Univers 00:00:00 00:00:00 Management Aleksandar THORNE 350.1.13.10 ity of HOSPITAL 4.2.7.2.686 [place] as [id number] [facility] [address] [place] 2022-05-08 2022-05-08 E Merchant [facility] UNIVERSIT 1.2.840.114 9 [id number] Univers 08:45:00 09:00:00 Visit Aleksandar Braga HEALTH 350.1.13.10 ity of [place] [id number] [facility] [address] [place] 2022-05-08 2022-05-08 Outpatient R MARIA LUZ [facility] 1043 [id number] Univers 08:45:00 08:45:00 ALEKSANDAR ity [facility] 2022-05-07 2022-05-07 E Merchant [facility] UNIVERSIT 1.2.840.114 9 [id number] Univers 14:30:00 14:45:00 Visit Aleksandar Braga HEALTH 350.1.13.10 ity of [place] [id number] [facility] [address] [place] 2022-05-07 2022-05-07 Outpatient R MARIA LUZ [facility] 1043 [id number] Univers 13:00:00 14:21:54 ALEKSANDAR ity of [facility] 2022-05-07 2022-05-07 Office Rohini Cramer 1.2.840. 114 [id number] [facility] 13:00:00 14:21:54 Visit Aleksandar Braga H 350.1.13.10 ity of BUILDING 4.2.7.2.686 [place] as [id number] [facility] [address] [place] 2022-05-02 2022-05-02 [facility] 1.[facility].840.114 [id number] Univers 10:04:47 23:59:00 Encounter Sendil [facility]. [facility] HEALTH 350.1.13.10 ity of [place] [id number] [facility] [address] [place] 2022-05-02 2022-05-02 [facility] 1.2.840.114 [id number] Univers 10:03:39 10:03:39 Encounter Sendil [facility]. Y HEALTH 350.1.13.10 ity of [place] [id number] [facility] [address] [place] 2022-05-02 2022-05-02 [facility] 1.2.840.114 [id number] Univers 10:02:34 10:02:34 Encounter Sendil [facility]. Y HEALTH 350.1.13.10 ity of [place] 4[place]2.[place] [id number] [facility] [address] [place] 2022-05-02 2022-05-02 Outpatient R LUIS [facility] [id number] Univers 10:02:02 10:02:02 SENDIL ity of [facility] 2022-05-02 2022-05-02 [facility] 1.2.840.114 [id number] Univers 10:02:02 10:02:02 Encounter Sendil [facility]. Y HEALTH 350.1.13.10 ity of CL[place] 4[place].2.[place] [id number] [place] [address] [place] 2022-04-30 2022-04-30 Outpatient R LUIS [facility] [id number] Univers 00:00:00 00:00:00 SENDIL ity of [facility] 2022-04-29 2022-04-29 Outpatient R MARIA LUZ [facility] 1043 [id number] Univers 08:00:00 14:11:44 ALEKSANDAR ity [facility] 2022-04-29 2022-04-29 Nurse 7, [facility] Infusion Chair UNIVERSIT 1. 2.840.114 [id number] Univers 08:00:00 14:11:44 Visit Aleksandar Braga Y HEALTH 350.1.13.10 ity of [place] [id number] [facility] [address] 2022-04-29 2022-04-29 Case SHANNA Braga 1.2.840.114 9 [id number] Univers 00:00:00 00:00:00 Management Aleksandar Liang H 350.1.13.10 ity of [facility] 4.2.7.2.686 Frandy as [id number] [facility] [address] 2022-04-28 2022-04-28 Case RossanakayleighJONES 1.2.840.114 [id number] Univers 00:00:00 00:00:00 Management Rohini THORNE 350.1.13.10 ity of [facility] 4.2.7.2.686 Frandy as [id number] [facility] [address] 2022-04-26 2022-04-26 E Merchant [facility] UNIVERSIT 1.2.840.114 9 [id number] Univers 10:30:00 10:45:00 Visit Aleksandar Braga HEALTH 350.1.13.10 ity of [place] [id number] [facility] [address] 2022-04-26 2022-04-26 Outpatient R MARIA LUZ [facility] 1043 [id number] Univers 10:30:00 10:30:00 ALEKSANDAR ity [facility] 2022-04-18 2022-04-18 Hospital KATHRINE Braga 1.2.840.114 [id number] Univers 07:18:29 23:59:00 Encounter Aleksandar B Y HEALTH 350.1.13.10 ity of [place] [id number] [facility] [address] 2022-04-18 2022-04-18 Office Luis [facility] 1.2.840.114 [id number] Univers 15:00:00 15:54:33 Visit Billie PettitShalomBetsy COLEMAN 350.1.13.10 ity of [facility] 4.2.7.2.[place] [id number] Ga dical [facility] 059 [facility] 2022-04-18 2022-04-18 Office KATHRINE Trivedi 1.2.840.114 [id number] Univers 11:00:00 11:30:00 Visit [facility] 350.1.13.10 i ty of CL[place] [id number] [facility] [address] [place] 2022-04-18 2022-04-18 Outpatient R DALIA [facility] [id number] Univers 11:00:00 11:00:00 SYMONE [facility] 2022-04-18 2022-04-18 Outpatient Florencio BRAGA [facility] 1043 [id number] Univers 07:30:00 07:30:00 ALEKSANDAR [facility] 2022-04-17 2022-04-17 Outpatient Florencio BRAGA [facility] 1043 [id number] Univers 14:00:00 14:00:00 [facility] 2022-04-16 2022-04-16 Office Rohini Cramer 1.2.840. 114 [id number] Univers 16:00:00 16:00:00 Visit Aleksandar Braga 350.1.13.10 ity of [facility] 4.2.7.2.686 Frandy as [id number] [facility] [address] [place] 2022-04-16 2022-04-16 E Merchant [facility] UNIVERSIT 1.2.840.114 9 [id number] Univers 14:30:00 14:45:00 Visit Ricky Vann 350.1.13 .10 ity of [place] [id number] [facility] [address] 2022-04-16 2022-04-16 Outpatient R MARIA LUZ [facility] 1042 [id number] Univers 16:00:00 14:44:42 ALEKSANDAR ity [facility] 2022-04-15 2022-04-15 Outpatient R MARIA LUZ [facility] 1042 [id number] Univers 08:30:00 16:16:33 ALEKSANDAR ity [facility] 2022-04-15 2022-04-15 Nurse 2, [facility] Infusion Chair UNIVERSIT 1. 2.840.114 [id number] Univers 08:30:00 16:16:33 Visit Aleksandar Braga AptDeco 350.1.13.10 ity of [place] [id number] [facility] [address] [place] 2022-04-15 2022-04-15 Orders Doctor JONES 1.2.840.114 [id number] Univers 00:00:00 00:00:00 Only Unassigned, FADUMO 350.1.13.10 ity of [facility] 4.2.7.2.686 Frandy as [id number] [facility] [address] 2022-04-15 2022-04-15 Case Maria Luz SHAGUFTADeejay 1.2.840.114 9 [id number] Univers 00:00:00 00:00:00 Management Aleksandar Liang 350.1.13.10 ity of BUILDING 4.2.7.2.686 [place] as [id number] [facility] [address] 2022-04-15 2022-04-15 Case Bela MONIKA 1.2.840.114 [id number] Univers 00:00:00 00:00:00 Management [facility] 350.1.13.10 it[place] [id number] [facility] [address] 2022-04-12 2022-04-12 E Merchant [facility] UNIVERSIT 1.2.840.114 9 [id number] Univers 10:30:00 10:45:00 Visit Aleksandar Braga AptDeco 350.1.13.10 ity of [place] [id number] [facility] [address] 2022-04-12 2022-04-12 [facility] [id number] [id number] Univers 10:30:00 10:30:00 ALEKSANDAR ity [facility] 2022-03-28 2022-03-28 [facility] Maria Luz [facility] 1.2.840.114 [id number] Univers 07:49:27 23:59:00 Encounter Aleksandar B Y HEALTH 350.1.13.10 ity of [place] [id number] [facility] [address] [place] 2022-03-28 2022-03-28 [facility] 1042 [id number] Univers 07:48:52 07:48:52 ALEKSANDAR ity [facility] 2022-03-28 2022-03-28 [facility] 1.2.840.114 [id number] Univers 07:48:52 07:48:52 Encounter Aleksandar B Y HEALTH 350.1.13.10 ity of [place] [id number] [facility] [address] [place] 2022-03-27 2022-03-27 Telephone SHANNA Braga 1.2.840.114 [id number] Univers 00:00:00 00:00:00 Aleksandar B H 350.1.13.10 it y of BUILDING 4.2.7.2.686 [place] [id number] [place] [address] [place] 2022-03-19 2022-03-19 Office Chinyere Morton 1.2.840.114 [id number] Univers 16:00:00 17:00:00 Visit Maria LuzAleksandar H 350.1.13.10 ity of BUILDING 4.2.7.2.686 [place] as [id number] [place] [address] [place] 2022-03-19 2022-03-19 Out[facility] 1042 [id number] Univers 16:00:00 16:00:00 ALEKSANDAR ity [facility] 2022-03-19 2022-03-19 E [employer] [facility] UNIVERSIT 1.2.840.114 [id number] Univers 14:30:00 14:45:00 Visit Cielo, Irfan Y HEALTH 350.1.13.10 ity [place] [id number] [facility] [address] 2022-03-15 2022-03-15 Telephone Dalia [facility] 1.2.840.114 [id number] Univers 00:00:00 00:00:00 Symone Y HEALTH 350.1.13.10 i ty of [place] [id number] [facility] [address] 2022-03-13 2022-03-13 [facility] 1.2.840.11 [id number] Univers 00:00:00 00:00:00 plinary Aleksandar B Y HEALTH 350.1.13.10 i ty of Conference CLINICS 4.2.7.2.686 [place] [id number] [facility] [address] 2022 2022 Orders Doctor JONES 1.2.840.114 [id number] Univers 00:00:00 00:00:00 Only Unassigned, FADUMO 350.1.13.10 ity of [facility] 4.2.7.2.686 [place] [id number] [facility] [address] 2022-03-01 2022-03-01 [facility] 1.2.840.114 975 [facility] 10:59:24 23:59:00 Encounter Irfan Y HEALTH 350.1.13.10 ity of [place] [id number] [facility] [address] 2022-03-01 2022-03-01 Outpatient R CIELO [facility] [id number] Univers 10:56:59 10:58:00 IRFAN ity of [facility] 2022-03-01 2022-03-01 [facility] 1.2.840.114 975 [facility] 10:56:59 10:58:00 Encounter Irfan Y HEALTH 350.1.13.10 ity [place] [id number] [facility] [address] 2022-02-27 2022-02-27 Telephone Dalia [facility] 1.2.840.114 9 [id number] Univers 00:00:00 00:00:00 Symone Y HEALTH 350.1.13.10 i ty of [place] 4[place] [id number] [place] [id number] [place] 2022-02-25 2022-02-25 Outpatient R MARIA LUZ [facility] 1042 [id number] Univers 07:53:07 23:59:00 ALEKSANDAR ity [facility] 2022-02-25 2022-02-25 [facility] 1.2.840.114 [id number] Univers 07:53:07 23:59:00 Encounter Aleksandar B Y HEALTH 350.1.13.10 ity of [place] 4[place] [id number] [place] [id number] [place] 2022-02-25 2022-02-25 [facility] Dalia [facility] 1.2.840.114 [id number] Univers 07:51:21 07:52:00 Encounter Symone Y HEALTH 350.1.13.10 it[place] [id number] [facility] [address] 2022-02-25 2022-02-25 Sujit Larios UNIVERSIT 1.2.840.114 [id number] Univers 00:00:00 00:00:00 Management Ander Y HEALTH 350.1.13.10 [place] [id number] [address] 2022-02-21 2022-02-21 [facility] 1.2.840.114 [id number] Univers 10:30:00 11:00:00 Visit Symone Y HEALTH 350.1.13.10 i ty [id number] [place] [address] 2022-02-21 2022-02-21 Outpatient Florencio TRIVEDI [facility] [id number] Univers 10:30:00 10:30:00 SYMONE solano [facility] 2022-02-21 2022-02-21 E [facility] UNIVERSIT 1.2.840.114 [id number] Univers 08:15:00 08:30:00 Visit Aleksandar Braga Pola HEALTH 350.1.13.10 it[place] [id number] [facility] [address] 2022-02-19 2022-02-19 E [employer] [facility] UNIVERSIT 1.2.840.114 9 [id number] Univers 15:15:00 15:30:00 Visit Aleksandar Braga Pol[place] HEALTH 350.1.13.10 it[place] [id number] [facility] [address] 2022-02-19 2022-02-19 Outpatient R MARIA LUZ [facility] 1042 [id number] Univers 14:00:00 14:44:21 ALEKSANDAR ity [facility] 2022-02-19 2022-02-19 Office Rohini Cramer 1.2.840. 114 [id number] Univers 14:00:00 14:44:21 Visit Aleksandar Braga 350.1.13.10 ity of BUILDING 4.2.7.2.686 [place] [id number] [facility] [address] 2022-02-19 2022-02-19 Orders Doctor JONES 1.2.840.114 [id number] Univers 00:00:00 00:00:00 Only Unassigned, FADUMO 350.1.13.10 ity of [place] [facility] 4.2.7.2.686 [place] [phone] [facility] [address] 2022-02-13 2022-02-13 Telephone [facility] 1.2.840.114 [id number] Univers 00:00:00 00:00:00 Morgan J PRIMARY 350.1.13.10 it y [place] [id number] Ga dical [address] 2022-02-11 2022-02-11 Outpatient R CARLTON [facility] [place] [id number] 3447 Univers 09:00:00 10:20:07 MORGAN ity [facility] 2022-02-11 2022-02-11 Office Carlton [facility] 1.2.840.114 [id number] Univers 09:00:00 10:20:07 Visit Morgan J PRIMARY 350.1.13.10 it y [place] [id number] [facility] [address] 2022-02-07 2022-02-07 Hospital Mulligan, UNIVERSIT 1.2.840.114 [id number] Univers 13:40:00 23:59:00 Encounter Gunvir Y HEALTH 350.1.13.10 ity of [place] CL[place] [id number] [facility] [address] 2022-02-07 2022-02-07 Hospital Cielo, [facility] 1.2.840.114 [id number] Univers 12:48:38 13:39:00 Encounter Irfan Y HEALTH 350.1.13.10 ity of [place] [id number] [facility] [address] 2022-02-07 2022-02-07 [facility] [id number] [facility] 00:00:00 13:39:00 IRFAN ity [facility] 2022-02-07 2022-02-07 Case [facility] 1.2.214.611 [id number] 1978 [facility] 00:00:00 00:00:00 Management Irfan Y HEALTH 350.1.13.10 ity of [place] [id number] [facility] [address] 2022-02-06 2022-02-06 Telephone Dalia [facility] 1.2.840.114 9 [id number] Univers 00:00:00 00:00:00 Symone Y HEALTH 350.1.13.10 i ty [place] [id number] [facility] [address] 2022-01-24 2022-01-24 Outpatient [facility] [id number] Univers 10:10:30 23:59:00 ROSE ity [facility] 2022-01-24 2022-01-24 Outpatient [facility]ncio [facility] 79738 60949 Univers 10:10:30 23:59:00 ROSE katerinepola [facility] 2022-01-24 2022-01-24 Surgery [facility] UNIVERSIT 1.2.840.114 9 [id number] Univers 08:30:00 23:59:00 Encounter Rose FITZGERALD 350.1.13.10 ity of CL[place] [id number] [facility] [address] 2022-01-24 2022-01-24 Case Kumargilda, UNIVERSIT 1.2.083.810 [id number] Univers 00:00:00 00:00:[address] [facility] 350.1.13.10 ity of [place] [id number] [facility] [address] 2022-01-17 2022-01-17 E [facility] UNIVERSIT 1.2.840.114 9 [id number] Univers 12:00:00 12:15:00 Visit [facility] Rose Lowery [facility] 350.1.13. 10 ity of CLIN[place] [id number] [facility] [address] 2022-01-17 2022-01-17 Office Dalia [facility] 1.2.840.114 [id number] Univers 11:00:00 12:00:[address] [facility] 350.1.13.10 i ty of [place] [id number] [facility] [address] 2022-01-17 2022-01-17 Outpatient R DALIA [facility] 745313 7617 Univers 11:00:00 11:00:00 SYMONE solano [facility] 2022-01-17 2022-01-17 Outpatient R DALIA [facility] [place] [id number] 0954 Univers 11:00:00 11:00:00 SYMONE solano [facility] 2022-01-17 2022-01-17 Outpatient R DALIA [facility] [place] [id number] 1957 Univers 11:00:00 11:00:00 SYMONE solano [facility] 2022-01-11 2022-01-11 [facility] 1.2.840.114 [id number] Univers 13:55:15 23:59:00 Encounter Rose Lowery [employer] 350.1.13.10 ity of [place] [id number] [facility] [address] 2022-01-11 2022-01-11 Outpatient [facility] [id number] Univers 00:00:00 23:59:00 [facility] 2022-01-11 2022-01-11 E [facility] UNIVERSIT 1.2.840.114 9 [id number] Univers 15:00:00 15:15:00 [facility]ptDeco 350.1.13. 10 ity [place] [id number] [facility] [address] 2022-01-11 2022-01-11 Outpatient [facility] [id number] Univers 15:00:00 15:00:00 [facility] 2022-01-08 2022-01-08 Telephone BLAINE [place] 1.2.840.114 [id number] Univers 00:00:00 00:00:00 Kathleen GONZALES 350.1.13.10 i ty [place] [id number] [facility] [address] 2022-01-04 2022-01-04 Transition BLAINE [place] 1.2.840.114 [id number] Univers 00:00:00 00:00:00 of Care Kathleen GONZALES 350.1.13.10 i ty [place] [id number] [facility] [address] 2021-12-25 2022-01-03 Inpatient [facility] HUNTER [id number] Univers 19:35:00 18:18:00 [facility] 2021-12-25 2022-01-03 Hospital Aneudy Marquez 1.2.840 .114 [id number] Univers 19:35:00 18:18:00 Encounter Shola Solorio 350.1.13. 10 ity of [facility] 4.2.7.2.686 [facility] [id number] Medical [address] 2022-01-02 2022-01-02 Multidisci Maria Luz, UNIVERSIT 1.2.840.11 4 [id number] Univers 00:00:00 00:00:00 [facility]ksandar B Y HEALTH 350.1.13.10 i ty of [facility] CLINICS 4.2.7.2.686 [place] [id number] [facility] [address] 2021-12-28 2021-12-28 Surgery [facility] 1.2.840.114 [id number] Univers 13:00:00 14:51:00 Nato ICAL 350.1.13.10 it y of SCIENCES 4.2.7.2.686 [place] as BLDG [id number] [facility] [address] 2021-12-28 2021-12-28 Anesthesia [facility] 1.2.840.114 [id number] Univers 11:36:00 13:43:00 Event Thai ICAL 350.1.13.10 it y of SCIENCES 4.2.7.2.686 [place] BLDG [id number] [facility] [address] 2021-12-28 2021-12-28 Anesthesia Lisa, 1.2.840.8 [id number] Univers 11:36:00 11:36:00 Event Thai 45256.1.1 ity of 3.104.2.7 [place] .3.235874 Medica l .[address] 2021-12-28 2021-12-28 Travel 1.2.840.1 1.2.309.049 [id number] Univers 00:00:00 00:00:00 49822.1.1 350.1.13.10 ity of 3.104.2.7 4.2.7.3.698 [place] .3.623322 084.8 Medica l .[address] 2021-12-25 2021-12-25 Travel 1.2.840.1 1.2.672.791 [id number] Univers 00:00:00 00:00:00 54152.1.1 350.1.13.10 ity of 3.104.2.7 4.[place]7.3.698 [place] .3.403837 084.8 Medica l .[address] Results Test Description Test Time Test Comments Results Result Comments Source CBC WITH DIFF 2022-06-14 18:13:49 Test Item Value Reference Range Interpretation Comme nts WBC (test code = 6690-2) 19.95 See_Comment H [A utomated message] The system which ge nerated this result transmit chari reference range: 4.20 - 1 0.70 10*3/?L. The reference r baljit was not used to interpr et this result as normal/abnor mal. RBC (test code = 789-8) 3.80 See_Comment L [Au tomated message] The system which ge nerated this result transmit chari reference range: 4.26 - 5 .52 10*6/?L. The reference r baljit was not used to interpr et this result as normal/abnor mal. HGB (test code = 718-7) 11.7 g/dL 12.2-16.4 L HCT (test code = 4544-3) 34.4 % 38.4-49.3 L MCV (test code = 787-2) 90.5 fL 81.7-95.6 MCH (test code = 785-6) 30.8 pg 26.1-32.7 MCHC (test code = 786-4) 34.0 g/dL 31.2-35.0 RDW-SD (test code = 71823-1) 48.9 fL 38.5-51.6 RDW-CV (test code = 788-0) 14.6 % 12.1-15.4 PLT (test code = 777-3) 229 See_Comment [Au tomated message] The system which ge nerated this result transmit chari reference range: 150 - 32 8 10*3/?L. The reference range was not used to interpret th is result as normal/abnormal . MPV (test code = 96296-0) 9.8 fL 9.8-13.0 NRBC/100 WBC (test code = 0.0 See_Comment [ Automated message] The 0514786190) system which Hyperpot nerated this result transmit chari reference range: 0.0 - 10 .0 /100 WBCs. The reference r baljit was not used to interpr et this result as normal/abnor mal. NRBC x10^3 (test code = See_Comment [Au tomated message] The 0635217643) system which Hyperpot nerated this result transmit chari reference range: 10*3/?L. The reference range was not u sed to interpret this result as normal/abnormal . GRAN MAT (NEUT) % (test code 81.1 % = 770-8) IMM GRAN % (test code = 3.30 % 6600637916) LYMPH % (test code = 736-9) 7.6 % MONO % (test code = 5905-5) 6.6 % EOS % (test code = 713-8) 0.9 % BASO % (test code = 706-2) 0.5 % GRAN MAT x10^3(ANC) (test 16.19 10*3/uL 1.99-6.95 H code = 5803500527) IMM GRAN x10^3 (test code = 0.65 10*3/uL 0.00-0.06 H 5698880464) LYMPH x10^3 (test code = 1.52 10*3/uL 1.09-3.23 731-0) MONO x10^3 (test code = 1.31 10*3/uL 0.36-1.02 H 742-7) EOS x10^3 (test code = 0.18 10*3/uL 0.06-0.53 711-2) BASO x10^3 (test code = 0.10 10*3/uL 0.01-0.09 H 704-7) Lab Interpretation (test Abnormal code = 75944-3) [facility] 17:50:48 Test Item Value Reference Range Interpretation Comments MAGNESIUM (test code = 8630415978) 1.6 mg/dL 1.7-2.4 L Lab Interpretation (test code = Abnormal 26776-7) [facility] (NA, K, CL, CO2, GLUCOSE, BUN, CREATININE, CA)2022-06-14 17:50:47 Test Item Value Reference Range Interpretation Comments NA (test code = 133 mmol/L 135-145 L 0282886034) K (test code = 4.1 mmol/L 3.5-5.0 1214369559) CL (test code = 102 mmol/L 98-108 2677074226) CO2 TOTAL (test code = 27 mmol/L 23-31 1104241557) AGAP (test code = 4 2-16 1593574561) BUN (test code = 16 mg/dL 7-23 4759165569) GLUCOSE (test code = 403 mg/dL 70-110 H 0239421605) CREATININE (test code = 0.86 mg/dL 0.60-1.25 8825874178) CALCIUM (test code = 9.3 mg/dL 8.6-10.6 7589398796) eGFR (test code = 88.2 mL/min/1.73m2 9947155309) MARY (test code = MARY) Association of Glomerular Filtration Rate (GFR) and Staging of Kidney Disease* + --+ --+ ------+| GFR (mL/min/1.73 m2) ?| With Kidney Damage ?| ?Without Kidney Damage+ --------+ --------+ +| ?>90 ?| ?Stage one ?| ? Normal ?+ ---+ ---+ -------+| ?60-89 ?| ?Stage two ?| ? Decreased GFR ? + --+ --+ ------+| ?30-59 ?| ?Stage three ?| ? Stage three ? + --+ --+ ------+| ?15-29 ?| ?Stage four ? | ? Stage four ?+ ---+ ---+ -------+| ?<15 (or dialysis) ? ?| ?Stage five ? | ? Stage five ?+ ---+ ---+ -------+ *Each stage assumes the associated GFR level has been in effect for at least three months. ?Stages 1 to 5, with or without kidney disease, indicate chronic kidney disease. Notes: Determination of stages one and two (with eGFR >59mL/min/1.73 m2) requires estimation of kidney damage for at least three months as defined by structural or functional abnormalities of the kidney, manifested by either:Pathological abnormalities or Markers of kidney damage (including abnormalities in the composition of the blood or urine or abnormalities in imaging tests). Lab Interpretation Abnormal (test code = 18010-4) [facility] ([facility])2022-04-18 16:19:04 Test Item Value Reference Range Interpretation Comments Height (test code = in 2149027762) Weight (test code = lbs 3163955056) Systolic BP (test code mmHg = 8387581084) Diastolic BP (test code mmHg = 5361809618) Heart Rate (test code = bpm 4202917816) LV GLS Endo Peak A2C -16.70 % () (test code = 2553543872) LV GLS Endo Peak A3C -17.10 % () (test code = 2775294651) LV GLS Endo Peak A4C -15.80 % () (test code = 0494593847) LV GLS Endo Peak Avg -16.60 % () (test code = 6611401225) BSA (test code = 2.16 m2 4136083665) LVIDD (test code = 4.10 cm 5802472295) Left Ventricular End 72.8 mL Diastolic Volume by Teichholz Method (test code = 3928874) IVS (test code = 0.83 cm 3221997205) Interventricular Septum 0.83 cm Diastolic Thickness by 2D (test code = 1576000) LVPWD (test code = 0.77 cm 9947402336) PW (test code = 0.77 cm 0.6-1.9 2319739117) EF(Teich) (test code = 66.00 % 6248636364) LVIDS (test code = 2.60 cm 9517511616) Left Ventricular End 24.8 mL Systolic Volume by Teichholz Method (test code = 2210857) FS (test code = 36 % 6129853042) EF - 2D (test code = 66.00 % 88392663) LVOT diameter (test 1.81 cm code = 9694518732) LVOT area (test code = 2.60 cm2 4011202535) Ao root diam (test code 3.50 cm = 5230628760) Aortic root (test code 3.5 cm = 0398122193) Ao root annulus (test 3.5 cm code = 2774672519) LA size (test code = 4.4 cm 5345872754) ACS (test code = 1.87 cm 0035210113) PV REGURGITATION PEAK mmHg GRADIENT (test code = 9908283943) MV Peak E Navin (test 71.6 cm/s code = 3996526270) MV Peak A Navin (test 92.1 cm/s code = 5853426794) E/A ratio (test code = ratio 9100173485) E wave decelartion time 0.30 s (test code = 5710398172) MV Prop V (test code = 48.20 cm/s 7733982620) MV E/e' septal (test 7.9 cm/s code = 4638684052) LVOT stroke volume 57.40 cm3 (test code = 6003493244) LVOT peak navin (test 114.0 cm/s code = 2205611840) LVOT mn grad (test code mmHg = 4318248299) AV LVOT peak gradient mmHg (test code = 8547216222) LVOT peak VTI (test 22.4 cm code = 4482816719) LV V1 mean (test code = 72.00 cm/s 6280304250) Left Ventricular 4.2 L/min Cardiac Output (test code = 6300376) Aortic HR (test code = BPM 4293290544) Ao peak navin (test code 165.6 cm/s = 4376414348) AV area peak navin (test 1.8 cm2 code = 6145183987) Ao max PG (test code = 11.00 mm[Hg] 6779903514) AV peak gradient (test mmHg code = 8623311450) Tapse (test code = 2.35 cm 8127420978) TR Peak Navin (test code 266.0 cm/s = 7826609028) Triscuspid Valve mmHg Regurgitation Peak Gradient (test code = 2203523927) LAV(MOD-sp4) (test code 52.40 mL = 2526844145) LA Volume Index (BP) 25.7 mL/m2 (test code = 5422551316) LA volume (BP) (test 55.5 mL code = 8347899095) LAV(MOD-sp2) (test code 54.50 mL = 0481487204) IVC Diam Exp(MM) (test 2.03 cm code = 0962943613) IVC Diam Ins(MM) (test 0.90 cm code = 9711806131) GLS (test code = -17 % 6071358988) A4C EF (test code = 61.30 % 3222346689) EF(sp4-el) (test code = 66.30 % 6343493473) SV(MOD-sp4) (test code 27.20 mL = 2506786229) SV(sp4-el) (test code = 29.20 mL 0624206425) LV Diastolic Volume 50.0 mL (BP) (test code = 8901964436) A2C EF (test code = 77.90 % 8355975833) EF(MOD-bp) (test code = 73.60 % 4537071589) EF(sp2-el) (test code = 76.60 % 7609560061) LV Systolic Volume (BP) 13.2 mL (test code = 0545126069) SV(MOD-bp) (test code = 36.80 mL 1333660560) SV(MOD-sp2) (test code 44.60 mL = 6553288265) EF (test code = 3216338866) Left Ventricular Stroke 36.8 mL Volume by 2-D Biplane-MOD (test code = 3465345) LV Diastolic Volume 23.1 mL/m2 Index (BP) (test code = 7280177840) LV Systolic Volume 6.1 mL/m2 Index (BP) (test code = 8747583436) Radiology Study observation (narrative) (test code = 69177-4) MARY (test code = MARY) ?Left?Ventricle: Left ventricle size is normal. Normal wall thickness. Normal wall motion. Normal systolic function with a visually estimated EF of 60 - 65%. Global longitudinal strain is normal with a value of -17 %. Normal diastolic function. Alayna Giordano Left VentricleLeft ventricle size is normal. Normal wall thickness. Normal wall motion. Normal systolic function with a visually estimated EF of 60 - 65%. Global longitudinal strain is normal with a value of -17 %. Normal diastolic function.Right VentricleRight ventricle size is normal. Normal systolic function.Left AtriumLeft atrium size is normal.Right AtriumRight atrium size is normal.IVC/SVCIVC diameter is less than or equal to 21 mm and decreases greater than 50% during inspiration; therefore the estimated right atrial pressure is normal (~0-5 mmHg).Mitral ValveMitral valve structure is normal.Tricuspid ValveTricuspid valve structure is normal. Mild transvalvular regurgitation. Right ventricular systolic pressure is 30-35 mmHg. RA pressure is 0-5 mmHg.Aortic ValveNot well visualized. Tricuspid. No hemodynamically significant .Pulmonic ValveValve structure is normal. Physiologically normal transvalvular regurgitation.Ascendin g AortaNormal sized aortic root.PericardiumNo pericardial effusion.Study DetailsStudy quality was good. A complete echocardiogram was performed using 2D, color flow Doppler, spectral Doppler and strain. [facility] [id number] 22:33:10 Test Item Value Reference Interpretation Comments Range TROPONIN I (test 0.002 ng/mL See_Comment [Automated code = 2976960910) message] The system which generated this result transmitted reference range : <=0.034. The reference range was not used to interpret this result as normal/abnormal . MARY (test code = Reference (Normal) MARY) Range (defined by the 99th percentile reference limit): <= 0.034 ng/mL Note: Cardiac troponin begins to rise 3-4 hours after the onset of ischemia. Repeat in 4-6 hours if the sample was drawn within 3-4 hours of the onset of the symptom and found normal. Diagnosis of myocardial injury is made with acute changes in cTn concentrations with at least one serial sample above the 99th percentile upper reference limit (URL), taken together with the patient's clinical presentation. Biotin has been reported to cause a negative bias, interpret results relative to patient's use of biotin. Lab Interpretation Normal (test code = 41527-3) [facility] [id number] 22:33:10 Test Item Value Reference Interpretation Comments Range TROPONIN I (test 0.002 ng/mL See_Comment [Automated code = 1003018169) message] The system which generated this result transmitted reference range : <=0.034. The reference range was not used to interpret this result as normal/abnormal . MARY (test code = Reference (Normal) MARY) Range (defined by the 99th percentile reference limit): <= 0.034 ng/mL Note: Cardiac troponin begins to rise 3-4 hours after the onset of ischemia. Repeat in 4-6 hours if the sample was drawn within 3-4 hours of the onset of the symptom and found normal. Diagnosis of myocardial injury is made with acute changes in cTn concentrations with at least one serial sample above the 99th percentile upper reference limit (URL), taken together with the patient's clinical presentation. Biotin has been reported to cause a negative bias, interpret results relative to patient's use of biotin. Lab Interpretation Normal (test code = 74409-9) [facility] [id number] 22:33:10 Test Item Value Reference Interpretation Comments Range TROPONIN I (test 0.002 ng/mL See_Comment [Automated code = 3822627033) message] The system which generated this result transmitted reference range : <=0.034. The reference range was not used to interpret this result as normal/abnormal . MARY (test code = Reference (Normal) MARY) Range (defined by the 99th percentile reference limit): <= 0.034 ng/mL Note: Cardiac troponin begins to rise 3-4 hours after the onset of ischemia. Repeat in 4-6 hours if the sample was drawn within 3-4 hours of the onset of the symptom and found normal. Diagnosis of myocardial injury is made with acute changes in cTn concentrations with at least one serial sample above the 99th percentile upper reference limit (URL), taken together with the patient's clinical presentation. Biotin has been reported to cause a negative bias, interpret results relative to patient's use of biotin. Lab Interpretation Normal (test code = 58298-5) [facility] [id number] 22:33:10 Test Item Value Reference Interpretation Comments Range TROPONIN I (test 0.002 ng/mL See_Comment [Automated code = 8401725331) message] The system which generated this result transmitted reference range : <=0.034. The reference range was not used to interpret this result as normal/abnormal . MARY (test code = Reference (Normal) MARY) Range (defined by the 99th percentile reference limit): <= 0.034 ng/mL Note: Cardiac troponin begins to rise 3-4 hours after the onset of ischemia. Repeat in 4-6 hours if the sample was drawn within 3-4 hours of the onset of the symptom and found normal. Diagnosis of myocardial injury is made with acute changes in cTn concentrations with at least one serial sample above the 99th percentile upper reference limit (URL), taken together with the patient's clinical presentation. Biotin has been reported to cause a negative bias, interpret results relative to patient's use of biotin. Lab Interpretation Normal (test code = 96127-1) [facility] [id number] 22:33:10 Test Item Value Reference Interpretation Comments Range TROPONIN I (test 0.002 ng/mL See_Comment [Automated code = 5009532652) message] The system which generated this result transmitted reference range : <=0.034. The reference range was not used to interpret this result as normal/abnormal . MARY (test code = Reference (Normal) MARY) Range (defined by the 99th percentile reference limit): <= 0.034 ng/mL Note: Cardiac troponin begins to rise 3-4 hours after the onset of ischemia. Repeat in 4-6 hours if the sample was drawn within 3-4 hours of the onset of the symptom and found normal. Diagnosis of myocardial injury is made with acute changes in cTn concentrations with at least one serial sample above the 99th percentile upper reference limit (URL), taken together with the patient's clinical presentation. Biotin has been reported to cause a negative bias, interpret results relative to patient's use of biotin. Lab Interpretation Normal (test code = 61674-7) [facility]. METABOLIC PANEL (75347)2022-03-19 22:41:06 Test Item Value Reference Range Interpretation Comments NA (test code = 132 mmol/L 135-145 L 1300212047) K (test code = 4.5 mmol/L 3.5-5.0 6136269683) CL (test code = 92 mmol/L 98-108 L 5027177317) CO2 TOTAL (test code = 26 mmol/L 23-31 1670386343) AGAP (test code = 2-16 7083820330) BUN (test code = 16 mg/dL 7-23 3343909316) GLUCOSE (test code = 184 mg/dL 70-110 H 8035453317) CREATININE (test code = 1.06 mg/dL 0.60-1.25 4284847731) TOTAL BILI (test code = 0.7 mg/dL 0.1-1.4 1022688593) CALCIUM (test code = 10.1 mg/dL 8.6-10.6 9930175701) T PROTEIN (test code = 7.5 g/dL 6.3-8.2 3304615240) ALBUMIN (test code = 4.6 g/dL 3.5-5.0 8908625590) ALK PHOS (test code = 107 U/L 34-122 3047821744) ALTv (test code = 40 U/L 5-50 1742-6) AST(SGOT) (test code = 32 U/L 13-40 5884609586) eGFR (test code = mL/min/1.73m2 1586309528) MARY (test code = MARY) Association of Glomerular Filtration Rate (GFR) and Staging of Kidney Disease* + --+ --+ ------+| GFR (mL/min/1.73 m2) ?| With Kidney Damage ?| ?Without Kidney Damage+ --------+ --------+ +| ?>90 ?| ?Stage one ?| ? Normal ?+ ---+ ---+ -------+| ?60-89 ?| ?Stage two ?| ? Decreased GFR ? + --+ --+ ------+| ?30-59 ?| ?Stage three ?| ? Stage three ? + --+ --+ ------+| ?15-29 ?| ?Stage four ? | ? Stage four ?+ ---+ ---+ -------+| ?<15 (or dialysis) ? ?| ?Stage five ? | ? Stage five ?+ ---+ ---+ -------+ *Each stage assumes the associated GFR level has been in effect for at least three months. ?Stages 1 to 5, with or without kidney disease, indicate chronic kidney disease. Notes: Determination of stages one and two (with eGFR >59mL/min/1.73 m2) requires estimation of kidney damage for at least three months as defined by structural or functional abnormalities of the kidney, manifested by either:Pathological abnormalities or Markers of kidney damage (including abnormalities in the composition of the blood or urine or abnormalities in imaging tests). Lab Interpretation Abnormal (test code = 91069-0) [facility] METABOLIC PANEL ([id number])2022-03-19 22:41:06 Test Item Value Reference Range Interpretation Comments NA (test code = 132 mmol/L 135-145 L 8313232615) K (test code = 4.5 mmol/L 3.5-5.0 3045721103) CL (test code = 92 mmol/L 98-108 L 7566669146) CO2 TOTAL (test code = 26 mmol/L 23-31 8581483236) AGAP (test code = 2-16 0923951736) BUN (test code = 16 mg/dL 7-23 3501912098) GLUCOSE (test code = 184 mg/dL 70-110 H 4311919254) CREATININE (test code = 1.06 mg/dL 0.60-1.25 2677882163) TOTAL BILI (test code = 0.7 mg/dL 0.1-1.3 5948295221) CALCIUM (test code = 10.1 mg/dL 8.6-10.6 5151450380) T PROTEIN (test code = 7.5 g/dL 6.3-8.2 1348718037) ALBUMIN (test code = 4.6 g/dL 3.5-5.0 7054727541) ALK PHOS (test code = 107 U/L 34-122 2691289808) ALTv (test code = 40 U/L 5-50 1742-6) AST(SGOT) (test code = 32 U/L 13-40 3065027771) eGFR (test code = mL/min/1.73m2 2435238805) MARY (test code = MARY) Association of Glomerular Filtration Rate (GFR) and Staging of Kidney Disease* + --+ --+ ------+| GFR (mL/min/1.73 m2) ?| With Kidney Damage ?| ?Without Kidney Damage+ --------+ --------+ +| ?>90 ?| ?Stage one ?| ? Normal ?+ ---+ ---+ -------+| ?60-89 ?| ?Stage two ?| ? Decreased GFR ? + --+ --+ ------+| ?30-59 ?| ?Stage three ?| ? Stage three ? + --+ --+ ------+| ?15-29 ?| ?Stage four ? | ? Stage four ?+ ---+ ---+ -------+| ?<15 (or dialysis) ? ?| ?Stage five ? | ? Stage five ?+ ---+ ---+ -------+ *Each stage assumes the associated GFR level has been in effect for at least three months. ?Stages 1 to 5, with or without kidney disease, indicate chronic kidney disease. Notes: Determination of stages one and two (with eGFR >59mL/min/1.73 m2) requires estimation of kidney damage for at least three months as defined by structural or functional abnormalities of the kidney, manifested by either:Pathological abnormalities or Markers of kidney damage (including abnormalities in the composition of the blood or urine or abnormalities in imaging tests). Lab Interpretation Abnormal (test code = 54616-1) [facility]. METABOLIC PANEL ([id number])2022-03-19 22:41:06 Test Item Value Reference Range Interpretation Comments NA (test code = 132 mmol/L 135-145 L 2918978001) K (test code = 4.5 mmol/L 3.5-5.0 0197351847) CL (test code = 92 mmol/L 98-108 L 6508650375) CO2 TOTAL (test code = 26 mmol/L 23-31 1782489740) AGAP (test code = 2-16 1449389831) BUN (test code = 16 mg/dL 7-23 6951976814) GLUCOSE (test code = 184 mg/dL 70-110 H 3872936783) CREATININE (test code = 1.06 mg/dL 0.60-1.25 5421731238) TOTAL BILI (test code = 0.7 mg/dL 0.1-1.5 8817656527) CALCIUM (test code = 10.1 mg/dL 8.6-10.6 5707446160) T PROTEIN (test code = 7.5 g/dL 6.3-8.2 5197346426) ALBUMIN (test code = 4.6 g/dL 3.5-5.0 0138161395) ALK PHOS (test code = 107 U/L 34-122 7314522175) ALTv (test code = 40 U/L 5-50 1742-6) AST(SGOT) (test code = 32 U/L 13-40 0298364014) eGFR (test code = mL/min/1.73m2 1295922904) MARY (test code = MARY) Association of Glomerular Filtration Rate (GFR) and Staging of Kidney Disease* + --+ --+ ------+| GFR (mL/min/1.73 m2) ?| With Kidney Damage ?| ?Without Kidney Damage+ --------+ --------+ +| ?>90 ?| ?Stage one ?| ? Normal ?+ ---+ ---+ -------+| ?60-89 ?| ?Stage two ?| ? Decreased GFR ? + --+ --+ ------+| ?30-59 ?| ?Stage three ?| ? Stage three ? + --+ --+ ------+| ?15-29 ?| ?Stage four ? | ? Stage four ?+ ---+ ---+ -------+| ?<15 (or dialysis) ? ?| ?Stage five ? | ? Stage five ?+ ---+ ---+ -------+ *Each stage assumes the associated GFR level has been in effect for at least three months. ?Stages 1 to 5, with or without kidney disease, indicate chronic kidney disease. Notes: Determination of stages one and two (with eGFR >59mL/min/1.73 m2) requires estimation of kidney damage for at least three months as defined by structural or functional abnormalities of the kidney, manifested by either:Pathological abnormalities or Markers of kidney damage (including abnormalities in the composition of the blood or urine or abnormalities in imaging tests). Lab Interpretation Abnormal (test code = 14744-2) [facility]. METABOLIC PANEL ([id number])2022-03-19 22:41:06 Test Item Value Reference Range Interpretation Comments NA (test code = 132 mmol/L 135-145 L 9602707370) K (test code = 4.5 mmol/L 3.5-5.0 5511865378) CL (test code = 92 mmol/L 98-108 L 4768513686) CO2 TOTAL (test code = 26 mmol/L 23-31 6557686820) AGAP (test code = 2-16 3989166499) BUN (test code = 16 mg/dL 7-23 2108329437) GLUCOSE (test code = 184 mg/dL 70-110 H 8106458027) CREATININE (test code = 1.06 mg/dL 0.60-1.25 0074401098) TOTAL BILI (test code = 0.7 mg/dL 0.1-1.9 0367579451) CALCIUM (test code = 10.1 mg/dL 8.6-10.6 1234985800) T PROTEIN (test code = 7.5 g/dL 6.3-8.2 5531638527) ALBUMIN (test code = 4.6 g/dL 3.5-5.0 3666518216) ALK PHOS (test code = 107 U/L 34-122 7724839466) ALTv (test code = 40 U/L 5-50 1742-6) AST(SGOT) (test code = 32 U/L 13-40 8010381112) eGFR (test code = mL/min/1.73m2 8720971608) MARY (test code = MARY) Association of Glomerular Filtration Rate (GFR) and Staging of Kidney Disease* + --+ --+ ------+| GFR (mL/min/1.73 m2) ?| With Kidney Damage ?| ?Without Kidney Damage+ --------+ --------+ +| ?>90 ?| ?Stage one ?| ? Normal ?+ ---+ ---+ -------+| ?60-89 ?| ?Stage two ?| ? Decreased GFR ? + --+ --+ ------+| ?30-59 ?| ?Stage three ?| ? Stage three ? + --+ --+ ------+| ?15-29 ?| ?Stage four ? | ? Stage four ?+ ---+ ---+ -------+| ?<15 (or dialysis) ? ?| ?Stage five ? | ? Stage five ?+ ---+ ---+ -------+ *Each stage assumes the associated GFR level has been in effect for at least three months. ?Stages 1 to 5, with or without kidney disease, indicate chronic kidney disease. Notes: Determination of stages one and two (with eGFR >59mL/min/1.73 m2) requires estimation of kidney damage for at least three months as defined by structural or functional abnormalities of the kidney, manifested by either:Pathological abnormalities or Markers of kidney damage (including abnormalities in the composition of the blood or urine or abnormalities in imaging tests). Lab Interpretation Abnormal (test code = 53339-7) [facility] METABOLIC PANEL ([id number])2022-03-19 22:41:06 Test Item Value Reference Range Interpretation Comments NA (test code = 132 mmol/L 135-145 L 2729363618) K (test code = 4.5 mmol/L 3.5-5.0 8726464012) CL (test code = 92 mmol/L 98-108 L 6415132807) CO2 TOTAL (test code = 26 mmol/L 23-31 7269900444) AGAP (test code = 2-16 2334882071) BUN (test code = 16 mg/dL 7-23 2258449131) GLUCOSE (test code = 184 mg/dL 70-110 H 9160063161) CREATININE (test code = 1.06 mg/dL 0.60-1.25 3446520699) TOTAL BILI (test code = 0.7 mg/dL 0.1-1.2 8721819048) CALCIUM (test code = 10.1 mg/dL 8.6-10.6 2341892585) T PROTEIN (test code = 7.5 g/dL 6.3-8.2 5928664022) ALBUMIN (test code = 4.6 g/dL 3.5-5.0 4436458486) ALK PHOS (test code = 107 U/L 34-122 0894640569) ALTv (test code = 40 U/L 5-50 1742-6) AST(SGOT) (test code = 32 U/L 13-40 5087199527) eGFR (test code = mL/min/1.73m2 3364395289) MARY (test code = MARY) Association of Glomerular Filtration Rate (GFR) and Staging of Kidney Disease* + --+ --+ ------+| GFR (mL/min/1.73 m2) ?| With Kidney Damage ?| ?Without Kidney Damage+ --------+ --------+ +| ?>90 ?| ?Stage one ?| ? Normal ?+ ---+ ---+ -------+| ?60-89 ?| ?Stage two ?| ? Decreased GFR ? + --+ --+ ------+| ?30-59 ?| ?Stage three ?| ? Stage three ? + --+ --+ ------+| ?15-29 ?| ?Stage four ? | ? Stage four ?+ ---+ ---+ -------+| ?<15 (or dialysis) ? ?| ?Stage five ? | ? Stage five ?+ ---+ ---+ -------+ *Each stage assumes the associated GFR level has been in effect for at least three months. ?Stages 1 to 5, with or without kidney disease, indicate chronic kidney disease. Notes: Determination of stages one and two (with eGFR >59mL/min/1.73 m2) requires estimation of kidney damage for at least three months as defined by structural or functional abnormalities of the kidney, manifested by either:Pathological abnormalities or Markers of kidney damage (including abnormalities in the composition of the blood or urine or abnormalities in imaging tests). Lab Interpretation Abnormal (test code = 01939-6) [facility]. METABOLIC PANEL ([id number])2022-03-19 22:41:06 Test Item Value Reference Range Interpretation Comments NA (test code = 132 mmol/L 135-145 L 5814639820) K (test code = 4.5 mmol/L 3.5-5.0 3090934584) CL (test code = 92 mmol/L 98-108 L 4954999998) CO2 TOTAL (test code = 26 mmol/L 23-31 0670153552) AGAP (test code = 2-16 0462501550) BUN (test code = 16 mg/dL 7-23 5161031180) GLUCOSE (test code = 184 mg/dL 70-110 H 1900263921) CREATININE (test code = 1.06 mg/dL 0.60-1.25 6926289663) TOTAL BILI (test code = 0.7 mg/dL 0.1-1.5 9646075109) CALCIUM (test code = 10.1 mg/dL 8.6-10.6 2832514505) T PROTEIN (test code = 7.5 g/dL 6.3-8.2 0411944214) ALBUMIN (test code = 4.6 g/dL 3.5-5.0 2539426169) ALK PHOS (test code = 107 U/L 34-122 3782949907) ALTv (test code = 40 U/L 5-50 1742-6) AST(SGOT) (test code = 32 U/L 13-40 9797564305) eGFR (test code = mL/min/1.73m2 5050968774) MARY (test code = MARY) Association of Glomerular Filtration Rate (GFR) and Staging of Kidney Disease* + --+ --+ ------+| GFR (mL/min/1.73 m2) ?| With Kidney Damage ?| ?Without Kidney Damage+ --------+ --------+ +| ?>90 ?| ?Stage one ?| ? Normal ?+ ---+ ---+ -------+| ?60-89 ?| ?Stage two ?| ? Decreased GFR ? + --+ --+ ------+| ?30-59 ?| ?Stage three ?| ? Stage three ? + --+ --+ ------+| ?15-29 ?| ?Stage four ? | ? Stage four ?+ ---+ ---+ -------+| ?<15 (or dialysis) ? ?| ?Stage five ? | ? Stage five ?+ ---+ ---+ -------+ *Each stage assumes the associated GFR level has been in effect for at least three months. ?Stages 1 to 5, with or without kidney disease, indicate chronic kidney disease. Notes: Determination of stages one and two (with eGFR >59mL/min/1.73 m2) requires estimation of kidney damage for at least three months as defined by structural or functional abnormalities of the kidney, manifested by either:Pathological abnormalities or Markers of kidney damage (including abnormalities in the composition of the blood or urine or abnormalities in imaging tests). Lab Interpretation Abnormal (test code = 28797-4) [facility]. METABOLIC PANEL ([id number])2022-03-19 22:41:06 Test Item Value Reference Range Interpretation Comments NA (test code = 132 mmol/L 135-145 L 9379091421) K (test code = 4.5 mmol/L 3.5-5.0 2614586923) CL (test code = 92 mmol/L 98-108 L 0105350311) CO2 TOTAL (test code = 26 mmol/L 23-31 1152702623) AGAP (test code = 2-16 6960605278) BUN (test code = 16 mg/dL 7-23 6278889839) GLUCOSE (test code = 184 mg/dL 70-110 H 5240399309) CREATININE (test code = 1.06 mg/dL 0.60-1.25 6464472096) TOTAL BILI (test code = 0.7 mg/dL 0.1-1.8 0045060868) CALCIUM (test code = 10.1 mg/dL 8.6-10.6 1396051804) T PROTEIN (test code = 7.5 g/dL 6.3-8.2 2460558095) ALBUMIN (test code = 4.6 g/dL 3.5-5.0 5786637962) ALK PHOS (test code = 107 U/L 34-122 5615355260) ALTv (test code = 40 U/L 5-50 1742-6) AST(SGOT) (test code = 32 U/L 13-40 5420412103) eGFR (test code = mL/min/1.73m2 0133648081) MARY (test code = MARY) Association of Glomerular Filtration Rate (GFR) and Staging of Kidney Disease* + --+ --+ ------+| GFR (mL/min/1.73 m2) ?| With Kidney Damage ?| ?Without Kidney Damage+ --------+ --------+ +| ?>90 ?| ?Stage one ?| ? Normal ?+ ---+ ---+ -------+| ?60-89 ?| ?Stage two ?| ? Decreased GFR ? + --+ --+ ------+| ?30-59 ?| ?Stage three ?| ? Stage three ? + --+ --+ ------+| ?15-29 ?| ?Stage four ? | ? Stage four ?+ ---+ ---+ -------+| ?<15 (or dialysis) ? ?| ?Stage five ? | ? Stage five ?+ ---+ ---+ -------+ *Each stage assumes the associated GFR level has been in effect for at least three months. ?Stages 1 to 5, with or without kidney disease, indicate chronic kidney disease. Notes: Determination of stages one and two (with eGFR >59mL/min/1.73 m2) requires estimation of kidney damage for at least three months as defined by structural or functional abnormalities of the kidney, manifested by either:Pathological abnormalities or Markers of kidney damage (including abnormalities in the composition of the blood or urine or abnormalities in imaging tests). Lab Interpretation Abnormal (test code = 08610-0) [facility] WITH [id number] 21:44:10 Test Item Value Reference Range Interpretation Comments WBC (test code = See_Comment H [Automated 6690-2) message] The sy stem which generated this result transmitted reference range : 4.20 - 10.70 10*3/?L. The reference range was not used to interpret this result as normal/abnormal . RBC (test code = See_Comment [Automated 789-8) message] The sy stem which generated this result transmitted reference range : 4.26 - 5.52 10*6/?L. The reference range was not used to interpret this result as normal/abnormal . HGB (test code = 14.7 g/dL 12.2-16.4 718-7) HCT (test code = 43.0 % 38.4-49.3 4544-3) MCV (test code = 90.1 fL 81.7-95.6 787-2) MCH (test code = 30.8 pg 26.1-32.7 785-6) MCHC (test code = 34.2 g/dL 31.2-35.0 786-4) RDW-SD (test code = 39.4 fL 38.5-51.6 45555-9) RDW-CV (test code = 11.9 % 12.1-15.4 L 788-0) PLT (test code = See_Comment H [Automated 777-3) message] The sy stem which generated this result transmitted reference range : 150 - 328 10*3/ ?L. The reference r baljit was not used to interpret this result as normal/abnormal . MPV (test code = 9.2 fL 9.8-13.0 L 54150-2) NRBC/100 WBC (test See_Comment [Automat ed code = 2658635189) message] The system which generated this result transmitted reference range : 0.0 - 10.0 /100 WBCs. The refer ence range was not u sed to interpret th is result as normal/abnormal . NRBC x10^3 (test code See_Comment [Auto mated = 0713391016) message] The s ystem which generated this result transmitted reference range : 10*3/?L. The reference range was not used to interpret this result as normal/abnormal . GRAN MAT (NEUT) % 69.2 % (test code = 770-8) IMM GRAN % (test code 1.00 % = 0776106909) LYMPH % (test code = 16.8 % 736-9) MONO % (test code = 11.1 % 5905-5) EOS % (test code = 1.5 % 713-8) BASO % (test code = 0.4 % 706-2) GRAN MAT x10^3(ANC) 8.58 10*3/uL 1.99-6.95 H (test code = 3781008143) IMM GRAN x10^3 (test 0.13 10*3/uL 0.00-0.06 H code = 6766853113) LYMPH x10^3 (test code 2.08 10*3/uL 1.09-3.23 = 731-0) MONO x10^3 (test code 1.38 10*3/uL 0.36-1.02 H = 742-7) EOS x10^3 (test code = 0.18 10*3/uL 0.06-0.53 711-2) BASO x10^3 (test code 0.05 10*3/uL 0.01-0.09 = 704-7) Lab Interpretation Abnormal (test code = 12961-1) [facility] WITH [id number] 21:44:10 Test Item Value Reference Range Interpretation Comments WBC (test code = See_Comment H [Automated 3790-2) message] The sy stem which generated this result transmitted reference range : 4.20 - 10.70 10*3/?L. The reference range was not used to interpret this result as normal/abnormal . RBC (test code = See_Comment [Automated 329-8) message] The sy stem which generated this result transmitted reference range : 4.26 - 5.52 10*6/?L. The reference range was not used to interpret this result as normal/abnormal . HGB (test code = 14.7 g/dL 12.2-16.4 718-7) HCT (test code = 43.0 % 38.4-49.3 4544-3) MCV (test code = 90.1 fL 81.7-95.6 787-2) MCH (test code = 30.8 pg 26.1-32.7 785-6) MCHC (test code = 34.2 g/dL 31.2-35.0 786-4) RDW-SD (test code = 39.4 fL 38.5-51.6 49701-4) RDW-CV (test code = 11.9 % 12.1-15.4 L 788-0) PLT (test code = See_Comment H [Automated 777-3) message] The sy stem which generated this result transmitted reference range : 150 - 328 10*3/ ?L. The reference r baljit was not used to interpret this result as normal/abnormal . MPV (test code = 9.2 fL 9.8-13.0 L 43533-0) NRBC/100 WBC (test See_Comment [Automat ed code = 1554051619) message] The system which generated this result transmitted reference range : 0.0 - 10.0 /100 WBCs. The refer ence range was not u sed to interpret th is result as normal/abnormal . NRBC x10^3 (test code See_Comment [Auto mated = 6954666617) message] The s ystem which generated this result transmitted reference range : 10*3/?L. The reference range was not used to interpret this result as normal/abnormal . GRAN MAT (NEUT) % 69.2 % (test code = 770-8) IMM GRAN % (test code 1.00 % = 5429166662) LYMPH % (test code = 16.8 % 736-9) MONO % (test code = 11.1 % 5905-5) EOS % (test code = 1.5 % 713-8) BASO % (test code = 0.4 % 706-2) GRAN MAT x10^3(ANC) 8.58 10*3/uL 1.99-6.95 H (test code = 3017239704) IMM GRAN x10^3 (test 0.13 10*3/uL 0.00-0.06 H code = 9763486633) LYMPH x10^3 (test code 2.08 10*3/uL 1.09-3.23 = 731-0) MONO x10^3 (test code 1.38 10*3/uL 0.36-1.02 H = 742-7) EOS x10^3 (test code = 0.18 10*3/uL 0.06-0.53 711-2) BASO x10^3 (test code 0.05 10*3/uL 0.01-0.09 = 704-7) Lab Interpretation Abnormal (test code = 86795-1) [facility] WITH [id number] 21:44:10 Test Item Value Reference Range Interpretation Comments WBC (test code = See_Comment H [Automated 6690-2) message] The sy stem which generated this result transmitted reference range : 4.20 - 10.70 10*3/?L. The reference range was not used to interpret this result as normal/abnormal . RBC (test code = See_Comment [Automated 789-8) message] The sy stem which generated this result transmitted reference range : 4.26 - 5.52 10*6/?L. The reference range was not used to interpret this result as normal/abnormal . HGB (test code = 14.7 g/dL 12.2-16.4 718-7) HCT (test code = 43.0 % 38.4-49.3 4544-3) MCV (test code = 90.1 fL 81.7-95.6 787-2) MCH (test code = 30.8 pg 26.1-32.7 785-6) MCHC (test code = 34.2 g/dL 31.2-35.0 786-4) RDW-SD (test code = 39.4 fL 38.5-51.6 03053-2) RDW-CV (test code = 11.9 % 12.1-15.4 L 788-0) PLT (test code = See_Comment H [Automated 777-3) message] The sy stem which generated this result transmitted reference range : 150 - 328 10*3/ ?L. The reference r baljit was not used to interpret this result as normal/abnormal . MPV (test code = 9.2 fL 9.8-13.0 L 24670-7) NRBC/100 WBC (test See_Comment [Automat ed code = 7221775148) message] The system which generated this result transmitted reference range : 0.0 - 10.0 /100 WBCs. The refer ence range was not u sed to interpret th is result as normal/abnormal . NRBC x10^3 (test code See_Comment [Auto mated = 3325830252) message] The s ystem which generated this result transmitted reference range : 10*3/?L. The reference range was not used to interpret this result as normal/abnormal . GRAN MAT (NEUT) % 69.2 % (test code = 770-8) IMM GRAN % (test code 1.00 % = 5145089670) LYMPH % (test code = 16.8 % 736-9) MONO % (test code = 11.1 % 5905-5) EOS % (test code = 1.5 % 713-8) BASO % (test code = 0.4 % 706-2) GRAN MAT x10^3(ANC) 8.58 10*3/uL 1.99-6.95 H (test code = 1853149790) IMM GRAN x10^3 (test 0.13 10*3/uL 0.00-0.06 H code = 6933066077) LYMPH x10^3 (test code 2.08 10*3/uL 1.09-3.23 = 731-0) MONO x10^3 (test code 1.38 10*3/uL 0.36-1.02 H = 742-7) EOS x10^3 (test code = 0.18 10*3/uL 0.06-0.53 711-2) BASO x10^3 (test code 0.05 10*3/uL 0.01-0.09 = 704-7) Lab Interpretation Abnormal (test code = 92294-2) [facility] WITH [id number] 21:44:10 Test Item Value Reference Range Interpretation Comments WBC (test code = See_Comment H [Automated 3290-2) message] The sy stem which generated this result transmitted reference range : 4.20 - 10.70 10*3/?L. The reference range was not used to interpret this result as normal/abnormal . RBC (test code = See_Comment [Automated 319-8) message] The sy stem which generated this result transmitted reference range : 4.26 - 5.52 10*6/?L. The reference range was not used to interpret this result as normal/abnormal . HGB (test code = 14.7 g/dL 12.2-16.4 718-7) HCT (test code = 43.0 % 38.4-49.3 4544-3) MCV (test code = 90.1 fL 81.7-95.6 787-2) MCH (test code = 30.8 pg 26.1-32.7 785-6) MCHC (test code = 34.2 g/dL 31.2-35.0 786-4) RDW-SD (test code = 39.4 fL 38.5-51.6 41756-4) RDW-CV (test code = 11.9 % 12.1-15.4 L 788-0) PLT (test code = See_Comment H [Automated 777-3) message] The sy stem which generated this result transmitted reference range : 150 - 328 10*3/ ?L. The reference r baljit was not used to interpret this result as normal/abnormal . MPV (test code = 9.2 fL 9.8-13.0 L 50024-8) NRBC/100 WBC (test See_Comment [Automat ed code = 1904374220) message] The system which generated this result transmitted reference range : 0.0 - 10.0 /100 WBCs. The refer ence range was not u sed to interpret th is result as normal/abnormal . NRBC x10^3 (test code See_Comment [Auto mated = 4923492345) message] The s ystem which generated this result transmitted reference range : 10*3/?L. The reference range was not used to interpret this result as normal/abnormal . GRAN MAT (NEUT) % 69.2 % (test code = 770-8) IMM GRAN % (test code 1.00 % = 1344540892) LYMPH % (test code = 16.8 % 736-9) MONO % (test code = 11.1 % 5905-5) EOS % (test code = 1.5 % 713-8) BASO % (test code = 0.4 % 706-2) GRAN MAT x10^3(ANC) 8.58 10*3/uL 1.99-6.95 H (test code = 8704239714) IMM GRAN x10^3 (test 0.13 10*3/uL 0.00-0.06 H code = 9493146612) LYMPH x10^3 (test code 2.08 10*3/uL 1.09-3.23 = 731-0) MONO x10^3 (test code 1.38 10*3/uL 0.36-1.02 H = 742-7) EOS x10^3 (test code = 0.18 10*3/uL 0.06-0.53 711-2) BASO x10^3 (test code 0.05 10*3/uL 0.01-0.09 = 704-7) Lab Interpretation Abnormal (test code = 21741-8) [facility] WITH [id number] 21:44:10 Test Item Value Reference Range Interpretation Comments WBC (test code = See_Comment H [Automated 6690-2) message] The sy stem which generated this result transmitted reference range : 4.20 - 10.70 10*3/?L. The reference range was not used to interpret this result as normal/abnormal . RBC (test code = See_Comment [Automated 789-8) message] The sy stem which generated this result transmitted reference range : 4.26 - 5.52 10*6/?L. The reference range was not used to interpret this result as normal/abnormal . HGB (test code = 14.7 g/dL 12.2-16.4 718-7) HCT (test code = 43.0 % 38.4-49.3 4544-3) MCV (test code = 90.1 fL 81.7-95.6 787-2) MCH (test code = 30.8 pg 26.1-32.7 785-6) MCHC (test code = 34.2 g/dL 31.2-35.0 786-4) RDW-SD (test code = 39.4 fL 38.5-51.6 49767-0) RDW-CV (test code = 11.9 % 12.1-15.4 L 788-0) PLT (test code = See_Comment H [Automated 777-3) message] The sy stem which generated this result transmitted reference range : 150 - 328 10*3/ ?L. The reference r baljit was not used to interpret this result as normal/abnormal . MPV (test code = 9.2 fL 9.8-13.0 L 67031-0) NRBC/100 WBC (test See_Comment [Automat ed code = [id number]) message] The system which generated this result transmitted reference range : 0.0 - 10.0 /100 WBCs. The refer ence range was not u sed to interpret th is result as normal/abnormal . NRBC x10^3 (test code See_Comment [Auto mated = [id number]) message] The s ystem which generated this result transmitted reference range : 10*3/?L. The reference range was not used to interpret this result as normal/abnormal . GRAN MAT (NEUT) % 69.2 % (test code = 770-8) IMM GRAN % (test code 1.00 % = 2381340738) LYMPH % (test code = 16.8 % 736-9) MONO % (test code = 11.1 % 5905-5) EOS % (test code = 1.5 % 713-8) BASO % (test code = 0.4 % 706-2) GRAN MAT x10^3(ANC) 8.58 10*3/uL 1.99-6.95 H (test code = 8627548818) IMM GRAN x10^3 (test 0.13 10*3/uL 0.00-0.06 H code = 6959153693) LYMPH x10^3 (test code 2.08 10*3/uL 1.09-3.23 = 731-0) MONO x10^3 (test code 1.38 10*3/uL 0.36-1.02 H = 742-7) EOS x10^3 (test code = 0.18 10*3/uL 0.06-0.53 711-2) BASO x10^3 (test code 0.05 10*3/uL 0.01-0.09 = 704-7) Lab Interpretation Abnormal (test code = 06936-7) [facility] WITH [id number] 21:44:10 Test Item Value Reference Range Interpretation Comments WBC (test code = See_Comment H [Automated 6690-2) message] The sy stem which generated this result transmitted reference range : 4.20 - 10.70 10*3/?L. The reference range was not used to interpret this result as normal/abnormal . RBC (test code = See_Comment [Automated 789-8) message] The sy stem which generated this result transmitted reference range : 4.26 - 5.52 10*6/?L. The reference range was not used to interpret this result as normal/abnormal . HGB (test code = 14.7 g/dL 12.2-16.4 718-7) HCT (test code = 43.0 % 38.4-49.3 4544-3) MCV (test code = 90.1 fL 81.7-95.6 787-2) MCH (test code = 30.8 pg 26.1-32.7 785-6) MCHC (test code = 34.2 g/dL 31.2-35.0 786-4) RDW-SD (test code = 39.4 fL 38.5-51.6 89322-4) RDW-CV (test code = 11.9 % 12.1-15.4 L 788-0) PLT (test code = See_Comment H [Automated 777-3) message] The sy stem which generated this result transmitted reference range : 150 - 328 10*3/ ?L. The reference r baljit was not used to interpret this result as normal/abnormal . MPV (test code = 9.2 fL 9.8-13.0 L 96476-0) NRBC/100 WBC (test See_Comment [Automat ed code = 9671663069) message] The system which generated this result transmitted reference range : 0.0 - 10.0 /100 WBCs. The refer ence range was not u sed to interpret th is result as normal/abnormal . NRBC x10^3 (test code See_Comment [Auto mated = 4320244818) message] The s ystem which generated this result transmitted reference range : 10*3/?L. The reference range was not used to interpret this result as normal/abnormal . GRAN MAT (NEUT) % 69.2 % (test code = 770-8) IMM GRAN % (test code 1.00 % = 1447354365) LYMPH % (test code = 16.8 % 736-9) MONO % (test code = 11.1 % 5905-5) EOS % (test code = 1.5 % 713-8) BASO % (test code = 0.4 % 706-2) GRAN MAT x10^3(ANC) 8.58 10*3/uL 1.99-6.95 H (test code = 3012416171) IMM GRAN x10^3 (test 0.13 10*3/uL 0.00-0.06 H code = 8746762264) LYMPH x10^3 (test code 2.08 10*3/uL 1.09-3.23 = 731-0) MONO x10^3 (test code 1.38 10*3/uL 0.36-1.02 H = 742-7) EOS x10^3 (test code = 0.18 10*3/uL 0.06-0.53 711-2) BASO x10^3 (test code 0.05 10*3/uL 0.01-0.09 = 704-7) Lab Interpretation Abnormal (test code = 13135-7) [facility] WITH [id number] 21:44:10 Test Item Value Reference Range Interpretation Comments WBC (test code = See_Comment H [Automated 6690-2) message] The sy stem which generated this result transmitted reference range : 4.20 - 10.70 10*3/?L. The reference range was not used to interpret this result as normal/abnormal . RBC (test code = See_Comment [Automated 789-8) message] The sy stem which generated this result transmitted reference range : 4.26 - 5.52 10*6/?L. The reference range was not used to interpret this result as normal/abnormal . HGB (test code = 14.7 g/dL 12.2-16.4 718-7) HCT (test code = 43.0 % 38.4-49.3 4544-3) MCV (test code = 90.1 fL 81.7-95.6 787-2) MCH (test code = 30.8 pg 26.1-32.7 785-6) MCHC (test code = 34.2 g/dL 31.2-35.0 786-4) RDW-SD (test code = 39.4 fL 38.5-51.6 48606-7) RDW-CV (test code = 11.9 % 12.1-15.4 L 788-0) PLT (test code = See_Comment H [Automated 777-3) message] The sy stem which generated this result transmitted reference range : 150 - 328 10*3/ ?L. The reference r baljit was not used to interpret this result as normal/abnormal . MPV (test code = 9.2 fL 9.8-13.0 L 31767-9) NRBC/100 WBC (test See_Comment [Automat ed code = 7674578021) message] The system which generated this result transmitted reference range : 0.0 - 10.0 /100 WBCs. The refer ence range was not u sed to interpret th is result as normal/abnormal . NRBC x10^3 (test code See_Comment [Auto mated = 3499017878) message] The s ystem which generated this result transmitted reference range : 10*3/?L. The reference range was not used to interpret this result as normal/abnormal . GRAN MAT (NEUT) % 69.2 % (test code = 770-8) IMM GRAN % (test code 1.00 % = 7628619979) LYMPH % (test code = 16.8 % 736-9) MONO % (test code = 11.1 % 5905-5) EOS % (test code = 1.5 % 713-8) BASO % (test code = 0.4 % 706-2) GRAN MAT x10^3(ANC) 8.58 10*3/uL 1.99-6.95 H (test code = 6162331084) IMM GRAN x10^3 (test 0.13 10*3/uL 0.00-0.06 H code = 2014546564) LYMPH x10^3 (test code 2.08 10*3/uL 1.09-3.23 = 731-0) MONO x10^3 (test code 1.38 10*3/uL 0.36-1.02 H = 742-7) EOS x10^3 (test code = 0.18 10*3/uL 0.06-0.53 711-2) BASO x10^3 (test code 0.05 10*3/uL 0.01-0.09 = 704-7) Lab Interpretation Abnormal (test code = 09345-8) [facility] HEMOGLOBIN A1C [id number] 14:52:00 Test Item Value Reference Range Interpretation Comments POCT HBA1C (test code = 4548-4) 6.3 % 4-6 A Lab Interpretation (test code = Abnormal 19716-5) [facility] HEMOGLOBIN A1C [id number] 14:52:00 Test Item Value Reference Range Interpretation Comments POCT HBA1C (test code = 4548-4) 6.3 % 4-6 A Lab Interpretation (test code = Abnormal 41444-5) [facility]
[2022-07-21 18:24] LABS: Absolute Lymphocytes (CBC) 0.3 K/uL (0.7-4.9); Lymphocytes % 1.6 % (15.3-44.8); MCV 86.8 fL (80-100); MPV 7.3 fL (7.6-11.3); RBC Red Blood Cell Count 4.03 M/uL (4.33-5.43)
[2022-07-21 18:25] LABS: Protime INR 1.47
[2022-07-21] MEDS ORDERED: HYDROMORPHONE HCL 1 MG/ML INJ ONE (18:33)
[2022-07-21] MEDS ORDERED: NA CHLORIDE 0.9% 2,000 ML ONE (18:33)
[2022-07-21 18:35] LABS: Albumin 2.4 g/dL (3.4-5.0); Bilirubin Total 0.6 mg/dL (0.2-1.0); Potassium 3.8 mmol/L (3.5-5.1); Protein, Total 7.2 g/dL (6.4-8.2); Troponin High Sensitivity 19.2 pg/mL (<58.9)
[2022-07-21 19:09] LABS: SARS-COV-2 RT PCR NEGATIVE (NEGATIVE)
[2022-07-21 19:13] LABS: Blood Morphology Comment NOT SEEN (NOT SEEN); Platelet Estimate INCR
--- NOTE | 2022-07-21 19:23 | RAD REPORT ---
EXAM DESCRIPTION: CT - Head Brain Wo Cont - 07/21/2022 7:17 pm CLINICAL HISTORY: SYNCOPE Headache, drowsiness COMPARISON: No comparisons TECHNIQUE: All CT scans are performed using dose optimization technique as appropriate and may inclu de automated exposure control or mA/KV adjustment according to patient size. FINDINGS: No intracranial hemorrhage, hydrocephalus or extra-axial fluid collection.No areas of brai n edema or evidence of midline shift. The paranasal sinuses and mastoids are clear. The calvarium is intact. IMPRESSION: No acute intracranial abnormality.
--- NOTE | 2022-07-21 19:33 | RAD REPORT ---
EXAM DESCRIPTION: CT - Chest Abdomen Pelvis W Cont - 07/21/2022 7:23 pm CLINICAL HISTORY: Chest and abdomen pain. sepsis COMPARISON: Abdomen Pelvis Wo Contrast dated 12/25/2021; Abdomen Pelvis W Contrast dated 10/17/2021 ; Chest Abd Pelvis Wo Con dated 12/10/2021 TECHNIQUE: Approximately 100 mL nonionic IV contrast was administered to the patient. All CT scans are performed using dose optimization technique as appropriate and may include automated exposure control or mA/KV adjustment according to patient size. FINDINGS: Small calcified nodules are present in both lungs likely calcified granulomata.No new nodu le seen.No pleural or pericardial effusion.No intrathoracic adenopathy. There are numerous low-density lesions in the liver, largest in the anterior left lobe measuring 5.4 x 5.0 cm, compatible with metastatic lesions. Pigtail catheter is seen in the right subhepatic space. There is no fluid present in this location. Common bile duct stent is in place. Large hypodense mass in the pancreatic head is present measuring 6.5 x 6.5 cm. Pancreatic ductal dilatation is noted. Mod erate thickening of the left adrenal gland seen. No bowel obstruction or free air. Sigmoid diverticulosis coli without diverticulitis. No lytic or blastic bone lesion. IMPRESSION: No acute finding suspected. Pancreatic malignancy noted with metastatic disease to the liver as described.
--- NOTE | 2022-07-21 19:35 | RAD REPORT ---
EXAM DESCRIPTION: RAD - Chest Single View - 07/21/2022 7:30 pm CLINICAL HISTORY: CHEST PAIN Chest pain. COMPARISON: Chest Single View dated 12/25/2021; Chest Single View dated 12/10/2021 FINDINGS: Portable technique limits examination quality. The lungs are grossly clear. The heart is normal in size. No displaced fractures.Right port catheter has its tip in the SVC. IMPRESSION: No acute intrathoracic process suspected.
[2022-07-21] MEDS ORDERED: INSULIN -REGULAR HUMAN 50 UNIT/0.5 ML ML ONE (19:40)
[2022-07-21] MEDS ORDERED: NA CHLORIDE 0.9% 1,000 ML ONE (20:04)
[2022-07-21] MEDS ORDERED: HYDROMORPHONE HCL 0.5 MG/0.5 ML INJ ONE (21:20)
--- NOTE | 2022-07-21 22:04 | P.HP ---
Certification for Inpatient Patient admitted to: Inpatient With expected LOS: <2 Midnights Patient will require the following post-hospital care: None Practitioner: I am a practitioner with admitting privileges, knowledge of patient current condition, hospital course, and medical plan of care. Services: Services provided to patient in accordance with Admission requirements found in Title 42 Section 412.3 of the Code of Federal Regulations Patient History Date of Service: 07/21/22 Reason for admission: Dehydration, Hyponatremia History of Present Illness: Patient is a 67 year old male with past medical history of hypertension, hyperlipidemia, hypothyroidism, and pancreatic cancer with mets to the liver (last chemo 6 weeks ago) who presented to the emergency department after a syncopal episode. Patient states that he was at [employer] with a friend earlier and when he walked outside he started to experience palpitations, feel weak, started shaking, sweating profusely and passed out. Friend was able to catch him. He was tachycardic upon arrival. His labs are significant for WBC 20, hgb 12.1, sodium 123, chloride 89, gluocose 344, AST 42, alk phos 265, lactate 2.3. Chest/abdomen/pelvis CT showed "No acute finding suspected. Pancreatic malignancy noted with metastatic disease to the liver as described." Head CT negative. Patient improved significantly after IV fluids. ED provider wishes to admit patient for further management. 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 - Family History Father -: Heart disease Mother -: Cancer Notes: Breast - Social History Smoking Status: Never smoker Alcohol use: No CD- Drugs: No Caffeine use: Yes Place of Residence: Home Review of Systems General: Sweats, Weakness Respiratory: Shortness of Breath Cardiovascular: Palpitations Neurological: Other (Syncope) Physical Examination - Vital Signs Temperature: 97.9 F Blood Pressure: 133/72 Pulse: 81 Respirations: 14 Pulse Ox (%): 100 - Physical Exam General: Alert, In no apparent distress HEENT: Atraumatic, EOMI, Sclerae nonicteric Neck: Supple, 2+ carotid pulse no bruit Respiratory: Clear to auscultation bilaterally, Normal air movement Cardiovascular: Regular rate/rhythm, Normal S1 S2 Gastrointestinal: Normal bowel sounds, No tenderness Musculoskeletal: No tenderness Integumentary: No rashes Neurological: Normal speech, Normal affect - Studies Laboratory Data (last 24 hrs) 07/21/22 18:05: Lipase 46 07/21/22 18:05: PT 16.2 H, INR 1.47, APTT 27.6 07/21/22 18:05: Sodium 123 L, Potassium 3.8, BUN 18, Creatinine 1.27, Glucose 344 H, Total Bilirubin 0.6, AST 42 H, ALT 61, Alkaline Phosphatase 265 H 07/21/22 18:05: WBC 20.00 H, Hgb 12.1 L, Hct 35.0 L, Plt Count 417 H Assessment and Plan - Problems (Diagnosis) (1) Hyponatremia Current Visit: Yes Status: Acute (2) Dehydration Current Visit: Yes Status: Acute (3) Hypertension Current Visit: Yes Status: Chronic Qualifiers: Hypertension type: primary hypertension Qualified Code(s): I10 - Essential (primary) hypertension (4) Hyperlipidemia Current Visit: Yes Status: Chronic Qualifiers: Hyperlipidemia type: unspecified Qualified Code(s): E78.5 - Hyperlipidemia, unspecified (5) Hypothyroidism Current Visit: Yes Status: Chronic Qualifiers: Hypothyroidism type: unspecified Qualified Code(s): E03.9 - Hypothyroidism, unspecified (6) Liver cancer Current Visit: Yes Status: Chronic Qualifiers: Liver malignancy type: unspecified liver malignancy Qualified Code(s): C22.9 - Malignant neoplasm of liver, not specified as primary or secondary (7) Pancreatic cancer Current Visit: Yes Status: Chronic Qualifiers: Pancreatic malignancy location: head of pancreas Qualified Code(s): C25.0 - Malignant neoplasm of head of pancreas - Plan Patient is admitted for observation following syncopal episode. Hyponatremia noted on labs, likely hypovolemic secondary to dehydration causing syncopal episode. Continue IV hydration. Recheck BMP. Additionally check urine sodium, urine osmolality, and serum osmolality. Oncologist is at [facility]. He still has a pigtail catheter (placed 5 months ago) in the right subhepatic space that does not appear infected. WBC elevated at 20 and lactate elevated at 2.3. No source of infection identified. Patient states he had neupogen recently. Monitor and replete electrolytes per protocol. Reconcile and continue home medications. Anticipate DC in the morning. Discharge Plan: Home Plan to discharge in: 24 Hours - Advance Directives Does patient have a Living Will: No Does patient have a Durable POA for Healthcare: No - Code Status/Comfort Care Code Status Assessed: Yes Code Status: Full Code Physician Review: Patient Assessed, Agree with Above Assessment and Plan Critical Care: No Time Spent Managing Pts Care (In Minutes): 50
[2022-07-21] MEDS ORDERED: ACETAMINOPHEN 500 MG TAB PO PRN (22:35)
[2022-07-21] MEDS ORDERED: ALBUTEROL 2.5 MG/3 ML NEB SOL NEB PRN (22:35)
[2022-07-21] MEDS ORDERED: ONDANSETRON 4 MG/2 ML VIAL IV PRN (22:35)
[2022-07-21] MEDS ORDERED: NA CHLORIDE 0.9% 1,000 ML IV SCH (23:00)
[2022-07-21 23:37] VITALS: BMI 30.7
[2022-07-22] MEDS: HYDROMORPHONE HCL 0.5 MG/0.5 ML INJ IV PRN ×6 (01:25→21:39)
[2022-07-22 01:58] LABS: Specific Gravity > 1.030 (1.005-1.030); Urine Bacteria None Seen /HPF (<20); Urine Bilirubin NEGATIVE (Negative); Urine Blood 1+ (Negative); Urine Clarity Clear (Clear); Urine Color Light-Yellow (Yellow); Urine Glucose 3+ (Negative); Urine Mucus Slight /HPF (None Seen); Urine Protein TRACE (Negative); Urine RBC <5 /HPF (None Seen); Urine Urobilinogen Normal (Normal); Urine pH 5.5 (5.0-7.0)
[2022-07-22 04:09] LABS: Absolute Lymphocytes (CBC) 0.9 K/uL (0.7-4.9); Hematocrit 34.1 % (39.6-49.0); Lymphocytes % 5.9 % (15.3-44.8); MCV 88.7 fL (80-100); MPV 7.3 fL (7.6-11.3); RBC Red Blood Cell Count 3.84 M/uL (4.33-5.43)
[2022-07-22 04:18] LABS: Magnesium 1.9 mg/dL (1.6-2.4); Phosphorus 4.2 mg/dL (2.5-4.9); Potassium 3.4 mmol/L (3.5-5.1)
[2022-07-22] MEDS ORDERED: GLUCAGON 1 MG/VIAL IM PRN (04:53)
[2022-07-22] MEDS ORDERED: D50W 25 GM/50 ML SYRINGE IV PRN (04:53)
[2022-07-22] MEDS ORDERED: D10W 125 ML IV PRN (05:02)
[2022-07-22] MEDS: HYDRALAZINE HCL 20 MG/ML VIAL IV PRN ×2 (05:05→11:17)
[2022-07-22] MEDS: INSULIN -REGULAR HUMAN 50 UNIT/0.5 ML ML SQ SCH ×4 (08:24→21:00)
[2022-07-22] MEDS ORDERED: POTASSIUM CL SA 10 MEQ TAB PO ONE (09:00)
[2022-07-22] MEDS ORDERED: HYDROMORPHONE HCL 1 MG/ML INJ IV ONE (11:12)
--- NOTE | 2022-07-22 13:03 | EKG ---
Test Date: 2022-07-21 Test Time: 17:09:47 Global Project Manager: LEILANI MEASUREMENT RESULTS: Intervals: Rate: 107 IL: 146 QRSD: 128 QT: 364 QTc: 485 [place]: P: 73 IL: 146 QRS: -89 T: 58 INTERPRETIVE STATEMENTS: Sinus tachycardia Left axis deviation Right bundle branch block Abnormal ECG Compared to ECG 12/10/2021 12:39:50 Left-axis deviation now present Sinus rhythm no longer present Left anterior fascicular block no longer present Bifascicular block no longer present Left ventricular hypertrophy no longer present Electronically Signed On 07-22-22 13:02:09 CDT by Darian Mcclain
[2022-07-22] MEDS ORDERED: ALBUTEROL 2.5 MG/3 ML NEB SOL NEB PRN (14:00)
[2022-07-22] MEDS ORDERED: CEFTRIAXONE 1,000 MG in NA CHLORIDE 0.9% 50 ML IVPB SCH (15:18)
--- NOTE | 2022-07-22 15:19 | P.PN ---
Subjective Date of Service: 07/22/22 Chief Complaint: Dehydration, Hyponatremia Patient states he feels better compared to yesterday. His blood pressure has improved. He is ambulatory. No issues overnight. Physical Examination - Vital Signs Temperature: 99.6 F Blood Pressure: 138/80 Pulse: 104 Respirations: 17 Pulse Ox (%): 97 - Studies Laboratory Data (last 24 hrs) 07/21/22 18:05: Lipase 46 07/21/22 18:05: PT 16.2 H, INR 1.47, APTT 27.6 07/21/22 18:05: Sodium 123 L, Potassium 3.8, BUN 18, Creatinine 1.27, Glucose 344 H, Total Bilirubin 0.6, AST 42 H, ALT 61, Alkaline Phosphatase 265 H 07/21/22 18:05: WBC 20.00 H, Hgb 12.1 L, Hct 35.0 L, Plt Count 417 H Assessment And Plan - Current Problems (Diagnosis) (1) Gram-negative bacteremia Current Visit: Yes Status: Acute (2) Dehydration Current Visit: Yes Status: Acute (3) Hyponatremia Current Visit: Yes Status: Acute (4) Hyperlipidemia Current Visit: Yes Status: Chronic Qualifiers: Hyperlipidemia type: unspecified Qualified Code(s): E78.5 - Hyperlipidemia, unspecified (5) Hypertension Current Visit: Yes Status: Chronic Qualifiers: Hypertension type: primary hypertension Qualified Code(s): I10 - Essential (primary) hypertension (6) Hypothyroidism Current Visit: Yes Status: Chronic Qualifiers: Hypothyroidism type: unspecified Qualified Code(s): E03.9 - Hypothyroidism, unspecified (7) Liver cancer Current Visit: Yes Status: Chronic Qualifiers: Liver malignancy type: unspecified liver malignancy Qualified Code(s): C22 .9 - Malignant neoplasm of liver, not specified as primary or secondary (8) Pancreatic cancer Current Visit: Yes Status: Chronic Qualifiers: Pancreatic malignancy location: head of pancreas Qualified Code(s): C25.0 - Malignant neoplasm of head of pancreas - Plan Physical Exam General: Alert, In no apparent distress HEENT: Sclerae nonicteric Neck: Supple, no elevated JVD Respiratory: Clear to auscultation bilaterally, Normal air movement Cardiovascular: Regular rate/rhythm, Normal S1 S2 Gastrointestinal: Normal bowel sounds, No tenderness Musculoskeletal: No tenderness Integumentary: No rashes Neurological: Normal speech, Normal affect, no focal motor deficit. Plan: Patient blood culture is growing gram-negative rods. Urine culture is pending Associated leukocytosis which is improving. Start IV Rocephin. Follow cultures. Patient's systolic blood pressure was significantly elevated. I suspect pain contributing to the systolic blood pressure elevation. Pain control with hydromorphone. Patient is not on any antihypertensives at home. Hydralazine as needed for BP spikes. Considering maintenance of amlodipine if his blood pressure remains persistently elevated. Insulin sliding scale for glucose management. Continue home dose Synthroid. Sodium level corrected for hyperglycemia is 134. Discontinue IV fluid. Diet as tolerated Increase activity as tolerated.
--- NOTE | 2022-07-22 21:12 | P.PN ---
Date of Service: 07/23/22 Subjective: Feels much better than yesterday slightly light headed Pain in center back, ongoing Before episode, feels hes been progressively getting worse over last 4-6 weeks since chemotherapy no acute events overnight ROS: 10 point ROS as noted above, otherwise negative Physical Exam: Gen: Alert, NAD, AOx3 HEENT: normal conjunctiva, sclera anicteric CV: regular rate & rhythm, no edema Pulm: non-labored respirations on room air, clear bilaterally Abd: soft, mild tenderness in rUQ/epigastric region, non-distended Neuro: normal speech, normal affect vitals reviewed Problem List: Gram-negative bacteremia, unclear source Dehydration Hyponatremia Hyperlipidemia Hypertension Hypothyroidism Liver Cancer stage IV Pancreatic Cancer, with liver mets GNR bacteremia unclear source, denies acute symptoms prior to syncopal episode Continue IV rocephin ID consulted f/u blood cultures UA pending leukocytosis improving resume home pain meds norco 10mg TID IV as needed for breakthrough check orthostatic vitals systolic BP elevated continue to monitor Hydralazine as needed Continue monitor insulin sliding scale Diet as tolerated Continue home synthroid patient plans to discuss cancer treatment with oncologist/tombstone setter 07/30 Code: Full Dispo: Home ~24-48 Hours
[2022-07-22] MEDS: ZOLPIDEM TARTRATE 10 MG TABLET PO SCH (22:12)
[2022-07-23] MEDS: HYDROMORPHONE HCL 1 MG/ML INJ IV PRN ×6 (00:16→23:29)
[2022-07-23] MEDS: HYDROMORPHONE HCL 0.5 MG/0.5 ML INJ IV PRN ×4 (03:31→16:04)
[2022-07-23 03:54] LABS: Absolute Lymphocytes (CBC) 0.8 K/uL (0.7-4.9); Hematocrit 35.9 % (39.6-49.0); Lymphocytes % 5.3 % (15.3-44.8); MCV 87.5 fL (80-100); MPV 7.3 fL (7.6-11.3)
[2022-07-23 03:55] LABS: Potassium 3.6 mmol/L (3.5-5.1)
[2022-07-23] MEDS: LEVOTHYROXINE SOD 0.075 MG TAB PO SCH (05:41)
[2022-07-23] MEDS: INSULIN -REGULAR HUMAN 50 UNIT/0.5 ML ML SQ SCH ×4 (07:30→21:25)
[2022-07-23] MEDS: CEFTRIAXONE 1,000 MG in NA CHLORIDE 0.9% 50 ML IVPB SCH ×2 (08:53→21:24)
[2022-07-23] MEDS: INSULIN GLARGINE 100 UNIT/ML SQ SCH (08:53)
[2022-07-23] MEDS: ISOSORBIDE MONO SR 30 MG TAB PO SCH (08:54)
[2022-07-23] MEDS: ROSUVASTATIN 10 MG TAB PO SCH (08:54)
[2022-07-23] MEDS ORDERED: HOME MED 1 EA UNK (Insulin Glargine,Hum.Rec.Anlog [Toujeo Solostar] 300 UNIT/ML Insuln.Pen SQ SCH (09:00)
[2022-07-23] MEDS ORDERED: HOME MED 1 EA UNK (Rosuvastatin Calcium [Crestor] 20 MG Tablet) PO SCH (09:00)
[2022-07-23] MEDS ORDERED: HOME MED 1 EA UNK (Levothyroxine Sodium [Levothyroxine] 150 MCG Capsule) PO SCH (09:00)
[2022-07-23] MEDS ORDERED: POTASSIUM CL SA 10 MEQ TAB PO ONE ×2 (09:00→21:12)
--- NOTE | 2022-07-23 11:32 | P.CNS ---
Date of Consult: 07/23/22 Chief Complaint: Dehydration, Hyponatremia History of Present Illness: Patient is a 67 year old male with past medical history of hypertension, hyperlipidemia, hypothyroidism, and pancreatic cancer with mets to the liver (last chemo 6 weeks ago) who presented to the emergency department after a syncopal episode. Patient states that he was at [facility] with a friend earlier and when he walked outside he started to experience palpitations, feel weak, started shaking, sweating profusely and passed out. Friend was able to catch him. He was tachycardic upon arrival. His labs are significant for WBC 20, hgb 12.1, sodium 123, chloride 89, gluocose 344, AST 42, alk phos 265, lactate 2.3. Chest/abdomen/pelvis CT showed "No acute finding suspected. Pancreatic malignancy noted with metastatic disease to the liver as described." Head CT negative. Patient improved significantly after IV fluids. ED provider wishes to admit patient for further management ID has been consulted for IV antibiotics recommendations and management for Gram Neg Avery Bacteremia Allergies No Known Allergies Allergy (Verified 07/21/22 23:58) Home Medications: Insulin Glargine,Hum.rec.anlog [Toujeo Solostar] 20 units SQ DAILY 07/22/22 Isosorbide Mononitrate [Isosorbide Mononitrate ER] 30 mg PO DAILY 07/22/22 Levothyroxine Sodium [Levothyroxine] 150 mcg PO DAILY 07/22/22 Rosuvastatin Calcium [Crestor] 20 mg PO DAILY 07/22/22 Zolpidem Tartrate [Ambien] 10 mg PO 30 MIN BEFORE HS 07/22/22 - Past Medical/Surgical History Diabetic: No -: HYPERLIPIDEMIA -: HYPERTENSION -: HYPOTHYROIDISM -: Liver Cancer -: Pancreatic Cancer -: Open Appendectomy -: Abdominal abscess drainage Psychosocial/ Personal History: 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 - Family History Father Medical History: Heart disease Mother Medical History: Cancer Notes: Breast - Social History Alcohol use: No CD- Drugs: No Caffeine use: Yes Place of Residence: Home Review of Systems 10-point ROS is otherwise unremarkable Cardiovascular: As per HPI Physical Examination Temp Pulse Resp BP Pulse Ox 96.4 F L 87 16 162/85 H 96 07/23/22 08:00 07/23/22 08:00 07/23/22 09:24 07/23/22 08:00 07/23/22 09:24 General: Alert, In no apparent distress, Oriented x3 Respiratory: Clear to auscultation bilaterally, Normal air movement Cardiovascular: No edema, Normal S1 S2 Gastrointestinal: Normal bowel sounds Musculoskeletal: No swelling, No contractures, No tenderness Integumentary: No rashes, No breakdown, Other (right chest port-a-cath and RUQ biliary drain) Neurological: Normal speech, Normal tone, Sensation intact, Normal affect Laboratory Data (last 24 hrs) 07/23/22 03:24: WBC 14.20 H, Hgb 12.0 L, Hct 35.9 L, Plt Count 238 07/23/22 03:24: Sodium 127 L, Potassium 3.6, BUN 14, Creatinine 0.73, Glucose 208 H active medications Acetaminophen (Acetaminophen 500 Mg Tab) 500 mg PO Q4HP PRN PRN Reason: Pain scale 2-4 (Mild) Hydrocodone Bitart/Acetaminophen (Hydrocodone/Apap 10/325 Tab) 1 tab PO Q8H PRN PRN Reason: Pain scale 5-7 (Moderate) Albuterol Sulfate (Albuterol 2.5 Mg/3 Ml Neb Kavitha) 2.5 mg NEB [id number] PRN PRN Reason: SHORTNESS OF BREATH Glucagon (Glucagon 1 Mg/Vial) 1 mg IM 1X PRN; Protocol PRN Reason: HYPOGLYCEMIA Hydralazine HCl (Hydralazine Hcl 20 Mg/Ml Vial) 10 mg IV Q6HP PRN PRN Reason: Titrate to SBP (MUST DEFINE) Last Admin: 07/22/22 11:17 Dose: 10 mg Hydromorphone HCl (Hydromorphone Hcl 0.5 Mg/0.5 Ml Inj) 0.5 mg IV Q4H PRN PRN Reason: Pain scale 5-7 (Moderate) Last Admin: 07/23/22 07:32 Dose: 0.5 mg Hydromorphone HCl (Hydromorphone Hcl 1 Mg/Ml Inj) 1 mg IV Q4H PRN PRN Reason: Pain scale 8-10 (Severe) Last Admin: 07/23/22 08:54 Dose: 1 mg Dextrose (Dextrose 10% Water Iv Soln.) 125 mls @ 0 mls/hr IV PRN PRN; Protocol PRN Reason: HYPOGLYCEMIA Ceftriaxone Sodium 1,000 mg/ (Sodium Chloride) 50 mls @ 100 mls/hr IVPB Q12HR [facility]; Protocol Last Admin: 07/23/22 08:53 Dose: 50 mls Insulin Glargine (Insulin Glargine 100 Unit/Ml) 20 unit SQ DAILY [facility] Last Admin: 07/23/22 08:53 Dose: 20 unit Insulin Human Regular (Insulin -Regular Human 50 Unit/0.5 Ml Ml) 0 unit SQ ACHS [facility]; Protocol Last Admin: 07/23/22 07:30 Dose: Not Given Isosorbide Mononitrate (Isosorbide [place] Sr 30 Mg Tab) 30 mg PO DAILY [facility] Last Admin: 07/23/22 08:54 Dose: 30 mg Levothyroxine Sodium (Levothyroxine Sod 0.075 Mg Tab) 0.15 mg PO DAILYAC [facility] Last Admin: 07/23/22 05:41 Dose: 0.15 mg Ondansetron HCl (Ondansetron 4 Mg/2 Ml Vial) 4 mg IV Q6HP PRN PRN Reason: NAUSEA / VOMITING Rosuvastatin Calcium (Rosuvastatin 10 Mg Tab) 20 mg PO DAILY [facility] Last Admin: 07/23/22 08:54 Dose: 20 mg Sodium Chloride (Flush Normal Saline 10 Ml) 10 ml IV BID [facility] Last Admin: 07/23/22 08:55 Dose: 10 ml Zolpidem Tartrate (Zolpidem Tartrate 10 Mg Tablet) 10 mg PO 30 MIN BEFORE HS [facility] Last Admin: 07/22/22 22:12 Dose: 10 mg Microbiology 07/21/22 18:22 Blood - Blood Aerobic Blood Culture - Preliminary Gram Neg Avery 07/21/22 18:22 Blood - Blood Blood Culture Gram Stain - Final 07/21/22 18:22 Blood - Blood Anaerobic Blood Culture - Preliminary No growth in 24 hours. 07/21/22 18:05 Blood - Blood Aerobic Blood Culture - Preliminary No growth in 24 hours. 07/21/22 18:05 Blood - Blood Anaerobic Blood Culture - Preliminary No growth in 24 hours. Imagings Data: CT - Head Brain Wo Cont - 07/21/2022 FINDINGS: No intracranial hemorrhage, hydrocephalus or extra-axial fluid collection.No areas of brain edema or evidence of midline shift. The paranasal sinuses and mastoids are clear. The calvarium is intact. IMPRESSION: No acute intracranial abnormality. CT - Chest Abdomen Pelvis W Cont - 07/21/2022 FINDINGS: Small calcified nodules are present in both lungs likely calcified granulomata.No new nodule seen.No pleural or pericardial effusion.No intrathoracic adenopathy. There are numerous low-density lesions in the liver, largest in the anterior left lobe measuring 5.4 x 5.0 cm, compatible with metastatic lesions. Pigtail catheter is seen in the right subhepatic space. There is no fluid present in this location. Common bile duct stent is in place. Large hypodense mass in the pancreatic head is present measuring 6.5 x 6.5 cm. Pancreatic ductal dilatation is noted. Moderate thickening of the left adrenal gland seen. No bowel obstruction or free air. Sigmoid diverticulosis coli without diverticulitis. No lytic or blastic bone lesion. IMPRESSION: No acute finding suspected. Pancreatic malignancy noted with metastatic disease to the liver as described RAD - Chest Single View - 07/21/2022 FINDINGS: Portable technique limits examination quality. The lungs are grossly clear. The heart is normal in size. No displaced fractures.Right port catheter has its tip in the SVC. IMPRESSION: No acute intrathoracic process suspected - Problems (1) Gram-negative bacteremia Plan: Cultures: - 07/21 BC: Gram Neg Avery and pending for culture - 07/21 UC: Pending Antibiotics: - Current on IV Ceftriaxone (07/22- ) Recommendations: - Continue Ceftriaxone - ID will recommend antibiotic drug of choice when cultures are available Conclusions/Impression: - Gram Neg Avery Bacteremia: On Ceftriaxone now pending for culture - Hyponatremia - Dehydration - Hypertension - Hyperlipidemia - Hypothyroidism - Liver cancer - Pancreatic cancer - Severe protein calorie malnutrition ID will monitor the patient closely for signs of infection with fever and WBC trends Case has been discussed with Dr. Sotelo N Thank you Dr. Valdez for consultation
--- NOTE | 2022-07-23 14:43 | P.CNS ---
Date of Consult: 07/23/22 Reason for Consult: Hyponatremia Requesting Physician: neda roque Chief Complaint: Dehydration, Hyponatremia History of Present Illness: Patient is a 67 year old male with past medical history of hypertension, hyperlipidemia, hypothyroidism, and pancreatic cancer with mets to the liver (last chemo 6 weeks ago) who presented to the emergency department after a syncopal episode. Patient states that he was at [facility] with a friend earlier and when he walked outside he started to experience palpitations, feel weak, started shaking, sweating profusely and passed out. Friend was able to catch him. He was tachycardic upon arrival. His labs are significant for WBC 20, hgb 12.1, sodium 123, chloride 89, gluocose 344, AST 42, alk phos 265, lactate 2.3. Chest/abdomen/pelvis CT showed "No acute finding suspected. Pancreatic maligna ncy noted with metastatic disease to the liver as described." Head CT negative. Patient improved significantly after IV fluids. ED provider wishes to admit patient for further management. Allergies No Known Allergies Allergy (Verified 07/21/22 23:58) Home medications list reviewed: Yes Home Medications: Insulin Glargine,Hum.rec.anlog [Toujeo Solostar] 20 units SQ DAILY 07/22/22 Isosorbide Mononitrate [Isosorbide Mononitrate ER] 30 mg PO DAILY 07/22/22 Levothyroxine Sodium [Levothyroxine] 150 mcg PO DAILY 07/22/22 Rosuvastatin Calcium [Crestor] 20 mg PO DAILY 07/22/22 Zolpidem Tartrate [Ambien] 10 mg PO 30 MIN BEFORE HS 07/22/22 - Past Medical/Surgical History Diabetic: No -: HLD -: HTN -: HYPOTHYROIDISM -: Liver Cancer -: Pancreatic Cancer -: Open Appendectomy -: Abdominal abscess drainage Psychosocial/ Personal History: 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 - Family History Father Medical History: Heart disease Mother Medical History: Cancer Notes: Breast - Social History Alcohol use: No CD- Drugs: No Caffeine use: Yes Place of Residence: Home Review of Systems 10-point ROS is otherwise unremarkable Musculoskeletal: Back Pain Physical Examination Temp Pulse Resp BP Pulse Ox 98.0 F 97 H 16 141/89 H 95 07/23/22 12:00 07/23/22 12:00 07/23/22 13:14 07/23/22 12:00 07/23/22 13:14 General: In no apparent distress, Oriented x3, Cooperative HEENT: Atraumatic Neck: Supple Respiratory: Clear to auscultation bilaterally Cardiovascular: Regular rate/rhythm, Edema Gastrointestinal: Non-distended, No guarding Musculoskeletal: No clubbing, No contractures Integumentary: No rashes, No cyanosis Neurological: Normal speech Laboratory Data (last 24 hrs) 07/23/22 03:24: WBC 14.20 H, Hgb 12.0 L, Hct 35.9 L, Plt Count 238 07/23/22 03:24: Sodium 127 L, Potassium 3.6, BUN 14, Creatinine 0.73, Glucose 208 H Imagings Data: EXAM DESCRIPTION: RAD - Chest Single View - 07/21/2022 7:30 pm CLINICAL HISTORY: CHEST PAIN Chest pain. COMPARISON: Chest Single View dated 12/25/2021; Chest Single View dated 12/10/2021 FINDINGS: Portable technique limits examination quality. The lungs are grossly clear. The heart is normal in size. No displaced fractures.Right port catheter has its tip in the SVC. IMPRESSION: No acute intrathoracic process suspected. EXAM DESCRIPTION: CT - Chest Abdomen Pelvis W Cont - 07/21/2022 7:23 pm CLINICAL HISTORY: Chest and abdomen pain. sepsis COMPARISON: Abdomen Pelvis Wo Contrast dated 12/25/2021; Abdomen Pelvis W Contrast dated 10/17/2021; Chest Abd Pelvis Wo Con dated 12/10/2021 TECHNIQUE: Approximately 100 mL nonionic IV contrast was administered to the patient. All CT scans are performed using dose optimization technique as appropriate and may include automated exposure control or mA/KV adjustment according to patient size. FINDINGS: Small calcified nodules are present in both lungs likely calcified granulomata.No new nodule seen.No pleural or pericardial effusion.No intrathoracic adenopathy. There are numerous low-density lesions in the liver, largest in the anterior left lobe measuring 5.4 x 5.0 cm, compatible with metastatic lesions. Pigtail catheter is seen in the right subhepatic space. There is no fluid present in this location. Common bile duct stent is in place. Large hy podense mass in the pancreatic head is present measuring 6.5 x 6.5 cm. Pancreatic ductal dilatation is noted. Moderate thickening of the left adrenal gland seen. No bowel obstruction or free air. Sigmoid diverticulosis coli without diverticulitis. No lytic or blastic bone lesion. IMPRESSION: No acute finding suspected. Pancreatic malignancy noted with metastatic disease to the liver as described. EXAM DESCRIPTION: CT - Head Brain Wo Cont - 07/21/2022 7:17 pm CLINICAL HISTORY: SYNCOPE Headache, drowsiness COMPARISON: No comparisons TECHNIQUE: All CT scans are performed using dose optimization technique as appropriate and may include automated exposure control or mA/KV adjustment according to patient size. FINDINGS: No intracranial hemorrhage, hydrocephalus or extra-axial fluid collection.No areas of brain edema or evidence of midline shift. The paranasal sinuses and mastoids are clear. The calvarium is intact. IMPRESSION: No acute intracranial abnormality. Conclusions/Impression: Hypervolemic Hyponatremia -Check urine studies -Consider furosemide Hypokalemia -Replete potassium prn HTN -Continue Imdur -Hydralazine prn DM II with hyperglycemia -Continue Lantus -RISS Moderate malnutrition in the setting of pancreatic cancer -Recommend protein supplementation Anemia in chronic illness -Monitor H&H Thank you kindly for the consultation
[2022-07-23 21:09] LABS: Potassium 3.7 mmol/L (3.5-5.1)
[2022-07-23] MEDS: HYDROCODONE/APAP 10/325 TAB PO PRN (21:24)
[2022-07-23] MEDS: ZOLPIDEM TARTRATE 10 MG TABLET PO SCH (23:28)
[2022-07-24] MEDS: HYDROMORPHONE HCL 1 MG/ML INJ IV PRN ×6 (03:32→23:37)
[2022-07-24] MEDS: LEVOTHYROXINE SOD 0.075 MG TAB PO SCH (05:38)
[2022-07-24 06:18] LABS: Absolute Lymphocytes (CBC) 0.6 K/uL (0.7-4.9); Hematocrit 31.4 % (39.6-49.0); Lymphocytes % 4.3 % (15.3-44.8); MCV 87.9 fL (80-100); MPV 7.2 fL (7.6-11.3); RBC Red Blood Cell Count 3.58 M/uL (4.33-5.43)
--- NOTE | 2022-07-24 06:57 | P.PN ---
Date of Service: 07/24/22 Subjective: Feels better than yesterday with slight lightheadedness at times no acute events overnight ROS: 10 point ROS as noted above, otherwise negative Physical Exam: Gen: Alert, NAD, AOx3 HEENT: normal conjunctiva, sclera anicteric CV: regular rate & rhythm, no edema Pulm: non-labored respirations on room air, clear bilaterally Abd: soft, mild tenderness in RUQ/epigastric region, non-distended Neuro: normal speech, normal affect vitals reviewed Problem List: Gram-negative bacteremia (klebsiella), unclear source Dehydration Hyponatremia Hyperlipidemia Hypertension Hypothyroidism Liver Cancer stage IV Pancreatic Cancer, with liver mets GNR bacteremia unclear source, denies acute symptoms prior to syncopal episode Continue IV rocephin blood cultures - GNR; Klebsiella Pneumoniae ID consulted - recommend IV cefepime, 2 week course will need home health, IV antibiotics UA pending leukocytosis improving resume home pain meds norco 10mg TID IV as needed for breakthrough BP improving Continue monitor insulin sliding scale Diet as tolerated Continue home synthroid patient plans to discuss cancer treatment with oncologist/inpatient services director 07/30 Code: Full Dispo: Home ~24-48 Hours
[2022-07-24 07:07] LABS: Bilirubin Total 0.3 mg/dL (0.2-1.0); Potassium 3.8 mmol/L (3.5-5.1); Protein, Total 5.7 g/dL (6.4-8.2); Uric Acid 2.3 mg/dL (3.5-7.2)
[2022-07-24 07:08] LABS: Thyroid Stimulating Hormone 4.49 uIU/mL (0.358-3.740)
[2022-07-24] MEDS: INSULIN -REGULAR HUMAN 50 UNIT/0.5 ML ML SQ SCH ×4 (07:30→21:00)
[2022-07-24] MEDS: ISOSORBIDE MONO SR 30 MG TAB PO SCH (08:25)
[2022-07-24] MEDS: ROSUVASTATIN 10 MG TAB PO SCH (08:25)
[2022-07-24] MEDS: INSULIN GLARGINE 100 UNIT/ML SQ SCH (08:25)
[2022-07-24] MEDS: CEFTRIAXONE 1,000 MG in NA CHLORIDE 0.9% 50 ML IVPB SCH ×2 (08:26→21:14)
[2022-07-24 08:50] LABS: Specific Gravity 1.019 (1.005-1.030); Urine Bacteria None Seen /HPF (<20); Urine Bilirubin NEGATIVE (Negative); Urine Blood 1+ (Negative); Urine Clarity Clear (Clear); Urine Color Light-Yellow (Yellow); Urine Glucose 2+ (Negative); Urine Mucus Slight /HPF (None Seen); Urine Protein 1+ (Negative); Urine Urobilinogen 1+ (Normal)
--- NOTE | 2022-07-24 08:58 | P.PN ---
Subjective Date of Service: 07/24/22 Chief Complaint: Dehydration, Hyponatremia Patient lying in bed reported no nausea, vomiting, diarrhea, constipation, chest pain, or shortness of breath. Stated feeling a little better. Physical Examination - Vital Signs Temperature: 97.5 F Blood Pressure: 157/76 Pulse: 82 Respirations: 14 Pulse Ox (%): 98 - Physical Exam General: Alert, In no apparent distress, Oriented x3 Respiratory: Clear to auscultation bilaterally, Normal air movement Cardiovascular: No edema, Normal S1 S2 Gastrointestinal: Normal bowel sounds Musculoskeletal: No swelling, No tenderness Integumentary: No rashes, No breakdown, Other (right chest port-a-cath and RUQ biliary drain) Neurological: Normal gait, Normal speech, Normal tone, Sensation intact, Normal affect - Studies active medications Acetaminophen (Acetaminophen 500 Mg Tab) 500 mg PO Q4HP PRN PRN Reason: Pain scale 2-4 (Mild) Hydrocodone Bitart/Acetaminophen (Hydrocodone/Apap 10/325 Tab) 1 tab PO Q8H PRN PRN Reason: Pain scale 5-7 (Moderate) Last Admin: 07/23/22 21:24 Dose: 1 tab Albuterol Sulfate (Albuterol 2.5 Mg/3 Ml Neb Kavitha) 2.5 mg NEB [id number] PRN PRN Reason: SHORTNESS OF BREATH Glucagon (Glucagon 1 Mg/Vial) 1 mg IM 1X PRN; Protocol PRN Reason: HYPOGLYCEMIA Hydralazine HCl (Hydralazine Hcl 20 Mg/Ml Vial) 10 mg IV Q6HP PRN PRN Reason: Titrate to SBP (MUST DEFINE) Last Admin: 07/22/22 11:17 Dose: 10 mg Hydromorphone HCl (Hydromorphone Hcl 1 Mg/Ml Inj) 1 mg IV Q4H PRN PRN Reason: Pain scale 8-10 (Severe) Last Admin: 07/24/22 07:38 Dose: 1 mg Dextrose (Dextrose 10% Water Iv Soln.) 125 mls @ 0 mls/hr IV PRN PRN; Protocol PRN Reason: HYPOGLYCEMIA Ceftriaxone Sodium 1,000 mg/ (Sodium Chloride) 50 mls @ 100 mls/hr IVPB Q12HR [facility]; Protocol Last Admin: 07/24/22 08:26 Dose: 50 mls Insulin Glargine (Insulin Glargine 100 Unit/Ml) 20 unit SQ DAILY [facility] Last Admin: 07/24/22 08:25 Dose: 20 unit Insulin Human Regular (Insulin -Regular Human 50 Unit/0.5 Ml Ml) 0 unit SQ ACHS [facility]; Protocol Last Admin: 07/24/22 07:30 Dose: Not Given Isosorbide Mononitrate (Isosorbide [place]ck[place] Sr 30 Mg Tab) 30 mg PO DAILY [facility] Last Admin: 07/24/22 08:25 Dose: 30 mg Levothyroxine Sodium (Levothyroxine Sod 0.075 Mg Tab) 0.15 mg PO DAILYAC [facility] Last Admin: 07/24/22 05:38 Dose: 0.15 mg Ondansetron HCl (Ondansetron 4 Mg/2 Ml Vial) 4 mg IV Q6HP PRN PRN Reason: NAUSEA / VOMITING Potassium Chloride (Potassium Cl Sa 10 Meq Tab) 20 meq PO 1X ONE Stop: 07/24/22 09:01 Last Admin: 07/24/22 08:26 Dose: 20 meq Rosuvastatin Calcium (Rosuvastatin 10 Mg Tab) 20 mg PO DAILY [facility] Last Admin: 07/24/22 08:25 Dose: 20 mg Sodium Chloride (Flush Normal Saline 10 Ml) 10 ml IV BID [facility] Last Admin: 07/24/22 08:26 Dose: 10 ml Zolpidem Tartrate (Zolpidem Tartrate 10 Mg Tablet) 10 mg PO 30 MIN BEFORE HS [facility] Last Admin: 07/23/22 23:28 Dose: 10 mg Microbiology Data (last 24 hrs): Microbiology 07/21/22 18:22 Blood - Blood Aerobic Blood Culture - Preliminary Gram Neg Avery Klebsiella Pneumoniae 07/21/22 18:22 Blood - Blood Blood Culture Gram Stain - Final 07/21/22 18:22 Blood - Blood Anaerobic Blood Culture - Preliminary No growth in 24 hours. 07/21/22 18:05 Blood - Blood Aerobic Blood Culture - Preliminary No growth in 24 hours. 07/21/22 18:05 Blood - Blood Anaerobic Blood Culture - Preliminary No growth in 24 hours. Assessment And Plan - Current Problems (Diagnosis) (1) Gram-negative bacteremia Plan: Cultures: - 07/21 BC: Gram Neg Avery; Klebsiella pneumoniae, Resist to Ampicillin - 07/24 UC: Pending Antibiotics: - Current on IV Ceftriaxone (07/22- ) Recommendations: - STOP Ceftriaxone due to Pancreatic malignancy noted with metastatic disease to the liver - Switch to Cefepime for total of 14 days of antibiotics, 07/22 to 08/04 - Plan - Gram Neg Avery Bacteremia-Klebsiella pneumoniae: Switch to Cefepime for total of 14 days of antibiotics, 07/22-07/25 - UC pending for culture - Hyponatremia - Dehydration - Hypertension - Hyperlipidemia - Hypothyroidism - Liver cancer - Pancreatic cancer - Severe protein calorie malnutrition ID will monitor the patient closely for signs of infection with fever and WBC trends Case has been discussed with Dr. Sotelo, N Physician Review: Patient Assessed, Agree with Above Assessment and Plan
[2022-07-24] MEDS ORDERED: POTASSIUM CL SA 10 MEQ TAB PO ONE ×2 (09:00→10:05)
[2022-07-24] MEDS ORDERED: FUROSEMIDE 20 MG/ 2ML VIAL IV ONE (10:01)
[2022-07-24] MEDS: MUPIROCIN 2% OINT 22GM TUBE TOP SCH (21:14)
--- NOTE | 2022-07-24 21:49 | P.PN ---
Date of Service: 07/24/22 Vital Signs Temp Pulse Resp BP Pulse Ox 97.4 F 96 H 18 146/85 H 97 07/24/22 16:00 07/24/22 16:00 07/24/22 19:48 07/24/22 16:00 07/24/22 19:48 Medications Acetaminophen (Acetaminophen 500 Mg Tab) 500 mg PO Q4HP PRN PRN Reason: Pain scale 2-4 (Mild) Hydrocodone Bitart/Acetaminophen (Hydrocodone/Apap 10/325 Tab) 1 tab PO Q8H PRN PRN Reason: Pain scale 5-7 (Moderate) Last Admin: 07/23/22 21:24 Dose: 1 tab Albuterol Sulfate (Albuterol 2.5 Mg/3 Ml Neb Kavitha) 2.5 mg NEB [id number] PRN PRN Reason: SHORTNESS OF BREATH Glucagon (Glucagon 1 Mg/Vial) 1 mg IM 1X PRN; Protocol PRN Reason: HYPOGLYCEMIA Hydralazine HCl (Hydralazine Hcl 20 Mg/Ml Vial) 10 mg IV Q6HP PRN PRN Reason: Titrate to SBP (MUST DEFINE) Last Admin: 07/22/22 11:17 Dose: 10 mg Hydromorphone HCl (Hydromorphone Hcl 1 Mg/Ml Inj) 1 mg IV Q4H PRN PRN Reason: Pain scale 8-10 (Severe) Last Admin: 07/24/22 19:48 Dose: 1 mg Dextrose (Dextrose 10% Water Iv Soln.) 125 mls @ 0 mls/hr IV PRN PRN; Protocol PRN Reason: HYPOGLYCEMIA Ceftriaxone Sodium 1,000 mg/ (Sodium Chloride) 50 mls @ 100 mls/hr IVPB Q12HR [facility]AN; Protocol Last Admin: 07/24/22 21:14 Dose: 50 mls Insulin Glargine (Insulin Glargine 100 Unit/Ml) 20 unit SQ DAILY [facility] Last Admin: 07/24/22 08:25 Dose: 20 unit Insulin Human Regular (Insulin -Regular Human 50 Unit/0.5 Ml Ml) 0 unit SQ ACHS [facility]; Protocol Last Admin: 07/24/22 21:00 Dose: Not Given Isosorbide Mononitrate (Isosorbide [place] Sr 30 Mg Tab) 30 mg PO DAILY K[facility]AN Last Admin: 07/24/22 08:25 Dose: 30 mg Levothyroxine Sodium (Levothyroxine Sod 0.075 Mg Tab) 0.15 mg PO DAILYAC [facility] Last Admin: 07/24/22 05:38 Dose: 0.15 mg Mupirocin (Mupirocin 2% Oint 22gm Tube) 1 appl TOP BID [facility] Stop: 07/29/22 21:01 Last Admin: 07/24/22 21:14 Dose: 1 appl Ondansetron HCl (Ondansetron 4 Mg/2 Ml Vial) 4 mg IV Q6HP PRN PRN Reason: NAUSEA / VOMITING Rosuvastatin Calcium (Rosuvastatin 10 Mg Tab) 20 mg PO DAILY [facility] Last Admin: 07/24/22 08:25 Dose: 20 mg Sodium Chloride (Flush Normal Saline 10 Ml) 10 ml IV BID [facility] Last Admin: 07/24/22 21:00 Dose: 10 ml Zolpidem Tartrate (Zolpidem Tartrate 10 Mg Tablet) 10 mg PO 30 MIN BEFORE HS [facility] Last Admin: 07/23/22 23:28 Dose: 10 mg Microbiology Results 07/21/22 18:22 Blood - Blood Aerobic Blood Culture - Preliminary Gram Neg Avery Klebsiella Pneumoniae 07/21/22 18:22 Blood - Blood Blood Culture Gram Stain - Final 07/21/22 18:22 Blood - Blood Anaerobic Blood Culture - Preliminary No growth in 24 hours. 07/21/22 18:05 Blood - Blood Aerobic Blood Culture - Preliminary No growth in 24 hours. 07/21/22 18:05 Blood - Blood Anaerobic Blood Culture - Preliminary No growth in 24 hours. Assessment/ Plan: Nephrology No dyspnea No chest pain Lightheaded No acute events overnight Vitals, medications, blood work and imaging reviewed in the chart. General: In no apparent distress, Oriented x3, Cooperative HEENT: Atraumatic Neck: Supple Respiratory: Clear to auscultation bilaterally Cardiovascular: Regular rate/rhythm, Edema Gastrointestinal: Non-distended, No guarding Musculoskeletal: No clubbing, No contractures Integumentary: No rashes, No cyanosis Neurological: Normal speech Laboratory Data (last 24 hrs) 07/23/22 03:24: WBC 14.20 H, Hgb 12.0 L, Hct 35.9 L, Plt Count 238 07/23/22 03:24: Sodium 127 L, Potassium 3.6, BUN 14, Creatinine 0.73, Glucose 208 H Imagings Data: EXAM DESCRIPTION: RAD - Chest Single View - 07/21/2022 7:30 pm CLINICAL HISTORY: CHEST PAIN Chest pain. COMPARISON: Chest Single View dated 12/25/2021; Chest Single View dated 12/10/2021 FINDINGS: Portable technique limits examination quality. The lungs are grossly clear. The heart is normal in size. No displaced fractures.Right port catheter has its tip in the SVC. IMPRESSION: No acute intrathoracic process suspected. EXAM DESCRIPTION: CT - Chest Abdomen Pelvis W Cont - 07/21/2022 7:23 pm CLINICAL HISTORY: Chest and abdomen pain. sepsis COMPARISON: Abdomen Pelvis Wo Contrast dated 12/25/2021; Abdomen Pelvis W Contrast dated 10/17/2021; Chest Abd Pelvis Wo Con dated 12/10/2021 TECHNIQUE: Approximately 100 mL nonionic IV contrast was administered to the patient. All CT scans are performed using dose optimization technique as appropriate and may include automated exposure control or mA/KV adjustment according to patient size. FINDINGS: Small calcified nodules are present in both lungs likely calcified granulomata.No new nodule seen.No pleural or pericardial effusion.No intrathoracic adenopathy. There are numerous low-density lesions in the liver, largest in the anterior left lobe measuring 5.4 x 5.0 cm, compatible with metastatic lesions. Pigtail catheter is seen in the right subhepatic space. There is no fluid present in this location. Common bile duct stent is in place. Large h ypodense mass in the pancreatic head is present measuring 6.5 x 6.5 cm. Pancreatic ductal dilatation is noted. Moderate thickening of the left adrenal gland seen. No bowel obstruction or free air. Sigmoid diverticulosis coli without diverticulitis. No lytic or blastic bone lesion. IMPRESSION: No acute finding suspected. Pancreatic malignancy noted with metastatic disease to the liver as described. EXAM DESCRIPTION: CT - Head Brain Wo Cont - 07/21/2022 7:17 pm CLINICAL HISTORY: SYNCOPE Headache, drowsiness COMPARISON: No comparisons TECHNIQUE: All CT scans are performed using dose optimization technique as appropriate and may include automated exposure control or mA/KV adjustment according to patient size. FINDINGS: No intracranial hemorrhage, hydrocephalus or extra-axial fluid collection.No areas of brain edema or evidence of midline shift. The paranasal sinuses and mastoids are clear. The calvarium is intact. IMPRESSION: No acute intracranial abnormality. Conclusions/Impression: Hypervolemic Hyponatremia -Furosemide X1 today Hypokalemia -Replete potassium HTN -Continue Imdur -Hydralazine prn DM II with hyperglycemia -Continue Lantus -RISS Moderate malnutrition in the setting of pancreatic cancer (Dx 12/2021) -Recommend protein supplementation Anemia in chronic illness -Monitor H&H
[2022-07-24] MEDS: ZOLPIDEM TARTRATE 10 MG TABLET PO SCH (23:43)
[2022-07-25 01:41] VITALS: O2SAT 97
[2022-07-25] MEDS: HYDROMORPHONE HCL 1 MG/ML INJ IV PRN (03:52)
[2022-07-25] MEDS: LEVOTHYROXINE SOD 0.075 MG TAB PO SCH (05:52)
[2022-07-25 06:46] VITALS: TEMP 97.5
[2022-07-25] MEDS ORDERED: HYDROMORPHONE HCL 0.5 MG/0.5 ML INJ IV PRN (06:50)
--- NOTE | 2022-07-25 07:03 | P.PN ---
Date of Service: 07/25/22 Subjective: Feeling better than yesterday Ambulatory w/o assistance no acute events overnight ROS: 10 point ROS as noted above, otherwise negative Physical Exam: Gen: Alert, NAD, AOx3 HEENT: normal conjunctiva, sclera anicteric CV: regular rate & rhythm, trace b/l edema Pulm: non-labored respirations on room air, clear bilaterally Abd: soft, mild tenderness in RUQ/epigastric region, non-distended Neuro: normal speech, normal affect vitals reviewed Problem List: Gram-negative bacteremia (klebsiella), unclear source Dehydration Hyponatremia Hyperlipidemia Hypertension Hypothyroidism Liver Cancer stage IV Pancreatic Cancer, with liver mets GNR bacteremia unclear source, denies acute symptoms prior to syncopal episode Continue IV rocephin blood cultures - GNR; Klebsiella Pneumoniae ID consulted - recommend IV cefepime, 2 week course will need home health, IV antibiotics UA pending leukocytosis improving Lumbar spine CT pending resume home pain meds norco 10mg TID IV as needed for breakthrough BP improving Continue monitor insulin sliding scale Diet as tolerated Continue home synthroid patient plans to discuss cancer treatment with oncologist/equity trader 07/30 Code: Full Dispo: Home ~24-48 Hours
[2022-07-25] MEDS: INSULIN -REGULAR HUMAN 50 UNIT/0.5 ML ML SQ SCH ×3 (07:30→11:30)
[2022-07-25] MEDS ORDERED: NA CHLORIDE 0.9% 0 ML ONE (07:54)
[2022-07-25] MEDS: MUPIROCIN 2% OINT 22GM TUBE TOP SCH (08:06)
[2022-07-25] MEDS: ISOSORBIDE MONO SR 30 MG TAB PO SCH (08:06)
[2022-07-25] MEDS: ROSUVASTATIN 10 MG TAB PO SCH (08:06)
[2022-07-25] MEDS: INSULIN GLARGINE 100 UNIT/ML SQ SCH (08:07)
--- NOTE | 2022-07-25 08:55 | P.PN ---
Subjective Date of Service: 07/25/22 Chief Complaint: Dehydration, Hyponatremia Patient lying in bed with no major event upon examination. VS stable and afebrile Physical Examination - Vital Signs Temperature: 97.5 F Blood Pressure: 159/86 Pulse: 76 Respirations: 16 Pulse Ox (%): 95 - Physical Exam General: Alert, In no apparent distress, Oriented x3 Respiratory: Clear to auscultation bilaterally, Normal air movement Cardiovascular: No edema, Normal S1 S2 Gastrointestinal: Normal bowel sounds Musculoskeletal: No swelling, No tenderness Integumentary: No rashes, No breakdown, Other (right chest port-a-cath and RUQ biliary drain) Neurological: Normal gait, Normal speech, Normal tone, Sensation intact, Normal affect - Studies active medications Acetaminophen (Acetaminophen 500 Mg Tab) 500 mg PO Q4HP PRN PRN Reason: Pain scale 2-4 (Mild) Hydrocodone Bitart/Acetaminophen (Hydrocodone/Apap 10/325 Tab) 1 tab PO Q8H PRN PRN Reason: Pain scale 5-7 (Moderate) Last Admin: 07/23/22 21:24 Dose: 1 tab Albuterol Sulfate (Albuterol 2.5 Mg/3 Ml Neb Kavitha) 2.5 mg NEB [id number] PRN PRN Reason: SHORTNESS OF BREATH Glucagon (Glucagon 1 Mg/Vial) 1 mg IM 1X PRN; Protocol PRN Reason: HYPOGLYCEMIA Hydralazine HCl (Hydralazine Hcl 20 Mg/Ml Vial) 10 mg IV Q6HP PRN PRN Reason: Titrate to SBP (MUST DEFINE) Last Admin: 07/22/22 11:17 Dose: 10 mg Hydromorphone HCl (Hydromorphone Hcl 0.5 Mg/0.5 Ml Inj) 0.5 mg IV Q6H PRN PRN Reason: Pain scale 8-10 (Severe) Last Admin: 07/25/22 08:07 Dose: 0.5 mg Dextrose (Dextrose 10% Water Iv Soln.) 125 mls @ 0 mls/hr IV PRN PRN; Protocol PRN Reason: HYPOGLYCEMIA Cefepime HCl 2 gm/ Sodium (Chloride) 100 mls @ 200 mls/hr IV Q12HR [facility]; Protocol Last Admin: 07/25/22 08:06 Dose: 100 mls Insulin Glargine (Insulin Glargine 100 Unit/Ml) 20 unit SQ DAILY [facility] Last Admin: 07/25/22 08:07 Dose: 20 unit Insulin Human Regular (Insulin -Regular Human 50 Unit/0.5 Ml Ml) 0 unit SQ [facility]; Protocol Last Admin: 07/25/22 07:30 Dose: 2 unit Isosorbide Mononitrate (Isosorbide [place] Sr 30 Mg Tab) 30 mg PO DAILY [facility] Last Admin: 07/25/22 08:06 Dose: 30 mg Levothyroxine Sodium (Levothyroxine Sod 0.075 Mg Tab) 0.15 mg PO DAILYAC [facility] Last Admin: 07/25/22 05:52 Dose: 0.15 mg Mupirocin (Mupirocin 2% Oint 22gm Tube) 1 appl TOP BID [facility] Stop: 07/29/22 21:01 Last Admin: 07/25/22 08:06 Dose: 1 appl Ondansetron HCl (Ondansetron 4 Mg/2 Ml Vial) 4 mg IV Q6HP PRN PRN Reason: NAUSEA / VOMITING Rosuvastatin Calcium (Rosuvastatin 10 Mg Tab) 20 mg PO DAILY [facility] Last Admin: 07/25/22 08:06 Dose: 20 mg Sodium Chloride (Flush Normal Saline 10 Ml) 10 ml IV BID [facility] Last Admin: 07/25/22 08:08 Dose: 10 ml Zolpidem Tartrate (Zolpidem Tartrate 10 Mg Tablet) 10 mg PO 30 MIN BEFORE HS [facility] Last Admin: 07/24/22 23:43 Dose: 10 mg Microbiology Data (last 24 hrs): Microbiology 07/21/22 18:22 Blood - Blood Aerobic Blood Culture - Preliminary Gram Neg Avery Klebsiella Pneumoniae 07/21/22 18:22 Blood - Blood Blood Culture Gram Stain - Final 07/21/22 18:22 Blood - Blood Anaerobic Blood Culture - Preliminary No growth in 24 hours. 07/21/22 18:05 Blood - Blood Aerobic Blood Culture - Preliminary No growth in 24 hours. 07/21/22 18:05 Blood - Blood Anaerobic Blood Culture - Preliminary No growth in 24 hours. Assessment And Plan - Current Problems (Diagnosis) (1) Gram-negative bacteremia Plan: Cultures: - 07/21 BC: Gram Neg Avery; Klebsiella pneumoniae, Resist to Ampicillin - 07/24 UC: Pending Antibiotics: - Current on IV Ceftriaxone (07/22-07/24) Recommendations: - Continue IV Cefepime for total of 14 days of antibiotics, 07/22 to 08/04 - Can switch to PO Cefdinir when discharge - Plan - Gram Neg Avery Bacteremia-Klebsiella pneumoniae: Continue IV Cefepime for total of 14 days of antibiotics, 07/22-07/25, and can switch to PO Cefdinir when discharge - UC pending for culture - Hyponatremia - Dehydration - Hypertension - Hyperlipidemia - Hypothyroidism - Liver cancer - Pancreatic cancer - Severe protein calorie malnutrition ID will monitor the patient closely for signs of infection with fever and WBC trends Case has been discussed with Dr. Sotelo, N Physician Review: Patient Assessed, Agree with Above Assessment and Plan
[2022-07-25] MEDS ORDERED: CEFEPIME 2 GM in NA CHLORIDE 0.9% 100 ML IV SCH (09:00)
[2022-07-25 09:28] LABS: Absolute Lymphocytes (CBC) 0.7 K/uL (0.7-4.9); Hematocrit 30.6 % (39.6-49.0); Lymphocytes % 5.4 % (15.3-44.8); MCV 88.1 fL (80-100); MPV 7.1 fL (7.6-11.3); RBC Red Blood Cell Count 3.47 M/uL (4.33-5.43)
[2022-07-25 09:50] LABS: Albumin 1.9 g/dL (3.4-5.0); Bilirubin Total 0.3 mg/dL (0.2-1.0); Potassium 3.9 mmol/L (3.5-5.1); Protein, Total 6.8 g/dL (6.4-8.2)
[2022-07-25] MEDS ORDERED: FUROSEMIDE 40 MG TABLET PO ONE (11:15)
--- NOTE | 2022-07-25 11:30 | RAD REPORT ---
EXAM DESCRIPTION: CT - Spine Lumbar Wo Con - 07/25/2022 6:23 am CLINICAL HISTORY: Worsening lumbar pain. COMPARISON: CT of the chest, abdomen, and pelvis from July 21, 2022. TECHNIQUE: CT of the lumbar spine was performed without IV contrast. Axial, coronal, and sagittal re constructions were created and sent to PACS. This exam was performed according to our departmental dose-optimization program, which includes autom ated exposure control, adjustment of the mA and/or kV according to patient size and/or use of iterati ve reconstruction technique. FINDINGS: Bones: No acute osseous abnormality identified. Vertebral body height and alignment is evelyn ntained. Prominent facet arthrosis in the lower lumbar spine. Mild bilateral sacroiliac osteoarthrosi s. No concerning osseous lesions are identified. T12-L1: Mild circumferential disc bulge. No significant central canal or neuroforaminal stenosis iden tified. L1-L2: Mild circumferential disc bulge. No significant central canal or neuroforaminal stenosis ident ified. L2-L3: Moderate circumferential disc bulge. No significant central canal or neuroforaminal stenosis i dentified. L3-L4: Prominent circumferential disc bulge. Moderate to severe bilateral neuroforaminal narrowing du e to vertebral body osteophytes and facet hypertrophy. No significant central canal stenosis identifi ed. L4-L5: Prominent circumferential disc bulge. Small posterior osteophytes. Moderate bilateral neurofor aminal narrowing due to vertebral body osteophytes and facet hypertrophy. No significant central anne l stenosis identified. L5-S1: Moderate circumferential disc bulge. Mild bilateral neuroforaminal narrowing due to disc mater ial. No significant central canal stenosis identified. Paraspinal soft tissues: Moderate calcific atherosclerosis. Partially imaged suspected biliary stent and possible pancreatic stent. Trace free fluid in the pelvis, unchanged from prior. Mild presacral e alexandra/fluid, new from prior. IMPRESSION: 1. No acute osseous abnormality identified. No concerning osseous lesion. 2. Degenerative changes with multilevel disc bulges, prominent facet arthrosis, and multilevel neur oforaminal narrowing, worst at L3-4. 3. Interval development of mild presacral edema/fluid. Electronically signed by: La Antony MD 07/24/2022 11:28 PM CDT Due to temporary technical issues with the PACS/Fluency reporting system, reports are being signed by the in house radiologists without review as a courtesy to insure prompt reporting. The interpreting radiologist is fully responsible for the content of the report.
[2022-07-25 12:15] VITALS: BP 159/86
--- NOTE | 2022-07-25 12:17 | P.DS ---
Admission Date: 07/21/22 Discharge Date: 07/25/22 Disposition: ROUTINE DISCHARGE Discharge Condition: GOOD Reason for Admission: Dehydration, Hyponatremia Consultations: Infectious Disease - Dr. Sotelo Nephrology - Dr. Garibay Brief History of Present Illness: Patient is a 67 year old male with past medical history of hypertension, hyperlipidemia, hypothyroidism, and pancreatic cancer with mets to the liver (last chemo 6 weeks ago) who presented to the emergency department after a syncopal episode. Patient states that he was at [employer] with a friend earlier and when he walked outside he started to experience palpitations, feel weak, started shaking, sweating profusely and passed out. Friend was able to catch him. He was tachycardic upon arrival. His labs are significant for WBC 20, hgb 12.1, sodium 123, chloride 89, gluocose 344, AST 42, alk phos 265, lactate 2.3. Chest/abdomen/pelvis CT showed "No acute finding suspected. Pancreatic malignancy noted with metastatic disease to the liver as described." Head CT negative. Patient improved significantly after IV fluids. ED provider wishes to admit patient for further management. Hospital Course: Problem List: Gram-negative bacteremia (klebsiella), unclear source Dehydration Hyponatremia Hyperlipidemia Hypertension Hypothyroidism stage IV Pancreatic Cancer, with liver mets Presented to ED after episode of chills / tremors and syncope. 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 Infectious Disease was consulted. Patient had improvement on IV rocephin. UA and urine culture were without bacteria / growth. Symptoms and bloodwork improved. ID initially considered discharge home with IV antibiotics, but after discussion, recommended oral cefdinir. Patient is to complete a total of 2 weeks of antibiotics. 10 days of cefdinir have been prescribed. Patient is to resume all other home medications as previously prescribed with exception of Augmentin - follow up with PCP and ID He has an appointment with his Oncologist next week He was also noted to have hyponatremia, which appeared slightly and acutely wor sened on a baseline chronic mild hyponatremia. Nephrology was consulted, and patient received some lasix as he had some mild edema as well. Nephrology recommended for him to follow up with nephrology or PCP to monitor his sodium levels, no new prescriptions on discharge, and may need to start a low dose in the near future. He did report some recent worsening lumbar pain early in the hospitalization, which improved. He reported a bit of migratory joint and skeletal pains over the last few months. Lumbar CT was performed to evaluate for possible metastasis, which was negative for any acute osseous abnormalities. Did note: 1. No acute osseous abnormality identified. No concerning osseous lesion. 2. Degenerative changes with multilevel disc bulges, prominent facet arthrosis, and multilevel neuroforaminal narrowing, worst at L3-4. Continue chronic pain medication at home. Vital Signs/Physical Exam: Temp Pulse Resp BP Pulse Ox 97.5 F 76 16 159/86 H 95 07/25/22 12:14 07/25/22 12:14 07/25/22 12:14 07/25/22 12:14 07/25/22 12:14 Physical Exam: Gen: Alert, NAD, AOx3 HEENT: normal conjunctiva, sclera anicteric CV: regular rate & rhythm, trace b/l edema Pulm: non-labored respirations on room air, clear bilaterally Abd: soft, mild tenderness in RUQ/epigastric region, non-distended Neuro: normal speech, normal affect vitals reviewed Laboratory Data at Discharge: WBC 13.10 K/uL (4.3-10.9) H 07/25/22 09:20 Hgb 10.4 g/dL (13.6-17.9) L 07/25/22 09:20 Hct 30.6 % (39.6-49.0) L 07/25/22 09:20 Plt Count 335 thou/uL (152-406) 07/25/22 09:20 PT 16.2 SECONDS (9.5-12.5) H 07/21/22 18:05 INR 1.47 07/21/22 18:05 APTT 27.6 SECONDS (24.3-36.9) 07/21/22 18:05 Sodium 130 mmol/L (136-145) L 07/25/22 09:20 Potassium 3.9 mmol/L (3.5-5.1) 07/25/22 09:20 BUN 11 mg/dL (7-18) 07/25/22 09:20 Creatinine 0.87 mg/dL (0.70-1.30) 07/25/22 09:20 Glucose 214 mg/dL (74-106) H 07/25/22 09:20 Uric Acid 2.3 mg/dL (3.5-7.2) L 07/24/22 06:01 Phosphorus 4.2 mg/dL (2.5-4.9) 07/22/22 03:54 Magnesium 1.9 mg/dL (1.6-2.4) 07/22/22 03:54 Total Bilirubin 0.3 mg/dL (0.2-1.0) 07/25/22 09:20 AST 37 U/L (15-37) 07/25/22 09:20 ALT 54 U/L (16-61) 07/25/22 09:20 Alkaline Phosphatase 270 U/L (45-117) H 07/25/22 09:20 Lipase 46 U/L (13-75) 07/21/22 18:05 Home Medications: Insulin Glargine,Hum.rec.anlog [Toujeo Solostar] 20 units SQ DAILY 07/22/22 Isosorbide Mononitrate [Isosorbide Mononitrate ER] 30 mg PO DAILY 07/22/22 Levothyroxine Sodium [Levothyroxine] 150 mcg PO DAILY 07/22/22 Rosuvastatin Calcium [Crestor] 20 mg PO DAILY 07/22/22 Zolpidem Tartrate [Ambien] 10 mg PO 30 MIN BEFORE HS 07/22/22 Cefdinir [Cefdinir*] 300 mg PO BID 10 Days #20 cap 07/25/22 New Medications: Cefdinir [Cefdinir*] 300 mg PO BID 10 Days #20 cap Physician Discharge Instructions: Presented to ED after episode of chills / tremors and syncope. 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 Infectious Disease was consulted. Patient had improvement on IV rocephin. UA and urine culture were without bacteria / growth. Symptoms and bloodwork improved. ID initially considered discharge home with IV antibiotics, but after discussion, recommended oral cefdinir. Patient is to complete a total of 2 weeks of antibiotics. 10 days of cefdinir have been prescribed. Patient is to resume all other home medications as previously prescribed with exception of Augmentin - follow up with PCP and ID He has an appointment with his Oncologist next week He was also noted to have hyponatremia, which appeared slightly and acutely worsened on a baseline chronic mild hyponatremia. Nephrology was consulted, and patient received some lasix as he had some mild edema as well. Nephrology recommended for him to follow up with nephrology or PCP to monitor his sodium levels, no new prescriptions on discharge, and may need to start a low dose in the near future. He did report some recent worsening lumbar pain early in the hospitalization, which improved. He reported a bit of migratory joint and skeletal pains over the last few months. Lumbar CT was performed to evaluate for possible metastasis, which was negative for any acute osseous abnormalities. Did note: 1. No acute osseous abnormality identified. No concerning osseous lesion. 2. Degenerative changes with multilevel disc bulges, prominent facet arthrosis, and multilevel neuroforaminal narrowing, worst at L3-4. Continue chronic pain medication at home. Followup: NONE,NONE [Primary Care Provider] - Time spent managing pt's care (in minutes): 45
[2022-07-25] MEDS: HYDROCODONE/APAP 10/325 TAB PO PRN (13:14)
--- NOTE | 2022-07-25 20:46 | P.PN ---
Date of Service: 07/25/22 Vital Signs Temp Pulse Resp BP Pulse Ox 97.5 F 76 16 159/86 H 95 07/25/22 12:14 07/25/22 12:14 07/25/22 13:14 07/25/22 12:14 07/25/22 13:14 Microbiology Results 07/21/22 18:22 Blood - Blood Aerobic Blood Culture - Preliminary Gram Neg Avery Klebsiella Pneumoniae 07/21/22 18:22 Blood - Blood Blood Culture Gram Stain - Final 07/21/22 18:22 Blood - Blood Anaerobic Blood Culture - Preliminary No growth in 24 hours. 07/21/22 18:05 Blood - Blood Aerobic Blood Culture - Preliminary No growth in 24 hours. 07/21/22 18:05 Blood - Blood Anaerobic Blood Culture - Preliminary No growth in 24 hours. Assessment/ Plan: Nephrology No dyspnea No chest pain Feeling better today No acute events overnight Vitals, medications, blood work and imaging reviewed in the chart. General: In no apparent distress, Oriented x3, Cooperative HEENT: Atraumatic Neck: Supple Respiratory: Clear to auscultation bilaterally Cardiovascular: Regular rate/rhythm, Edema Gastrointestinal: Non-distended, No guarding Musculoskeletal: No clubbing, No contractures Integumentary: No rashes, No cyanosis Neurological: Normal speech Laboratory Data (last 24 hrs) 07/23/22 03:24: WBC 14.20 H, Hgb 12.0 L, Hct 35.9 L, Plt Count 238 07/23/22 03:24: Sodium 127 L, Potassium 3.6, BUN 14, Creatinine 0.73, Glucose 208 H Imagings Data: EXAM DESCRIPTION: RAD - Chest Single View - 07/21/2022 7:30 pm CLINICAL HISTORY: CHEST PAIN Chest pain. COMPARISON: Chest Single View dated 12/25/2021; Chest Single View dated 12/10/2021 FINDINGS: Portable technique limits examination quality. The lungs are grossly clear. The heart is normal in size. No displaced fractures.Right port catheter has its tip in the SVC. IMPRESSION: No acute intrathoracic process suspected. EXAM DESCRIPTION: CT - Chest Abdomen Pelvis W Cont - 07/21/2022 7:23 pm CLINICAL HISTORY: Chest and abdomen pain. sepsis COMPARISON: Abdomen Pelvis Wo Contrast dated 12/25/2021; Abdomen Pelvis W Contrast dated 10/17/2021; Chest Abd Pelvis Wo Con dated 12/10/2021 TECHNIQUE: Approximately 100 mL nonionic IV contrast was administered to the patient. All CT scans are performed using dose optimization technique as appropriate and may include automated exposure control or mA/KV adjustment according to patient size. FINDINGS: Small calcified nodules are present in both lungs likely calcified granulomata.No new nodule seen.No pleural or pericardial effusion.No intrathoracic adenopathy. There are numerous low-density lesions in the liver, largest in the anterior left lobe measuring 5.4 x 5.0 cm, compatible with metastatic lesions. Pigtail catheter is seen in the right subhepatic space. There is no fluid present in this location. Common bile duct stent is in place. Large hypodense mass in the pancreatic head is present measuring 6.5 x 6.5 cm. Pancreatic ductal dilatation is noted. Moderate thickening of the left adrenal gland seen. No bowel obstruction or free air. Sigmoid diverticulosis coli without diverticulitis. No lytic or blastic bone lesion. IMPRESSION: No acute finding suspected. Pancreatic malignancy noted with metastatic disease to the liver as described. EXAM DESCRIPTION: CT - Head Brain Wo Cont - 07/21/2022 7:17 pm CLINICAL HISTORY: SYNCOPE Headache, drowsiness COMPARISON: No comparisons TECHNIQUE: All CT scans are performed using dose optimization technique as appropriate and may include automated exposure control or mA/KV adjustment according to patient size. FINDINGS: No intracranial hemorrhage, hydrocephalus or extra-axial fluid collection.No areas of brain edema or evidence of midline shift. The paranasal sinuses and mastoids are clear. The calvarium is intact. IMPRESSION: No acute intracranial abnormality. Conclusions/Impression: Hypervolemic Hyponatremia -Furosemide X1 today Hypokalemia -Replete potassium HTN -Continue Imdur -Hydralazine prn DM II with hyperglycemia -Continue Lantus -RISS Moderate malnutrition in the setting of pancreatic cancer (Dx 12/2021) -Recommend protein supplementation Anemia in chronic illness -Monitor H&H Case reviewed with Dr. Valdez
== END 2022-07-25 13:30 | disposition home or self-care (01) | DRG 640 ==
LOC: ER 17:02 → ERHOLD 21:56 → INTOOBSV 21:56 → 2ND 22:25 → OBSVTOIN 07-23 10:48
PROVIDERS: ADMIT Internal Medicine; ATTEND Hospitalist
DX: E87.1 Hypo-osmolality and hyponatremia (principal); E43 Unspecified severe protein-calorie malnutrition; K63.2 Fistula of intestine; C78.7 Secondary malignant neoplasm of liver and intrahepatic bile duct; C25.0 Malignant neoplasm of head of pancreas; R78.81 Bacteremia; Z16.11 Resistance to penicillins; E86.0 Dehydration; I10 Essential (primary) hypertension; E78.5 Hyperlipidemia, unspecified; E11.65 Type 2 diabetes mellitus with hyperglycemia; D63.8 Anemia in other chronic diseases classified elsewhere; E87.6 Hypokalemia; E03.9 Hypothyroidism, unspecified; B96.1 Klebsiella pneumoniae [K. pneumoniae] as the cause of diseases classified elsewhere; Z63.5 Disruption of family by separation and divorce; Z79.4 Long term (current) use of insulin; Z90.49 Acquired absence of other specified parts of digestive tract; Z85.07 Personal history of malignant neoplasm of pancreas; Z68.30 Body mass index [BMI] 30.0-30.9, adult; Z79.890 Hormone replacement therapy; Z79.899 Other long term (current) drug therapy; Z20.822 Contact with and (suspected) exposure to COVID-19
CPT/HCPCS: 0240U; 36415; 70450; 71045; 71260; 72131; 74177; 80048; 80053; 81001; 82140; 82435; 82533; 82570; 82947; 83605; 83690; 83735; 83880; 83930; 83935; 84100; 84132; 84300; 84439; 84443; 84484; 84550; 85025; 85610; 85730; 86850; 86900; 86901; 87040; 87077; 87086; 87088; 87186; 87205; 93005; 96372; 99285; G0378; J0360; J0692; J1170; J1815; J1940; J7030; Q9967